=== PATIENT | female | born 1985 | race African-American/Black ===

== ENCOUNTER 2023-03-24 12:57 | Outpatient (OUT) | payer OTHER, SELFPAY ==
--- NOTE | 2023-03-24 | CONS_ITS ---
CONSULTATION DATE: ??03/24/2023 TO:? [facility] HISTORY:? Patient returns today complaining of pain in her right mid back area.? She describes this as 6-7/10 pain, sharp in character.? She states it is increased with activities such as standing, walking and performing transitioning maneuvers.? She feels most comfortable in the semi-recumbent position.? She denies any change in bowel or bladder habits or new sensorimotor changes in the lower extremities.? MEDICATION:? Current medication includes naproxen, which she takes 1-2 pills a day, for at least the last six months.? She uses this on an as needed basis.? She usually takes it several times a week.? She is also on baclofen 20 mg pills, one pill at h.s. p.r.n.? She reports these medications are effective, but still is not enough to reduce her pain level, and her pain level continues to affect her quality of life, level of functioning, sleep pattern and her work.? EXAMINATION:? Notable for patient having no clinical radiculopathy or myelopathy involving the lower extremities.? Patient did have severe pain with thoracolumbar facet loading maneuvers on the right side at T11 through L1, with associated severe myofascial spasm of the thoracolumbar paravertebral muscles, which would include but not limited to the thoracic iliocostalis.? IMPRESSION:? She completed physical therapy for her current condition.? Despite this, she still is quite symptomatic. RECOMMENDATIONS:? At this point, I recommend she proceed with a diagnostic right sided T11, T12 and L1 medial branch block under fluoroscopic guidance.? I have asked her to continue with her use of baclofen as ordered and her JOSE was 12.? As part of providing excellent, safe, comprehensive care, the following was completed at our patient's visit: 1. A medication reconciliation and review to ensure accurate knowledge of current/active medications, including asking our patients to inform us about any [id number]-[id number] medications or herbal remedies/nutritional supplements/alternative remedies. 2. A review to specifically ensure our patients have had annual screening for: elevated body mass index (BMI, see intake chart for exact total), tobacco use, screening for depression, and screening for unhealthy alcohol use.? When screening is concerning, patients are provided with education and the specific recommendation to discuss the concerning health issue and treatment options with their primary care provider. ANTHONYD
== END 2023-03-24 12:58 | disposition home or self-care (01) ==
LOC: PM 12:58
PROVIDERS: PCP Family Medicine; Visit Provider Anesthesiology Pain Medicine
DX: M54.89 Other dorsalgia (principal)
CPT/HCPCS: G0463

== ENCOUNTER 2023-05-31 14:54 | Outpatient (OUT) | payer OTHER, SELFPAY ==
--- NOTE | 2023-05-31 | CONS_ITS ---
CONSULTATION DATE: ??05/31/2023 HISTORY:? She returns today complaining of new onset pain in the right side of her chest area, right flank area, described as 5-7/10 pain, sharp in character with a numb component.? Seems to increase with activities such as standing, walking and performing transitioning maneuvers, as well as pushing and pulling movements are quite uncomfortable.? She feels most comfortable in the semi- recumbent position.? Denies any change in bowel and bladder habits or new sensorimotor changes in the lower extremities. EXAM:? Her examination is notable for patient having dysesthesia and hyperesthesia along the distribution of the right T11 and T12 intercostal nerve.? She had severe myofascial spasm of the right thoracic iliocostalis muscle, most severe again at about the T11 or T12 level.? IMPRESSION:? 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 RECOMMENDATIONS:? I have asked her to increase the baclofen 10 mg pills, 1-2 b.i.d.? I have also initiated Zonegran 50 mg at h.s. and to proceed with a diagnostic right sided T11 and T12 intercostal nerve injection under fluoroscopic guidance. As part of providing excellent, safe, comprehensive care, the following was completed at our patient's visit: 1. A medication reconciliation and review to ensure accurate knowledge of current/active medications, including asking our patients to inform us about any [id number]-etrmaqi medications or herbal remedies/nutritional supplements/alternative remedies. 2. A review to specifically ensure our patients have had annual screening for: elevated body mass index (BMI, see intake chart for exact total), tobacco use, screening for depression, and screening for unhealthy alcohol use.? When screening is concerning, patients are provided with education and the specific recommendation to discuss the concerning health issue and treatment options with their primary care provider. TONA
== END 2023-05-31 14:55 | disposition home or self-care (01) ==
PROVIDERS: PCP Family Medicine; Visit Provider Anesthesiology Pain Medicine
DX: M54.14 Radiculopathy, thoracic region (principal); G89.29 Other chronic pain
CPT/HCPCS: G0463

== ENCOUNTER 2023-06-21 10:26 | Day surgery (SDC) | payer OTHER, SELFPAY ==
--- NOTE | 2023-06-21 | OP_ITS ---
PROCEDURE DATE: ??06/21/2023 PROCEDURE:? Outpatient diagnostic right sided T11 and T12 intercostal nerve injection under fluoroscopic guidance. PREOPERATIVE DIAGNOSIS:? 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 POSTOPERATIVE DIAGNOSIS:? 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 SOLUTION USED FOR INJECTION:? Marcaine 0.25%. IMMEDIATE COMPLICATIONS:? None. PROCEDURE:? After informed consent was obtained from the patient, brought to the OR, placed in the prone position.? Skin overlying the area was prepped and draped in sterile fashion using Betadine.? A 25 gauge spinal needle was inserted at the level of the right T11 rib, approximately 3 cm from midline.?? Needle tip was advanced until it was encountered.? Needle was placed inferiorly, injecting Omnipaque dye.? After injecting Omnipaque dye, no indication of intravascular or intraneural or intrathecal or intrapleural needle tip placement.? 1 mL of solution was injected.? This was repeated in a similar fashion at the right T12 level.? Post-op needle was removed.? Transferred to recovery in stable condition.? Will be released home after meeting criteria. [facility]
[2023-06-21 10:35] VITALS: BP 129/87; PULSE 87; RESP 16; TEMP 36.6; O2SAT 100
[2023-06-21 11:29] VITALS: BP 138/63; PULSE 66; RESP 16; O2SAT 98
[2023-06-21] MEDS: METHYLPREDNISOLONE ACETATE 40 MG/ML VIAL 10 MG INJ (11:31)
[2023-06-21] MEDS: BUPIVACAINE HCL 0.25% PF 25 MG/10 ML VIAL 4 ML INJ (11:31)
[2023-06-21 11:32] VITALS: BP 138/66; PULSE 62; RESP 20; O2SAT 94
--- NOTE | 2023-06-21 11:39 | W.PM.PROCNOT ---
Date of procedure: 06/21/23 Pre-op diagnosis: Intercostal Neuritis Post-op diagnosis: same as pre-op
== END 2023-06-21 11:41 | disposition home or self-care (01) ==
LOC: SURGOUT 10:26
PROVIDERS: PCP Family Medicine; Visit Provider Anesthesiology Pain Medicine
DX: M54.14 Radiculopathy, thoracic region (principal)
CPT/HCPCS: 64420; 64421; 77002; J1030

== ENCOUNTER 2023-06-30 11:26 | Outpatient (OUT) | payer OTHER, SELFPAY ==
--- NOTE | 2023-06-30 11:58 | P.CN_ITS ---
Consult Note: HPI Data of Consult Patient: known to practice within the last 3 years Requesting Physician: Carol Tyler NP Primary Care Provider: Sharon Herring Consult Narrative Reason for consult: f/u Narrative: Eran Rankin a pleasant 37 year old female presents for evaluation and management of chronic pain. Pain today in right low back and right hip, rating it 6/10 with dull ache and pressure. Occasional pulling sesnation. Patient underwent right t11/12 intercostal nerve block with 80-90% pain relief and improvement for a few hours, now reporting 50% improvement. Patient doing well with zonegran, finds improvement in pain. cc:: CC: Carol Tyler NP Review of Systems ROS Status of ROS 10 or more systems reviewed and unremarkable except as noted in history and below Musculoskeletal Reports: back pain and joint pain Meds Home Medications and Allergies Home Medications Medication Instructions Recorded Confirmed Type albuterol sulfate 90 mcg/actuation 1 inh inhalation Q4H 06/01/23 06/21/23 History aerosol inhaler baclofen 10 mg tablet 10 mg PO BID PRN muscle spasm 06/01/23 06/21/23 History escitalopram oxalate 20 mg tablet 20 mg PO DAILY 06/01/23 06/21/23 History (Lexapro) hydroxyzine HCl 10 mg tablet 10 mg PO DAILY 06/01/23 06/21/23 History lisinopril 10 1 tab PO DAILY 06/01/23 06/21/23 History mg-hydrochlorothiazide 12.5 mg tablet naproxen 500 mg tablet 500 mg PO BID 06/01/23 06/21/23 History rosuvastatin 20 mg tablet 20 mg PO DAILY 06/01/23 06/21/23 History zonisamide 50 mg capsule 50 mg PO DAILY 06/01/23 06/21/23 History Allergies Allergy/AdvReac Type Severity Reaction Status Date / Time Penicillins Allergy Unknown Verified 06/01/23 08:17 Exam Constitutional Documenting provider has reviewed patient's vital signs: yes Common normals: no apparent distress, oriented x3, healthy appearing, alert and well nourished General appearance: cooperative Nutritional appearance: obese HENMT Common normals: normocephalic, hearing grossly normal bilaterally and moist oral mucous membranes Head and scalp: normocephalic Eye Common normals: PERRL Pupil: PERRL Neck & C-Spine Common normals: full ROM General: normal visual inspection Chest Common normals: inspection of chest normal Respiratory Common normals: normal respiratory effort, no retractions and no use of accessory muscles Back & Pelvis Thoracic spine/upper back: ROM limited and pain with ROM Lumbar spine/lower back: ROM limited and pain with ROM Neuro Common normals: oriented x3, CN's II-XII intact bilaterally, moves all extremities, no focal motor deficits, no sensory deficits noted and deep tendon reflexes 2+ bilaterally Sensorium/orientation: alert Motor exam: strength 5/5 throughout and no movement abnormalities noted Psych Common normals: mental status grossly normal, thought process normal, cooperative, affect normal, speech normal and activity/motor behavior normal Speech: normal speech Thought process: normal thought process Results Additional Findings Additional findings: I have checked an [facility] report on this patient today and there are no aberrancies noted in the prescribing history.?? A drug screen was completed and reviewed within the last year, and if there has not been a drug screen completed we ordered one today to monitor higher risk, state monitored pain medication use. As part of providing excellent, safe, comprehensive care, the following was c ompleted at our patient's visit: 1. A medication reconciliation and review to ensure accurate knowledge of current/active medications, including asking our patients to inform us about any gcmu-yha-hfugidw medications or herbal remedies/nutritional supplements/alternative remedies. 2. A review to specifically ensure our patients have had annual screening for: elevated body mass index (BMI), tobacco use, screening for depression, and screening for unhealthy alcohol use. When screening is concerning, patients are provided with education and the specific recommendation to discuss the concerning health issue and treatment options with their primary care provider. Assessment and Plan Assessment and Plan (1) Thoracic back pain: (2) Intercostal neuritis: (3) Right knee pain: Assessment and Plan: MRI tomorrow, continue f/u with ortho (4) Obesity: Assessment and Plan: The patient was counseled that proper dietary changes and consistent participation in a home exercise plan can lead to weight loss. Weight loss can help to improve functionality in patients with chronic pain.? Plan increase zonegran to 100mg HS f/u with Dr Oneill to evaluate and manage
== END 2023-06-30 11:27 | disposition home or self-care (01) ==
LOC: PM 11:27
PROVIDERS: PCP Family Medicine; Visit Provider Nurse Practitioner
DX: M54.6 Pain in thoracic spine (principal); M79.2 Neuralgia and neuritis, unspecified; M25.561 Pain in right knee; E66.9 Obesity, unspecified
CPT/HCPCS: G0463

== ENCOUNTER 2023-08-04 14:38 | Outpatient (OUT) | payer OTHER, SELFPAY ==
--- NOTE | 2023-08-04 | CONS_ITS ---
CONSULTATION DATE: 08/04/2023 TO: [facility] CHIEF COMPLAINT: Includes right mid back pain, flank pain. HISTORY: She reports the pain as being 6/10, dull, achy in character, increased with activities such as standing, walking and performing transitioning maneuvers. Pushing/pulling maneuvers are also quite painful. She feels most comfortable in the semi-recumbent position. Denies any change in bowel and bladder habits or new sensorimotor changes in the lower extremities. Her last procedure was a right sided T11 and T12 intercostal nerve injection under fluoroscopic guidance. Her pain was dramatically improved by at least 90% in the immediate post procedural period, lasting for several hours, with the recurrence of pain not back to her baseline. She currently is still doing fairly well. She reports the pain is manageable with the current regimen of Zonegran and baclofen. CURRENT MEDICATION: She is currently on Zonegran 50 mg at h.s. and baclofen 10 mg pills, half a pill daily to b.i.d. EXAM: On examination, she has some mild dysesthesia along the distribution of the right T11/T12 intercostal nerve and anterior intercostal nerve as well. She had, otherwise, a non-focal sensorimotor exam of her lower extremities. DTRs are symmetrical. She had no signs consistent with myelopathy. 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 It appears to be stable at the current time with her current regimen. RECOMMENDATIONS: Since she is doing well, we will see the patient back in the office in the office in three months? time or sooner if needed. As part of providing excellent, safe, comprehensive care, the following was completed at our patient's visit: 1. A medication reconciliation and review to ensure accurate knowledge of current/active medications, including asking our patients to inform us about any ntdy-wuh-yqbsvhh medications or herbal remedies/nutritional supplements/alternative remedies. 2. A review to specifically ensure our patients have had annual screening for: elevated body mass index (BMI, see intake chart for exact total), tobacco use, screening for depression, and screening for unhealthy alcohol use. When screening is concerning, patients are provided with education and the specific recommendation to discuss the concerning health issue and treatment options with their primary care provider. TONA
--- OUTSIDE RECORDS SUMMARY | 2023-08-04 14:41 | XMS_ITS | CCD ---
Author Name Unknown Address [address] [place] [address] Organization [facility] Care Team Providers Care Resume Specialist Name Role Phone GISELLA ., DR MARTINEZ Consulting Unavailable GISELLA ., DR MARTINEZ Attending Unavailable [facility] Unava ilable GISELLA ., DR MARTINEZ Admitting Unavailable GISELLA ., DR MARTINEZ Consulting Unavailable GISELLA ., DR MARTINEZ Attending Unavailable [facility] Unava ilable GISELLA ., DR MARTINEZ Admitting Unavailable GISELLA ., DR MARTINEZ Attending Unavailable [facility] Unava ilable GISELLA ., DR MARTINEZ Consulting Unavailable GISELLA ., DR MARTINEZ Admitting Unavailable GISELLA ., DR MARTINEZ Admitting Unavailable GISELLA ., DR MARTINEZ Attending Unavailable [facility] Unava ilable GISELLA ., DR MARTINEZ Consulting Unavailable JUAN CLARK Consulting Unavailable NICK BRUNO Consulting Unava ilable GISELLA ., DR MARTINEZ Consulting Unavailable GISELLA ., DR MARTINEZ Attending Unavailable GISELLA ., DR MARTINEZ Admitting Unavailable [facility] Unava ilable GISELLA ., DR MARTINEZ Consulting Unavailable GISELLA ., DR MARTINEZ Attending Unavailable GISLELA ., DR MARTINEZ Admitting Unavailable [facility] Unava ilable GISELLA ., DR MARTINEZ Consulting Unavailable GISELLA ., DR MARTINEZ Attending Unavailable GISELLA ., DR MARTINEZ Admitting Unavailable [facility] Unava ilable RUMSCHLAG, RASHID Primary Care Unavailable ZIEBER, DR DIANA Del Real Consulting Unavailable LAKSHMIPATHY ., NARENDRANATH Attending Ivy vailable LAKSHMIPATHY ., NARENDDAYNEATH Admitting Ivy vailable LAKSHMIPATHY ., NARRAFAEL Consulting Ivy vailable GISELLA ., DR MARTINEZ Attending Unavailable [facility] Unava ilable GISELLA ., DR MARTINEZ Admitting Unavailable ANTONIO BRADLEY Consulting Unavailable GISELLA ., DR MARTINEZ Consulting Unavailable [facility] Consulting Unava ilable GISELLA ., DR MARTINEZ Consulting Unavailable GISELLA ., DR MARTINEZ Attending Unavailable [facility] Unava ilable GISELLA ., DR MARTINEZ Admitting Unavailable SHARP, MEHREEN Consulting Unavailable DALTON II, RIOS Consulting Unavailable FILUTZE, BAYRON Consulting Unavailable LAKSHMIPATHY ., NARENDRANATH Consulting Ivy vailable LAKSHMIPATHY ., MARÍA Attending Ivy vailable WENDI [facility] Unavailable LAKSHMIPATHY ., MARÍA Admitting Ivy vailable GISELLA ., DR MARTINEZ Attending Unavailable GISELLA ., DR MARTINEZ Admitting Unavailable GISELLA ., DR MARTINEZ Consulting Unavailable [facility] Unava ilable LAY RUIZ Attending Unavailable Allergies Allergy Classification Reported Allergen(s) Allergy Type Date of Onset Reaction(s) Facility (2 sources) Penicillins Drug allergy (disorder) 06-11-2019 [facility] Repository Problems Active Problems Problem Classification Problem Date Documented Da te Episodic/Chronic Disorders of lipid metabolism (1 source) Hyperlipidemia, unspecified; Translations: [HYPERLIPIDEMIA UNSPECIFIED] Onset: 06-09-2022 Chronic Endometriosis (5 sources) Endometriosis, unspecified; Translations: [ENDOMETRIOSIS UNSPECIFIED] Onset: 08-30-2022 Chronic Essential hypertension (1 source) Essential (primary) hypertension; Translations: [ESSENTIAL PRIMARY HYPERTENSION] Onset: 06-09-2022 Chronic Menstrual disorders (2 sources) Excessive and frequent menstruation with regular cycle; Translations: [Dysmenorrhea, unspecified] Onset: 09-07-2022 Chronic Other connective tissue disease (1 source) Other muscle spasm; Translations: [OTHER MUSCLE SPASM] Onset: 12-21-2022 Episodic Other female genital disorders (1 source) Unspecified dyspareunia; Translations: [UNSPECIFIED DYSPAREUNIA] Onset: 09-07-2022 Chronic Other female genital disorders (1 source) Abnormal uterine and vaginal bleeding, unspecified; Translations: [ABNORMAL UTERINE VAGINAL BLEED UNS] Onset: 09-07-2022 Chronic Other nervous system disorders (1 source) Other chronic pain; Translations: [OTHER CHRONIC PAIN] Onset: 12-21-2022 Chronic Other nutritional; endocrine; and metabolic disorders (4 sources) Body mass index (BMI) 50.0-59.9, adult; Translations: [BODY MASS INDEX BMI 50.0-59.9 ADULT] Onset: 07-27-2022 Chronic Other nutritional; endocrine; and metabolic disorders (1 source) Morbid (severe) obesity due to excess calories; Translations: [MORBID SEVERE OBES D/T EXCESS RJ] Onset: 06-09-2022 Chronic Other nutritional; endocrine; and metabolic disorders (1 source) Body mass index (BMI) 60.0-69.9, adult; Translations: [BODY MASS INDEX BMI 60.0-69.9 ADULT] Onset: 06-09-2022 Chronic Prolapse of female genital organs (1 source) Uterovaginal prolapse, unspecified; Translations: [UTEROVAGINAL PROLAPSE UNSPECIFIED] Onset: 09-07-2022 Chronic Spondylosis; intervertebral disc disorders; other back problems (5 sources) Spondylosis without myelopathy or radiculopathy, lumbosacral region; Translations: [Spondylosis without myelopathy or radiculopathy, lumbar region] Onset: 12-14-2022 Chronic Substance-related disorders (1 source) Nicotine dependence, cigarettes, uncomplicated; Translations: [NICOTINE DEPEND CIGARETTES UNCOMP] Onset: 06-09-2022 Chronic Unclassified (1 source) CONTACT W/AND (SUSP) EXPOS COVID-19; Translations: [CONTACT W/AND (SUSP) EXPOS COVID-19] Onset: 09-02-2022 Past or Other Problems Problem Classification Problem Date Documented Date Episodic/Chronic Abdominal pain (6 sources) Pelvic and perineal pain; Translations: [Right lower quadrant pain] Onset: 05-26-2022 Episodic Benign neoplasm of uterus (6 sources) Other benign neoplasm of uterus, unspecified; Translations: [Leiomyoma of uterus, unspecified] Onset: 05-05-2022 Episodic Contraceptive and procreative management (1 source) Tubal ligation status; Translations: [TUBAL LIGATION STATUS] Onset: 09-07-2022 Episodic Immunizations and screening for infectious disease (1 source) Encounter for screening for human papillomavirus (HPV); Translations: [ENC SCREENING HUMAN PAPILLOMAVIRUS] Onset: 07-07-2022 Episodic Other female genital disorders (1 source) Hypertrophy of uterus; Translations: [HYPERTROPHY OF UTERUS] Onset: 09-07-2022 Episodic Other female genital disorders (1 source) Other noninflammatory disorders of ovary, fallopian tube and broad ligament; Translations: [OTH NONINFL D/O OVARY TUBE AND BRD LIG] Onset: 09-07-2022 Episodic Other screening for suspected conditions (not mental disorders or infectious disease) (4 sources) Encounter for screening for malignant neoplasm of cervix; Translations: [ENC SCREENING MALIG NEOPLASM CERV] Onset: 07-05-2022 Episodic Ovarian cyst (1 source) Other ovarian cyst, right side; Translations: [OTHER OVARIAN CYST RIGHT SIDE] Onset: 04-25-2022 Episodic Results Test Name Value Interpretation Reference Range Facility XR LSPINE 2_3 VIEWSon 2022 XR LSPINE 2_3 VIEWS EXAMINATION: XR LSPI NE 2_3 VIEWS HISTORY: Lumbar spondylosis COMPARISON: No relevant comparison available. FINDINGS: BONES: No significant spondylosis, scoliosis, fracture, or visible bony lesion. DISC SPACES: No significant disc height narrowing, subluxation, or endplate abnormality. PARASPINOUS: Negative. No paraspinous abnormality is seen. OTHER: Negative. IMPRESSION: 1. No acute bone abnormality. 2. No appreciable significant disc space narrowing or degenerative facet arthropathy. Electronically authenticated by: DIANA LUONG Date: 2022-12-14 16:25 Normal [facility] BUNon 08-31-2022 Urea nitrogen [Mass/Vol] 9.0 mg/dL Normal 7.0-18.0 [facility] Comment on above: Performed By: #### C BC #### [facility] [address] [address] [address] Rose Lafleur CBC AUTO DIFFon 08-31-2022 BASO # 0.0 103/ul Normal 0.0-0.1 [facility] Comment on above: Performed By: #### C BC #### [facility] [address] [address] [address] Rose Lafleur Basophils/100 WBC (Bld) 0.1 % Critically low 0.2-2.0 [facility] Comment on above: Performed By: #### C BC #### [facility] [address] [place] [address] Dr. Rose Lafleur EO # 0.0 103/ul Normal 0.0-0.7 [facility] Comment on above: Performed By: #### C BC #### [facility] [address] [place] [address] Dr. Rose Lafleur Eosinophils/100 WBC (Bld) 0.0 % Critically low 0.9-7.0 [facility] Comment on above: Performed By: #### C BC #### [facility] [address] [place] [address] Dr. Rose Lafleur Erythrocyte distribution width (RBC) [Ratio] 13.2 % Normal 11.0-15.0 [facility] Comment on above: Performed By: #### C BC #### [facility] [address] [place] [address] Dr. Rose Lafleur Hematocrit (Bld) [Volume fraction] 38.5 % Normal 36.0-48.0 [facility] Comment on above: Performed By: #### C BC #### [facility] [address] [place] [address] Dr. Rose Lafleur Hemoglobin (Bld) [Mass/Vol] 12.7 g/dL Normal 12.0-16.0 [facility] Comment on above: Performed By: #### C BC #### [facility] [address] [place] [address] Dr. Rose Lafleur IG # 0.07 10e3/ul Critically high 0.00-0.03 [facility] Comment on above: Performed By: #### C BC #### [facility] [address] [place] [address] Dr. Rose Lafleur IG % 0.4 % Normal 0.0-0.5 [facility] Comment on above: Performed By: #### C BC #### [facility] [address] [place] [address] Dr. oRse Lafleur LYMPH # 2.3 103/ul Normal 1.2-3.8 [facility] Comment on above: Performed By: #### C BC #### [facility] [address] [place] [address] Dr. Rose Lafleur Lymphocytes/100 WBC (Bld) 14.3 % Critically low 20.5-60.0 [facility] Comment on above: Performed By: #### C BC #### [facility] [address] [place] [address] Dr. Rose Lafleur MANUAL DIFF REQ NO Normal [facility] Comment on above: Performed By: #### C BC #### [facility] [address] [place] [address] Dr. Rose Lafleur MCH (RBC) [Entitic mass] 28.6 pg Normal 26.7-34.0 [facility] Comment on above: Performed By: #### C BC #### [facility] [address] [place] [address] Dr. Rose Lafleur MCHC (RBC) [Mass/Vol] 33.0 g/dL Normal 29.9-35.2 [facility] Comment on above: Performed By: #### C BC #### [facility] [address] [place] [address] Dr. Rose Lafleur MCV (RBC) [Entitic vol] 86.7 fL Normal 81.0-99.0 [facility] Comment on above: Performed By: #### C BC #### [facility] [address] [place] [address] Dr. Rose Lafleur MONO # 0.9 103/ul Critically high 0.3-0.8 [facility] Comment on above: Performed By: #### C BC #### [facility] [address] [place] [address] Dr. Rose Lafleur Monocytes/100 WBC (Bld) 5.5 % Normal 1.7-12.0 [facility] Comment on above: Performed By: #### C BC #### [facility] [address] [place] [address] Dr. Rose Lafleur NEUT # 12.8 103/ul Critically high 1.4-6.5 [facility] Comment on above: Performed By: #### C BC #### [facility] [address] [place] [address] Dr. Rose Lafleur Neutrophils/100 WBC (Bld) 79.7 % Critically high 43.0-75.0 [facility] Comment on above: Performed By: #### C BC #### [facility] [address] [place] [address] Dr. Rose Lafleur Platelet mean volume (Bld) [Entitic vol] 8.9 fL Critically low 9.5-13.5 [facility] Comment on above: Performed By: #### C BC #### [facility] [address] [place] [address] Dr. Rose Lafleur PLT 330 103/ul Normal 150-450 [facility] Comment on above: Performed By: #### C BC #### [facility] [address] [place] [address] Dr. Rose Lafleur RBC 4.44 106/ul Normal 4.20-5.40 [facility] Comment on above: Performed By: #### C BC #### [facility] [address] [place] [address] Dr. Rose Lafleur WBC 16.1 103/ul Critically high 4.0-11.0 [facility] Comment on above: Performed By: #### C BC #### [facility] [address] [place] [address] Dr. Rose Lafleur CREATININEon 08-31-2022 Creatinine [Mass/Vol] 0.59 mg/dL Normal 0.55-1.02 [facility] Comment on above: Performed By: #### C BC #### [facility] [address] [place] [address] Dr. Rose Lafleur EGFR-AF MARTINIQUAIS >60 Normal >=60 [facility] Comment on above: Performed By: #### C BC #### [facility] [address] [place] [address] Dr. Rose Lafleur EGFR-NON AF MARTINIQUAIS >60 Normal >=60 [facility] Comment on above: Performed By: #### C BC #### [facility] [address] [place] [address] Dr. Rose Lafleur PREG HCG QUALon 08-30-2022 , QUAL Negative Normal NEGATIVE [facility] Comment on above: Performed By: #### P REG #### [facility] [address] [place] [address] Dr. Rose Lafleur Covid-19 PCR (CVDTB)on 08-15 SARS-CoV-2 (COVID-19) RNA RUDY+probe Ql (Unsp spec) Not detected Normal NOT DETECTED [facility] Comment on above: Result Comment: This test is not yet approved or cleared by the [place] FDA. When there are no FDA-approved or cleared tests available, and other criteria are met, FDA can make tests available under an emergency access mechanism called an Emergency Use Authorization (EUA). The EUA for this test is supported by the Division Service Manager of Health and Human Service's (HHS's) declaration that circumstances exist to justify the emergency use of in vitro diagnostics for the detection and/or diagnosis of the virus that causes COVID-19. This EUA will remain in effect (meaning this test can be used) for the duration of the COVID-19 declaration justifying emergency of IVDs, unless it is terminated or revoked by FDA (after which the test may no longer be used). When diagnostic testing is negative, the possibility of a false negative should be considered in the context of a patient's recent exposures and the presence of clinical signs and symptoms consistent with SARS-CoV-2. Performed By: #### L DH #### [facility] [address] [place] [address] Dr. Rose Lafleur TYPE AND SCREENon 08-26-2022 TYPE AND SCREEN Negative Normal [facility] Comment on above: Performed By: #### L DH #### [facility] [address] [place] [address] Dr. Rose Lafleur CBC AUTO DIFFon 08-16-2022 BASO # 0.0 103/ul Normal 0.0-0.1 [facility] Comment on above: Performed By: #### C BC #### [facility] [address] [place] [address] Dr. Rose Lafleur Basophils/100 WBC (Bld) 0.3 % Normal 0.2-2.0 [facility] Comment on above: Performed By: #### C BC #### [facility] [address] [place] [address] Dr. Rose Lafleur EO # 0.2 103/ul Normal 0.0-0.7 [facility] Comment on above: Performed By: #### C BC #### [facility] [address] [place] [address] Dr. Rose Lafleur Eosinophils/100 WBC (Bld) 1.7 % Normal 0.9-7.0 [facility] Comment on above: Performed By: #### C BC #### [facility] [address] [place] [address] Dr. Rose Lafleur Erythrocyte distribution width (RBC) [Ratio] 13.1 % Normal 11.0-15.0 [facility] Comment on above: Performed By: #### C BC #### [facility] [address] [place] [address] Dr. Rose Lafleur Hematocrit (Bld) [Volume fraction] 40.6 % Normal 36.0-48.0 [facility] Comment on above: Performed By: #### C BC #### [facility] [address] [place] [address] Dr. Rose Lafleur Hemoglobin (Bld) [Mass/Vol] 13.4 g/dL Normal 12.0-16.0 [facility] Comment on above: Performed By: #### C BC #### [facility] [address] [place] [address] Dr. Rose Lafleur IG # 0.02 10e3/ul Normal 0.00-0.03 [facility] Comment on above: Performed By: #### C BC #### [facility] [address] [place] [address] Dr. Rose Lafleur IG % 0.2 % Normal 0.0-0.5 [facility] Comment on above: Performed By: #### C BC #### [facility] [address] [place] [address] Dr. Rose Lafleur LYMPH # 2.8 103/ul Normal 1.2-3.8 [facility] Comment on above: Performed By: #### C BC #### [facility] [address] [place] [address] Dr. Rose Lafleur Lymphocytes/100 WBC (Bld) 31.7 % Normal 20.5-60.0 [facility] Comment on above: Performed By: #### C BC #### [facility] [address] [place] [address] Dr. Rose Lafleur MANUAL DIFF REQ NO Normal [facility] Comment on above: Performed By: #### C BC #### [facility] [address] [place] [address] Dr. Roes Lafleur MCH (RBC) [Entitic mass] 28.5 pg Normal 26.7-34.0 [facility] Comment on above: Performed By: #### C BC #### [facility] [address] [place] [address] Dr. Rose Lafleur MCHC (RBC) [Mass/Vol] 33.0 g/dL Normal 29.9-35.2 [facility] Comment on above: Performed By: #### C BC #### [facility] [address] [place] [address] Dr. Rose Lafleur MCV (RBC) [Entitic vol] 86.4 fL Normal 81.0-99.0 [facility] Comment on above: Performed By: #### C BC #### [facility] [address] [place] [address] Dr. Rose Lafleur MONO # 0.6 103/ul Normal 0.3-0.8 [facility] Comment on above: Performed By: #### C BC #### [facility] [address] [place] [address] Dr. Rose Lafleur Monocytes/100 WBC (Bld) 6.8 % Normal 1.7-12.0 [facility] Comment on above: Performed By: #### C BC #### [facility] [address] [place] [address] Dr. Rose Lafleur NEUT # 5.1 103/ul Normal 1.4-6.5 [facility] Comment on above: Performed By: #### C BC #### [facility] [address] [place] [address] Dr. Rose Lafleur Neutrophils/100 WBC (Bld) 59.3 % Normal 43.0-75.0 [facility] Comment on above: Performed By: #### C BC #### [facility] [address] [place] [address] Dr. Rose Lafleur Platelet mean volume (Bld) [Entitic vol] 8.9 fL Critically low 9.5-13.5 [facility] Comment on above: Performed By: #### C BC #### [facility] [address] [place] [address] Dr. oRse Lafleur PLT 312 103/ul Normal 150-450 [facility] Comment on above: Performed By: #### C BC #### [facility] [address] [place] [address] Dr. Rose Lafleur RBC 4.70 106/ul Normal 4.20-5.40 [facility] Comment on above: Performed By: #### C BC #### [facility] [address] [place] [address] Dr. Rose Lafleur WBC 8.7 103/ul Normal 4.0-11.0 [facility] Comment on above: Performed By: #### C BC #### [facility] [address] [place] [address] Dr. Rose Lafleur LIVER PROFILEon 08-16-2022 Albumin [Mass/Vol] 2.9 g/dL Critically low 3.4-5.0 [facility] Comment on above: Performed By: #### B MP, LIVER #### [facility] [address] [place] [address] Dr. Rose Lafleur Albumin/Globulin [Mass ratio] 0.6 {ratio} Normal [facility] Comment on above: Performed By: #### B MP, LIVER #### [facility] [address] [place] [address] Dr. Rose Lafleur ALP [Catalytic activity/Vol] 121 U/L Critically high 46-116 [facility] Comment on above: Performed By: #### B MP, LIVER #### [facility] [address] [address] [address] Rose Lafleur ALT [Catalytic activity/Vol] 21 U/L Normal 14-59 [facility] Comment on above: Performed By: #### B MP, LIVER #### [facility] [address] [address] [address] Rose Lafleur AST [Catalytic activity/Vol] 20 U/L Normal 15-37 [facility] Comment on above: Performed By: #### B MP, LIVER #### [facility] [address] [place] [address] Dr. Rose Lafleur BILI, CONJUGATED 0.1 mg/dL Normal 0.0-0.2 [facility] Comment on above: Performed By: #### B MP, LIVER #### [facility] [address] [place] [address] Dr. Rose Lafleur Bilirubin [Mass/Vol] 0.3 mg/dL Normal 0.2-1.0 [facility] Comment on above: Performed By: #### B MP, LIVER #### [facility] [address] [place] [address] Dr. Rose Lafleur Globulin (S) [Mass/Vol] 4.8 g/dL Normal [facility] Comment on above: Performed By: #### B MP, LIVER #### [facility] [address] [place] [address] Dr. Rose Lafleur Protein [Mass/Vol] 7.7 g/dL Normal 6.4-8.2 [facility] Comment on above: Performed By: #### B MP, LIVER #### [facility] [address] [place] [address] Dr. Rose Lafleur PROF CHEM 8 (BAS METB)on Anion gap [Moles/Vol] 10.9 mmol/L Normal [facility] Comment on above: Performed By: #### B MP, LIVER #### [facility] [address] [place] [address] Dr. Rose Lafleur Calcium [Mass/Vol] 8.8 mg/dL Normal 8.5-10.1 [facility] Comment on above: Performed By: #### B MP, LIVER #### [facility] [address] [place] [address] Dr. Rose Lafleur Chloride [Moles/Vol] 102 mmol/L Normal 98-107 [facility] Comment on above: Performed By: #### B MP, LIVER #### [facility] [address] [place] [address] Dr. Rose Lafleur CO2 [Moles/Vol] 26.1 mmol/L Normal 21.0-32.0 [facility] Comment on above: Performed By: #### B MP, LIVER #### [facility] [address] [place] [address] Dr. Rose Lafleur Creatinine [Mass/Vol] 0.64 mg/dL Normal 0.55-1.02 [facility] Comment on above: Performed By: #### B MP, LIVER #### [facility] [address] [place] [address] Dr. Rose Lafleur EGFR-AF MARTINIQUAIS >60 Normal >=60 [facility] Comment on above: Performed By: #### B MP, LIVER #### [facility] [address] [place] [address] Dr. Rose Lafleur EGFR-NON AF MARTINIQUAIS >60 Normal >=60 [facility] Comment on above: Performed By: #### B MP, LIVER #### [facility] [address] [place] [address] Dr. Rose Lafleur Glucose [Mass/Vol] 90 mg/dL Normal 74-106 [facility] Comment on above: Performed By: #### B MP, LIVER #### [facility] [address] [place] [address] Dr. Rose Lafleur Potassium [Moles/Vol] 4.0 mmol/L Normal 3.5-5.1 [facility] Comment on above: Performed By: #### B MP, LIVER #### [facility] Laboratory [address] [place] [address] Dr. Rose Lafleur Sodium [Moles/Vol] 135 mmol/L Critically low 136-145 Th e [facility] Comment on above: Performed By: #### B MP, LIVER #### [facility] Laboratory [address] [place] [address] Dr. Rose Lafleur Urea nitrogen [Mass/Vol] 12.0 mg/dL Normal 7.0-18.0 [facility] Comment on above: Performed By: #### B MP, LIVER #### [facility] [address] [place] [address] Dr. Rose Lafleur Urea nitrogen/Creatinine [Mass ratio] 18.8 mg/mg Normal [facility] Comment on above: Performed By: #### B MP, LIVER #### [facility] [address] [place] [address] Dr. Rose Lafleur PROTIMEon 08-16-2022 INR Coag (PPP) [Relative time] 0.95 {INR} Normal [facility] Comment on above: Performed By: #### C BC #### [facility] [address] [place] [address] Dr. Rose Lafleur INR GUIDELINES SEE BELOW Normal [facility] Comment on above: Result Comment: JAYLYN RED INR: 2.0 - 3.0 CONDITIONS NOT LISTED BELOW 2.5 - 3.5 FOR PROSTHETIC HEART VALVE REPLACEMENT 2.5 - 3.5 RECURRENT THROMBOSIS Performed By: #### C BC #### [facility] [address] [place] [address] Dr. Rose Lafleur PT Coag (PPP) [Time] 10.3 s Normal 9.0-11.6 [facility] Comment on above: Performed By: #### C BC #### [facility] [address] [place] [address] Dr. Rose Lafleur PTTon 08-16-2022 aPTT Coag (Bld) [Time] 32.0 s Normal 22.3-36.2 [facility] Comment on above: Performed By: #### C BC #### [facility] [address] [place] [address] Dr. Rose Lafleur GLYCOHEMOGLOBIN A1Con 2021 ADA RECOMMENDATION SEE BELOW Normal [facility] Comment on above: Result Comment: ADA RECOMMENDED LIMIT 4.0 - 6.0 ADA THERAPEUTIC TARGET < 7.0 ACTION SUGGESTED > 7.0 Performed By: #### C BC #### [facility] [address] [place] [address] Dr. Rose Lafleur Glucose [Mass/Vol] 108 mg/dL Normal [facility] Comment on above: Performed By: #### C BC #### [facility] [address] [place] [address] Dr. Rose Lafleur HbA1c (Bld) [Mass fraction] 5.4 % Normal 4.5-6.2 [facility] Comment on above: Performed By: #### C BC #### [facility] [address] [place] [address] Dr. Rose Lafleur PAP ACOG PANEL 2: 30 to 65on 07-14-2022 . . Normal [facility] Comment on above: Result Comment: Perf ormed at: WB Performed By: #### C BC #### [facility] [address] [place] [address] Dr. Rose Lafleur Age Gdln ACOG Testing 30-65 Normal [facility] Comment on above: Performed By: #### C BC #### [facility] [address] [place] [address] Dr. Rose Lafleur DIAGNOSIS: Comment Normal [facility] Comment on above: Result Comment: NEGA TIVE FOR INTRAEPITHELIAL LESION OR MALIGNANCY. CELLULAR CHANGES ASSOCIATED WITH INFLAMMATION ARE PRESENT. Performed at: WB Performed By: #### C BC #### [facility] [address] [place] [address] Dr. Rose Lafleur HPV Aptima Negative Normal Negative [facility] Comment on above: Result Comment: This nucleic acid amplification test detects fourteen high-risk HPV types (16,18,31,33,35,39,45,51,52,56,58,59,66,68) without differentiation. Performed at: =G Performed By: #### C BC #### [facility] [address] [place] [address] Dr. Rose Lafleur HPV Genotype Reflex Comment Normal [facility] Comment on above: Result Comment: Crit eria not met, HPV Genotype not performed. Performed at: WB Performed By: #### C BC #### [facility] [address] [place] [address] Dr. Rose Lafleur Methodology: CTIM Normal [facility] Comment on above: Result Comment: The Thin Prep(R) Flying Instructor was unable to read this specimen. Therefore a manual review was performed. Performed at: WB Performed By: #### C BC #### [facility] [address] [place] [address] Dr. Rose Lafleur Note: Comment Normal [facility] Comment on above: Result Comment: The Pap smear is a screening test designed to aid in the detection of premalignant and malignant conditions of the uterine cervix. It is not a diagnostic procedure and should not be used as the sole means of detecting cervical cancer. Both false-positive and false-negative reports do occur. . Performed at: WB Performed By: #### C BC #### [facility] [address] [place] [address] Dr. Rose Lafleur Performed by: Comment Normal [facility] Comment on above: Result Comment: Cind jimenez Wolff, Motorcycle Racer (ASCP) Performed at: WB Performed By: #### C BC #### [facility] [address] [place] [address] Dr. Rose Lafleur Specimen adequacy: Comment Normal [facility] Comment on above: Result Comment: Sati sfactory for evaluation. No endocervical component is identified. Performed at: WB Performed By: #### C BC #### [facility] [address] [place] [address] Dr. Rose Lafleur CBC AUTO DIFFon 05-26-2022 BASO # 0.0 103/ul Normal 0.0-0.1 [facility] Comment on above: Performed By: #### C BC #### [facility] [address] [place] [address] Dr. Rose Lafleur Basophils/100 WBC (Bld) 0.4 % Normal 0.2-2.0 [facility] Comment on above: Performed By: #### C BC #### [facility] [address] [place] [address] Dr. Rose Lafleur EO # 0.1 103/ul Normal 0.0-0.7 [facility] Comment on above: Performed By: #### C BC #### [facility] [address] [place] [address] Dr. Rose Lafleur Eosinophils/100 WBC (Bld) 1.2 % Normal 0.9-7.0 [facility] Comment on above: Performed By: #### C BC #### [facility] [address] [place] [address] Dr. Rose Lafleur Erythrocyte distribution width (RBC) [Ratio] 13.6 % Normal 11.0-15.0 [facility] Comment on above: Performed By: #### C BC #### [facility] [address] [place] [address] Dr. Rose Lafleur Hematocrit (Bld) [Volume fraction] 41.6 % Normal 36.0-48.0 [facility] Comment on above: Performed By: #### C BC #### [facility] [address] [place] [address] Dr. Rose Lafleur Hemoglobin (Bld) [Mass/Vol] 13.3 g/dL Normal 12.0-16.0 [facility] Comment on above: Performed By: #### C BC #### [facility] [address] [place] [address] Dr. Rose Lafleur IG # 0.03 10e3/ul Normal 0.00-0.03 [facility] Comment on above: Performed By: #### C BC #### [facility] [address] [place] [address] Dr. Rose Lafleur IG % 0.3 % Normal 0.0-0.5 [facility] Comment on above: Performed By: #### C BC #### [facility] [address] [place] [address] Dr. Rose Lafleur LYMPH # 3.8 103/ul Normal 1.2-3.8 [facility] Comment on above: Performed By: #### C BC #### [facility] [address] [place] [address] Dr. Rose Lafleur Lymphocytes/100 WBC (Bld) 39.8 % Normal 20.5-60.0 [facility] Comment on above: Performed By: #### C BC #### [facility] [address] [place] [address] Dr. Rose Lafleur MANUAL DIFF REQ NO Normal [facility] Comment on above: Performed By: #### C BC #### [facility] [address] [place] [address] Dr. Rose Lafleur MCH (RBC) [Entitic mass] 28.5 pg Normal 26.7-34.0 [facility] Comment on above: Performed By: #### C BC #### [facility] [address] [place] [address] Dr. Rose Lafleur MCHC (RBC) [Mass/Vol] 32.0 g/dL Normal 29.9-35.2 [facility] Comment on above: Performed By: #### C BC #### [facility] [address] [place] [address] Dr. Rose Lafleur MCV (RBC) [Entitic vol] 89.3 fL Normal 81.0-99.0 [facility] Comment on above: Performed By: #### C BC #### [facility] [address] [place] [address] Dr. Rose Lafleur MONO # 0.6 103/ul Normal 0.3-0.8 [facility] Comment on above: Performed By: #### C BC #### [facility] [address] [place] [address] Dr. Rose Lafleur Monocytes/100 WBC (Bld) 6.5 % Normal 1.7-12.0 [facility] Comment on above: Performed By: #### C BC #### [facility] [address] [place] [address] Dr. Rose Lafleur NEUT # 4.9 103/ul Normal 1.4-6.5 [facility] Comment on above: Performed By: #### C BC #### [facility] [address] [place] [address] Dr. Rose Lafleur Neutrophils/100 WBC (Bld) 51.8 % Normal 43.0-75.0 [facility] Comment on above: Performed By: #### C BC #### [facility] [address] [address] [address] Rose Lafleur Platelet mean volume (Bld) [Entitic vol] 8.9 fL Critically low 9.5-13.5 [facility] Comment on above: Performed By: #### C BC #### [facility] [address] [place] [address] Dr. Rose Lafleur PLT 310 103/ul Normal 150-450 [facility] Comment on above: Performed By: #### C BC #### [facility] [address] [place] [address] Dr. Rose Lafleur RBC 4.66 106/ul Normal 4.20-5.40 [facility] Comment on above: Performed By: #### C BC #### [facility] [address] [place] [address] Dr. Rose Lafleur WBC 9.5 103/ul Normal 4.0-11.0 [facility] Comment on above: Performed By: #### C BC #### [facility] [address] [place] [address] Dr. Rose Lafleur PREG HCG QUALon 05-26-2022 , QUAL Negative Normal NEGATIVE [facility] Comment on above: Performed By: #### P REG #### [facility] [address] [place] [address] Dr. Rose Lafleur [facility]on SARS-CoV-2 (COVID-19) RNA RUDY+probe Ql (Unsp spec) Not detected Normal NOT DETECTED [facility] Comment on above: Result Comment: This test is not yet approved or cleared by the [place] FDA. When there are no FDA-approved or cleared tests available, and other criteria are met, FDA can make tests available under an emergency access mechanism called an Emergency Use Authorization (EUA). The EUA for this test is supported by the Division Service Manager of Health and Human Service's (HHS's) declaration that circumstances exist to justify the emergency use of in vitro diagnostics for the detection and/or diagnosis of the virus that causes COVID-19. This EUA will remain in effect (meaning this test can be used) for the duration of the COVID-19 declaration justifying emergency of IVDs, unless it is terminated or revoked by FDA (after which the test may no longer be used). When diagnostic testing is negative, the possibility of a false negative should be considered in the context of a patient's recent exposures and the presence of clinical signs and symptoms consistent with SARS-CoV-2. Performed By: #### C BC #### [facility] [address] [place] [address] Dr. Rose Lafleur AFP (TUMOR MARKER)on 022 AFP, Serum, Tumor Marker 1.6 ng/mL Normal 0.0-6.4 [facility] Comment on above: Result Comment: [facility] [employer] Electrochemiluminescence Immunoassay (ECLIA) . Values obtained with different assay methods or kits cannot be used interchangeably. Results cannot be interpreted as absolute evidence of the presence or absence of malignant disease. . This test is not interpretable in females. Performed By: #### C BC #### [facility] [address] [place] [address] Dr. Rose Lafleur CA 125on 05-07-2022 Cancer Antigen (CA) 125 17.1 U/mL Normal 0.0-38.1 [facility] Comment on above: Result Comment: [employer] Electrochemiluminescence Immunoassay (ECLIA) . Values obtained with different assay methods or kits cannot be used interchangeably. Results cannot be interpreted as absolute evidence of the presence or absence of malignant disease. Performed By: #### L DH #### [facility] [address] [place] [address] Dr. Rose Lafleur CEAon 05-07-2022 CEA 1.6 ng/mL Normal 0.0-4.7 [facility] Comment on above: Result Comment: Nons mokers <3.9 Smokers <5.6 . [employer] Electrochemiluminescence Immunoassay (ECLIA) . Values obtained with different assay methods or kits cannot be used interchangeably. Results cannot be interpreted as absolute evidence of the presence or absence of malignant disease. Performed By: #### C BC #### [facility] [address] [place] [address] Dr. Rose Lafleur HCG QUANT TUMOR MARKERon HCG QNT TUMOR MARKER <1 Normal [facility] Comment on above: Result Comment: Fema le (Non-) 0 - 5 (Postmenopausal) 0 - 8 . [employer] [facility] Electrochemiluminescence Immunoassay (ECLIA) . The [employer] HCG + beta assay recognizes the holo-hormone, human chorionic gonadotropin (hCG), nicked forms of hCG, the beta-core fragment and the free beta-subunit in human serum and plasma. . Results obtained with different test methods or kits cannot used interchangeably. This assay is intended for the early detection of . The result should not be used for treatment or for diagnostic purposes without confirmation of the diagnosis by another medically established diagnostic product or procedure. . This test was developed and its performance characteristics determined by [employer]. It has not been cleared or approved by the Food and Drug Administration for use as a tumor marker. . This test is not interpretable as a tumor marker in females. Performed By: #### C BC #### [facility] [address] [place] [address] Dr. Rose Lafleur LDHon 05-05-2022 LDH 269 U/L Critically high 81-234 [facility] Comment on above: Performed By: #### L DH #### [facility] [address] [place] [address] Dr. Rose Lafleur CBC AUTO DIFFon 04-21-2022 BASO # 0.0 103/ul Normal 0.0-0.1 [facility] Comment on above: Performed By: #### L DH #### [facility] [address] [place] [address] Dr. Rose Lafleur Basophils/100 WBC (Bld) 0.3 % Normal 0.2-2.0 [facility] Comment on above: Performed By: #### L DH #### [facility] [address] [place] [address] Dr. Rose Lafleur EO # 0.1 103/ul Normal 0.0-0.7 [facility] Comment on above: Performed By: #### L DH #### [facility] [address] [place] [address] Dr. Rose Lafleur Eosinophils/100 WBC (Bld) 0.7 % Critically low 0.9-7.0 [facility] Comment on above: Performed By: #### L DH #### [facility] [address] [place] [address] Dr. Rose Lafleur Erythrocyte distribution width (RBC) [Ratio] 13.9 % Normal 11.0-15.0 [facility] Comment on above: Performed By: #### L DH #### [facility] [address] [place] [address] Dr. Rose Lafleur Hematocrit (Bld) [Volume fraction] 41.5 % Normal 36.0-48.0 [facility] Comment on above: Performed By: #### L DH #### [facility] [address] [place] [address] Dr. Rose Lafleur Hemoglobin (Bld) [Mass/Vol] 13.4 g/dL Normal 12.0-16.0 [facility] Comment on above: Performed By: #### L DH #### [facility] [address] [place] [address] Dr. Rose Lafleur IG # 0.03 10e3/ul Normal 0.00-0.03 [facility] Comment on above: Performed By: #### L DH #### [facility] [address] [place] [address] Dr. Rose Lafleur IG % 0.3 % Normal 0.0-0.5 [facility] Comment on above: Performed By: #### L DH #### [facility] [address] [place] [address] Dr. Rose Lafleur LYMPH # 3.7 103/ul Normal 1.2-3.8 [facility] Comment on above: Performed By: #### L DH #### [facility] [address] [place] [address] Dr. Rose Lafleur Lymphocytes/100 WBC (Bld) 32.9 % Normal 20.5-60.0 [facility] Comment on above: Performed By: #### L DH #### [facility] [address] [place] [address] Dr. Rose Lafleur MANUAL DIFF REQ NO Normal [facility] Comment on above: Performed By: #### L DH #### [facility] [address] [place] [address] Dr. Rose Lafleur MCH (RBC) [Entitic mass] 28.6 pg Normal 26.7-34.0 [facility] Comment on above: Performed By: #### L DH #### [facility] [address] [place] [address] Dr. Rose Lafleru MCHC (RBC) [Mass/Vol] 32.3 g/dL Normal 29.9-35.2 [facility] Comment on above: Performed By: #### L DH #### [facility] [address] [place] [address] Dr. Rose Lafleur MCV (RBC) [Entitic vol] 88.5 fL Normal 81.0-99.0 [facility] Comment on above: Performed By: #### L DH #### [facility] [address] [place] [address] Dr. Rose Lafleur MONO # 0.7 103/ul Normal 0.3-0.8 [facility] Comment on above: Performed By: #### L DH #### [facility] [address] [place] [address] Dr. Rose Lafleur Monocytes/100 WBC (Bld) 6.1 % Normal 1.7-12.0 [facility] Comment on above: Performed By: #### L DH #### [facility] [address] [place] [address] Dr. Rose Lafleur NEUT # 6.7 103/ul Critically high 1.4-6.5 [facility] Comment on above: Performed By: #### L DH #### [facility] [address] [place] [address] Dr. Rose Lafleur Neutrophils/100 WBC (Bld) 59.7 % Normal 43.0-75.0 [facility] Comment on above: Performed By: #### L DH #### [facility] [address] [place] [address] Dr. Rose Lafleur Platelet mean volume (Bld) [Entitic vol] 9.0 fL Critically low 9.5-13.5 [facility] Comment on above: Performed By: #### L DH #### [facility] [address] [place] [address] Dr. Rose Lafleur PLT 320 103/ul Normal 150-450 [facility] Comment on above: Performed By: #### L DH #### [facility] [address] [place] [address] Dr. Rose Lafleur RBC 4.69 106/ul Normal 4.20-5.40 [facility] Comment on above: Performed By: #### L DH #### [facility] [address] [place] [address] Dr. Rose Lafleur WBC 11.1 103/ul Critically high 4.0-11.0 [facility] Comment on above: Performed By: #### L DH #### [facility] [address] [place] [address] Dr. Rose Lafleur GLYCOHEMOGLOBIN A1Con 2021 ADA RECOMMENDATION SEE BELOW Normal [facility] Comment on above: Result Comment: ADA RECOMMENDED LIMIT 4.0 - 6.0 ADA THERAPEUTIC TARGET < 7.0 ACTION SUGGESTED > 7.0 Performed By: #### A 1C #### [facility] [address] [place] [address] Dr. Rose Lafleur Glucose [Mass/Vol] 111 mg/dL Normal [facility] Comment on above: Performed By: #### A 1C #### [facility] [address] [place] [address] Dr. Rose Lafleur HbA1c (Bld) [Mass fraction] 5.5 % Normal 4.5-6.2 [facility] Comment on above: Performed By: #### A 1C #### [facility] [address] [place] [address] Dr. Rose Lfaleur TSHon 04-21-2022 TSH 1.207 uIU/mL Normal 0.358-3.740 [facility] Comment on above: Performed By: #### T SH #### [facility] [address] [place] [address] Dr. Rose Lafleur US PELVIS AND TRANSVAGon US PELVIS AND TRANSVAG EXAMINATION: US PELVIS AND TRANSVAG HISTORY: Pelvic and perineal pain COMPARISON: No relevant comparison available. FINDINGS: Transabdominal and transvaginal images The uterus is normal in size and contour measuring 8.6 x 5.4 x 5.7 cm. Heterogeneous myometrium with scattered masses the largest measuring 1.9 x 1.5 1.4 cm. Some of the lesions appear calcified with acoustic shadowing. The endometrium measures 4.5 mm, normal. The right ovary is normal in size measuring 4.1 x 3.3 x 2.4 cm. Normal color and Doppler flow. Normal resistive index of 0.49. Area of anechoic echogenicity measuring 3.9 x 2.7 x 1.6 cm with a septation. The left ovary is normal in appearance measuring 2.4 x 2.0 x 1.3 cm. Normal color Doppler flow. Normal resistive index of 0.51. IMPRESSION: Heterogeneous myometrium with calcified and noncalcified masses. Fibroids are statistically favored 3.9 cm septated right ovarian cyst Electronically authenticated by: ANTONIO BRADLEY Date: 2022-04-21 15:32 Normal [facility] Encounters Encounter Date Encounter Type Care Provider Facility Start: 07-21-2023 End: 07-21-2023 ambulatory LAY RUIZ Not Available Start: 12-14-2022 End: 12-15-2022 ambulatory RASHID ADAME Facility: Start: 09-02-2022 Encounter for prepro cedural laboratory examination DR JUAN ARRIAZA . [facility] Start: 08-30-2022 End: 08-31-[address] JUAN ARRIAZA . Facility:[facility] Start: 08-26-2022 End: 08-27-[address] JUAN ARRIAZA . Facility:[facility] Start: 08-26-2022 End: 08-27-2022 Encounter for preprocedural laboratory examination DR JUAN ARRIAZA . Facility:[facility] Start: 08-16-2022 End: 08-17-[address] JUAN ARRIAZA . Facility:[facility] Start: 07-27-2022 End: 07-28-[address] JUAN ARRIAZA . Facility:[facility] Start: 07-05-2022 End: 07-05-[address] JUAN ARRIAZA . Facility:[facility] Start: 05-26-2022 End: 05-26-[address] JUAN ARRIAZA . Facility:[facility] Start: 05-22-2022 End: 05-23-[address] JUAN ARIRAZA . Facility:[facility] Start: 05-15-2022 Encounter for prepro cedural cardiovascular examination DR JUAN ARRIAZA . [facility] Start: 05-13-2022 End: 05-14-[address] JUAN ARRIAZA . Facility:[facility] Start: 05-13-2022 End: 05-14-2022 Encounter for preprocedural cardiovascular examination DR JUAN ARRIAZA . Facility:[facility] Start: 05-05-2022 End: 05-06-[address] JUAN ARRIAZA . Facility:[facility] Start: 04-21-2022 End: 04-22-[address] JUAN ARRIAZA . Facility: Payers Date Payer Category Payer Unknown [id number] 2.16.84 [id number] 1983 Unknown [id number] 2.16.84 [id number] 1983 Unknown [id number] 2.16.84 [id number] 1983 Unknown [id number] 2.16.84 [id number] 1983 Unknown [id number] 2.16.84 [id number] 1983 Unknown [id number] 2.16.84 [id number] 1983 Unknown [id number] 2.16.84 [id number] 1983 Unknown [id number] 2.16.84 [id number] 1983 Unknown [id number] 2.16.84 [id number] 1983 Unknown [id number] 2.16.84 [id number] 1983 Unknown [id number] 2.16.84 [id number] 1983 Unknown [id number] 2.16.84 [id number] 1983 Unknown [id number] 2.16.840 .[id number] 1959 Unknown [id number] Consultation note 12-14-2022 Note Date & Type Note Facility 12-14-2022 Note CONSULTATION CONSULTATION DATE: 12/14/2022 TO: [facility] CHIEF COMPLAINT: Includes severe right mid to low back pain HISTORY OF PRESENT ILLNESS: Review of systems, past medical/surgical history were obtained and documented on the health questionnaire and is available upon request. She is a 36-year-old female, who reports having pain since July of 2022. The pain occurred spontaneously, increasing gradually to its present state, where she describes 5-7/10 pain in her mid to low back area, worse on the right side, sharp in character with a pressure component, increasing with activities such as standing ,walking and performing transitioning maneuvers. She denies any change in bowel and bladder habits or new sensorimotor changes in the lower extremities. CURRENT MEDICATION: Includes naproxen which she has been taking since at least July 2022. Despite this, she reports the pain has progressed to the point it has altered her quality of life, level of functioning and sleep pattern. She has also been in an independent exercise program, and has undergone activity modification. Other medication includes baclofen, she takes 20 mg b.i. d., which she takes infrequently. EXAM: Her examination is notable for the patient having no clinical radiculopathy or myelopathy involving her lower extremities. She had severe pain with thoracolumbar facet joint loading maneuvers, occurring worse on the right side, from approximately the T10 to the L3 level with associated myofascial spasm of the lumbar paravertebral muscles, also on the right side. IMPRESSION: Our impression is patient appears to have chronic pain secondary to lumbosacral spondylosis with facet loading pain clinically. She also has significant myofascial spasm. RECOMMENDATIONS: We placed a skin marker over her most painful area and obtained a lumbar spine film. The skin marker was noted to be over the T12-L1 level on the right side, and she had also pain at the T11-T12 also on the right side. I recommend proceeding with a diagnostic right sided thoracic facet joint injection at T11-12, T12-L1 under fluoroscopic guidance. I have asked her to continue with baclofen but to increase its use as needed to around the clock, and to initiate aquatic therapy. As part of providing excellent, safe, comprehensive care, the following was completed at our patient's visit: 1. A medication reconciliation and review to ensure accurate knowledge of current/active medications, including asking our patients to inform us about any [id number] medications or herbal remedies/nutritional supplements/alternative remedies. 2. A review to specifically ensure our patients have had annual screening for: elevated body mass index (BMI, see intake chart for exact total), tobacco use, screening for depression, and screening for unhealthy alcohol use. When screening is concerning, patients are provided with education and the specific recommendation to discuss the concerning health issue and treatment options with their primary care provider. [facility] Clinical Note 08-30-2022 Note Date & Type Note Facility 08-30-2022 Note OPERATIVE NOTE OPERATION DATE: 08/30/2022 PROCEDURE: Da Beatriz assisted laparoscopy hysterectomy with bilateral salpingectomy with cystoscopy. PREOPERATIVE DIAGNOSIS: Abnormal uterine bleeding, menorrhagia, dysmenorrhea, dyspareunia, failed ablation, pelvic pain, uterine fibroids. POSTOPERATIVE DIAGNOSIS: Abnormal uterine bleeding, menorrhagia, dysmenorrhea, dyspareunia, failed ablation, pelvic pain, uterine fibroids. ANESTHESIA: General. SURGEON: Juan Arriaza D.O. HOSPITAL ACCOUNT LIAISON: FRANNIE Luu URINE OUTPUT: Yellow and clear. BLOOD LOSS: 100 mL. SPECIMEN: Uterus and tubes. FINDINGS: Enlarged uterus with multiple large uterine fibroids, endometriosis of the right adnexa. PROCEDURE: The patient was taken back to the operating room, where she was prepped and draped in the normal sterile fashion after being placed in the dorsal lithotomy position. Patient's anesthesia was found to be adequate. Surgical timeout was performed using two patient identifiers. SCDs were on and in place. Two grams of Ancef were given prior to the surgery. Sterile Schwab catheter was inserted. Standard size VCare was secured to the uterine cervix and the surgeon changed gloves. Attention then was turned to the patient's abdomen, where a supraumbilical incision was then made. Two S retractors were used to identify the patient's fascia. The fascia was then tented up using Esperanza clamps and the patient's fascia was incised sharply. Patient's abdomen was identified and entered bluntly. The patient had the trocar placed and a pneumoperitoneum was obtained. Approximately 4 liters of CO2 gas was used. The camera was then placed through the trocar. At this time, two robot trocars were placed in the patient's left and right side, two hand widths from the midline, and this was placed under direct visualization. The patient's tube on the right side was tended up and the vessel sealer was then used to come across the mesosalpinx, and this was carried down to the uterine ovarian ligament. The vessel sealer was carried down serially to the broad ligament, to the area of the bladder flap, which was then created anteriorly, and the uterine arteries were skeletonized and sealed using the vessel sealer. The colpotomy was made using the monopolar cautery on cut, and this was carried circumferentially, posteriorly to anteriorly, until the uterus was amputated. The specimen was then removed intact through the vagina, without difficulty. The vagina was then closed using two running V-Loc in a non-lock fashion. The robot was undocked. The abdomen was desufflated. The skin defects were closed using 4-0 Vicryl. Please note, the fascia was closed using 0 Vicryl. Sponge, lap and needle counts were correct x2. Patient was taken to recovery room in stable condition. The patient was awakened by Anesthesia first. Patient tolerated procedure well. [facility] Clinical Note 05-26-2022 Note Date & Type Note Facility 05-26-2022 Note OPERATIVE NOTE OPERATION DATE: 05/26/2022 PROCEDURE: Attempted D AND C hysteroscopy, diagnostic laparoscopy, lysis of omental adhesions from the anterior abdominal wall using a LigaSure. PREOPERATIVE DIAGNOSIS: Pelvic pain, dysmenorrhea, dyspareunia. POSTOPERATIVE DIAGNOSIS: Pelvic pain, dysmenorrhea, dyspareunia including endometriosis ANESTHESIA: General. SURGEON: Juan Arriaza D.O. HOSPITAL ACCOUNT LIAISON: FRANNIE Huizar URINE OUTPUT: Yellow and clear. BLOOD LOSS: 10 mL. SPECIMEN: None. FINDINGS: Endometriosis on the pelvic side wall and posterior cul-de-sac, significant uterine fibroids posterior and anterior, mainly in the fundal region, extending down to the lower uterine segment. Otherwise, normal appearing ovaries, slightly blunted right and left ovarian tube, probably secondary to endometriosis. PROCEDURE: The patient was taken back to the Operating Room where she was prepped and draped in normal sterile fashion after being placed under general anesthesia without difficulty. She was also placed in the dorsal lithotomy position. A weighted speculum was placed in the patient's vagina. The anterior lip of the cervix was identified and grasped with a single tooth tenaculum. The patient's uterus was then sounded roughly to [ 9 ] cm. The patient was then gently dilated using Hegar dilators. The hysteroscope was passed through the patient's cervix into the uterus. Both ostia were identified. slightly thickened appearing endometrium. No gross evidence of malignancy. Please note that the MyoSure apparatus was placed through the hysteroscope under direct visualization. The apparatus was engaged and endometrial curettings were removed under direct visualization. The MyoSure was then removed from the scope. The hysteroscope was then removed from the patient's uterus. The endometrial curettings were sent out to pathology. The single tooth tenaculum was then removed from the patient's anterior lip of the cervix where excellent hemostasis was noted. All instruments were removed from the patient's vagina. The patient tolerated the procedure well. Sponge, lap and needle counts were correct times two. The patient was taken to the Recovery Room in stable condition. The patient was taken back to the Operating Room where she was placed in dorsal lithotomy position after given general anesthesia. The patient was prepped and draped in normal sterile fashion. A sponge stick was placed into the patient's vagina. Attention was turned to the patient's abdomen, where a small umbilical incision was made. The fascia was tented using Esperanza clamps and the fascia was entered sharply. Confirmation of intra-abdominal placement of the 10 mm port was confirmed under direct visualization using a laparoscope. The patient's abdomen was then insufflated using CO2 gas with approximately 4 liters. A second port was placed left laterally, this was done under direct visualization with a 5 mm port. Survey of the patient's abdomen demonstrated normal liver and gallbladder. Survey of the patient's pelvic anatomy demonstrated normal appearing ovaries and tubes as well as normal appearing uterus. No endometrial implants could be noted, no evidence of any pelvic disease was seen, normal appearing pelvic cavity. All instruments were removed from the patient's abdomen. The patient's abdomen was desufflated of CO2 gas. The patient tolerated the procedure well. Sponge stick was removed from the patient's vagina. The patient's infraumbilical fascia was closed using #0 Vicryl on a GI needle. The patient's skin was closed laterally and infraumbilically using 4-0 Vicryl. The patient tolerated the procedure well. Sponge, lap and needle counts were correct x 2. The patient was taken to Recovery Room in stable condition. [facility] Clinical Note 05-26-2022 Note Date & Type Note Facility 05-26-2022 Note OPERATIVE NOTE OPERATION DATE: 06/11/2022 ADDENDUM TO PROCEDURE: LigaSure apparatus was used to come across omental adhesions, extending to the anterior abdominal wall. This was released. Excellent hemostasis was assured. ADDENDUM TO POST-OP DIAGNOSIS: Significant uterine fibroids. [facility] Summary Purpose Family History No Family History Records FoundNo Family History Records Found Advance Directives No Advanced Directives Records FoundNo Advanced Directives Records Found Additional Source Comments INFORMATION SOURCE (unrecogn ized section and content) DATE CREATED AUTHOR 12/22/2022 [facility] DATE CREATED AUTHOR AUTHOR'S ORGANIZ ATION 07/23/2023 [facility] FOR RECORDS PERTAINING TO PATIENTS WHO ARE OR HAVE BEEN ENROLLED IN A CHEMICAL DEPENDENCY/SUBSTANCEABUSE PROGRAM, SOME INFORMATION MAY BE OMITTED. This clinical summary was aggregated from multiple sources. Caution should be exercised in using it in the provision of clinical care. This summary normalizes information from multiple sources, and as a consequence, information in this document may materially change the coding, format and clinical context of patient data. In addition, data may be omitted in some cases. CLINICAL DECISIONS SHOULD BE BASED ON THE PRIMARY CLINICAL RECORDS. [facility] [employer] [facility] provides no warranty or guarantee of the accuracy or completeness of information in this document.
== END 2023-08-04 14:39 | disposition home or self-care (01) ==
LOC: PM 14:39
PROVIDERS: PCP Family Medicine; Visit Provider Anesthesiology Pain Medicine
DX: M79.2 Neuralgia and neuritis, unspecified (principal)
CPT/HCPCS: G0463

== ENCOUNTER 2023-08-22 06:38 | Outpatient (OUT) | payer OTHER, SELFPAY ==
--- OUTSIDE RECORDS SUMMARY | 2023-08-20 11:00 | XMS_ITS | CCD ---
Author Name Unknown Address [facility] [address] [place] [address] Organization [facility] Care Team Providers Care Chain Offbearer Name Role Phone GISELLA ., DR MARTINEZ Consulting Unavailable GISELLA ., DR MARTINEZ Attending Unavailable [facility] Unava ilable GISELLA ., DR MARTINEZ Admitting Unavailable GISELLA ., DR MARTINEZ Consulting Unavailable GISELLA ., DR MARTINEZ Attending Unavailable [facility] Unava ilable GISELLA ., DR MARTINEZ Admitting Unavailable GISELLA ., DR MARTINEZ Attending Unavailable [facility] Unava ilable GISELLA ., DR MARTINEZ Consulting Unavailable GISELLA ., DR MARTINEZ Admitting Unavailable GISELLA ., DR MARTINEZ Admitting Unavailable GISELLA ., DR MARTINEZ Attending Unavailable [facility] Unava ilable GISELLA ., DR MARTINEZ Consulting Unavailable JUAN CLARK Consulting Unavailable NICK BRUNO Consulting Unava ilable GISELLA ., DR MARTINEZ Consulting Unavailable GISELLA ., DR MARTINEZ Attending Unavailable GISELLA ., DR MARTINEZ Admitting Unavailable [facility] Unava ilable GISELLA ., DR MARTINEZ Consulting Unavailable GISELLA ., DR MARTINEZ Attending Unavailable GISELLA ., DR MARTINEZ Admitting Unavailable [facility] Unava ilable GISELLA ., DR MARTINEZ Consulting Unavailable GISELLA ., DR MARTINEZ Attending Unavailable GISELLA ., DR MATRINEZ Admitting Unavailable [facility] Unava ilable RASHID ADAME Primary Care Unavailable ZIEBER, DR DIANA Del Real Consulting Unavailable LAKSHMIPATHY ., NARENDRANATH Attending Ivy vailable LAKSHMIPATHY ., NARENDRANATH Admitting Ivy vailable LAKSHMIPATHY ., NARRAFAEL Consulting Ivy vailable GISELLA ., DR MARTINEZ Attending Unavailable [facility] Unava ilable GISELLA ., DR MARTINEZ Admitting Unavailable ANTONIO BRADLEY Consulting Unavailable GISELLA ., DR MARTINEZ Consulting Unavailable [facility] Consulting Unava ilable GISELLA ., DR MARTINEZ Consulting Unavailable GISELLA ., DR MARTINEZ Attending Unavailable [facility] Unava ilable GISELLA ., DR MARTINEZ Admitting Unavailable SHARP, MEHREEN Consulting Unavailable DALTON II, RIOS Consulting Unavailable FILUTZE, BAYRON Consulting Unavailable LAKSHMIPATHY ., NARENDRANATH Consulting Ivy vailable LAKSHMIPATHY ., MARÍA Attending Ivy vailable WENDI [facility] Care Unavailable LAKSHMIPATHY ., MARÍA Admitting Ivy vailable GISELLA ., DR MARTINEZ Attending Unavailable GISELLA ., DR MARTINEZ Admitting Unavailable GISELLA ., DR MARTINEZ Consulting Unavailable [facility] Unava ilable LAY RUIZ Attending Unavailable LAY RUIZ Attending Unavailable Allergies Allergy Classification Reported Allergen(s) Allergy Type Date of Onset Reaction(s) Facility (2 sources) Penicillins Drug allergy (disorder) 06-11-2019 [facility] Repository Problems Active Problems Problem Classification Problem [...] DIANA LUONG Date: 2022-12-14 16:25 Normal [facility] BUNon 08-31-2022 Urea nitrogen [Mass/Vol] 9.0 mg/dL Normal 7.0-18.0 [facility] Comment on above: Performed By: #### C BC #### [facility] [address] [place], [place] [address] Dr. Rose Lafleur CBC AUTO DIFFon 08-31-2022 BASO # 0.0 103/ul Normal 0.0-0.1 [facility] Comment on above: Performed By: #### C BC #### [facility] [address] [place] [address] [address] Rose Lafleur Basophils/100 WBC (Bld) 0.1 % Critically low 0.2-2.0 [facility] Comment on above: Performed By: #### C BC #### [facility] [address] [place] [address] Dr. Rose Lafleur EO # 0.0 103/ul Normal 0.0-0.7 [facility] Comment on above: Performed By: #### C BC #### [facility] [address] [place] [address] Dr. Rose Lafleur Eosinophils/100 WBC (Bld) 0.0 % Critically low 0.9-7.0 [facility] Comment on above: Performed By: #### C BC #### [facility] [address] [place] [address] Dr. Rose Lafleur Erythrocyte distribution width (RBC) [Ratio] 13.2 % Normal 11.0-15.0 [facility] Comment on above: Performed By: #### C BC #### [facility] [address] [place] [address] Dr. Rose Lafleur Hematocrit (Bld) [Volume fraction] 38.5 % Normal 36.0-48.0 [facility] Comment on above: Performed By: #### C BC #### [facility] [address] [place] [address] Dr. Rose Lafleur Hemoglobin (Bld) [Mass/Vol] 12.7 g/dL Normal 12.0-16.0 [facility] Comment on above: Performed By: #### C BC #### [facility] [address] [place] [address] Dr. Rose Lafleur IG # 0.07 10e3/ul Critically high 0.00-0.03 [facility] Comment on above: Performed By: #### C BC #### [facility] [address] [place] [address] Dr. Rose Lafleur IG % 0.4 % Normal 0.0-0.5 [facility] Comment on above: Performed By: #### C BC #### [facility] [address] [place] [address] Dr. Rose Lafleur LYMPH # 2.3 103/ul Normal 1.2-3.8 [facility] Comment on above: Performed By: #### C BC #### [facility] [address] [place] [address] Dr. Rose Lafleur Lymphocytes/100 WBC (Bld) 14.3 % Critically low 20.5-60.0 [facility] Comment on above: Performed By: #### C BC #### [facility] [address] [place] [address] Dr. Rose Lafleur MANUAL DIFF REQ NO Normal [facility] Comment on above: Performed By: #### C BC #### [facility] [address] [place] [address] Dr. Rose Lafleur MCH (RBC) [Entitic mass] 28.6 pg Normal 26.7-34.0 [facility] Comment on above: Performed By: #### C BC #### [facility] [address] [place] [address] Dr. Rose Lafleur MCHC (RBC) [Mass/Vol] 33.0 g/dL Normal 29.9-35.2 [facility] Comment on above: Performed By: #### C BC #### [facility] [address] [place] [address] Dr. Rose Lafleur MCV (RBC) [Entitic vol] 86.7 fL Normal 81.0-99.0 [facility] Comment on above: Performed By: #### C BC #### [facility] [address] [place] [address] Dr. Rose Lafleur MONO # 0.9 103/ul Critically high 0.3-0.8 [facility] Comment on above: Performed By: #### C BC #### [facility] [address] [place] [address] Dr. Rose Lafleur Monocytes/100 WBC (Bld) 5.5 % Normal 1.7-12.0 [facility] Comment on above: Performed By: #### C BC #### [facility] [address] [place] [address] Dr. Rose Lafleur NEUT # 12.8 103/ul Critically high 1.4-6.5 [facility] Comment on above: Performed By: #### C BC #### [facility] [address] [place] [address] Dr. Rose Lafleur Neutrophils/100 WBC (Bld) 79.7 % Critically high 43.0-75.0 [facility] Comment on above: Performed By: #### C BC #### [facility] [address] [place] [address] Dr. Rose Lafleur Platelet mean volume (Bld) [Entitic vol] 8.9 fL Critically low 9.5-13.5 [facility] Comment on above: Performed By: #### C BC #### [facility] [address] [place] [address] Dr. Rose Lafleur PLT 330 103/ul Normal 150-450 [facility] Comment on above: Performed By: #### C BC #### [facility] [address] [place] [address] Dr. Rose Lafleur RBC 4.44 106/ul Normal 4.20-5.40 [facility] Comment on above: Performed By: #### C BC #### [facility] [address] [place] [address] Dr. Rose Lafleur WBC 16.1 103/ul Critically high 4.0-11.0 [facility] Comment on above: Performed By: #### C BC #### [facility] [address] [place] [address] Dr. Rose Lafleur CREATININEon 08-31-2022 Creatinine [Mass/Vol] 0.59 mg/dL Normal 0.55-1.02 [facility] Comment on above: Performed By: #### C BC #### [facility] [address] [place] [address] Dr. Rose Lafleur EGFR-AF ESTONIAN >60 Normal >=60 [facility] Comment on above: Performed By: #### C BC #### [facility] [address] [place] [address] Dr. Rose Lafleur EGFR-NON AF ESTONIAN >60 Normal >=60 [facility] Comment on above: Performed By: #### C BC #### [facility] [address] [place] [address] Dr. Rose Lafleur PREG HCG QUALon 08-30-2022 , QUAL Negative Normal NEGATIVE [facility] Comment on above: Performed By: #### P REG #### [facility] [address] [place] [address] Dr. Rose Lafleur [facility] SARS-CoV-2 (COVID-19) RNA RUDY+probe Ql (Unsp spec) Not detected Normal NOT DETECTED [facility] Comment on above: Result Comment: This test is not yet approved or cleared by the [place] FDA. When there are no FDA-approved or cleared tests available, and other criteria are met, FDA can make tests available under an emergency access mechanism called an Emergency Use Authorization (EUA). The EUA for this test is supported by the [employer] Worker of Health and Human Service's (HHS's) declaration [...] SARS-CoV-2. Performed By: #### L DH #### [facility] [address] [place] [address] Dr. Rose Lafleur TYPE AND SCREENon 08-26-2022 TYPE AND SCREEN Negative Normal [facility] Comment on above: Performed By: #### L DH #### [facility] [address] [place] [address] Dr. Rose Lafleur CBC AUTO DIFFon 08-16-2022 BASO # 0.0 103/ul Normal 0.0-0.1 [facility] Comment on above: Performed By: #### C BC #### [facility] [address] [address] [address] Rose Lafleur Basophils/100 WBC (Bld) 0.3 % Normal 0.2-2.0 [facility] Comment on above: Performed By: #### C BC #### [facility] [address] [place] [address] Dr. Rose Lafleur EO # 0.2 103/ul Normal 0.0-0.7 [facility] Comment on above: Performed By: #### C BC #### [facility] [address] [place] [address] Dr. Rose Lafleur Eosinophils/100 WBC (Bld) 1.7 % Normal 0.9-7.0 [facility] Comment on above: Performed By: #### C BC #### [facility] [address] [place] [address] Dr. Rose Lafleur Erythrocyte distribution width (RBC) [Ratio] 13.1 % Normal 11.0-15.0 [facility] Comment on above: Performed By: #### C BC #### [facility] [address] [place] [address] Dr. Rose Lafleur Hematocrit (Bld) [Volume fraction] 40.6 % Normal 36.0-48.0 [facility] Comment on above: Performed By: #### C BC #### [facility] [address] [place] [address] Dr. Rose Lafleur Hemoglobin (Bld) [Mass/Vol] 13.4 g/dL Normal 12.0-16.0 [facility] Comment on above: Performed By: #### C BC #### [facility] [address] [place] [address] Dr. Rose Lafleur IG # 0.02 10e3/ul Normal 0.00-0.03 [facility] Comment on above: Performed By: #### C BC #### [facility] [address] [place] [address] Dr. Rose Lafleur IG % 0.2 % Normal 0.0-0.5 [facility] Comment on above: Performed By: #### C BC #### [facility] [address] [place] [address] Dr. Rose Lafleur LYMPH # 2.8 103/ul Normal 1.2-3.8 [facility] Comment on above: Performed By: #### C BC #### [facility] [address] [place] [address] Dr. Rose Lafleur Lymphocytes/100 WBC (Bld) 31.7 % Normal 20.5-60.0 [facility] Comment on above: Performed By: #### C BC #### [facility] [address] [place] [address] Dr. Rose Lafleur MANUAL DIFF REQ NO Normal [facility] Comment on above: Performed By: #### C BC #### [facility] [address] [place] [address] Dr. Rose Lafleur MCH (RBC) [Entitic mass] 28.5 pg Normal 26.7-34.0 [facility] Comment on above: Performed By: #### C BC #### [facility] [address] [place] [address] Dr. Rose Lafleur MCHC (RBC) [Mass/Vol] 33.0 g/dL Normal 29.9-35.2 [facility] Comment on above: Performed By: #### C BC #### [facility] [address] [place] [address] Dr. Rose Lafleur MCV (RBC) [Entitic vol] 86.4 fL Normal 81.0-99.0 [facility] Comment on above: Performed By: #### C BC #### [facility] [address] [place] [address] Dr. Rose Lafleur MONO # 0.6 103/ul Normal 0.3-0.8 [facility] Comment on above: Performed By: #### C BC #### [facility] [address] [place] [address] Dr. Rose Lafleur Monocytes/100 WBC (Bld) 6.8 % Normal 1.7-12.0 [facility] Comment on above: Performed By: #### C BC #### [facility] [address] [place] [address] Dr. Rose Lafleur NEUT # 5.1 103/ul Normal 1.4-6.5 [facility] Comment on above: Performed By: #### C BC #### [facility] [address] [place] [address] Dr. Rose Lafleur Neutrophils/100 WBC (Bld) 59.3 % Normal 43.0-75.0 [facility] Comment on above: Performed By: #### C BC #### [facility] [address] [place] [address] Dr. Rose Lafleur Platelet mean volume (Bld) [Entitic vol] 8.9 fL Critically low 9.5-13.5 [facility] Comment on above: Performed By: #### C BC #### [facility] [address] [place] [address] Dr. Rose Lafleur PLT 312 103/ul Normal 150-450 [facility] Comment on above: Performed By: #### C BC #### [facility] [address] [place] [address] Dr. Rose Lafleur RBC 4.70 106/ul Normal 4.20-5.40 [facility] Comment on above: Performed By: #### C BC #### [facility] [address] [place] [address] Dr. Rose Lafleur WBC 8.7 103/ul Normal 4.0-11.0 [facility] Comment on above: Performed By: #### C BC #### [facility] [address] [place] [address] Dr. Rose Lafleur LIVER PROFILEon 08-16-2022 Albumin [Mass/Vol] 2.9 g/dL Critically low 3.4-5.0 [facility] Comment on above: Performed By: #### B MP, LIVER #### [facility] [address] [place] [address] Dr. Rose Lafleur Albumin/Globulin [Mass ratio] 0.6 {ratio} Normal [facility] Comment on above: Performed By: #### B MP, LIVER #### [facility] [address] [place] [address] Dr. Rose Lafleur ALP [Catalytic activity/Vol] 121 U/L Critically high 46-116 [facility] Comment on above: Performed By: #### B MP, LIVER #### [facility] [address] [place] [address] Dr. Rose Lafleur ALT [Catalytic activity/Vol] 21 U/L Normal 14-59 [facility] Comment on above: Performed By: #### B MP, LIVER #### [facility] [address] [place] [address] Dr. Rose Lafleur AST [Catalytic activity/Vol] 20 U/L Normal 15-37 [facility] Comment on above: Performed By: #### B MP, LIVER #### [facility] [address] [place] [address] Dr. Rose Lafleur BILI, CONJUGATED 0.1 mg/dL Normal 0.0-0.2 [facility] Comment on above: Performed By: #### B MP, LIVER #### [facility] [address] [place] [address] Dr. Rose Lafleur Bilirubin [Mass/Vol] 0.3 mg/dL Normal 0.2-1.0 [facility] Comment on above: Performed By: #### B MP, LIVER #### [facility] [address] [place] [address] Dr. Rose Lafleur Globulin (S) [Mass/Vol] 4.8 g/dL Normal [facility] Comment on above: Performed By: #### B MP, LIVER #### [facility] [address] [place] [address] Dr. Rose Lafleur Protein [Mass/Vol] 7.7 g/dL Normal 6.4-8.2 [facility] Comment on above: Performed By: #### B MP, LIVER #### [facility] [address] [place] [address] Dr. Rose Lafleur PROF CHEM 8 (BAS METB)on Anion gap [Moles/Vol] 10.9 mmol/L Normal [facility] Comment on above: Performed By: #### B MP, LIVER #### [facility] [address] [place] [address] Dr. Rose Lafleur Calcium [Mass/Vol] 8.8 mg/dL Normal 8.5-10.1 [facility] Comment on above: Performed By: #### B MP, LIVER #### [facility] [address] [place] [address] Dr. Rose Lafleur Chloride [Moles/Vol] 102 mmol/L Normal 98-107 [facility] Comment on above: Performed By: #### B MP, LIVER #### [facility] [address] [place] [address] Dr. Rose Lafleur CO2 [Moles/Vol] 26.1 mmol/L Normal 21.0-32.0 [facility] Comment on above: Performed By: #### B MP, LIVER #### [facility] [address] [place] [address] Dr. Rose Lafleur Creatinine [Mass/Vol] 0.64 mg/dL Normal 0.55-1.02 [facility] Comment on above: Performed By: #### B MP, LIVER #### [facility] [address] [place] [address] Dr. Rose Lafleur EGFR-AF ESTONIAN >60 Normal >=60 [facility] Comment on above: Performed By: #### B MP, LIVER #### [facility] [address] [place] [address] Dr. Rose Lafleur EGFR-NON AF ESTONIAN >60 Normal >=60 [facility] Comment on above: Performed By: #### B MP, LIVER #### [facility] [address] [place] [address] Dr. Rose Lafleur Glucose [Mass/Vol] 90 mg/dL Normal 74-106 [facility] Comment on above: Performed By: #### B MP, LIVER #### [facility] [address] [place] [address] Dr. Rose Lafleur Potassium [Moles/Vol] 4.0 mmol/L Normal 3.5-5.1 [facility] Comment on above: Performed By: #### B MP, LIVER #### [facility] [address] [place] [address] Dr. Rose Lafleur Sodium [Moles/Vol] 135 mmol/L Critically low 136-145 Th [facility] Comment on above: Performed By: #### B MP, LIVER #### [facility] [address] [place] [address] Dr. Rose Lafleur Urea nitrogen [Mass/Vol] 12.0 mg/dL Normal 7.0-18.0 [facility] Comment on above: Performed By: #### B MP, LIVER #### [facility] [address] [place] [address] Dr. Rose Lafleur Urea nitrogen/Creatinine [Mass ratio] 18.8 mg/mg Normal [facility] Comment on above: Performed By: #### B MP, LIVER #### [facility] [address] [place] [address] Dr. Rose Lafleur PROTIMEon 08-16-2022 INR Coag (PPP) [Relative time] 0.95 {INR} Normal [facility] Comment on above: Performed By: #### C BC #### [facility] [address] [place] [address] Dr. Rose Lafleur INR GUIDELINES SEE BELOW Normal [facility] Comment on above: Result Comment: JAYLYN RED INR: 2.0 - 3.0 CONDITIONS NOT LISTED BELOW 2.5 - 3.5 FOR PROSTHETIC HEART VALVE REPLACEMENT 2.5 - 3.5 RECURRENT THROMBOSIS Performed By: #### C BC #### [facility] [address] [place] [address] Dr. Rose Lafleur PT Coag (PPP) [Time] 10.3 s Normal 9.0-11.6 [facility] Comment on above: Performed By: #### C BC #### [facility] [address] [place] [address] Dr. Rose Lafleur PTTon 08-16-2022 aPTT Coag (Bld) [Time] 32.0 s Normal 22.3-36.2 [facility] Comment on above: Performed By: #### C BC #### [facility] [address] [place] [address] Dr. Rose Lafleur GLYCOHEMOGLOBIN A1Con 2021 ADA RECOMMENDATION SEE BELOW Normal [facility] Comment on above: Result Comment: ADA RECOMMENDED LIMIT 4.0 - 6.0 ADA THERAPEUTIC TARGET < 7.0 ACTION SUGGESTED > 7.0 Performed By: #### C BC #### [facility] [address] [address] [address] Rose Lafleur Glucose [Mass/Vol] 108 mg/dL Normal [facility] Comment on above: Performed By: #### C BC #### [facility] [address] [address] [address] Rose Lafleur HbA1c (Bld) [Mass fraction] 5.4 % Normal 4.5-6.2 [facility] Comment on above: Performed By: #### C BC #### [facility] [address] [place] [address] Dr. Rose Lafleur PAP ACOG PANEL 2: 30 to 65on 07-14-2022 . . Normal [facility] Comment on above: Result Comment: Perf ormed at: WB Performed By: #### C BC #### [facility] [address] [place] [address] Dr. Rose Lafleur Age Gdln ACOG Testing 30-65 Normal [facility] Comment on above: Performed By: #### C BC #### [facility] [address] [place] [address] Dr. Rose Lafleur DIAGNOSIS: Comment Normal [facility] Comment on above: Result Comment: NEGA TIVE FOR INTRAEPITHELIAL LESION OR MALIGNANCY. CELLULAR CHANGES ASSOCIATED WITH INFLAMMATION ARE PRESENT. Performed at: WB Performed By: #### C BC #### [facility] [address] [place] [address] Dr. Rose Lafleur HPV Aptima Negative Normal Negative [facility] Comment on above: Result Comment: This nucleic acid amplification test detects fourteen high-risk HPV types (16,18,31,33,35,39,45,51,52,56,58,59,66,68) without differentiation. Performed at: =G Performed By: #### C BC #### [facility] [address] [place] [address] Dr. Rose Lafleur HPV Genotype Reflex Comment Normal [facility] Comment on above: Result Comment: Crit eria not met, HPV Genotype not performed. Performed at: WB Performed By: #### C BC #### [facility] [address] [place] [address] Dr. Rose Lafleur Methodology: CTIM Normal [facility] Comment on above: Result Comment: The Thin Prep(R) Chief Of Service was unable to read this specimen. Therefore a manual review was performed. Performed at: WB Performed By: #### C BC #### [facility] [address] [place] [address] Dr. Rose Lafleur Note: Comment Normal [facility] Comment on above: Result Comment: The Pap smear is a screening test designed to aid in the detection of premalignant and malignant conditions of the uterine cervix. It is not a diagnostic procedure and should not be used as the sole means of detecting cervical cancer. Both false-positive and false-negative reports do occur. . Performed at: WB Performed By: #### C BC #### [facility] [address] [place] [address] Dr. Rose Lafleur Performed by: Comment Normal [facility] Comment on above: Result Comment: Carlos Wolff, Claims Adjudicator (ASCP) Performed at: WB Performed By: #### C BC #### [facility] [address] [place] [address] Dr. Rose Lafleur Specimen adequacy: Comment Normal [facility] Comment on above: Result Comment: Sati sfactory for evaluation. No endocervical component is identified. Performed at: WB Performed By: #### C BC #### [facility] [address] [place] [address] Dr. Rose Lafleur CBC AUTO DIFFon 05-26-2022 BASO # 0.0 103/ul Normal 0.0-0.1 [facility] Comment on above: Performed By: #### C BC #### [facility] [address] [place] [address] Dr. Rose Lafleur Basophils/100 WBC (Bld) 0.4 % Normal 0.2-2.0 [facility] Comment on above: Performed By: #### C BC #### [facility] [address] [place] [address] Dr. Rose Lafleur EO # 0.1 103/ul Normal 0.0-0.7 [facility] Comment on above: Performed By: #### C BC #### [facility] [address] [place] [address] Dr. Rose Lafleur Eosinophils/100 WBC (Bld) 1.2 % Normal 0.9-7.0 [facility] Comment on above: Performed By: #### C BC #### [facility] [address] [place] [address] Dr. Rose Lafleur Erythrocyte distribution width (RBC) [Ratio] 13.6 % Normal 11.0-15.0 [facility] Comment on above: Performed By: #### C BC #### [facility] [address] [place] [address] Dr. Rose Lafleur Hematocrit (Bld) [Volume fraction] 41.6 % Normal 36.0-48.0 [facility] Comment on above: Performed By: #### C BC #### [facility] [address] [place] [address] Dr. Rose Lafleur Hemoglobin (Bld) [Mass/Vol] 13.3 g/dL Normal 12.0-16.0 [facility] Comment on above: Performed By: #### C BC #### [facility] [address] [place] [address] Dr. Rose Lafleur IG # 0.03 10e3/ul Normal 0.00-0.03 [facility] Comment on above: Performed By: #### C BC #### [facility] [address] [place] [address] Dr. Rose Lafleur IG % 0.3 % Normal 0.0-0.5 [facility] Comment on above: Performed By: #### C BC #### [facility] [address] [place] [address] Dr. Rose Lafleur LYMPH # 3.8 103/ul Normal 1.2-3.8 [facility] Comment on above: Performed By: #### C BC #### [facility] [address] [place] [address] Dr. Rose Lafleur Lymphocytes/100 WBC (Bld) 39.8 % Normal 20.5-60.0 [facility] Comment on above: Performed By: #### C BC #### [facility] [address] [place] [address] Dr. Rose Lafleur MANUAL DIFF REQ NO Normal [facility] Comment on above: Performed By: #### C BC #### [facility] [address] [place] [address] Dr. Rose Lafleur MCH (RBC) [Entitic mass] 28.5 pg Normal 26.7-34.0 [facility] Comment on above: Performed By: #### C BC #### [facility] [address] [place] [address] Dr. Rose Lafleur MCHC (RBC) [Mass/Vol] 32.0 g/dL Normal 29.9-35.2 [facility] Comment on above: Performed By: #### C BC #### [facility] [address] [place] [address] Dr. Rose Lafleur MCV (RBC) [Entitic vol] 89.3 fL Normal 81.0-99.0 [facility] Comment on above: Performed By: #### C BC #### [facility] [address] [place] [address] Dr. Rose Lafleur MONO # 0.6 103/ul Normal 0.3-0.8 [facility] Comment on above: Performed By: #### C BC #### [facility] [address] [place] [address] Dr. Rose Lafleur Monocytes/100 WBC (Bld) 6.5 % Normal 1.7-12.0 [facility] Comment on above: Performed By: #### C BC #### [facility] [address] [place] [address] Dr. Rose Lafleur NEUT # 4.9 103/ul Normal 1.4-6.5 [facility] Comment on above: Performed By: #### C BC #### [facility] [address] [place] [address] Dr. Rose Lafleur Neutrophils/100 WBC (Bld) 51.8 % Normal 43.0-75.0 [facility] Comment on above: Performed By: #### C BC #### [facility] [address] [place] [address] Dr. Rose Lafleur Platelet mean volume (Bld) [Entitic vol] 8.9 fL Critically low 9.5-13.5 [facility] Comment on above: Performed By: #### C BC #### [facility] [address] [place] [address] Dr. Rose Lafleur PLT 310 103/ul Normal 150-450 [facility] Comment on above: Performed By: #### C BC #### [facility] [address] [place] [address] Dr. Rose Lafleur RBC 4.66 106/ul Normal 4.20-5.40 [facility] Comment on above: Performed By: #### C BC #### [facility] [address] [place] [address] Dr. Rose Lafleur WBC 9.5 103/ul Normal 4.0-11.0 [facility] Comment on above: Performed By: #### C BC #### [facility] [address] [place] [address] Dr. Rose Lafleur PREG HCG QUALon 05-26-2022 , QUAL Negative Normal NEGATIVE [facility] Comment on above: Performed By: #### P REG #### [facility] [address] [place] [address] Dr. Rose Lafleur Covid-19 PCR (CVDTB)on SARS-CoV-2 (COVID-19) RNA RUDY+probe Ql (Unsp spec) Not detected Normal NOT DETECTED [facility] Comment on above: Result Comment: This test is not yet approved or cleared by the [place] FDA. When there are no FDA-approved or cleared tests available, and other criteria are met, FDA can make tests available under an emergency access mechanism called an Emergency Use Authorization (EUA). The EUA for this test is supported by the [employer] Worker of Health and Human Service's (HHS's) declaration [...] SARS-CoV-2. Performed By: #### C BC #### [facility] [address] [place] [address] Dr. Rose Lafleur AFP (TUMOR MARKER)on 022 AFP, Serum, Tumor Marker 1.6 ng/mL Normal 0.0-6.4 [facility] Comment on above: Result Comment: [employer] Electrochemiluminescence Immunoassay (ECLIA) . Values obtained with different assay methods or kits cannot be used interchangeably. Results cannot be interpreted as absolute evidence of the presence or absence of malignant disease. . This test is not interpretable in females. Performed By: #### C BC #### [facility] [address] [place] [address] Dr. Rose Lafleur CA 125on 05-07-2022 Cancer Antigen (CA) 125 17.1 U/mL Normal 0.0-38.1 [facility] Comment on above: Result Comment: [employer] Electrochemiluminescence Immunoassay (ECLIA) . Values obtained with different assay methods or kits cannot be used interchangeably. Results cannot be interpreted as absolute evidence of the presence or absence of malignant disease. Performed By: #### L #### [facility] [address] [place] [address] Dr. Rose Lafleur CEAon 05-07-2022 CEA 1.6 ng/mL Normal 0.0-4.7 [facility] Comment on above: Result Comment: Nons mokers <3.9 Smokers <5.6 . [employer] Electrochemiluminescence Immunoassay (ECLIA) . Values obtained with different assay methods or kits cannot be used interchangeably. Results cannot be interpreted as absolute evidence of the presence or absence of malignant disease. Performed By: #### C BC #### [facility] [address] [place] [address] Dr. Rose Lafleur HCG QUANT TUMOR MARKERon HCG QNT TUMOR MARKER <1 Normal [facility] Comment on above: Result Comment: Fema le [...] developed and its performance characteristics determined by [employer]. It has not been cleared or approved by the Food and Drug Administration for use as a tumor marker. . This test is not interpretable as a tumor marker in females. Performed By: #### C BC #### [facility] [address] [place] [address] Dr. Rose Lafleur LDHon 05-05-2022 LDH 269 U/L Critically high 81-234 [facility] Comment on above: Performed By: #### L DH #### [facility] [address] [place] [address] Dr. Rose Lafleur CBC AUTO DIFFon 04-21-2022 BASO # 0.0 103/ul Normal 0.0-0.1 [facility] Comment on above: Performed By: #### L DH #### [facility] [address] [place] [address] Dr. Rose Lafleur Basophils/100 WBC (Bld) 0.3 % Normal 0.2-2.0 [facility] Comment on above: Performed By: #### L DH #### [facility] [address] [place] [address] Dr. Rose Lafleur EO # 0.1 103/ul Normal 0.0-0.7 [facility] Comment on above: Performed By: #### L DH #### [facility] [address] [place] [address] Dr. Rose Lafleur Eosinophils/100 WBC (Bld) 0.7 % Critically low 0.9-7.0 [facility] Comment on above: Performed By: #### L DH #### [facility] [address] [place] [address] Dr. Rose Lafleur Erythrocyte distribution width (RBC) [Ratio] 13.9 % Normal 11.0-15.0 [facility] Comment on above: Performed By: #### L DH #### [facility] [address] [place] [address] Dr. Rose Lafleur Hematocrit (Bld) [Volume fraction] 41.5 % Normal 36.0-48.0 [facility] Comment on above: Performed By: #### L DH #### [facility] [address] [place] [address] Dr. Rose Lafleur Hemoglobin (Bld) [Mass/Vol] 13.4 g/dL Normal 12.0-16.0 [facility] Comment on above: Performed By: #### L DH #### [facility] [address] [place] [address] Dr. Rose Lafleur IG # 0.03 10e3/ul Normal 0.00-0.03 [facility] Comment on above: Performed By: #### L DH #### [facility] [address] [place] [address] Dr. Rose Lafleur IG % 0.3 % Normal 0.0-0.5 [facility] Comment on above: Performed By: #### L DH #### [facility] [address] [place] [address] Dr. Rose Lafleur LYMPH # 3.7 103/ul Normal 1.2-3.8 [facility] Comment on above: Performed By: #### L DH #### [facility] [address] [place] [address] Dr. Rose Lafleur Lymphocytes/100 WBC (Bld) 32.9 % Normal 20.5-60.0 [facility] Comment on above: Performed By: #### L DH #### [facility] [address] [place] [address] Dr. Rose Lafleur MANUAL DIFF REQ NO Normal [facility] Comment on above: Performed By: #### L DH #### [facility] [address] [place] [address] Dr. Rose Lafleur MCH (RBC) [Entitic mass] 28.6 pg Normal 26.7-34.0 [facility] Comment on above: Performed By: #### L DH #### [facility] [address] [place] [address] Dr. Rose Lafleur MCHC (RBC) [Mass/Vol] 32.3 g/dL Normal 29.9-35.2 [facility] Comment on above: Performed By: #### L DH #### [facility] [address] [place] [address] Dr. Rose Lafleur MCV (RBC) [Entitic vol] 88.5 fL Normal 81.0-99.0 [facility] Comment on above: Performed By: #### L DH #### [facility] [address] [place] [address] Dr. oRse Lafleur MONO # 0.7 103/ul Normal 0.3-0.8 [facility] Comment on above: Performed By: #### L DH #### [facility] [address] [place] [address] Dr. Rose Lafleur Monocytes/100 WBC (Bld) 6.1 % Normal 1.7-12.0 [facility] Comment on above: Performed By: #### L DH #### [facility] [address] [place] [address] Dr. Rose Lafleur NEUT # 6.7 103/ul Critically high 1.4-6.5 [facility] Comment on above: Performed By: #### L DH #### [facility] [address] [place] [address] Dr. Rose Lafleur Neutrophils/100 WBC (Bld) 59.7 % Normal 43.0-75.0 [facility] Comment on above: Performed By: #### L DH #### [facility] [address] [place] [address] Dr. Rose Lafleur Platelet mean volume (Bld) [Entitic vol] 9.0 fL Critically low 9.5-13.5 [facility] Comment on above: Performed By: #### L DH #### [facility] [address] [place] [address] Dr. Rose Lafleur PLT 320 103/ul Normal 150-450 [facility] Comment on above: Performed By: #### L DH #### [facility] [address] [place] [address] Dr. Rose Lafleur RBC 4.69 106/ul Normal 4.20-5.40 [facility] Comment on above: Performed By: #### L #### [facility] [address] [place] [address] Dr. Rose Lafleur WBC 11.1 103/ul Critically high 4.0-11.0 [facility] Comment on above: Performed By: #### L #### [facility] [address] [place] [address] Dr. Rose Lafleur GLYCOHEMOGLOBIN A1Con 2021 ADA RECOMMENDATION SEE BELOW Normal [facility] Comment on above: Result Comment: ADA RECOMMENDED LIMIT 4.0 - 6.0 ADA THERAPEUTIC TARGET < 7.0 ACTION SUGGESTED > 7.0 Performed By: #### A 1C #### [facility] [address] [place] [address] Dr. Rose Lafleur Glucose [Mass/Vol] 111 mg/dL Normal [facility] Comment on above: Performed By: #### A 1C #### [facility] [address] [place] [address] Dr. Rose Lafleur HbA1c (Bld) [Mass fraction] 5.5 % Normal 4.5-6.2 [facility] Comment on above: Performed By: #### A 1C #### [facility] [address] [place] [address] Dr. Rose Lafleur TSHon 04-21-2022 TSH 1.207 uIU/mL Normal 0.358-3.740 [facility] Comment on above: Performed By: #### T SH #### [facility] [address] [place] [address] Dr. Rose Lafleur US PELVIS AND TRANSVAGon [...] septated right ovarian cyst Electronically authenticated by: ANTNOIO BRADLEY Date: 2022-04-21 15:32 Normal [facility] Encounters Encounter Date Encounter Type Care Provider Facility Start: 08-18-2023 End: 08-18-2023 ambulatory LAY RUIZ Not Available Start: 07-21-2023 End: 07-21-2023 ambulatory LAY RUIZ Not Available Start: 12-14-2022 End: 12-15-2022 ambulatory RASHID ADAME Facility:[facility] Start: 09-02-2022 Encounter for prepro cedural laboratory examination DR JUAN ARRIAZA . [facility] Start: 08-30-2022 End: 08-31-[address] JUAN [...] Start: 05-22-2022 End: 05-23-[address] JUAN ARRIAZA . Facility:[facility] Start: 05-15-2022 Encounter for prepro cedural cardiovascular examination DR JUAN ARRIAZA . [facility] Start: 05-13-2022 End: 05-14-[address] JUAN ARRIAZA . Facility:[facility] Start: 05-13-2022 End: 05-14-2022 Encounter for preprocedural cardiovascular examination DR JUAN ARRIAZA . Facility:[facility] Start: 05-05-2022 End: 05-06-[address] JUAN ARRIAZA . Facility:[facility] Start: 04-21-2022 End: 04-22-[address] JUAN ARRIAZA . Facility: Payers Date Payer Category Payer Unknown [id number] 2.16.84 [id number] 1985 Unknown [id number] 2.16.84 [id number] 1983 Unknown [id number] 2.16.84 [id number] 1983 Unknown [id number] 2.16.84 [id number] 1983 Unknown [id number] 2.16.84 [id number] 1983 Unknown [id number] 2.16.84 [id number] 1983 Unknown [id number] 2.16.84 [id number] 1983 Unknown [id number] 2.16.84 [id number] 1983 Unknown [id number] 2.16.84 [id number] 1983 Unknown [id number] 2.16.84 [id number] 1983 Unknown [id number] 2.16.84 [id number] 1983 Unknown [id number] 2.16.84 [id number] 1983 Unknown [id number] 2.16.840 .[id number] 1983 Unknown [id number] 2.16.840 .[id number] 1959 Unknown [id number] Consultation note 12-14-2022 Note Date & Type Note Facility 12-14-2022 Note CONSULTATION CONSULTATION DATE: 12/14/2022 TO: [facility] CHIEF COMPLAINT: Includes severe right mid [...] our patients to inform us about any gghp-deo-rnwweco medications or herbal remedies/nutritional supplements/alternative remedies. 2. [...] options with their primary care provider. [facility] Clinical Note 08-30-2022 Note Date & Type Note Facility 08-30-2022 Note OPERATIVE NOTE OPERATION DATE: 08/30/2022 PROCEDURE: Da Beatriz assisted laparoscopy hysterectomy with bilateral salpingectomy with cystoscopy. PREOPERATIVE DIAGNOSIS: Abnormal uterine bleeding, menorrhagia, dysmenorrhea, dyspareunia, failed ablation, pelvic pain, uterine fibroids. POSTOPERATIVE DIAGNOSIS: Abnormal uterine bleeding, menorrhagia, dysmenorrhea, dyspareunia, failed ablation, pelvic pain, uterine fibroids. ANESTHESIA: General. SURGEON: Juan Arriaza D.O. [employer] SUPERVISOR: FRANNIE Luu URINE OUTPUT: Yellow and clear. [...] Anesthesia first. Patient tolerated procedure well. [facility] Clinical Note 05-26-2022 Note Date & Type Note Facility 05-26-2022 Note OPERATIVE NOTE OPERATION DATE: 05/26/2022 PROCEDURE: Attempted D AND C hysteroscopy, diagnostic laparoscopy, lysis of omental adhesions from the anterior abdominal wall using a LigaSure. PREOPERATIVE DIAGNOSIS: Pelvic pain, dysmenorrhea, dyspareunia. POSTOPERATIVE DIAGNOSIS: Pelvic pain, dysmenorrhea, dyspareunia including endometriosis ANESTHESIA: General. SURGEON: Juan Arriaza D.O. [employer] SUPERVISOR: FRANNIE Huizar URINE OUTPUT: Yellow and clear. [...] to Recovery Room in stable condition. [facility] Clinical Note 05-26-2022 Note Date & Type Note Facility 05-26-2022 Note OPERATIVE NOTE OPERATION DATE: 06/11/2022 ADDENDUM TO PROCEDURE: LigaSure apparatus was used to come across omental adhesions, extending to the anterior abdominal wall. This was released. Excellent hemostasis was assured. ADDENDUM TO POST-OP DIAGNOSIS: Significant uterine fibroids. [facility] Summary Purpose Family History No Family History Records FoundNo Family History Records Found Advance Directives No Advanced Directives Records FoundNo Advanced Directives Records Found Additional Source Comments INFORMATION SOURCE (unrecogn ized section and content) DATE CREATED AUTHOR 12/22/2022 [facility] DATE CREATED AUTHOR AUTHOR'S ORGANIZ ATION 08/20/2023 [facility] FOR RECORDS PERTAINING TO PATIENTS WHO [...] BE BASED ON THE PRIMARY CLINICAL RECORDS. [facility] [employer] [facility]. provides no warranty or guarantee of the accuracy or completeness of information in this document.
--- OUTSIDE RECORDS SUMMARY | 2023-08-22 06:40 | XMS_ITS | CCD ---
Author Name Unknown Address [facility] [id number] [place] [address] Organization [facility] Care Team Providers Care Geological Engineer Name Role Phone GISELLA ., DR MARTINEZ Consulting Unavailable GISELLA ., DR MARTINEZ Attending Unavailable [facility] Unava ilable GISELLA ., DR MARTINEZ Admitting Unavailable GISELLA ., DR MARTINEZ Consulting Unavailable GISELLA ., DR MARTINEZ Attending Unavailable [facility] Unava ilable GISELLA ., DR MARTINEZ Admitting Unavailable GISELLA ., DR MARTINEZ Attending Unavailable [facility] Unava ilable GISELLA ., DR MARTINEZ Consulting Unavailable GISELLA ., DR MARTINEZ Admitting Unavailable GISELLA ., DR MARTINEZ Admitting Unavailable GISELLA ., DR MARTINEZ Attending Unavailable [facility] Unava ilable GISELLA ., DR MARTINEZ Consulting Unavailable JUAN CLARK Consulting Unavailable NICK BRUNO Consulting Unava ilable GISELLA ., DR MARTINEZ Consulting Unavailable GISELLA ., DR MARTINEZ Attending Unavailable GISELLA ., DR MARTINEZ Admitting Unavailable [facility] Unava ilable GISELLA ., DR MARTINEZ Consulting Unavailable GISELLA ., DR MARTINEZ Attending Unavailable GISELLA ., DR MARTINEZ Admitting Unavailable [facility] Unava ilable GISELLA ., DR MARTINEZ Consulting Unavailable GISELLA ., DR MARTINEZ Attending Unavailable GISELLA ., DR MARTINEZ Admitting Unavailable [facility] Unava ilable RASHID ADAME Primary Care Unavailable ZIEBER, DR DIANA Del Real Consulting Unavailable LAKSHMIPATHY ., NARENDRANATH Attending Ivy vailable LAKSHMIPATHY ., NARENDRANATH Admitting Ivy vailable LAKSHMIPATHY ., NARRAFAEL Consulting Ivy vailable GISELLA ., DR MARTINEZ Attending Unavailable [facility] Unava ilable GISELLA ., DR MARTINEZ Admitting Unavailable ANTONIO BRADLEY Consulting Unavailable GISELLA ., DR MARTINEZ Consulting Unavailable [facility] Consulting Unava ilable GISELLA ., DR MARTINEZ Consulting Unavailable GISELLA ., DR MARTINEZ Attending Unavailable [facility] Unava ilable GISELLA ., DR MARTINEZ Admitting Unavailable SHARP, MEHREEN Consulting Unavailable DALTON II, RIOS Consulting Unavailable FILUTZE, BAYRON Consulting Unavailable LAKSHMIPATHY ., NARENDRANATH Consulting Ivy vailable LAKSHMIPATHY ., MARÍA Attending Ivy vailable WENDI [facility] Unavailable LAKSHMIPATHY ., MARÍA Admitting Ivy vailable GISELLA ., DR MARTINEZ Attending Unavailable GISELLA ., DR MARTINEZ Admitting Unavailable GISELLA ., DR MARTINEZ Consulting Unavailable [facility] Unava ilable LAY RUIZ Attending Unavailable LAY RUIZ Attending Unavailable Allergies Allergy Classification Reported Allergen(s) Allergy Type Date of Onset Reaction(s) Facility (2 sources) Penicillins Drug allergy (disorder) 06-11-2019 [facility] Repository Problems Active Problems Problem Classification [...] DIANA LUONG Date: 2022-12-14 16:25 Normal [facility] BUNon 08-31-2022 Urea nitrogen [Mass/Vol] 9.0 mg/dL Normal 7.0-18.0 [facility] Comment on above: Performed By: #### C BC #### [facility] [address] [place], [place] [address] Dr. Rose Lafleur CBC AUTO DIFFon 08-31-2022 BASO # 0.0 103/ul Normal 0.0-0.1 [facility] Comment on above: Performed By: #### C BC #### [facility] [address] [place] [address] [address] Rose Lafleur Basophils/100 WBC (Bld) 0.1 % Critically low 0.2-2.0 [facility] Comment on above: Performed By: #### C BC #### [facility] [address] [place] [address] Dr. Rose Lafleur EO # 0.0 103/ul Normal 0.0-0.7 [facility] Comment on above: Performed By: #### C BC #### [facility] [address] [place] [address] Dr. Rose Lafleur Eosinophils/100 WBC (Bld) 0.0 % Critically low 0.9-7.0 [facility] Comment on above: Performed By: #### C BC #### [facility] [address] [place] [address] Dr. Rose Lafleur Erythrocyte distribution width (RBC) [Ratio] 13.2 % Normal 11.0-15.0 [facility] Comment on above: Performed By: #### C BC #### [facility] [address] [place] [address] Dr. Rose Lafleur Hematocrit (Bld) [Volume fraction] 38.5 % Normal 36.0-48.0 [facility] Comment on above: Performed By: #### C BC #### [facility] [address] [place] [address] Dr. Rose Lafleur Hemoglobin (Bld) [Mass/Vol] 12.7 g/dL Normal 12.0-16.0 [facility] Comment on above: Performed By: #### C BC #### [facility] [address] [place] [address] Dr. Rose Lafleur IG # 0.07 10e3/ul Critically high 0.00-0.03 [facility] Comment on above: Performed By: #### C BC #### [facility] [address] [place] [address] Dr. Rose Lafleur IG % 0.4 % Normal 0.0-0.5 [facility] Comment on above: Performed By: #### C BC #### [facility] [address] [place] [address] Dr. Rose Lafleur LYMPH # 2.3 103/ul Normal 1.2-3.8 [facility] Comment on above: Performed By: #### C BC #### [facility] [address] [place] [address] Dr. Rose Lafleur Lymphocytes/100 WBC (Bld) 14.3 % Critically low 20.5-60.0 [facility] Comment on above: Performed By: #### C BC #### [facility] [address] [place] [address] Dr. Rose Lafleur MANUAL DIFF REQ NO Normal [facility] Comment on above: Performed By: #### C BC #### [facility] [address] [place] [address] Dr. Rose Lafleur MCH (RBC) [Entitic mass] 28.6 pg Normal 26.7-34.0 [facility] Comment on above: Performed By: #### C BC #### [facility] [address] [place] [address] Dr. Rose Lafleur MCHC (RBC) [Mass/Vol] 33.0 g/dL Normal 29.9-35.2 [facility] Comment on above: Performed By: #### C BC #### [facility] [address] [place] [address] Dr. Rose Lafleur MCV (RBC) [Entitic vol] 86.7 fL Normal 81.0-99.0 [facility] Comment on above: Performed By: #### C BC #### [facility] [address] [place] [address] Dr. Rose Lafleur MONO # 0.9 103/ul Critically high 0.3-0.8 [facility] Comment on above: Performed By: #### C BC #### [facility] [address] [place] [address] Dr. Rose Lafleur Monocytes/100 WBC (Bld) 5.5 % Normal 1.7-12.0 [facility] Comment on above: Performed By: #### C BC #### [facility] [address] [place] [address] Dr. Rose Lafleur NEUT # 12.8 103/ul Critically high 1.4-6.5 [facility] Comment on above: Performed By: #### C BC #### [facility] [address] [place] [address] Dr. Rose Lafleur Neutrophils/100 WBC (Bld) 79.7 % Critically high 43.0-75.0 [facility] Comment on above: Performed By: #### C BC #### [facility] [address] [place] [address] Dr. Rose Lafleur Platelet mean volume (Bld) [Entitic vol] 8.9 fL Critically low 9.5-13.5 [facility] Comment on above: Performed By: #### C BC #### [facility] [address] [place] [address] Dr. Rose Lafleur PLT 330 103/ul Normal 150-450 [facility] Comment on above: Performed By: #### C BC #### [facility] [address] [place] [address] Dr. Rose Lafleur RBC 4.44 106/ul Normal 4.20-5.40 [facility] Comment on above: Performed By: #### C BC #### [facility] [address] [place] [address] Dr. Rose Lafleur WBC 16.1 103/ul Critically high 4.0-11.0 [facility] Comment on above: Performed By: #### C BC #### [facility] [address] [place] [address] Dr. Rose Lafleur CREATININEon 08-31-2022 Creatinine [Mass/Vol] 0.59 mg/dL Normal 0.55-1.02 [facility] Comment on above: Performed By: #### C BC #### [facility] [address] [place] [address] Dr. Rose Lafleur EGFR-AF GIBRALTARIAN >60 Normal >=60 [facility] Comment on above: Performed By: #### C BC #### [facility] [address] [place] [address] Dr. Rose Lafleur EGFR-NON AF GIBRALTARIAN >60 Normal >=60 [facility] Comment on above: Performed By: #### C BC #### [facility] [address] [place] [address] Dr. Rose Lafleur PREG HCG QUALon 08-30-2022 , QUAL Negative Normal NEGATIVE [facility] Comment on above: Performed By: #### P REG #### [facility] [address] [place] [address] Dr. Rose Lafleur [facility] SARS-CoV-2 (COVID-19) RNA RUDY+probe Ql (Unsp spec) Not detected Normal NOT DETECTED [facility] Comment on above: Result Comment: This test is not yet approved or cleared by the [place] FDA. When there are no FDA-approved or cleared tests available, and other criteria are met, FDA can make tests available under an emergency access mechanism called an Emergency Use Authorization (EUA). The EUA for this test is supported by the Career Consultant of Health and Human Service's (HHS's) declaration [...] SARS-CoV-2. Performed By: #### L DH #### [facility] [address] [place] [address] Dr. Rose Lafleur TYPE AND SCREENon 08-26-2022 TYPE AND SCREEN Negative Normal [facility] Comment on above: Performed By: #### L DH #### [facility] [address] [place] [address] Dr. Rose Lafleur CBC AUTO DIFFon 08-16-2022 BASO # 0.0 103/ul Normal 0.0-0.1 [facility] Comment on above: Performed By: #### C BC #### [facility] [address] [place] [address] [address] Rose Lafleur Basophils/100 WBC (Bld) 0.3 % Normal 0.2-2.0 [facility] Comment on above: Performed By: #### C BC #### [facility] [address] [place] [address] Dr. Rose Lafleur EO # 0.2 103/ul Normal 0.0-0.7 [facility] Comment on above: Performed By: #### C BC #### [facility] [address] [place] [address] Dr. Rose Lafleur Eosinophils/100 WBC (Bld) 1.7 % Normal 0.9-7.0 [facility] Comment on above: Performed By: #### C BC #### [facility] [address] [place] [address] Dr. Rose Lafleur Erythrocyte distribution width (RBC) [Ratio] 13.1 % Normal 11.0-15.0 [facility] Comment on above: Performed By: #### C BC #### [facility] [address] [place] [address] Dr. Rose Lafleur Hematocrit (Bld) [Volume fraction] 40.6 % Normal 36.0-48.0 [facility] Comment on above: Performed By: #### C BC #### [facility] [address] [place] [address] Dr. Rose Lafleur Hemoglobin (Bld) [Mass/Vol] 13.4 g/dL Normal 12.0-16.0 [facility] Comment on above: Performed By: #### C BC #### [facility] [address] [place] [address] Dr. Rose Lafleur IG # 0.02 10e3/ul Normal 0.00-0.03 [facility] Comment on above: Performed By: #### C BC #### [facility] [address] [place] [address] Dr. Rose Lafleur IG % 0.2 % Normal 0.0-0.5 [facility] Comment on above: Performed By: #### C BC #### [facility] [address] [place] [address] Dr. Rose Lafleur LYMPH # 2.8 103/ul Normal 1.2-3.8 [facility] Comment on above: Performed By: #### C BC #### [facility] [address] [place] [address] Dr. Rose Lafleur Lymphocytes/100 WBC (Bld) 31.7 % Normal 20.5-60.0 [facility] Comment on above: Performed By: #### C BC #### [facility] [address] [place] [address] Dr. Rose Lafleur MANUAL DIFF REQ NO Normal [facility] Comment on above: Performed By: #### C BC #### [facility] [address] [place] [address] Dr. Rose Lafleur MCH (RBC) [Entitic mass] 28.5 pg Normal 26.7-34.0 [facility] Comment on above: Performed By: #### C BC #### [facility] [address] [place] [address] Dr. Rose Lafleur MCHC (RBC) [Mass/Vol] 33.0 g/dL Normal 29.9-35.2 [facility] Comment on above: Performed By: #### C BC #### [facility] [address] [place] [address] Dr. Rose Lafleur MCV (RBC) [Entitic vol] 86.4 fL Normal 81.0-99.0 [facility] Comment on above: Performed By: #### C BC #### [facility] [address] [place] [address] Dr. Rose Lafleur MONO # 0.6 103/ul Normal 0.3-0.8 [facility] Comment on above: Performed By: #### C BC #### [facility] [address] [place] [address] Dr. Rose Lafleur Monocytes/100 WBC (Bld) 6.8 % Normal 1.7-12.0 [facility] Comment on above: Performed By: #### C BC #### [facility] [address] [place] [address] Dr. Rose Lafleur NEUT # 5.1 103/ul Normal 1.4-6.5 [facility] Comment on above: Performed By: #### C BC #### [facility] [address] [place] [address] Dr. Rose Lafleur Neutrophils/100 WBC (Bld) 59.3 % Normal 43.0-75.0 [facility] Comment on above: Performed By: #### C BC #### [facility] [address] [place] [address] Dr. Rose Lafleur Platelet mean volume (Bld) [Entitic vol] 8.9 fL Critically low 9.5-13.5 [facility] Comment on above: Performed By: #### C BC #### [facility] [address] [place] [address] Dr. Rose Lafleur PLT 312 103/ul Normal 150-450 [facility] Comment on above: Performed By: #### C BC #### [facility] [address] [place] [address] Dr. oRse Lafleur RBC 4.70 106/ul Normal 4.20-5.40 [facility] Comment on above: Performed By: #### C BC #### [facility] [address] [place] [address] Dr. Rose Lafleur WBC 8.7 103/ul Normal 4.0-11.0 [facility] Comment on above: Performed By: #### C BC #### [facility] [address] [place] [address] Dr. Rose Lafleur LIVER PROFILEon 08-16-2022 Albumin [Mass/Vol] 2.9 g/dL Critically low 3.4-5.0 [facility] Comment on above: Performed By: #### B MP, LIVER #### [facility] [address] [place] [address] Dr. Rose Lafleur Albumin/Globulin [Mass ratio] 0.6 {ratio} Normal [facility] Comment on above: Performed By: #### B MP, LIVER #### [facility] [address] [place] [address] Dr. Rose Lafleur ALP [Catalytic activity/Vol] 121 U/L Critically high 46-116 [facility] Comment on above: Performed By: #### B MP, LIVER #### [facility] [address] [place] [address] Dr. Rose Lafleur ALT [Catalytic activity/Vol] 21 U/L Normal 14-59 [facility] Comment on above: Performed By: #### B MP, LIVER #### [facility] [address] [place] [address] Dr. Rose Lafleur AST [Catalytic activity/Vol] 20 U/L Normal 15-37 [facility] Comment on above: Performed By: #### B MP, LIVER #### [facility] [address] [place] [address] Dr. Rose Lafleur BILI, CONJUGATED 0.1 mg/dL Normal 0.0-0.2 [facility] Comment on above: Performed By: #### B MP, LIVER #### [facility] [address] [place] [address] Dr. Rose Lafleur Bilirubin [Mass/Vol] 0.3 mg/dL Normal 0.2-1.0 [facility] Comment on above: Performed By: #### B MP, LIVER #### [facility] [address] [place] [address] Dr. Rose Lafleur Globulin (S) [Mass/Vol] 4.8 g/dL Normal [facility] Comment on above: Performed By: #### B MP, LIVER #### [facility] [address] [place] [address] Dr. Rose Lafleur Protein [Mass/Vol] 7.7 g/dL Normal 6.4-8.2 [facility] Comment on above: Performed By: #### B MP, LIVER #### [facility] [address] [place] [address] Dr. Rose Lafleur PROF CHEM 8 (BAS METB)on Anion gap [Moles/Vol] 10.9 mmol/L Normal [facility] Comment on above: Performed By: #### B MP, LIVER #### [facility] [address] [place] [address] Dr. Rose Lafleur Calcium [Mass/Vol] 8.8 mg/dL Normal 8.5-10.1 [facility] Comment on above: Performed By: #### B MP, LIVER #### [facility] [address] [place] [address] Dr. Rose Lafleur Chloride [Moles/Vol] 102 mmol/L Normal 98-107 [facility] Comment on above: Performed By: #### B MP, LIVER #### [facility] [address] [place] [address] Dr. Rose Lafleur CO2 [Moles/Vol] 26.1 mmol/L Normal 21.0-32.0 [facility] Comment on above: Performed By: #### B MP, LIVER #### [facility] [address] [place] [address] Dr. Rose Lafleur Creatinine [Mass/Vol] 0.64 mg/dL Normal 0.55-1.02 [facility] Comment on above: Performed By: #### B MP, LIVER #### [facility] [address] [place] [address] Dr. Rose Lafleur EGFR-AF GIBRALTARIAN >60 Normal >=60 [facility] Comment on above: Performed By: #### B MP, LIVER #### [facility] [address] [place] [address] Dr. Rose Lafleur EGFR-NON AF GIBRALTARIAN >60 Normal >=60 [facility] Comment on above: Performed By: #### B MP, LIVER #### [facility] [address] [place] [address] Dr. Rose Lafleur Glucose [Mass/Vol] 90 mg/dL Normal 74-106 [facility] Comment on above: Performed By: #### B MP, LIVER #### [facility] [address] [place] [address] Dr. Rose Lafleur Potassium [Moles/Vol] 4.0 mmol/L Normal 3.5-5.1 [facility] Comment on above: Performed By: #### B MP, LIVER #### [facility] [address] [place] [address] Dr. Rose Lafleur Sodium [Moles/Vol] 135 mmol/L Critically low 136-145 [facility] Comment on above: Performed By: #### B MP, LIVER #### [facility] [address] [place] [address] Dr. Rose Lafleur Urea nitrogen [Mass/Vol] 12.0 mg/dL Normal 7.0-18.0 [facility] Comment on above: Performed By: #### B MP, LIVER #### [facility] [address] [place] [address] Dr. Rose Lafleur Urea nitrogen/Creatinine [Mass ratio] 18.8 mg/mg Normal [facility] Comment on above: Performed By: #### B MP, LIVER #### [facility] [address] [place] [address] Dr. Rose Lafleur PROTIMEon 08-16-2022 INR Coag (PPP) [Relative time] 0.95 {INR} Normal [facility] Comment on above: Performed By: #### C BC #### [facility] [address] [place] [address] Dr. Rose Lafleur INR GUIDELINES SEE BELOW Normal [facility] Comment on above: Result Comment: JAYLYN RED INR: 2.0 - 3.0 CONDITIONS NOT LISTED BELOW 2.5 - 3.5 FOR PROSTHETIC HEART VALVE REPLACEMENT 2.5 - 3.5 RECURRENT THROMBOSIS Performed By: #### C BC #### [facility] [address] [place] [address] Dr. Rose Lafleur PT Coag (PPP) [Time] 10.3 s Normal 9.0-11.6 [facility] Comment on above: Performed By: #### C BC #### [facility] [address] [place] [address] Dr. Rose Lafleur PTTon 08-16-2022 aPTT Coag (Bld) [Time] 32.0 s Normal 22.3-36.2 [facility] Comment on above: Performed By: #### C BC #### [facility] [address] [place] [address] Dr. Rose Lafleur GLYCOHEMOGLOBIN A1Con 2021 ADA RECOMMENDATION SEE BELOW Normal [facility] Comment on above: Result Comment: ADA RECOMMENDED LIMIT 4.0 - 6.0 ADA THERAPEUTIC TARGET < 7.0 ACTION SUGGESTED > 7.0 Performed By: #### C BC #### [facility] [address] [address] [address] Rose Lafleur Glucose [Mass/Vol] 108 mg/dL Normal [facility] Comment on above: Performed By: #### C BC #### [facility] [address] [address] [address] Rose Lafleur HbA1c (Bld) [Mass fraction] 5.4 % Normal 4.5-6.2 [facility] Comment on above: Performed By: #### C BC #### [facility] [address] [place] [address] Dr. Rose Lafleur PAP ACOG PANEL 2: 30 to 65on 07-14-2022 . . Normal [facility] Comment on above: Result Comment: Perf ormed at: WB Performed By: #### C BC #### [facility] [address] [place] [address] Dr. Rose Lafleur Age Gdln ACOG Testing 30-65 Normal [facility] Comment on above: Performed By: #### C BC #### [facility] [address] [place] [address] Dr. Rose Lafleur DIAGNOSIS: Comment Normal [facility] Comment on above: Result Comment: NEGA TIVE FOR INTRAEPITHELIAL LESION OR MALIGNANCY. CELLULAR CHANGES ASSOCIATED WITH INFLAMMATION ARE PRESENT. Performed at: WB Performed By: #### C BC #### [facility] [address] [place] [address] Dr. Rose Lafleur HPV Aptima Negative Normal Negative [facility] Comment on above: Result Comment: This nucleic acid amplification test detects fourteen high-risk HPV types (16,18,31,33,35,39,45,51,52,56,58,59,66,68) without differentiation. Performed at: =G Performed By: #### C BC #### [facility] [address] [place] [address] Dr. Rose Lafleur HPV Genotype Reflex Comment Normal [facility] Comment on above: Result Comment: Crit eria not met, HPV Genotype not performed. Performed at: WB Performed By: #### C BC #### [facility] [address] [place] [address] Dr. Rose Lafleur Methodology: CTIM Normal [facility] Comment on above: Result Comment: The [employer] Trader was unable to read this specimen. Therefore a manual review was performed. Performed at: WB Performed By: #### C BC #### [facility] [address] [place] [address] Dr. Rose Lafleur Note: Comment Normal [facility] Comment on above: Result Comment: The [...] WB Performed By: #### C BC #### [facility] [address] [place] [address] Dr. Rose Lafleur Performed by: Comment Normal [facility] Comment on above: Result Comment: Carlos Wolff, Claim Manager (ASCP) Performed at: WB Performed By: #### C BC #### [facility] [address] [place] [address] Dr. Rose Lafleur Specimen adequacy: Comment Normal [facility] Comment on above: Result Comment: Sati sfactory for evaluation. No endocervical component is identified. Performed at: WB Performed By: #### C BC #### [facility] [address] [place] [address] Dr. Rose Lafleur CBC AUTO DIFFon 05-26-2022 BASO # 0.0 103/ul Normal 0.0-0.1 [facility] Comment on above: Performed By: #### C BC #### [facility] [address] [place] [address] Dr. Rose Lafleur Basophils/100 WBC (Bld) 0.4 % Normal 0.2-2.0 [facility] Comment on above: Performed By: #### C BC #### [facility] [address] [place] [address] Dr. Rose Lafleur EO # 0.1 103/ul Normal 0.0-0.7 [facility] Comment on above: Performed By: #### C BC #### [facility] [address] [place] [address] Dr. Rose Lafleur Eosinophils/100 WBC (Bld) 1.2 % Normal 0.9-7.0 [facility] Comment on above: Performed By: #### C BC #### [facility] [address] [place] [address] Dr. Rose Lafleur Erythrocyte distribution width (RBC) [Ratio] 13.6 % Normal 11.0-15.0 [facility] Comment on above: Performed By: #### C BC #### [facility] [address] [place] [address] Dr. Rose Lafleur Hematocrit (Bld) [Volume fraction] 41.6 % Normal 36.0-48.0 [facility] Comment on above: Performed By: #### C BC #### [facility] [address] [place] [address] Dr. Rose Lafleur Hemoglobin (Bld) [Mass/Vol] 13.3 g/dL Normal 12.0-16.0 [facility] Comment on above: Performed By: #### C BC #### [facility] [address] [place] [address] Dr. Rose Lafleur IG # 0.03 10e3/ul Normal 0.00-0.03 [facility] Comment on above: Performed By: #### C BC #### [facility] [address] [place] [address] Dr. Rose Lafleur IG % 0.3 % Normal 0.0-0.5 [facility] Comment on above: Performed By: #### C BC #### [facility] [address] [place] [address] Dr. Rose Lafleur LYMPH # 3.8 103/ul Normal 1.2-3.8 [facility] Comment on above: Performed By: #### C BC #### [facility] [address] [place] [address] Dr. Rose Lafleur Lymphocytes/100 WBC (Bld) 39.8 % Normal 20.5-60.0 [facility] Comment on above: Performed By: #### C BC #### [facility] [address] [place] [address] Dr. Rose Lafleur MANUAL DIFF REQ NO Normal [facility] Comment on above: Performed By: #### C BC #### [facility] [address] [place] [address] Dr. Rose Lafleur MCH (RBC) [Entitic mass] 28.5 pg Normal 26.7-34.0 [facility] Comment on above: Performed By: #### C BC #### [facility] [address] [place] [address] Dr. Rose Lafleur MCHC (RBC) [Mass/Vol] 32.0 g/dL Normal 29.9-35.2 [facility] Comment on above: Performed By: #### C BC #### [facility] [address] [place] [address] Dr. Rose Lafleur MCV (RBC) [Entitic vol] 89.3 fL Normal 81.0-99.0 [facility] Comment on above: Performed By: #### C BC #### [facility] [address] [place] [address] Dr. Rose Lafleur MONO # 0.6 103/ul Normal 0.3-0.8 [facility] Comment on above: Performed By: #### C BC #### [facility] [address] [place] [address] Dr. Rose Lafleur Monocytes/100 WBC (Bld) 6.5 % Normal 1.7-12.0 [facility] Comment on above: Performed By: #### C BC #### [facility] [address] [place] [address] Dr. Rose Lafleur NEUT # 4.9 103/ul Normal 1.4-6.5 [facility] Comment on above: Performed By: #### C BC #### [facility] [address] [place] [address] Dr. Rose Lafleur Neutrophils/100 WBC (Bld) 51.8 % Normal 43.0-75.0 [facility] Comment on above: Performed By: #### C BC #### [facility] [address] [place] [address] Dr. Rose Lafleur Platelet mean volume (Bld) [Entitic vol] 8.9 fL Critically low 9.5-13.5 [facility] Comment on above: Performed By: #### C BC #### [facility] [address] [place] [address] Dr. Rose Lafleur PLT 310 103/ul Normal 150-450 [facility] Comment on above: Performed By: #### C BC #### [facility] [address] [place] [address] Dr. Rose Lafleur RBC 4.66 106/ul Normal 4.20-5.40 [facility] Comment on above: Performed By: #### C BC #### [facility] [address] [place] [address] Dr. Rose Lafleur WBC 9.5 103/ul Normal 4.0-11.0 [facility] Comment on above: Performed By: #### C BC #### [facility] [address] [place] [address] Dr. Rose Lafleur PREG HCG QUALon 05-26-2022 , QUAL Negative Normal NEGATIVE [facility] Comment on above: Performed By: #### P REG #### [facility] [address] [place] [address] Dr. Rose Lafleur Covid-19 PCR (CVDTB)on SARS-CoV-2 (COVID-19) RNA RUDY+probe Ql (Unsp spec) Not detected Normal NOT DETECTED [facility] Comment on above: Result Comment: This test is not yet approved or cleared by the [place] FDA. When there are no FDA-approved or cleared tests available, and other criteria are met, FDA can make tests available under an emergency access mechanism called an Emergency Use Authorization (EUA). The EUA for this test is supported by the [employer] of Health and Human Service's (HHS's) declaration [...] SARS-CoV-2. Performed By: #### C BC #### [facility] [address] [place] [address] Dr. Rose Lafleur AFP (TUMOR MARKER)on 022 AFP, Serum, Tumor Marker 1.6 ng/mL Normal 0.0-6.4 [facility] Comment on above: Result Comment: [employer] Electrochemiluminescence Immunoassay (ECLIA) . Values obtained with different assay methods or kits cannot be used interchangeably. Results cannot be interpreted as absolute evidence of the presence or absence of malignant disease. . This test is not interpretable in females. Performed By: #### C BC #### [facility] [address] [place] [address] Dr. Rose Lafleur CA 125on 05-07-2022 Cancer Antigen (CA) 125 17.1 U/mL Normal 0.0-38.1 [facility] Comment on above: Result Comment: [employer] Electrochemiluminescence Immunoassay (ECLIA) . Values obtained with different assay methods or kits cannot be used interchangeably. Results cannot be interpreted as absolute evidence of the presence or absence of malignant disease. Performed By: #### L #### [facility] [address] [place] [address] Dr. Rose Lafleur CEAon 05-07-2022 CEA 1.6 ng/mL Normal 0.0-4.7 [facility] Comment on above: Result Comment: Nons mokers <3.9 Smokers <5.6 . [employer] Electrochemiluminescence Immunoassay (ECLIA) . Values obtained with different assay methods or kits cannot be used interchangeably. Results cannot be interpreted as absolute evidence of the presence or absence of malignant disease. Performed By: #### C BC #### [facility] [address] [place] [address] Dr. Rose Lafleur HCG QUANT TUMOR MARKERon HCG QNT TUMOR MARKER <1 Normal [facility] Comment on above: Result Comment: Fema [...] developed and its performance characteristics determined by [employer]. It has not been cleared or approved by the Food and Drug Administration for use as a tumor marker. . This test is not interpretable as a tumor marker in females. Performed By: #### C BC #### [facility] [address] [place] [address] Dr. Rose Lafleur LDHon 05-05-2022 LDH 269 U/L Critically high 81-234 [facility] Comment on above: Performed By: #### L DH #### [facility] [address] [place] [address] Dr. Rose Lafleur CBC AUTO DIFFon 04-21-2022 BASO # 0.0 103/ul Normal 0.0-0.1 [facility] Comment on above: Performed By: #### L DH #### [facility] [address] [place] [address] Dr. Rose Lafleur Basophils/100 WBC (Bld) 0.3 % Normal 0.2-2.0 [facility] Comment on above: Performed By: #### L DH #### [facility] [address] [place] [address] Dr. Rose Lafleur EO # 0.1 103/ul Normal 0.0-0.7 [facility] Comment on above: Performed By: #### L DH #### [facility] [address] [place] [address] Dr. Rose Lafleur Eosinophils/100 WBC (Bld) 0.7 % Critically low 0.9-7.0 [facility] Comment on above: Performed By: #### L DH #### [facility] [address] [place] [address] Dr. Rose Lafleur Erythrocyte distribution width (RBC) [Ratio] 13.9 % Normal 11.0-15.0 [facility] Comment on above: Performed By: #### L DH #### [facility] [address] [place] [address] Dr. Rose Lafleur Hematocrit (Bld) [Volume fraction] 41.5 % Normal 36.0-48.0 [facility] Comment on above: Performed By: #### L DH #### [facility] [address] [place] [address] Dr. Rose Lafleur Hemoglobin (Bld) [Mass/Vol] 13.4 g/dL Normal 12.0-16.0 [facility] Comment on above: Performed By: #### L DH #### [facility] [address] [place] [address] Dr. Rose Lafleur IG # 0.03 10e3/ul Normal 0.00-0.03 [facility] Comment on above: Performed By: #### L DH #### [facility] [address] [place] [address] Dr. Rose Lafleur IG % 0.3 % Normal 0.0-0.5 [facility] Comment on above: Performed By: #### L DH #### [facility] [address] [place] [address] Dr. Rose Lafleur LYMPH # 3.7 103/ul Normal 1.2-3.8 [facility] Comment on above: Performed By: #### L DH #### [facility] [address] [place] [address] Dr. Rose Lafleur Lymphocytes/100 WBC (Bld) 32.9 % Normal 20.5-60.0 [facility] Comment on above: Performed By: #### L DH #### [facility] [address] [place] [address] Dr. Rose Lafleur MANUAL DIFF REQ NO Normal [facility] Comment on above: Performed By: #### L DH #### [facility] [address] [place] [address] Dr. Rose Lafleur MCH (RBC) [Entitic mass] 28.6 pg Normal 26.7-34.0 [facility] Comment on above: Performed By: #### L DH #### [facility] [address] [place] [address] Dr. Rose Lafleur MCHC (RBC) [Mass/Vol] 32.3 g/dL Normal 29.9-35.2 [facility] Comment on above: Performed By: #### L DH #### [facility] [address] [place] [address] Dr. Rose Lafleur MCV (RBC) [Entitic vol] 88.5 fL Normal 81.0-99.0 [facility] Comment on above: Performed By: #### L DH #### [facility] [address] [place] [address] Dr. Rose Lafleur MONO # 0.7 103/ul Normal 0.3-0.8 [facility] Comment on above: Performed By: #### L DH #### [facility] [address] [place] [address] Dr. Rose Lafleur Monocytes/100 WBC (Bld) 6.1 % Normal 1.7-12.0 [facility] Comment on above: Performed By: #### L DH #### [facility] [address] [place] [address] Dr. Rose Lafleur NEUT # 6.7 103/ul Critically high 1.4-6.5 [facility] Comment on above: Performed By: #### L DH #### [facility] [address] [place] [address] Dr. Rose Lafleur Neutrophils/100 WBC (Bld) 59.7 % Normal 43.0-75.0 [facility] Comment on above: Performed By: #### L DH #### [facility] [address] [place] [address] Dr. Rose Lafleur Platelet mean volume (Bld) [Entitic vol] 9.0 fL Critically low 9.5-13.5 [facility] Comment on above: Performed By: #### L DH #### [facility] [address] [place] [address] Dr. Rose Lafleur PLT 320 103/ul Normal 150-450 [facility] Comment on above: Performed By: #### L DH #### [facility] [address] [place] [address] Dr. Rose Lafleur RBC 4.69 106/ul Normal 4.20-5.40 [facility] Comment on above: Performed By: #### L #### [facility] [address] [place] [address] Dr. Rose Lafleur WBC 11.1 103/ul Critically high 4.0-11.0 [facility] Comment on above: Performed By: #### L #### [facility] [address] [place] [address] Dr. Rose Lafleur GLYCOHEMOGLOBIN A1Con 2021 ADA RECOMMENDATION SEE BELOW Normal [facility] Comment on above: Result Comment: ADA RECOMMENDED LIMIT 4.0 - 6.0 ADA THERAPEUTIC TARGET < 7.0 ACTION SUGGESTED > 7.0 Performed By: #### A 1C #### [facility] [address] [place] [address] Dr. Rose Lafleur Glucose [Mass/Vol] 111 mg/dL Normal [facility] Comment on above: Performed By: #### A 1C #### [facility] [address] [place] [address] Dr. Rose Lafleur HbA1c (Bld) [Mass fraction] 5.5 % Normal 4.5-6.2 [facility] Comment on above: Performed By: #### A 1C #### [facility] [address] [place] [address] Dr. Rose Lafleur TSHon 04-21-2022 TSH 1.207 uIU/mL Normal 0.358-3.740 [facility] Comment on above: Performed By: #### T SH #### [facility] [address] [place] [address] Dr. Rose Lafleur US PELVIS AND TRANSVAGon [...] ANTONIO BRADLEY Date: 2022-04-21 15:32 Normal [facility] Encounters Encounter Date Encounter Type Care Provider Facility Start: 08-18-2023 End: 08-18-2023 ambulatory LAY RUIZ Not Available Start: 07-21-2023 End: 07-21-2023 ambulatory LAY RUIZ Not Available Start: 12-14-2022 End: 12-15-2022 ambulatory RASHID ADAME Facility:[facility] Start: 09-02-2022 Encounter for prepro cedural laboratory examination DR JUAN ARRIAZA . [facility] Start: 08-30-2022 End: 08-31-[address] [...] cedural cardiovascular examination DR JUAN ARRIAZA . [facility] Start: 05-13-2022 End: 05-14-[address] JUAN ARRIAZA . Facility:[facility] Start: 05-13-2022 End: 05-14-2022 Encounter for preprocedural cardiovascular examination DR JUAN ARRIAZA . Facility:[facility] Start: 05-05-2022 End: 05-06-[address] JUAN ARRIAZA . Facility:[facility] Start: 04-21-2022 End: 04-22-[address] JUAN ARRIAZA . Facility: Payers Date Payer Category Payer Unknown [id number] 2.16.84 [id number] 1983 Unknown [id number] 2.16.84 [id number] 1983 Unknown [id number] 2.16.84 [id number] 1983 Unknown [id number] 2.16.84 [id number] 1983 Unknown [id number] 2.16.84 [id number] 1983 Unknown [id number] 2.16.84 [id number] 1983 Unknown [id number] 2.16.84 [id number] 1983 Unknown [id number] 2.16.84 [id number] 1983 Unknown [id number] 2.16.84 [id number] 1983 Unknown [id number] 2.16.84 [id number] 1983 Unknown [id number] 2.16.84 [id number] 1983 Unknown [id number] 2.16.84 [id number] 1983 Unknown [id number] 2.16.840 .[id number] 1983 Unknown [id number] 2.16.840 .[id number] 1959 Unknown [id number] Consultation note 12-14-2022 Note Date & Type Note Facility 12-14-2022 Note CONSULTATION CONSULTATION DATE: 12/14/2022 TO: [facility] CHIEF COMPLAINT: Includes severe right mid [...] our patients to inform us about any qjal-ssx-brthkan medications or herbal remedies/nutritional supplements/alternative remedies. 2. [...] options with their primary care provider. [facility] Clinical Note 08-30-2022 Note Date & Type Note Facility 08-30-2022 Note OPERATIVE NOTE OPERATION DATE: 08/30/2022 PROCEDURE: Da Beatriz assisted laparoscopy hysterectomy with bilateral salpingectomy with cystoscopy. PREOPERATIVE DIAGNOSIS: Abnormal uterine bleeding, menorrhagia, dysmenorrhea, dyspareunia, failed ablation, pelvic pain, uterine fibroids. POSTOPERATIVE DIAGNOSIS: Abnormal uterine bleeding, menorrhagia, dysmenorrhea, dyspareunia, failed ablation, pelvic pain, uterine fibroids. ANESTHESIA: General. SURGEON: Juan Arriaza D.O. MATERIAL CONTROL SUPERVISOR: FRANNIE Luu URINE OUTPUT: Yellow and [...] Anesthesia first. Patient tolerated procedure well. [facility] Clinical Note 05-26-2022 Note Date & Type Note Facility 05-26-2022 Note OPERATIVE NOTE OPERATION DATE: 05/26/2022 PROCEDURE: Attempted D AND C hysteroscopy, diagnostic laparoscopy, lysis of omental adhesions from the anterior abdominal wall using a LigaSure. PREOPERATIVE DIAGNOSIS: Pelvic pain, dysmenorrhea, dyspareunia. POSTOPERATIVE DIAGNOSIS: Pelvic pain, dysmenorrhea, dyspareunia including endometriosis ANESTHESIA: General. SURGEON: Juan Arriaza D.O. MATERIAL CONTROL SUPERVISOR: FRANNIE Huizar URINE OUTPUT: Yellow and [...] to Recovery Room in stable condition. [facility] Clinical Note 05-26-2022 Note Date & Type Note Facility 05-26-2022 Note OPERATIVE NOTE OPERATION DATE: 06/11/2022 ADDENDUM TO PROCEDURE: LigaSure apparatus was used to come across omental adhesions, extending to the anterior abdominal wall. This was released. Excellent hemostasis was assured. ADDENDUM TO POST-OP DIAGNOSIS: Significant uterine fibroids. [facility] Summary Purpose Family History No Family History Records FoundNo Family History Records Found Advance Directives No Advanced Directives Records FoundNo Advanced Directives Records Found Additional Source Comments INFORMATION SOURCE (unrecogn ized section and content) DATE CREATED AUTHOR 12/22/2022 [facility] DATE CREATED AUTHOR AUTHOR'S ORGANIZ ATION 08/20/2023 [facility] FOR RECORDS PERTAINING TO PATIENTS WHO [...] BE BASED ON THE PRIMARY CLINICAL RECORDS. [facility] [employer] [facility]. provides no warranty or guarantee of the accuracy or completeness of information in this document.
[2023-08-22 07:04] LABS: Basophils Absolute Auto 0.1 10^3/uL (0.0-0.1); Basophils Percent Auto 0.5 % (0.2-2.0); Eosinophils Absolute Auto 0.1 10^3/uL (0.0-0.7); Hematocrit 39.3 % (36.0-48.0); Hemoglobin 12.6 g/dL (12.0-16.0); Immature Granulocytes Abs Auto 0.04 10^3/uL (0.00-0.03); Immature Granulocytes Pct Auto 0.4 % (0.0-0.5); Lymphocytes Absolute Auto 3.8 10^3/uL (1.2-3.8); Lymphocytes Percent Auto 34.7 % (20.5-60.0); Mean Corpuscular HGB Conc 32.1 g/dL (29.9-35.2); Mean Corpuscular Hemoglobin 28.1 pg (26.7-34.0); Mean Corpuscular Volume 87.7 fL (81.0-99.0); Mean Platelet Volume 9.1 fL (9.5-13.5); Monocytes Absolute Auto 0.8 10^3/uL (0.3-0.8); Monocytes Percent Auto 7.1 % (1.7-12.0); Neutrophils Absolute Auto 6.2 10^3/uL (1.4-6.5); Neutrophils Percent Auto 56.3 % (43.0-75.0); Platelet Count 337 10^3/uL (150-450); Red Blood Count 4.48 10^6/uL (4.20-5.40); Red Cell Distribution Width 13.6 % (11.0-15.0); White Blood Count 10.9 10^3/uL (4.0-11.0)
[2023-08-22 11:20] LABS: Estimated Average Glucose 114 mg/dL; Glycohemoglobin A1C 5.6 % (4.5-6.2)
[2023-08-22 13:31] LABS: Alanine Aminotransferase 33 U/L (14-59); Albumin Globulin Ratio 0.6; Albumin Level 2.7 g/dL (3.4-5.0); Alkaline Phosphatase 134 U/L (46-116); Anion Gap 12.6; Aspartate Amino Transferase 21 U/L (15-37); BUN Creatinine Ratio 16.4; Bilirubin Total 0.2 mg/dL (0.2-1.0); Carbon Dioxide 25.3 mmol/L (21.0-32.0); Chloride 103 mmol/L (98-107); Chol HDL Ratio 3.1; Cholesterol 197 mg/dL (<=200); Estimated GFR (African America >60 (>=60); Estimated GFR (Non-African Ame >60 (>=60); Globulin 4.8 g/dL; Glucose 84 mg/dL (74-106); HDL Cholesterol 64 mg/dL (40-60); Potassium 3.9 mmol/L (3.5-5.1); Sodium 137 mmol/L (136-145); Thyroid Stimulating Hormone 1.768 uIU/mL (0.358-3.740); Total Protein 7.5 g/dL (6.4-8.2); Triglycerides 31 mg/dL (<=150); VLDL CHOLESTEROL 6.2 mg/dL
== END 2023-08-22 06:39 | disposition home or self-care (01) ==
LOC: LAB 06:38
PROVIDERS: PCP Family Medicine; Visit Provider Physician Assistant
DX: Z00.00 Encounter for general adult medical examination without abnormal findings (principal)
CPT/HCPCS: 36415; 80053; 80061; 83036; 84443; 85025

== ENCOUNTER 2023-10-18 19:50 | Outpatient (REF) | payer OTHER, SELFPAY ==
--- OUTSIDE RECORDS SUMMARY | 2023-10-18 20:02 | XMS_ITS | CCD ---
Author Name Unknown Address [address] [place] [address] Organization [facility] Care Team Providers Care Commodities Trader Name Role Phone GISELLA ., DR MARTINEZ Consulting Unavailable GISELLA ., DR MARTINEZ Attending Unavailable [facility] Unava ilable GISELLA ., DR MARTINEZ Admitting Unavailable GISELLA ., DR MARTINEZ Consulting Unavailable GISELLA ., DR MARTINEZ Attending Unavailable [facility] Unava ilable GISELLA ., DR MARTINEZ Admitting Unavailable GISELLA ., DR MARTINEZ Attending Unavailable [facility] Unava ilable GISELLA ., DR MARTINEZ Consulting Unavailable GISELLA ., DR MARTINEZ Admitting Unavailable GISELLA ., DR MARTINEZ Admitting Unavailable GISELLA ., DR MARTINEZ Attending Unavailable [facility] Unava ilable GISELLA ., DR MARTINEZ Consulting Unavailable JUAN CLARK Consulting Unavailable NICK BRUNO Consulting Unava ilable GISELLA ., DR MARTINEZ Consulting Unavailable GISELLA ., DR MARTINEZ Attending Unavailable GISELLA ., DR MARTINEZ Admitting Unavailable [facility] Unava ilable GISELLA ., DR MARTINEZ Consulting Unavailable GISELLA ., DR MARTINEZ Attending Unavailable GISELLA ., DR MARTINEZ Admitting Unavailable [facility] Unava ilable GISELLA ., DR MRATINEZ Consulting Unavailable GISELLA ., DR MARTINEZ Attending Unavailable GISELLA ., DR MARTINEZ Admitting Unavailable [facility] Unava ilable RASHID ADAME Primary Care Unavailable ZIEBER, DR DIANA Del Real Consulting Unavailable LAKSHMIPATHY ., NARLIVATH Attending Ivy vailable LAKSHMIPATHY ., NARENDRANATH Admitting Ivy vailable LAKSHMIPATHY ., NARENDDAYNEATH Consulting Ivy vailable GISELLA ., DR MARTINEZ Attending Unavailable [facility] Unava ilable GISELLA ., DR MARTINEZ Admitting Unavailable ANTONIO BRADLEY Consulting Unavailable GISELLA ., DR MARTINEZ Consulting Unavailable [facility] Consulting Unava ilable GISELLA ., DR MARTINEZ Consulting Unavailable GISELLA ., DR MARTINEZ Attending Unavailable [facility] Unava ilable GISELLA ., DR MARTINEZ Admitting Unavailable SHARP, MEHREEN Consulting Unavailable DALTON II, RIOS Consulting Unavailable FILUTZE, BAYRON Consulting Unavailable LAKSHMIPATHY ., NARENDRANATH Consulting Ivy vailable LAKSHMIPATHY ., MARÍA Attending Ivy vailable [facility] Unavailable LAKSHMIPATHY ., MARÍA Admitting Ivy vailable GISELLA ., DR MARTINEZ Attending Unavailable GISELLA ., DR MARTINEZ Admitting Unavailable GISELLA ., DR MARTINEZ Consulting Unavailable [facility] Unava ilable LenoErendiraJaime Attending Unavailab le Jaime Burr Admitting Unavailab le [facility] Unavailable LAY RUIZ Attending Unavailable ASRA, LAY Attending Unavailable LAY RUIZ Attending Unavailable LAY RUIZ Referring Unavailable SERVICES, [facility] Unava ilable MILLY COVINGTON Referring Unavailable SERVICES, [facility] Unava ilable MILLY COVINGTON Referring Unavailable SERVICES, [facility] Unava ilable Allergies Allergy Classification Reported Allergen(s) Allergy Type Date of Onset Reaction(s) Facility (3 sources) Penicillins; Translations: [PENICILLINS] Drug allergy (disorder) 01-25-2017 [facility] Repository Problems Active Problems Problem Classification Problem Date Documented Da te Episodic/Chronic Abdominal pain (7 sources) Pelvic and perineal pain; Translations: [Right lower quadrant pain] Onset: 05-26-2022 Episodic Disorders of lipid metabolism (1 source) Hyperlipidemia, [...] Onset: 09-07-2022 Chronic Other female genital disorders (2 sources) Abnormal uterine and vaginal bleeding, unspecified; Translations: [...] Problem Classification Problem Date Documented Date Episodic/Chronic Benign neoplasm of uterus (6 sources) Other [...] Test Name Value Interpretation Reference Range Facility US PELVIC WITH TRANSVAGINALo n 08-09-2023 US PELVIC WITH TRANSVAGINAL US PELVIC WITH TRANSVAGINAL US PELVIC WITH TRANSVAGINAL HISTORY: Pelvic pain. Vaginal pain. COMPARISON: 927 TECHNIQUE: Transabdominal and transvaginal sonographic evaluation of the pelvis. Transabdominal imaging performed to evaluate for extra adnexal pelvic pathology. Transvaginal imaging performed for better delineation of the adnexal contents. Color Doppler used. FINDINGS: The uterus is surgically absent. Provided images of the vaginal cuff show no abnormalities. The right ovary measures 2.4 x 2.2 x 1.5 cm color flow. No suspicious masses. The left ovary is not visualized secondary to poor acoustic window. No abnormalities noted in the left adnexa. Mobile, floating internal debris in the urinary bladder. IMPRESSION: 1. Unremarkable sonographic evaluation of the vaginal cuff and right ovary. The left ovary is not visualized secondary to poor acoustic window. 2. Internal debris in the urinary bladder. Correlate with urinalysis for potential cystitis. Approved by Resident Mike Gomez MD on 08/09/2023 2:22 PM I, Roman Sexton MD have personally reviewed the image(s) and agree with and/or edited the report Finalized by Roman Sexton MD on 08/09/2023 2:33 PM Normal [facility] XR LSPINE 2_3 VIEWSon 2022 XR LSPINE 2_3 VIEWS EXAMINATION: XR LSPINE 2_3 VIEWS HISTORY: Lumbar spondylosis COMPARISON: No [...] DIANA LUONG Date: 2022-12-14 16:25 Normal [facility] BUNon 08-31-2022 Urea nitrogen [Mass/Vol] 9.0 mg/dL Normal 7.0-18.0 [facility] Comment on above: Performed By: #### C BC #### [facility] [address] [address] [address] Rose Lafleur CBC AUTO DIFFon 08-31-2022 BASO # 0.0 103/ul Normal 0.0-0.1 [facility] Comment on above: Performed By: #### C BC #### [facility] [address] [address] [address] Rose Lafleur Basophils/100 WBC (Bld) 0.1 % Critically low 0.2-2.0 [facility] Comment on above: Performed By: #### C BC #### [facility] [address] [address] [address] Rose Lafleur EO # 0.0 103/ul Normal 0.0-0.7 [facility] Comment on above: Performed By: #### C BC #### [facility] [address] [place] [address] Dr. Rose Lafleur Eosinophils/100 WBC (Bld) 0.0 % Critically low 0.9-7.0 [facility] Comment on above: Performed By: #### C BC #### [facility] [address] [place] [address] Dr. Rose Lafleur Erythrocyte distribution width (RBC) [Ratio] 13.2 % Normal 11.0-15.0 [facility] Comment on above: Performed By: #### C BC #### [facility] [address] [place] [address] Dr. Rose Lafleur Hematocrit (Bld) [Volume fraction] 38.5 % Normal 36.0-48.0 [facility] Comment on above: Performed By: #### C BC #### [facility] [address] [place] [address] Dr. Rose Lafleur Hemoglobin (Bld) [Mass/Vol] 12.7 g/dL Normal 12.0-16.0 [facility] Comment on above: Performed By: #### C BC #### [facility] [address] [place] [address] Dr. Rose Lafleur IG # 0.07 10e3/ul Critically high 0.00-0.03 [facility] Comment on above: Performed By: #### C BC #### [facility] [address] [place] [address] Dr. Rose Lafleur IG % 0.4 % Normal 0.0-0.5 [facility] Comment on above: Performed By: #### C BC #### [facility] [address] [place] [address] Dr. Rose Lafleur LYMPH # 2.3 103/ul Normal 1.2-3.8 [facility] Comment on above: Performed By: #### C BC #### [facility] [address] [place] [address] Dr. Rose Lafleur Lymphocytes/100 WBC (Bld) 14.3 % Critically low 20.5-60.0 [facility] Comment on above: Performed By: #### C BC #### [facility] [address] [place] [address] Dr. Rose Lafleur MANUAL DIFF REQ NO Normal [facility] Comment on above: Performed By: #### C BC #### [facility] [address] [place] [address] Dr. Rose Lafleur MCH (RBC) [Entitic mass] 28.6 pg Normal 26.7-34.0 [facility] Comment on above: Performed By: #### C BC #### [facility] [address] [place] [address] Dr. Rose Lafleur MCHC (RBC) [Mass/Vol] 33.0 g/dL Normal 29.9-35.2 [facility] Comment on above: Performed By: #### C BC #### [facility] [address] [place] [address] Dr. Rose Lafleur MCV (RBC) [Entitic vol] 86.7 fL Normal 81.0-99.0 [facility] Comment on above: Performed By: #### C BC #### [facility] [address] [place] [address] Dr. Rose Lafleur MONO # 0.9 103/ul Critically high 0.3-0.8 [facility] Comment on above: Performed By: #### C BC #### [facility] [address] [place] [address] Dr. Rose Lafleur Monocytes/100 WBC (Bld) 5.5 % Normal 1.7-12.0 [facility] Comment on above: Performed By: #### C BC #### [facility] [address] [place] [address] Dr. Rose Lafleur NEUT # 12.8 103/ul Critically high 1.4-6.5 [facility] Comment on above: Performed By: #### C BC #### [facility] [address] [place] [address] Dr. Rose Lafleur Neutrophils/100 WBC (Bld) 79.7 % Critically high 43.0-75.0 [facility] Comment on above: Performed By: #### C BC #### [facility] [address] [address] [address] Rose Lafleur Platelet mean volume (Bld) [Entitic vol] 8.9 fL Critically low 9.5-13.5 [facility] Comment on above: Performed By: #### C BC #### [facility] [address] [address] [address] Rose Lafleur PLT 330 103/ul Normal 150-450 [facility] Comment on above: Performed By: #### C BC #### [facility] [address] [address] [address] Rose Lafleur RBC 4.44 106/ul Normal 4.20-5.40 [facility] Comment on above: Performed By: #### C BC #### [facility] [address] [place] [address] Dr. Rose Lafleur WBC 16.1 103/ul Critically high 4.0-11.0 [facility] Comment on above: Performed By: #### C BC #### [facility] [address] [place] [address] Dr. Rose Lafleur CREATININEon 08-31-2022 Creatinine [Mass/Vol] 0.59 mg/dL Normal 0.55-1.02 [facility] Comment on above: Performed By: #### C BC #### [facility] [address] [place] [address] Dr. Rose Lafleur EGFR-AF ICELANDIC >60 Normal >=60 [facility] Comment on above: Performed By: #### C BC #### [facility] [address] [place] [address] Dr. Rose Lafleur EGFR-NON AF ICELANDIC >60 Normal >=60 [facility] Comment on above: Performed By: #### C BC #### [facility] [address] [place] [address] Dr. Rose Lafleur PREG HCG QUALon 08-30-2022 , QUAL Negative Normal NEGATIVE [facility] Comment on above: Performed By: #### P REG #### [facility] [address] [place] [address] Dr. Rose Lafleur Covid-19 PCR (CVDTBH)on 08-15 SARS-CoV-2 (COVID-19) RNA URDY+probe Ql (Unsp spec) Not detected Normal NOT DETECTED [facility] Comment on above: Result Comment: This test is not yet approved or cleared by the [place] FDA. When there are no FDA-approved or cleared tests available, and other criteria are met, FDA can make tests available under an emergency access mechanism called an Emergency Use Authorization (EUA). The EUA for this test is supported by the Housing Property Manager of Health and Human Service's (HHS's) [...] SARS-CoV-2. Performed By: #### L DH #### [facility] [address] [place] [address] Dr. Rose Lafleur TYPE AND SCREENon 08-26-2022 TYPE AND SCREEN Negative Normal [facility] Comment on above: Performed By: #### L DH #### [facility] [address] [place] [address] Dr. Rose Lafleur CBC AUTO DIFFon 08-16-2022 BASO # 0.0 103/ul Normal 0.0-0.1 [facility] Comment on above: Performed By: #### C BC #### [facility] [address] [place] [address] Dr. Rose Lafleur Basophils/100 WBC (Bld) 0.3 % Normal 0.2-2.0 [facility] Comment on above: Performed By: #### C BC #### [facility] [address] [place] [address] Dr. Rose Lafleur EO # 0.2 103/ul Normal 0.0-0.7 [facility] Comment on above: Performed By: #### C BC #### [facility] [address] [place] [address] Dr. Rose Lafleur Eosinophils/100 WBC (Bld) 1.7 % Normal 0.9-7.0 [facility] Comment on above: Performed By: #### C BC #### [facility] [address] [place] [address] Dr. Rose Lafleur Erythrocyte distribution width (RBC) [Ratio] 13.1 % Normal 11.0-15.0 [facility] Comment on above: Performed By: #### C BC #### [facility] [address] [place] [address] Dr. Rose Lafleur Hematocrit (Bld) [Volume fraction] 40.6 % Normal 36.0-48.0 [facility] Comment on above: Performed By: #### C BC #### [facility] [address] [place] [address] Dr. Rose Lafleur Hemoglobin (Bld) [Mass/Vol] 13.4 g/dL Normal 12.0-16.0 [facility] Comment on above: Performed By: #### C BC #### [facility] [address] [place] [address] Dr. Rose Lafleur IG # 0.02 10e3/ul Normal 0.00-0.03 [facility] Comment on above: Performed By: #### C BC #### [facility] [address] [place] [address] Dr. Rose Lafleur IG % 0.2 % Normal 0.0-0.5 [facility] Comment on above: Performed By: #### C BC #### [facility] [address] [place] [address] Dr. Rose Lafleur LYMPH # 2.8 103/ul Normal 1.2-3.8 [facility] Comment on above: Performed By: #### C BC #### [facility] [address] [place] [address] Dr. Rose Lafleur Lymphocytes/100 WBC (Bld) 31.7 % Normal 20.5-60.0 [facility] Comment on above: Performed By: #### C BC #### [facility] [address] [place] [address] Dr. Rose Lafleur MANUAL DIFF REQ NO Normal [facility] Comment on above: Performed By: #### C BC #### [facility] [address] [place] [address] Dr. Rose Lafleur MCH (RBC) [Entitic mass] 28.5 pg Normal 26.7-34.0 [facility] Comment on above: Performed By: #### C BC #### [facility] [address] [place] [address] Dr. Rose Lafleur MCHC (RBC) [Mass/Vol] 33.0 g/dL Normal 29.9-35.2 [facility] Comment on above: Performed By: #### C BC #### [facility] [address] [place] [address] Dr. Rose Lafleur MCV (RBC) [Entitic vol] 86.4 fL Normal 81.0-99.0 [facility] Comment on above: Performed By: #### C BC #### [facility] [address] [place] [address] Dr. Rose Lafleur MONO # 0.6 103/ul Normal 0.3-0.8 [facility] Comment on above: Performed By: #### C BC #### [facility] [address] [place] [address] Dr. Rose Lafleur Monocytes/100 WBC (Bld) 6.8 % Normal 1.7-12.0 [facility] Comment on above: Performed By: #### C BC #### [facility] [address] [place] [address] Dr. Rose Lafleur NEUT # 5.1 103/ul Normal 1.4-6.5 [facility] Comment on above: Performed By: #### C BC #### [facility] [address] [place] [address] Dr. Rose Lafleur Neutrophils/100 WBC (Bld) 59.3 % Normal 43.0-75.0 [facility] Comment on above: Performed By: #### C BC #### [facility] [address] [address] [address] Rose Lafleur Platelet mean volume (Bld) [Entitic vol] 8.9 fL Critically low 9.5-13.5 [facility] Comment on above: Performed By: #### C BC #### [facility] [address] [place] [address] Dr. Rose Lafleur PLT 312 103/ul Normal 150-450 [facility] Comment on above: Performed By: #### C BC #### [facility] [address] [place] [address] Dr. Rose Lafleur RBC 4.70 106/ul Normal 4.20-5.40 [facility] Comment on above: Performed By: #### C BC #### [facility] [address] [place] [address] Dr. Rose Lafleur WBC 8.7 103/ul Normal 4.0-11.0 [facility] Comment on above: Performed By: #### C BC #### [facility] [address] [place] [address] Dr. Rose Lafleur LIVER PROFILEon 08-16-2022 Albumin [Mass/Vol] 2.9 g/dL Critically low 3.4-5.0 [facility] Comment on above: Performed By: #### B MP, LIVER #### [facility] [address] [place] [address] Dr. Rose Lafleur Albumin/Globulin [Mass ratio] 0.6 {ratio} Normal [facility] Comment on above: Performed By: #### B MP, LIVER #### [facility] [address] [place] [address] Dr. Rose Lafleur ALP [Catalytic activity/Vol] 121 U/L Critically high 46-116 [facility] Comment on above: Performed By: #### B MP, LIVER #### [facility] [address] [place] [address] Dr. Rose Lafleur ALT [Catalytic activity/Vol] 21 U/L Normal 14-59 [facility] Comment on above: Performed By: #### B MP, LIVER #### [facility] [address] [address] [address] Rose Lafleur AST [Catalytic activity/Vol] 20 U/L Normal 15-37 [facility] Comment on above: Performed By: #### B MP, LIVER #### [facility] [address] [address] [address] Rose Lafleur BILI, CONJUGATED 0.1 mg/dL Normal 0.0-0.2 [facility] Comment on above: Performed By: #### B MP, LIVER #### [facility] [address] [place] [address] Dr. Rose Lafleur Bilirubin [Mass/Vol] 0.3 mg/dL Normal 0.2-1.0 [facility] Comment on above: Performed By: #### B MP, LIVER #### [facility] [address] [place] [address] Dr. Rose Lafleur Globulin (S) [Mass/Vol] 4.8 g/dL Normal [facility] Comment on above: Performed By: #### B MP, LIVER #### [facility] [address] [place] [address] Dr. Rose Lafleur Protein [Mass/Vol] 7.7 g/dL Normal 6.4-8.[address] [facility] Comment on above: Performed By: #### B MP, LIVER #### [facility] [address] [place] [address] Dr. Rose Lafleur PROF CHEM 8 (BAS METB)on Anion gap [Moles/Vol] 10.9 mmol/L Normal [facility] Comment on above: Performed By: #### B MP, LIVER #### [facility] [address] [place] [address] Dr. Rose Lafleur Calcium [Mass/Vol] 8.8 mg/dL Normal 8.5-10.[address] [facility] Comment on above: Performed By: #### B MP, LIVER #### [facility] [address] [place] [address] Dr. Rose Lafleur Chloride [Moles/Vol] 102 mmol/L Normal 98-107 [facility] Comment on above: Performed By: #### B MP, LIVER #### [facility] [address] [address] [address] Rose Lafleur CO2 [Moles/Vol] 26.1 mmol/L Normal 21.0-32.0 [facility] Comment on above: Performed By: #### B MP, LIVER #### [facility] [address] [address] [address] Rose Lafleur Creatinine [Mass/Vol] 0.64 mg/dL Normal 0.55-1.02 [facility] Comment on above: Performed By: #### B MP, LIVER #### [facility] [address] [address] [address] Rose Lafleur EGFR-AF ICELANDIC >60 Normal >=60 [facility] Comment on above: Performed By: #### B MP, LIVER #### [facility] [address] [address] [address] Rose Lafleur EGFR-NON AF ICELANDIC >60 Normal >=60 [facility] Comment on above: Performed By: #### B MP, LIVER #### [facility] [address] [address] [address] Rsoe Lafleur Glucose [Mass/Vol] 90 mg/dL Normal 74-106 [facility] Comment on above: Performed By: #### B MP, LIVER #### [facility] [address] [address] [address] Rose Lafleur Potassium [Moles/Vol] 4.0 mmol/L Normal 3.5-5.1 [facility] Comment on above: Performed By: #### B MP, LIVER #### [facility] [address] [address] [address] Rose Lafleur Sodium [Moles/Vol] 135 mmol/L Critically low 136-145 [facility] Comment on above: Performed By: #### B MP, LIVER #### [facility] [address] [address] [address] Rose Lafleur Urea nitrogen [Mass/Vol] 12.0 mg/dL Normal 7.0-18.0 [facility] Comment on above: Performed By: #### B MP, LIVER #### [facility] [address] [address] [address] Rose Lafleur Urea nitrogen/Creatinin e [Mass ratio] 18.8 mg/mg Normal [facility] Comment on above: Performed By: #### B MP, LIVER #### [facility] [address] [address] [address] Rose Lafleur PROTIMEon 08-16-2022 INR Coag (PPP) [Relative time] 0.95 {INR} Normal [facility] Comment on above: Performed By: #### C BC #### [facility] [address] [place] [address] Dr. Rose Lafleur INR GUIDELINES SEE BELOW Normal [facility] Comment on above: Result Comment: JAYLYN RED INR: 2.0 - 3.0 CONDITIONS NOT LISTED BELOW 2.5 - 3.5 FOR PROSTHETIC HEART VALVE REPLACEMENT 2.5 - 3.5 RECURRENT THROMBOSIS Performed By: #### C BC #### [facility] [address] [address] [address] Rose Lafleur PT Coag (PPP) [Time] 10.3 s Normal 9.0-11.6 [facility] Comment on above: Performed By: #### C BC #### [facility] [address] [place] [address] Dr. Rose Lafleur PTTon 08-16-2022 aPTT Coag (Bld) [Time] 32.0 s Normal 22.3-36.2 [facility] Comment on above: Performed By: #### C BC #### [facility] [address] [place] [address] Dr. Rose Lafleur GLYCOHEMOGLOBIN A1Con 2021 ADA RECOMMENDATION SEE BELOW Normal [facility] Comment on above: Result Comment: ADA RECOMMENDED LIMIT 4.0 - 6.0 ADA THERAPEUTIC TARGET < 7.0 ACTION SUGGESTED > 7.0 Performed By: #### C BC #### [facility] [address] [place] [address] Dr. Rose Lafleru Glucose [Mass/Vol] 108 mg/dL Normal [facility] Comment on above: Performed By: #### C BC #### [facility] [address] [address] [address] Rose Lafleur HbA1c (Bld) [Mass fraction] 5.4 % Normal 4.5-6.2 [facility] Comment on above: Performed By: #### C BC #### [facility] [address] [address] [address] Rose Lafleur PAP ACOG PANEL 2: 30 to 63on 07-14-2022 . . Normal [facility] Comment on above: Result Comment: Perf ormed at: WB Performed By: #### C BC #### [facility] [facility] [address] [address] [address] Rose Lafleur Age Gdln ACOG Testing 30-65 [facility] Comment on above: Performed By: #### C BC #### [facility] [address] [address] [address] Rose Lafleur DIAGNOSIS: Comment Normal [facility] Comment on above: Result Comment: NEGA TIVE FOR INTRAEPITHELIAL LESION OR MALIGNANCY. CELLULAR CHANGES ASSOCIATED WITH INFLAMMATION ARE PRESENT. Performed at: WB Performed By: #### C BC #### [facility] [address] [address] [address] Rose Lafleur HPV Aptima Negative Normal Negative [facility] Comment on above: Result Comment: This nucleic acid amplification test detects fourteen high-risk HPV types (16,18,31,33,35,39,45,51,52,56,58,59,66,68) without differentiation. Performed at: =G Performed By: #### C BC #### [facility] [address] [address] [address] Rose Lafleur HPV Genotype Reflex Comment Normal [facility] Comment on above: Result Comment: Crit eria not met, HPV Genotype not performed. Performed at: WB Performed By: #### C BC #### [facility] [address] [address] [address] Rose Lafleur Methodology: CTIM [facility] Comment on above: Result Comment: The [employer]in [employer] Science Tutor was unable to read this specimen. Therefore a manual review was performed. Performed at: WB Performed By: #### C BC #### [facility] [address] [place] [address] Dr. Rose Lafleur Note: Comment Normal [facility] Comment on above: Result Comment: The Pap smear is a screening test designed to aid in the detection of premalignant and malignant conditions of the uterine cervix. It is not a diagnostic procedure and should not be used as the sole means of detecting cervical cancer. Both false-positive and false-negative reports do occur. . Performed at: WB Performed By: #### C BC #### [facility] [address] [place] [address] Dr. Rose Lafleur Performed by: Comment Normal [facility] Comment on above: Result Comment: Carlos Wolff, Property Worker (ASCP) Performed at: WB Performed By: #### C BC #### [facility] [address] [place] [address] Dr. Rose Lafleur Specimen adequacy: Comment Normal [facility] Comment on above: Result Comment: Sati sfactory for evaluation. No endocervical component is identified. Performed at: WB Performed By: #### C BC #### [facility] [address] [place] [address] Dr. Rose Lafleur CBC AUTO DIFFon 05-26-2022 BASO # 0.0 103/ul Normal 0.0-0.1 [facility] Comment on above: Performed By: #### C BC #### [facility] [address] [place] [address] Dr. Rose Lafleur Basophils/100 WBC (Bld) 0.4 % Normal 0.2-2.0 [facility] Comment on above: Performed By: #### C BC #### [facility] [address] [place] [address] Dr. Rose Lafleur EO # 0.1 103/ul Normal 0.0-0.7 [facility] Comment on above: Performed By: #### C BC #### [facility] [address] [place] [address] Dr. Rose Lafleur Eosinophils/100 WBC (Bld) 1.2 % Normal 0.9-7.0 [facility] Comment on above: Performed By: #### C BC #### [facility] [address] [place] [address] Dr. Rose Lafleur Erythrocyte distribution width (RBC) [Ratio] 13.6 % Normal 11.0-15.0 [facility] Comment on above: Performed By: #### C BC #### [facility] [address] [place] [address] Dr. Rose Lafleur Hematocrit (Bld) [Volume fraction] 41.6 % Normal 36.0-48.0 [facility] Comment on above: Performed By: #### C BC #### [facility] [address] [place] [address] Dr. Rose Lafleur Hemoglobin (Bld) [Mass/Vol] 13.3 g/dL Normal 12.0-16.0 [facility] Comment on above: Performed By: #### C BC #### [facility] [address] [place] [address] Dr. Rose Lafleur IG # 0.03 10e3/ul Normal 0.00-0.03 [facility] Comment on above: Performed By: #### C BC #### [facility] [address] [place] [address] Dr. Rose Lafleur IG % 0.3 % Normal 0.0-0.5 [facility] Comment on above: Performed By: #### C BC #### [facility] [address] [place] [address] Dr. Rose Lafleur LYMPH # 3.8 103/ul Normal 1.2-3.8 [facility] Comment on above: Performed By: #### C BC #### [facility] [address] [place] [address] Dr. Rose Lafleur Lymphocytes/100 WBC (Bld) 39.8 % Normal 20.5-60.0 [facility] Comment on above: Performed By: #### C BC #### [facility] [address] [place] [address] Dr. Rose Lafleur MANUAL DIFF REQ NO Normal [facility] Comment on above: Performed By: #### C BC #### [facility] [address] [address] [address] Rose Lafleur MCH (RBC) [Entitic mass] 28.5 pg Normal 26.7-34.0 [facility] Comment on above: Performed By: #### C BC #### [facility] [address] [address] [address] Rose Lafleur MCHC (RBC) [Mass/Vol] 32.0 g/dL Normal 29.9-35.2 [facility] Comment on above: Performed By: #### C BC #### [facility] [address] [place] [address] Dr. Rose Lafleur MCV (RBC) [Entitic vol] 89.3 fL Normal 81.0-99.0 [facility] Comment on above: Performed By: #### C BC #### [facility] [address] [place] [address] Dr. Rose Lafleur MONO # 0.6 103/ul Normal 0.3-0.8 [facility] Comment on above: Performed By: #### C BC #### [facility] [address] [place] [address] Dr. Rose Lafleur Monocytes/100 WBC (Bld) 6.5 % Normal 1.7-12.0 [facility] Comment on above: Performed By: #### C BC #### [facility] [address] [place] [address] Dr. Rose Lafleur NEUT # 4.9 103/ul Normal 1.4-6.5 [facility] Comment on above: Performed By: #### C BC #### [facility] [address] [place] [address] Dr. Rose Lafleur Neutrophils/100 WBC (Bld) 51.8 % Normal 43.0-75.0 [facility] Comment on above: Performed By: #### C BC #### [facility] [address] [place] [address] Dr. Rose Lafleur Platelet mean volume (Bld) [Entitic vol] 8.9 fL Critically low 9.5-13.5 [facility] Comment on above: Performed By: #### C BC #### [facility] [address] [address] [address] Rose Lafleur PLT 310 103/ul Normal 150-450 [facility] Comment on above: Performed By: #### C BC #### [facility] [address] [address] [address] Rose Lafleur RBC 4.66 106/ul Normal 4.20-5.40 [facility] Comment on above: Performed By: #### C BC #### [facility] [address] [address] [address] Rose Lafleur WBC 9.5 103/ul Normal 4.0-11.0 [facility] Comment on above: Performed By: #### C BC #### [facility] [address] [place] [address] Dr. Rose Lafleur PREG HCG QUALon 05-26-2022 , QUAL Negative Normal NEGATIVE [facility] Comment on above: Performed By: #### P REG #### [facility] [address] [address] [address] Rose Lafleur [facility]on SARS-CoV-2 (COVID-19) RNA RUDY+probe Ql (Unsp spec) Not detected Normal NOT DETECTED [facility] Comment on above: Result Comment: This test is not yet approved or cleared by the [place] FDA. When there are no FDA-approved or cleared tests available, and other criteria are met, FDA can make tests available under an emergency access mechanism called an Emergency Use Authorization (EUA). The EUA for this test is supported by the [place] of Health and Human Service's (HHS's) declaration [...] SARS-CoV-2. Performed By: #### C BC #### [facility] [address] [place] [address] Dr. Rose Lafleur AFP (TUMOR MARKER)on 022 AFP, Serum, Tumor Marker 1.6 ng/mL Normal 0.0-6.4 [facility] Comment on above: Result Comment: [employer] Electrochemiluminescence Immunoassay (ECLIA) . Values obtained with different assay methods or kits cannot be used interchangeably. Results cannot be interpreted as absolute evidence of the presence or absence of malignant disease. . This test is not interpretable in females. Performed By: #### C BC #### [facility] [address] [place] [address] Dr. Rose Lafleur CA 125on 05-07-2022 Cancer Antigen (CA) 125 17.1 U/mL Normal 0.0-38.1 [facility] Comment on above: Result Comment: [employer] Electrochemiluminescence Immunoassay (ECLIA) . Values obtained with different assay methods or kits cannot be used interchangeably. Results cannot be interpreted as absolute evidence of the presence or absence of malignant disease. Performed By: #### L DH #### [facility] [address] [place] [address] Dr. Rose Lafleur CEAon 05-07-2022 CEA 1.6 ng/mL Normal 0.0-4.7 [facility] Comment on above: Result Comment: Nons mokers <3.9 Smokers <5.6 . [employer] Electrochemiluminescence Immunoassay (ECLIA) . Values obtained with different assay methods or kits cannot be used interchangeably. Results cannot be interpreted as absolute evidence of the presence or absence of malignant disease. Performed By: #### C BC #### [facility] [address] [place] [address] Dr. Rose Lafleur HCG QUANT TUMOR MARKERon HCG QNT TUMOR MARKER <1 Normal [facility] Comment on above: Result Comment: Fema le [...] developed and its performance characteristics determined by [employer]. It has not been cleared or approved by the Food and Drug Administration for use as a tumor marker. . This test is not interpretable as a tumor marker in females. Performed By: #### C BC #### [facility] [address] [place] [address] Dr. Rose Lafleur LDHon 05-05-2022 LDH 269 U/L Critically high 81-234 [facility] Comment on above: Performed By: #### L DH #### [facility] [address] [place] [address] Dr. Rose Lafleur CBC AUTO DIFFon 04-21-2022 BASO # 0.0 103/ul Normal 0.0-0.1 [facility] Comment on above: Performed By: #### L DH #### [facility] [address] [place] [address] Dr. Rose Lafleur Basophils/100 WBC (Bld) 0.3 % Normal 0.2-2.0 [facility] Comment on above: Performed By: #### L DH #### [facility] [address] [place] [address] Dr. Rose Lafleur EO # 0.1 103/ul Normal 0.0-0.7 [facility] Comment on above: Performed By: #### L DH #### [facility] [address] [place] [address] Dr. Rose Lafleur Eosinophils/100 WBC (Bld) 0.7 % Critically low 0.9-7.0 [facility] Comment on above: Performed By: #### L DH #### [facility] [address] [place] [address] Dr. Rose Lafleur Erythrocyte distribution width (RBC) [Ratio] 13.9 % Normal 11.0-15.0 [facility] Comment on above: Performed By: #### L DH #### [facility] [address] [place] [address] Dr. Rose Lafleur Hematocrit (Bld) [Volume fraction] 41.5 % Normal 36.0-48.0 [facility] Comment on above: Performed By: #### L DH #### [facility] [address] [place] [address] Dr. Rose Lafleur Hemoglobin (Bld) [Mass/Vol] 13.4 g/dL Normal 12.0-16.0 [facility] Comment on above: Performed By: #### L DH #### [facility] [address] [place] [address] Dr. Rose Lafleur IG # 0.03 10e3/ul Normal 0.00-0.03 [facility] Comment on above: Performed By: #### L DH #### [facility] [address] [place] [address] Dr. Rose Lafleur IG % 0.3 % Normal 0.0-0.5 [facility] Comment on above: Performed By: #### L DH #### [facility] [address] [place] [address] Dr. Rose Lafleur LYMPH # 3.7 103/ul Normal 1.2-3.8 [facility] Comment on above: Performed By: #### L DH #### [facility] [address] [place] [address] Dr. Rose Lafleur Lymphocytes/100 WBC (Bld) 32.9 % Normal 20.5-60.0 [facility] Comment on above: Performed By: #### L DH #### [facility] [address] [place] [address] Dr. Rose Lafleur MANUAL DIFF REQ NO Normal [facility] Comment on above: Performed By: #### L DH #### [facility] [address] [place] [address] Dr. Rose Lafleur MCH (RBC) [Entitic mass] 28.6 pg Normal 26.7-34.0 [facility] Comment on above: Performed By: #### L DH #### [facility] [address] [address] [address] Rose Lafleur MCHC (RBC) [Mass/Vol] 32.3 g/dL Normal 29.9-35.2 [facility] Comment on above: Performed By: #### L DH #### [facility] [address] [address] [address] Rose Lafleur MCV (RBC) [Entitic vol] 88.5 fL Normal 81.0-99.0 [facility] Comment on above: Performed By: #### L DH #### [facility] [address] [place] [address] Dr. Rose Lafleur MONO # 0.7 103/ul Normal 0.3-0.8 [facility] Comment on above: Performed By: #### L DH #### [facility] [address] [place] [address] Dr. Rose Lafleur Monocytes/100 WBC (Bld) 6.1 % Normal 1.7-12.0 [facility] Comment on above: Performed By: #### L DH #### [facility] [address] [place] [address] Dr. Rose Lafleur NEUT # 6.7 103/ul Critically high 1.4-6.5 [facility] Comment on above: Performed By: #### L DH #### [facility] [address] [place] [address] Dr. Rose Lafleur Neutrophils/100 WBC (Bld) 59.7 % Normal 43.0-75.0 [facility] Comment on above: Performed By: #### L DH #### [facility] [address] [address] [address] Rose Lafleur Platelet mean volume (Bld) [Entitic vol] 9.0 fL Critically low 9.5-13.5 [facility] Comment on above: Performed By: #### L DH #### [facility] [address] [place] [address] Dr. Rose Lafleur PLT 320 103/ul Normal 150-450 [facility] Comment on above: Performed By: #### L #### [facility] [address] [place] [address] Dr. Rose Lafleur RBC 4.69 106/ul Normal 4.20-5.40 [facility] Comment on above: Performed By: #### L DH #### [facility] [address] [place] [address] Dr. Rose Lafleur WBC 11.1 103/ul Critically high 4.0-11.0 [facility] Comment on above: Performed By: #### L #### [facility] [address] [place] [address] Dr. Rose Lafleur GLYCOHEMOGLOBIN A1Con 2021 ADA RECOMMENDATION SEE BELOW Normal [facility] Comment on above: Result Comment: ADA RECOMMENDED LIMIT 4.0 - 6.0 ADA THERAPEUTIC TARGET < 7.0 ACTION SUGGESTED > 7.0 Performed By: #### A 1C #### [facility] [address] [place] [address] Dr. Rose Lafleur Glucose [Mass/Vol] 111 mg/dL Normal [facility] Comment on above: Performed By: #### A 1C #### [facility] [address] [place] [address] Dr. Rose Lafleur HbA1c (Bld) [Mass fraction] 5.5 % Normal 4.5-6.2 [facility] Comment on above: Performed By: #### A 1C #### [facility] [address] [place] [address] Dr. Rose Lafleur TSHon 04-21-2022 TSH 1.207 uIU/mL Normal 0.358-3.740 [facility] Comment on above: Performed By: #### T #### [facility] [address] [place] [address] Dr. Rose Lafleur US PELVIS AND TRANSVAGon [...] ANTONIO BRADLEY Date: 2022-04-21 15:32 Normal [facility] Encounters Encounter Date Encounter Type Care Provider Facility Start: 09-12-2023 End: 09-12-2023 ambulatory LAY RUIZ Not Available Start: 08-18-2023 End: 08-18-2023 ambulatory LAY RUIZ Not Available Start: 08-16-2023 End: 09-15-2023 ambulatory [facility] Start: 08-09-2023 End: 08-10-2023 ambulatory LAY L[facility] Start: 07-26-2023 End: 08-15-2023 ambulatory [facility] Start: 07-21-2023 End: 07-21-2023 ambulatory LAY RUIZ Not Available Start: 07-06-2023 ambulatory Jaime Squires acility:[facility] Start: 12-14-2022 End: 12-15-2022 ambulatory RASHID ADAME Facility:[facility] Start: 09-02-2022 Encounter for preprocedural laboratory examination DR JUAN ARRIAZA . [facility] Start: 08-30-2022 End: 08-31-[address] [...] ARRIAZA . Facility:[facility] Start: 05-15-2022 Encounter for preprocedural cardiovascular examination DR JUAN ARRIAZA . [facility] Start: 05-13-2022 End: 05-14-[address] JUAN ARRIAZA . Facility:[facility] Start: 05-13-2022 End: 05-14-2022 Encounter for preprocedural cardiovascular examination DR UJAN ARRIAZA . Facility:[facility] Start: 05-05-2022 End: 05-06-[address] JUAN ARRIAZA . Facility:[facility] Start: 04-21-2022 End: 04-22-[address] JUAN ARRIAZA . Facility: Payers Date Payer Category Payer Self-pay 1985 Unknown [id number] .. [id number] 1983 Unknown [id number] 1983 Unknown [id number] .. [id number] 1983 Unknown [id number] 0.1.853278.3.579.2 1983 Unknown [id number] 0.1.210139.3.579.2 1983 Unknown [id number] .16.84 0.1.340004.3.579.2.593 1983 Unknown [id number] 2.16.84 0.1.817669.3.579.2.593 1983 Unknown [id number] 2.16.84 0.1.436123.3.579.2.593 1983 Unknown [id number] 2.16.84 0.1.811033.3.579.2.593 1983 Unknown [id number] 2.16.84 0.1.394036.3.579.2.593 1983 Unknown [id number] 2.16.84 0.1.058872.3.579.2.593 1983 Unknown [id number] 2.16.84 0.1.652331.3.579.2.593 1983 Unknown [id number] 2.16.84 0.1.533217.3.579.2.1259 1983 Unknown [id number] 2.16.840 .1.804325.3.579.2.1259 1983 Unknown [id number] 2.16.840 .1.679164.3.579.2.1259 1983 Unknown [id number] 2.16.8 40.1.873281.3.579.2.1286 1983 Unknown [id number] 2.16.84 0.1.829807.3.579.2.1286 1983 Unknown [id number] 2.16.84 0.1.611091.3.579.2.1286 1959 Unknown [id number] Consultation note 12-14-2022 Note Date & Type Note Facility 12-14-2022 Note CONSULTATION CONSULTATION DATE: 12/14/2022 TO: [facility] CHIEF COMPLAINT: Includes severe right mid [...] our patients to inform us about any pwdm-rns-blakxue medications or herbal remedies/nutritional supplements/alternative remedies. 2. [...] options with their primary care provider. [facility] Clinical Note 08-30-2022 Note Date & Type Note Facility 08-30-2022 Note OPERATIVE NOTE OPERATION DATE: 08/30/2022 PROCEDURE: Da Beatriz assisted laparoscopy hysterectomy with bilateral salpingectomy with cystoscopy. PREOPERATIVE DIAGNOSIS: Abnormal uterine bleeding, menorrhagia, dysmenorrhea, dyspareunia, failed ablation, pelvic pain, uterine fibroids. POSTOPERATIVE DIAGNOSIS: Abnormal uterine bleeding, menorrhagia, dysmenorrhea, dyspareunia, failed ablation, pelvic pain, uterine fibroids. ANESTHESIA: General. SURGEON: Juan Arriaza D.O. HALAL MEAT PACKER: FRANNIE Luu URINE OUTPUT: Yellow and clear. [...] Anesthesia first. Patient tolerated procedure well. [facility] Clinical Note 05-26-2022 Note Date & Type Note Facility 05-26-2022 Note OPERATIVE NOTE OPERATION DATE: 05/26/2022 PROCEDURE: Attempted D AND C hysteroscopy, diagnostic laparoscopy, lysis of omental adhesions from the anterior abdominal wall using a LigaSure. PREOPERATIVE DIAGNOSIS: Pelvic pain, dysmenorrhea, dyspareunia. POSTOPERATIVE DIAGNOSIS: Pelvic pain, dysmenorrhea, dyspareunia including endometriosis ANESTHESIA: General. SURGEON: Juan Arriaza D.O. HALAL MEAT PACKER: FRANNIE Huizar URINE OUTPUT: Yellow and clear. [...] to Recovery Room in stable condition. [facility] Clinical Note 05-26-2022 Note Date & Type Note Facility 05-26-2022 Note OPERATIVE NOTE OPERATION DATE: 06/11/2022 ADDENDUM TO PROCEDURE: LigaSure apparatus was used to come across omental adhesions, extending to the anterior abdominal wall. This was released. Excellent hemostasis was assured. ADDENDUM TO POST-OP DIAGNOSIS: Significant uterine fibroids. [facility] Summary Purpose Family History No Family History Records FoundNo Family History Records FoundNo Family History Records FoundNo Family History Records Found Advance Directives No Advanced Directives Records FoundNo Advanced Directives Records FoundNo Advanced Directives Records FoundNo Advanced Directives Records Found Additional Source Comments INFORMATION SOURCE (unrecogn ized section and content) DATE CREATED AUTHOR 12/22/2022 [facility] DATE CREATED AUTHOR AUTHOR'S ORGANIZ ATION 09/08/2023 [facility] DATE CREATED AUTHOR AUTHOR'S ORGANIZ ATION 09/13/2023 [facility] DATE CREATED AUTHOR AUTHOR'S ORGANIZ ATION 09/18/2023 [facility] FOR RECORDS PERTAINING TO PATIENTS WHO ARE [...] BE BASED ON THE PRIMARY CLINICAL RECORDS. [facility] [employer] provides no warranty or guarantee of the accuracy or completeness of information in this document.
[2023-10-23 17:09] LABS: Age Gdln ACOG Testing Note (.); HPV Aptima Negative (Negative); IGP, Aptima HPV, rfx 16/18,45 Note (.)
== END 2023-10-18 19:51 | disposition home or self-care (01) ==
LOC: LAB 19:50
PROVIDERS: PCP Family Medicine; Visit Provider Obstetrics & Gynecology
DX: Z01.419 Encounter for gynecological examination (general) (routine) without abnormal findings (principal)
CPT/HCPCS: 87624; G0145

== ENCOUNTER 2023-11-03 12:23 | Outpatient (OUT) | payer OTHER, SELFPAY ==
--- NOTE | 2023-11-03 12:30 | P.CN_ITS ---
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 Previously benefitted from Right T11/T12 intercostal blocks. Today pain 1/10 dull ache. JOSE 4%. Pain increases with twisting lying and with weather changes. Patient finds moderate benefit from baclofen. Stopped zonegran 1-2 months ago and has noticed increase in pain, would like to discuss restarting. cc:: CC: Carol Tyler NP Review of Systems 2 ROS0 Status of ROS 10 or more systems reviewed and unremark able except as noted in history and below Musculoskeletal Reports: back pain Meds Home Medications and Allergies Home Medications ?Medication ?Instructions ?Recorded ?Confirmed ?Type albuterol sulfate 90 mcg/actuation 1 inh inhalation Q4H 06/01/23 06/21/23 History aerosol inhaler baclofen 10 mg tablet 10 mg PO BID PRN muscle spasm 06/01/23 06/21/23 History escitalopram oxalate 20 mg tablet 20 mg PO DAILY 06/01/23 06/21/23 History (Lexapro) hydroxyzine HCl 10 mg tablet 10 mg PO DAILY 06/01/23 06/21/23 History lisinopril 10 1 tab PO DAILY 06/01/23 06/21/23 History mg-hydrochlorothiazide 12.5 mg tablet naproxen 500 mg tablet 500 mg PO BID 06/01/23 06/21/23 History rosuvastatin 20 mg tablet 20 mg PO DAILY 06/01/23 06/21/23 History zonisamide 50 mg capsule 50 mg PO DAILY 06/01/23 06/21/23 History Allergies Allergy/AdvReac Type Severity Reaction Status Date / Time Penicillins Allergy Unknown Verified 06/01/23 08:17 Exam Constitutional Documenting provider has reviewed patient's vital signs: yes Common normals: no apparent distress, oriented x3, healthy appearing, alert and well nourished General appearance: cooperative Nutritional appearance: obese HENMT Common normals: normocephalic, hearing grossly normal bilaterally and moist oral mucous membranes Head and scalp: normocephalic Eye Common normals: PERRL Pupil: PERRL Neck & C-Spine Common normals: full ROM General: normal visual inspection Chest Common normals: inspection of chest normal Respiratory Common normals: normal respiratory effort, no retractions and no use of accessory muscles Back & Pelvis Thoracic spine/upper back: ROM limited and pain with ROM Back image (female): 2 1. thoracic pain over T10-T12 facets Extremity Common normals: normal to inspection and full ROM Neuro Common normals: oriented x3, CN's II-XII intact bilaterally, moves all extremities, no focal motor deficits, no sensory deficits noted and deep tendon reflexes 2+ bilaterally Sensorium/orientation: alert Motor exam: strength 5/5 throughout and no movement abnormalities noted Psych Common normals: mental status grossly normal, thought process normal, cooperative, affect normal, speech normal and activity/motor behavior normal Speech: normal speech Thought process: normal thought process Results Additional Findings Additional findings: If on a controlled substance or opioids, I have checked an [place] report on this patient and there are no aberrancies noted in the prescribing history.??If on a controlled substance or opioid a drug screen was completed and reviewed within the last year, and if there has not been a drug screen completed we ordered one today to monitor higher risk, state monitored pain medication use. As part of providing excellent, safe, comprehensive care, the following was completed at our patient's visit: 1. A medication reconciliation and review to ensure accurate knowledge of current/active medications, including asking our patients to inform us about any [id number] medications or herbal remedies/nutritional supplements/alternative remedies. 2. A review to specifically ensure our patients have had annual screening for screening for depression, screening for tobacco use, and screening for unhealthy alcohol use. For concerning screenings had a discussion with the patient, provided patient education, and recommended follow-up with primary care provider when appropriate. If patient noted with a risk of falling, they received education on strength, gait, and balance training to prevent future risk of falling. Assessment and Plan Assessment and Plan (1) Thoracic back pain: (2) Intercostal neuritis: Plan restart zonegran 50mg HS continue baclofen 10mg 1-2 BID PRN myofascial pain f/u 3 months
--- OUTSIDE RECORDS SUMMARY | 2023-11-03 12:32 | XMS_ITS | CCD ---
Author Organization [facility] Care Team Providers Care Director External Communications Name Role Phone GISELLA ., DR MARTINEZ Consulting Unavailable GISELLA ., DR MARTINEZ Attending Unavailable [facility] Unava ilable GISELLA ., DR MARTINEZ Admitting Unavailable GISELLA ., DR MARTINEZ Consulting Unavailable GISELLA ., DR MARTINEZ Attending Unavailable [facility] Unava ilable GISELLA ., DR MARTINEZ Admitting Unavailable GISELLA ., DR MARTINEZ Attending Unavailable [facility] Unava ilable GISELLA ., DR MARTINEZ Consulting Unavailable GISELLA ., DR MARTINEZ Admitting Unavailable GISELLA ., DR MARTINEZ Admitting Unavailable GISELLA ., DR MARTINEZ Attending Unavailable [facility] Unava ilable GISELLA ., DR MARTINEZ Consulting Unavailable JUAN CLARK Consulting Unavailable KIANANICK CHICAS Consulting Unava ilable GISELLA ., DR MARTINEZ Consulting Unavailable GISELLA ., DR MARTINEZ Attending Unavailable GISELLA ., DR MARTINEZ Admitting Unavailable [facility] Unava ilable GISELLA ., DR MARTINEZ Consulting Unavailable GISELLA ., DR MARTINEZ Attending Unavailable GISELLA ., DR MARTINEZ Admitting Unavailable [facility] Unava ilable GISELLA ., DR MARTINEZ Consulting Unavailable GISELLA ., DR MARTINEZ Attending Unavailable GISELLA ., DR MARTINEZ Admitting Unavailable [facility] Unava ilable RUMDESTINILAG, RASHID Primary Care Unavailable ZIEBER, DR DIANA Del Real Consulting Unavailable LAKSHMIPATHY ., NARRAFAEL Attending Ivy vailable LAKSHMIPATHY ., NARENDRANATH Admitting Ivy vailable LAKSHMIPATHY ., NARENDRANATH Consulting Ivy vailable GISELLA ., DR MARTINEZ Attending Unavailable [facility] Unava ilable GISELLA ., DR MARTINEZ Admitting Unavailable ANTONIO BRADLEY Consulting Unavailable GISELLA ., DR MARTINEZ Consulting Unavailable [facility] Consulting Unava ilable GISELLA ., DR MARTINEZ Consulting Unavailable GISELLA ., DR MARTINEZ Attending Unavailable [facility] Unava ilable GISELLA ., DR MARTINEZ Admitting Unavailable SHARP, MEHREEN Consulting Unavailable DALTON II, RIOS Consulting Unavailable FILUTZE, BAYRON Consulting Unavailable LAKSHMIPATHY ., NARENDRANATH Consulting Ivy vailable LAKSHMIPATHY ., LUIS ENRIQUEATH Attending Ivy vailable DAISHA ADAMETY Primary Care Unavailable LAKSHMIPATHY ., MARÍA Admitting Ivy vailable GISELLA ., DR MARTINEZ Attending Unavailable GISELLA ., DR MARTINEZ Admitting Unavailable GISELLA ., DR MARTINEZ Consulting Unavailable [facility] Unava ilable SARA, LAY Attending Unavailable SARA, LAY Attending Unavailable SARA, LAY Attending Unavailable SARA, LAY L Referring Unavailable SERVICES, [facility] Unava ilable MILLY COVINGTON Referring Unavailable SERVICES, [facility] Unava ilable MILLY COVINGTON Referring Unavailable SERVICES, [facility] Unava ilable Leno, Jaime Admitting Unavailab le Leno Jaime Attending Unavailab le NON STAFF Primary Care Unavailable Allergies Allergy Classification Reported Allergen(s) Allergy Type Date of Onset Reaction(s) Facility (3 sources) Penicillins; Translations: [PENICILLINS] Drug allergy (disorder) 01-25-2017 [facility] Repository Problems Active Problems Problem Classification [...] Mike Gomez MD on 08/09/2023 2:22 PM IRoman MD have personally reviewed the image(s) and agree with and/or edited the report Finalized by Roman Sexton MD on 08/09/2023 2:[address] [facility] XR LSPINE 2_3 VIEWSon 2022 XR [...] DIANA LUONG Date: 2022-12-14 16:25 Normal [facility] BUNon 08-31-2022 Urea nitrogen [Mass/Vol] 9.0 mg/dL Normal 7.0-18.0 [facility] Comment on above: Performed By: #### C BC #### [facility] [address] [place] [address] Dr. Rose Lafleur CBC AUTO DIFFon 08-31-2022 BASO # 0.0 103/ul Normal 0.0-0.1 [facility] Comment on above: Performed By: #### C BC #### [facility] [address] [address] [address] Rose Lafleur Basophils/100 WBC (Bld) 0.1 % Critically low 0.2-2.0 [facility] Comment on above: Performed By: #### C BC #### [facility] [address] [place] [address] Dr. Rose Lafleur EO # 0.0 103/ul Normal 0.0-0.7 [facility] Comment on above: Performed By: #### C BC #### [facility] [address] [address] [address] Rose Lafleur Eosinophils/100 WBC (Bld) 0.0 % Critically low 0.9-7.0 [facility] Comment on above: Performed By: #### C BC #### [facility] [address] [place] [address] Dr. Rose Lafleur Erythrocyte distribution width (RBC) [Ratio] 13.2 % Normal 11.0-15.0 [facility] Comment on above: Performed By: #### C BC #### [facility] [address] [place] [address] Dr. Rose Lafleur Hematocrit (Bld) [Volume fraction] 38.5 % Normal 36.0-48.0 [facility] Comment on above: Performed By: #### C BC #### [facility] [address] [place] [address] Dr. Rose Lafleur Hemoglobin (Bld) [Mass/Vol] 12.7 g/dL Normal 12.0-16.0 [facility] Comment on above: Performed By: #### C BC #### [facility] [address] [place] [address] Dr. Rose Lafleur IG # 0.07 10e3/ul Critically high 0.00-0.03 [facility] Comment on above: Performed By: #### C BC #### [facility] [address] [place] [address] Dr. Rose Lafleur IG % 0.4 % Normal 0.0-0.5 [facility] Comment on above: Performed By: #### C BC #### [facility] [address] [place] [address] Dr. Rose Lafleur LYMPH # 2.3 103/ul Normal 1.2-3.8 [facility] Comment on above: Performed By: #### C BC #### [facility] [address] [place] [address] Dr. Rose Lafleur Lymphocytes/100 WBC (Bld) 14.3 % Critically low 20.5-60.0 [facility] Comment on above: Performed By: #### C BC #### [facility] [address] [place] [address] Dr. Rose Lafleur MANUAL DIFF REQ NO Normal [facility] Comment on above: Performed By: #### C BC #### [facility] [address] [place] [address] Dr. Rose Lafleur MCH (RBC) [Entitic mass] 28.6 pg Normal 26.7-34.0 [facility] Comment on above: Performed By: #### C BC #### [facility] [address] [place] [address] Dr. Rose Lafleur MCHC (RBC) [Mass/Vol] 33.0 g/dL Normal 29.9-35.2 [facility] Comment on above: Performed By: #### C BC #### [facility] [address] [place] [address] Dr. Rose Lafleur MCV (RBC) [Entitic vol] 86.7 fL Normal 81.0-99.0 [facility] Comment on above: Performed By: #### C BC #### [facility] [address] [place] [address] Dr. Rose Lafleur MONO # 0.9 103/ul Critically high 0.3-0.8 [facility] Comment on above: Performed By: #### C BC #### [facility] [address] [place] [address] Dr. Rose Lafleur Monocytes/100 WBC (Bld) 5.5 % Normal 1.7-12.0 [facility] Comment on above: Performed By: #### C BC #### [facility] [address] [place] [address] Dr. Rose Lafleur NEUT # 12.8 103/ul Critically high 1.4-6.5 [facility] Comment on above: Performed By: #### C BC #### [facility] [address] [place] [address] Dr. Rose Lafleur Neutrophils/100 WBC (Bld) 79.7 % Critically high 43.0-75.0 [facility] Comment on above: Performed By: #### C BC #### [facility] [address] [place] [address] Dr. Rose Lafleur Platelet mean volume (Bld) [Entitic vol] 8.9 fL Critically low 9.5-13.5 [facility] Comment on above: Performed By: #### C BC #### [facility] [address] [address] [address] Rose Lafleur PLT 330 103/ul Normal 150-450 [facility] Comment on above: Performed By: #### C BC #### [facility] [address] [address] [address] Rose Lafleur RBC 4.44 106/ul Normal 4.20-5.40 [facility] Comment on above: Performed By: #### C BC #### [facility] [address] [address] [address] Rose Lafleur WBC 16.1 103/ul Critically high 4.0-11.0 [facility] Comment on above: Performed By: #### C BC #### [facility] [address] [address] [address] Rose Lafleur CREATININEon 08-31-2022 Creatinine [Mass/Vol] 0.59 mg/dL Normal 0.55-1.02 [facility] Comment on above: Performed By: #### C BC #### [facility] [address] [place] [address] Dr. Rose Lafleur EGFR-AF HUNGARIAN >60 Normal >=60 [facility] Comment on above: Performed By: #### C BC #### [facility] [address] [address] [address] Rose Lafleur EGFR-NON AF HUNGARIAN >60 Normal >=60 [facility] Comment on above: Performed By: #### C BC #### [facility] [address] [address] [address] Rose Lafleur PREG HCG QUALon 08-30-2022 , QUAL Negative Normal NEGATIVE [facility] Comment on above: Performed By: #### P REG #### [facility] [address] [address] [address] Rose Lafleur Covid-19 PCR (CVDTBH)on 08-15 SARS-CoV-2 (COVID-19) RNA RUDY+probe Ql (Unsp spec) Not detected Normal NOT DETECTED [facility] Comment on above: Result Comment: This test is not yet approved or cleared by the [place] FDA. When there are no FDA-approved or cleared tests available, and other criteria are met, FDA can make tests available under an emergency access mechanism called an Emergency Use Authorization (EUA). The EUA for this test is supported by the [place] of Health and Human Service's (HHS's) declaration [...] SARS-CoV-2. Performed By: #### L DH #### [facility] [address] [place] [address] Dr. Rose Lafleur TYPE AND SCREENon 08-26-2022 TYPE AND SCREEN Negative Normal [facility] Comment on above: Performed By: #### L DH #### [facility] [address] [place] [address] Dr. Rose Lafleur CBC AUTO DIFFon 08-16-2022 BASO # 0.0 103/ul Normal 0.0-0.1 [facility] Comment on above: Performed By: #### C BC #### [facility] [address] [place] [address] Dr. Rose Lafleur Basophils/100 WBC (Bld) 0.3 % Normal 0.2-2.0 [facility] Comment on above: Performed By: #### C BC #### [facility] [address] [place] [address] Dr. Rose Lafleur EO # 0.2 103/ul Normal 0.0-0.7 [facility] Comment on above: Performed By: #### C BC #### [facility] [address] [place] [address] Dr. Rose Lafleur Eosinophils/100 WBC (Bld) 1.7 % Normal 0.9-7.0 [facility] Comment on above: Performed By: #### C BC #### [facility] [address] [place] [address] Dr. Rose Lafleur Erythrocyte distribution width (RBC) [Ratio] 13.1 % Normal 11.0-15.0 [facility] Comment on above: Performed By: #### C BC #### [facility] [address] [place] [address] Dr. Rose Lafleur Hematocrit (Bld) [Volume fraction] 40.6 % Normal 36.0-48.0 [facility] Comment on above: Performed By: #### C BC #### [facility] [address] [place] [address] Dr. Rose Lafleur Hemoglobin (Bld) [Mass/Vol] 13.4 g/dL Normal 12.0-16.0 [facility] Comment on above: Performed By: #### C BC #### [facility] [address] [place] [address] Dr. Rose Lafleur IG # 0.02 10e3/ul Normal 0.00-0.03 [facility] Comment on above: Performed By: #### C BC #### [facility] [address] [place] [address] Dr. Rose Lafleur IG % 0.2 % Normal 0.0-0.5 [facility] Comment on above: Performed By: #### C BC #### [facility] [address] [place] [address] Dr. Rose Lafleur LYMPH # 2.8 103/ul Normal 1.2-3.8 [facility] Comment on above: Performed By: #### C BC #### [facility] [address] [place] [address] Dr. Rose Lafleur Lymphocytes/100 WBC (Bld) 31.7 % Normal 20.5-60.0 [facility] Comment on above: Performed By: #### C BC #### [facility] [address] [place] [address] Dr. Rose Lafleur MANUAL DIFF REQ NO Normal [facility] Comment on above: Performed By: #### C BC #### [facility] [address] [place] [address] Dr. Rose Lafleur MCH (RBC) [Entitic mass] 28.5 pg Normal 26.7-34.0 [facility] Comment on above: Performed By: #### C BC #### [facility] [address] [place] [address] Dr. Rose Lafleur MCHC (RBC) [Mass/Vol] 33.0 g/dL Normal 29.9-35.2 [facility] Comment on above: Performed By: #### C BC #### [facility] [address] [place] [address] Dr. Rose Lafleur MCV (RBC) [Entitic vol] 86.4 fL Normal 81.0-99.0 [facility] Comment on above: Performed By: #### C BC #### [facility] [address] [place] [address] Dr. Rose Lafleur MONO # 0.6 103/ul Normal 0.3-0.8 [facility] Comment on above: Performed By: #### C BC #### [facility] [address] [place] [address] Dr. Rose Lafleur Monocytes/100 WBC (Bld) 6.8 % Normal 1.7-12.0 [facility] Comment on above: Performed By: #### C BC #### [facility] [address] [place] [address] Dr. Rose Lafleur NEUT # 5.1 103/ul Normal 1.4-6.5 [facility] Comment on above: Performed By: #### C BC #### [facility] [address] [place] [address] Dr. Rose Lafleur Neutrophils/100 WBC (Bld) 59.3 % Normal 43.0-75.0 [facility] Comment on above: Performed By: #### C BC #### [facility] [address] [place] [address] Dr. Rose Lafleur Platelet mean volume (Bld) [Entitic vol] 8.9 fL Critically low 9.5-13.5 [facility] Comment on above: Performed By: #### C BC #### [facility] [address] [place] [address] Dr. Rose Lafleur PLT 312 103/ul Normal 150-450 [facility] Comment on above: Performed By: #### C BC #### [facility] [address] [place] [address] Dr. Rose Lafleur RBC 4.70 106/ul Normal 4.20-5.40 [facility] Comment on above: Performed By: #### C BC #### [facility] [address] [place] [address] Dr. Rose Lafleur WBC 8.7 103/ul Normal 4.0-11.0 [facility] Comment on above: Performed By: #### C BC #### [facility] [address] [place] [address] Dr. Rose Lafleur LIVER PROFILEon 08-16-2022 Albumin [Mass/Vol] 2.9 g/dL Critically low 3.4-5.0 [facility] Comment on above: Performed By: #### B MP, LIVER #### [facility] [address] [place] [address] Dr. Rose Lafleur Albumin/Globulin [Mass ratio] 0.6 {ratio} Normal [facility] Comment on above: Performed By: #### B MP, LIVER #### [facility] [address] [place] [address] Dr. Rose Lafleur ALP [Catalytic activity/Vol] 121 U/L Critically high 46-116 [facility] Comment on above: Performed By: #### B MP, LIVER #### [facility] [address] [place] [address] Dr. Rose Lafleur ALT [Catalytic activity/Vol] 21 U/L Normal 14-59 [facility] Comment on above: Performed By: #### B MP, LIVER #### [facility] [address] [place] [address] Dr. Rose Lafleur AST [Catalytic activity/Vol] 20 U/L Normal 15-37 [facility] Comment on above: Performed By: #### B MP, LIVER #### [facility] [address] [place] [address] Dr. Rose Lafleur BILI, CONJUGATED 0.1 mg/dL Normal 0.0-0.2 [facility] Comment on above: Performed By: #### B MP, LIVER #### [facility] [address] [place] [address] Dr. Rose Lafleur Bilirubin [Mass/Vol] 0.3 mg/dL Normal 0.2-1.0 [facility] Comment on above: Performed By: #### B MP, LIVER #### [facility] [address] [place] [address] Dr. Rose Lafleur Globulin (S) [Mass/Vol] 4.8 g/dL Normal [facility] Comment on above: Performed By: #### B MP, LIVER #### [facility] [address] [place] [address] Dr. Rose Lafleur Protein [Mass/Vol] 7.7 g/dL Normal 6.4-8.2 [facility] Comment on above: Performed By: #### B MP, LIVER #### [facility] [address] [place] [address] Dr. Rose Lafleur PROF CHEM 8 (BAS METB)on Anion gap [Moles/Vol] 10.9 mmol/L Normal [facility] Comment on above: Performed By: #### B MP, LIVER #### [facility] [address] [place] [address] Dr. Rose Lafleur Calcium [Mass/Vol] 8.8 mg/dL Normal 8.5-10.1 [facility] Comment on above: Performed By: #### B MP, LIVER #### [facility] [address] [place] [address] Dr. Rose Lafleur Chloride [Moles/Vol] 102 mmol/L Normal 98-107 [facility] Comment on above: Performed By: #### B MP, LIVER #### [facility] [address] [address] [address] Rose Lafleur CO2 [Moles/Vol] 26.1 mmol/L Normal 21.0-32.0 [facility] Comment on above: Performed By: #### B MP, LIVER #### [facility] [address] [address] [address] Rose Lafleur Creatinine [Mass/Vol] 0.64 mg/dL Normal 0.55-1.02 [facility] Comment on above: Performed By: #### B MP, LIVER #### [facility] [address] [place] [address] Dr. Rose Lafleur EGFR-AF HUNGARIAN >60 Normal >=60 [facility] Comment on above: Performed By: #### B MP, LIVER #### [facility] [address] [place] [address] Dr. Rose Lafleur EGFR-NON AF HUNGARIAN >60 Normal >=60 [facility] Comment on above: Performed By: #### B MP, LIVER #### [facility] [address] [place] [address] Dr. Rose Lafleur Glucose [Mass/Vol] 90 mg/dL Normal 74-106 [facility] Comment on above: Performed By: #### B MP, LIVER #### [facility] [address] [place] [address] Dr. Rose Lafleur Potassium [Moles/Vol] 4.0 mmol/L Normal 3.5-5.1 [facility] Comment on above: Performed By: #### B MP, LIVER #### [facility] [address] [place] [address] Dr. Rose Lafleur Sodium [Moles/Vol] 135 mmol/L Critically low 136-145 [facility] Comment on above: Performed By: #### B MP, LIVER #### [facility] [address] [place] [address] Dr. Rose Lafleur Urea nitrogen [Mass/Vol] 12.0 mg/dL Normal 7.0-18.0 [facility] Comment on above: Performed By: #### B MP, LIVER #### [facility] [address] [place] [address] Dr. Rose Lafleur Urea nitrogen/Creatinin e [Mass ratio] 18.8 mg/mg Normal [facility] Comment on above: Performed By: #### B MP, LIVER #### [facility] [address] [place] [address] Dr. Rose Lafleur PROTIMEon 08-16-2022 INR Coag (PPP) [Relative time] 0.95 {INR} Normal [facility] Comment on above: Performed By: #### C BC #### [facility] [address] [place] [address] Dr. Rose Lafleur INR GUIDELINES SEE BELOW Normal [facility] Comment on above: Result Comment: JAYLYN RED INR: 2.0 - 3.0 CONDITIONS NOT LISTED BELOW 2.5 - 3.5 FOR PROSTHETIC HEART VALVE REPLACEMENT 2.5 - 3.5 RECURRENT THROMBOSIS Performed By: #### C BC #### [facility] [address] [place] [address] Dr. Rose Lafleur PT Coag (PPP) [Time] 10.3 s Normal 9.0-11.6 [facility] Comment on above: Performed By: #### C BC #### [facility] [address] [place] [address] Dr. Rose Lafleur PTTon 08-16-2022 aPTT Coag (Bld) [Time] 32.0 s Normal 22.3-36.2 [facility] Comment on above: Performed By: #### C BC #### [facility] [address] [place] [address] Dr. Rose Lafleur GLYCOHEMOGLOBIN A1Con 2021 ADA RECOMMENDATION SEE BELOW Normal [facility] Comment on above: Result Comment: ADA RECOMMENDED LIMIT 4.0 - 6.0 ADA THERAPEUTIC TARGET < 7.0 ACTION SUGGESTED > 7.0 Performed By: #### C BC #### [facility] [address] [place] [address] Dr. Rose Lafleur Glucose [Mass/Vol] 108 mg/dL Normal [facility] Comment on above: Performed By: #### C BC #### [facility] [address] [address] [address] Rose Lafleur HbA1c (Bld) [Mass fraction] 5.4 % Normal 4.5-6.2 [facility] Comment on above: Performed By: #### C BC #### [facility] [id number] Rose Lafleur PAP ACOG PANEL 2: 30 to 65on 07-14-2022 . . Normal [facility] Comment on above: Result Comment: Perf ormed at: WB Performed By: #### C BC #### [facility] [address] [address] [address] Rose Lafleur Age Gdln ACOG Testing -63 Normal [facility] Comment on above: Performed By: #### C BC #### [facility] [address] [address] [address] Rose Lafleur DIAGNOSIS: Comment Normal [facility] Comment on above: Result Comment: NEGA TIVE FOR INTRAEPITHELIAL LESION OR MALIGNANCY. CELLULAR CHANGES ASSOCIATED WITH INFLAMMATION ARE PRESENT. Performed at: WB Performed By: #### C BC #### [facility] [address] [address] [address] Rose Lafleur HPV Aptima Negative Normal Negative [facility] Comment on above: Result Comment: This nucleic acid amplification test detects fourteen high-risk HPV types (16,18,31,33,35,39,45,51,52,56,58,59,66,68) without differentiation. Performed at: =G Performed By: #### C BC #### [facility] [address] [address] [address] Rose Lafleur HPV Genotype Reflex Comment Normal [facility] Comment on above: Result Comment: Crit eria not met, HPV Genotype not performed. Performed at: WB Performed By: #### C BC #### [facility] [id number] Rose Lafleur Methodology: CTIM Normal [facility] Comment on above: Result Comment: The Thin Prep(R) Double End Sewer was unable to read this specimen. Therefore a manual review was performed. Performed at: WB Performed By: #### C BC #### [facility] [address] [place] [address] Dr. Rose Lafleur Note: Comment Normal [facility] Comment on above: Result Comment: The [...] WB Performed By: #### C BC #### [facility] [address] [place] [address] Dr. Rose Lafleur Performed by: Comment Normal [facility] Comment on above: Result Comment: Carlos Wolff, Chief Ophthalmic Technician (ASCP) Performed at: WB Performed By: #### C BC #### [facility] [address] [place] [address] Dr. Rose Lafleur Specimen adequacy: Comment Normal [facility] Comment on above: Result Comment: Sati sfactory for evaluation. No endocervical component is identified. Performed at: WB Performed By: #### C BC #### [facility] [address] [place] [address] Dr. Rose Lafleur CBC AUTO DIFFon 05-26-2022 BASO # 0.0 103/ul Normal 0.0-0.1 [facility] Comment on above: Performed By: #### C BC #### [facility] [address] [place] [address] Dr. Rose Lafleur Basophils/100 WBC (Bld) 0.4 % Normal 0.2-2.0 [facility] Comment on above: Performed By: #### C BC #### [facility] [address] [place] [address] Dr. Rose Lafleur EO # 0.1 103/ul Normal 0.0-0.7 [facility] Comment on above: Performed By: #### C BC #### [facility] [address] [place] [address] Dr. Rose Lafleur Eosinophils/100 WBC (Bld) 1.2 % Normal 0.9-7.0 [facility] Comment on above: Performed By: #### C BC #### [facility] [address] [place] [address] Dr. Rsoe Lafleur Erythrocyte distribution width (RBC) [Ratio] 13.6 % Normal 11.0-15.0 [facility] Comment on above: Performed By: #### C BC #### [facility] [address] [place] [address] Dr. Rose Lafleur Hematocrit (Bld) [Volume fraction] 41.6 % Normal 36.0-48.0 [facility] Comment on above: Performed By: #### C BC #### [facility] [address] [place] [address] Dr. Rose Lafleur Hemoglobin (Bld) [Mass/Vol] 13.3 g/dL Normal 12.0-16.0 [facility] Comment on above: Performed By: #### C BC #### [facility] [address] [place] [address] Dr. Rose Lafleur IG # 0.03 10e3/ul Normal 0.00-0.03 [facility] Comment on above: Performed By: #### C BC #### [facility] [address] [place] [address] Dr. Rose Lafleur IG % 0.3 % Normal 0.0-0.5 [facility] Comment on above: Performed By: #### C BC #### [facility] [address] [place] [address] Dr. Rose Lafleur LYMPH # 3.8 103/ul Normal 1.2-3.8 [facility] Comment on above: Performed By: #### C BC #### [facility] [address] [place] [address] Dr. Rose Lafleur Lymphocytes/100 WBC (Bld) 39.8 % Normal 20.5-60.0 [facility] Comment on above: Performed By: #### C BC #### [facility] [address] [place] [address] Dr. Rose Lafleur MANUAL DIFF REQ NO Normal [facility] Comment on above: Performed By: #### C BC #### [facility] [address] [address] [address] Rose Lafleur MCH (RBC) [Entitic mass] 28.5 pg Normal 26.7-34.0 [facility] Comment on above: Performed By: #### C BC #### [facility] [address] [place] [address] Dr. Rose Lafleur MCHC (RBC) [Mass/Vol] 32.0 g/dL Normal 29.9-35.2 [facility] Comment on above: Performed By: #### C BC #### [facility] [address] [place] [address] Dr. Rose Lafleur MCV (RBC) [Entitic vol] 89.3 fL Normal 81.0-99.0 [facility] Comment on above: Performed By: #### C BC #### [facility] [address] [place] [address] Dr. Rose Lafleur MONO # 0.6 103/ul Normal 0.3-0.8 [facility] Comment on above: Performed By: #### C BC #### [facility] [address] [place] [address] Dr. Rose Lafleur Monocytes/100 WBC (Bld) 6.5 % Normal 1.7-12.0 [facility] Comment on above: Performed By: #### C BC #### [facility] [address] [place] [address] Dr. Rose Lafleur NEUT # 4.9 103/ul Normal 1.4-6.5 [facility] Comment on above: Performed By: #### C BC #### [facility] [address] [place] [address] Dr. Rose Lafleur Neutrophils/100 WBC (Bld) 51.8 % Normal 43.0-75.0 [facility] Comment on above: Performed By: #### C BC #### [facility] [address] [place] [address] Dr. Rose Lafleur Platelet mean volume (Bld) [Entitic vol] 8.9 fL Critically low 9.5-13.5 [facility] Comment on above: Performed By: #### C BC #### [facility] [address] [address] [address] Rose Lafleur PLT 310 103/ul Normal 150-450 [facility] Comment on above: Performed By: #### C BC #### [facility] [address] [address] [address] Rose Lafleur RBC 4.66 106/ul Normal 4.20-5.40 [facility] Comment on above: Performed By: #### C BC #### [facility] [address] [address] [address] Rose Lafleur WBC 9.5 103/ul Normal 4.0-11.0 [facility] Comment on above: Performed By: #### C BC #### [facility] [address] [place] [address] Dr. Rose Lafleur PREG HCG QUALon 05-26-2022 , QUAL Negative Normal NEGATIVE [facility] Comment on above: Performed By: #### P REG #### [facility] [address] [address] [address] Rose Lafleur Covid-19 PCR (CVDTBH)on SARS-CoV-2 (COVID-19) RNA RUDY+probe Ql (Unsp spec) Not detected Normal NOT DETECTED [facility] Comment on above: Result Comment: This test is not yet approved or cleared by the [place] FDA. When there are no FDA-approved or cleared tests available, and other criteria are met, FDA can make tests available under an emergency access mechanism called an Emergency Use Authorization (EUA). The EUA for this test is supported by the [place] of Health and Human Service's (HHS's) declaration [...] SARS-CoV-2. Performed By: #### C BC #### [facility] [address] [address] [address] Rose Lafleur AFP (TUMOR MARKER)on 022 AFP, Serum, Tumor Marker 1.6 ng/mL Normal 0.0-6.4 [facility] Comment on above: Result Comment: [employer] Electrochemiluminescence Immunoassay (ECLIA) . Values obtained with different assay methods or kits cannot be used interchangeably. Results cannot be interpreted as absolute evidence of the presence or absence of malignant disease. . This test is not interpretable in females. Performed By: #### C BC #### [facility] [id number] Rose Lafleur CA 125on 05-07-2022 Cancer Antigen (CA) 125 17.1 U/mL Normal 0.0-38.1 [facility] Comment on above: Result Comment: [employer] Electrochemiluminescence Immunoassay (ECLIA) . Values obtained with different assay methods or kits cannot be used interchangeably. Results cannot be interpreted as absolute evidence of the presence or absence of malignant disease. Performed By: #### L DH #### [facility] [id number] Rose Lafleur CEAon 05-07-2022 CEA 1.6 ng/mL Normal 0.0-4.7 [facility] Comment on above: Result Comment: Nons mokers <3.9 Smokers <5.6 . [employer] Electrochemiluminescence Immunoassay (ECLIA) . Values obtained with different assay methods or kits cannot be used interchangeably. Results cannot be interpreted as absolute evidence of the presence or absence of malignant disease. Performed By: #### C BC #### [facility] [id number] Rose Lafleur HCG QUANT TUMOR MARKERon HCG QNT TUMOR MARKER <1 Normal [facility] Comment on above: Result Comment: Fema [...] developed and its performance characteristics determined by [employer]. It has not been cleared or approved by the Food and Drug Administration for use as a tumor marker. . This test is not interpretable as a tumor marker in females. Performed By: #### C BC #### [facility] [address] [place] [address] Dr. Rose Lafleur LDHon 05-05-2022 LDH 269 U/L Critically high 81-234 [facility] Comment on above: Performed By: #### L DH #### [facility] [address] [place] [address] Dr. Rose Lafleur CBC AUTO DIFFon 04-21-2022 BASO # 0.0 103/ul Normal 0.0-0.1 [facility] Comment on above: Performed By: #### L DH #### [facility] [address] [place] [address] Dr. Rose Lafleru Basophils/100 WBC (Bld) 0.3 % Normal 0.2-2.0 [facility] Comment on above: Performed By: #### L DH #### [facility] [address] [place] [address] Dr. Rose Lafleur EO # 0.1 103/ul Normal 0.0-0.7 [facility] Comment on above: Performed By: #### L DH #### [facility] [address] [place] [address] Dr. Rose Lafleur Eosinophils/100 WBC (Bld) 0.7 % Critically low 0.9-7.0 [facility] Comment on above: Performed By: #### L DH #### [facility] [address] [place] [address] Dr. Rose Lafleur Erythrocyte distribution width (RBC) [Ratio] 13.9 % Normal 11.0-15.0 [facility] Comment on above: Performed By: #### L DH #### [facility] [address] [place] [address] Dr. Rose Lafleur Hematocrit (Bld) [Volume fraction] 41.5 % Normal 36.0-48.0 [facility] Comment on above: Performed By: #### L DH #### [facility] [address] [place] [address] Dr. Rose Lafleur Hemoglobin (Bld) [Mass/Vol] 13.4 g/dL Normal 12.0-16.0 [facility] Comment on above: Performed By: #### L DH #### [facility] [address] [place] [address] Dr. Rose Lafleur IG # 0.03 10e3/ul Normal 0.00-0.03 [facility] Comment on above: Performed By: #### L DH #### [facility] [address] [place] [address] Dr. Rose Lafleur IG % 0.3 % Normal 0.0-0.5 [facility] Comment on above: Performed By: #### L DH #### [facility] [address] [place] [address] Dr. Rose Lafleur LYMPH # 3.7 103/ul Normal 1.2-3.8 [facility] Comment on above: Performed By: #### L DH #### [facility] [address] [place] [address] Dr. Rose Lafleur Lymphocytes/100 WBC (Bld) 32.9 % Normal 20.5-60.0 [facility] Comment on above: Performed By: #### L DH #### [facility] [address] [place] [address] Dr. Rose Lafleur MANUAL DIFF REQ NO Normal [facility] Comment on above: Performed By: #### L DH #### [facility] [address] [place] [address] Dr. Rose Lafleur MCH (RBC) [Entitic mass] 28.6 pg Normal 26.7-34.0 [facility] Comment on above: Performed By: #### L DH #### [facility] [address] [address] [address] Rose Lafleur MCHC (RBC) [Mass/Vol] 32.3 g/dL Normal 29.9-35.2 [facility] Comment on above: Performed By: #### L DH #### [facility] [address] [address] [address] Rose Lafleur MCV (RBC) [Entitic vol] 88.5 fL Normal 81.0-99.0 [facility] Comment on above: Performed By: #### L DH #### [facility] [address] [address] [address] Rose Lafleur MONO # 0.7 103/ul Normal 0.3-0.8 [facility] Comment on above: Performed By: #### L DH #### [facility] [address] [place] [address] Dr. Rose Lafleur Monocytes/100 WBC (Bld) 6.1 % Normal 1.7-12.0 [facility] Comment on above: Performed By: #### L DH #### [facility] [address] [address] [address] Rose Lafleur NEUT # 6.7 103/ul Critically high 1.4-6.5 [facility] Comment on above: Performed By: #### L DH #### [facility] [address] [place] [address] Dr. Rose Lafleur Neutrophils/100 WBC (Bld) 59.7 % Normal 43.0-75.0 [facility] Comment on above: Performed By: #### L DH #### [facility] [address] [address] [address] Rose Lafleur Platelet mean volume (Bld) [Entitic vol] 9.0 fL Critically low 9.5-13.5 [facility] Comment on above: Performed By: #### L DH #### [facility] [address] [address] [address] Rose Lafleur PLT 320 103/ul Normal 150-450 [facility] Comment on above: Performed By: #### L DH #### [facility] [address] [address] [address] Rose Lafleur RBC 4.69 106/ul Normal 4.20-5.40 [facility] Comment on above: Performed By: #### L #### [facility] [address] [place] [address] Dr. Rose Lafleur WBC 11.1 103/ul Critically high 4.0-11.0 [facility] Comment on above: Performed By: #### L #### [facility] [address] [place] [address] Dr. Rose Lafleur GLYCOHEMOGLOBIN A1Con 2021 ADA RECOMMENDATION SEE BELOW Normal [facility] Comment on above: Result Comment: ADA RECOMMENDED LIMIT 4.0 - 6.0 ADA THERAPEUTIC TARGET < 7.0 ACTION SUGGESTED > 7.0 Performed By: #### A 1C #### [facility] [address] [place] [address] Dr. Rose Lafleur Glucose [Mass/Vol] 111 mg/dL Normal [facility] Comment on above: Performed By: #### A 1C #### [facility] [address] [place] [address] Dr. Rose Lafleur HbA1c (Bld) [Mass fraction] 5.5 % Normal 4.5-6.2 [facility] Comment on above: Performed By: #### A 1C #### [facility] [address] [place] [address] Dr. Rose Lafleur TSHon 04-21-2022 TSH 1.207 uIU/mL Normal 0.358-3.740 [facility] Comment on above: Performed By: #### T #### [facility] [address] [place] [address] Dr. Rose Lafleur US PELVIS AND TRANSVAGon [...] ANTONIO BRADLEY Date: 2022-04-21 15:32 Normal [facility] Encounters Encounter Date Encounter Type Care Provider Facility Start: 09-12-2023 End: 09-12-2023 ambulatory LAY RUIZ Not Available Start: 09-12-2023 ambulatory Jaime Squires acility:[facility] Start: 08-18-2023 End: 08-18-2023 ambulatory LAY RUIZ Not Available Start: 08-16-2023 End: 09-15-2023 ambulatory [facility] Start: 08-09-2023 End: 08-10-2023 ambulatory LAY Lolita [facility] Start: 07-26-2023 End: 08-15-2023 ambulatory [facility] Start: 07-21-2023 End: 07-21-2023 ambulatory LAY RUIZ Not Available Start: 12-14-2022 End: 12-15-2022 ambulatory RASHID ADAME Facility:[facility] Start: 09-02-2022 Encounter for preprocedural laboratory examination DR JUAN ARRIAZA . [facility] Start: 08-30-2022 End: 08-31-[address] JUAN ARRIAZA . Facility:[facility] Start: 08-26-2022 End: 08-27-[address] JUAN ARRIAZA . Facility:[facility] Start: 08-26-2022 End: 08-27-2022 Encounter for preprocedural laboratory examination DR JUAN ARRIAZA . Facility:[facility] Start: 08-16-2022 End: 08-17-[address] JUAN ARRIAZA . Facility:[facility] Start: 07-27-2022 End: 07-28-[address] JUAN ARIRAZA . Facility:[facility] Start: 07-05-2022 End: 07-05-[address] JUAN ARRIAZA . Facility:[facility] Start: 05-26-2022 End: 05-26-[address] JUAN ARRIAZA . Facility:[facility] Start: 05-22-2022 End: 05-23-[address] JUAN ARRIAZA . Facility:[facility] Start: 05-15-2022 Encounter for preprocedural cardiovascular examination DR JUAN ARRIAZA . [facility] Start: 05-13-2022 End: 05-14-[address] JUAN ARRIAZA . Facility:[facility] Start: 05-13-2022 End: 05-14-2022 Encounter for preprocedural cardiovascular examination DR JUAN ARRIAZA . Facility:[facility] Start: 05-05-2022 End: 05-06-[address] JUAN ARRIAZA . Facility:[facility] Start: 04-21-2022 End: 04-22-[address] JUAN ARRIAZA . Facility: Payers Date Payer Category Payer Self-pay 1985 Unknown [id number] 09.30.83 [id number] 1983 Unknown [id number] 09.30.83 [id number] 1983 Unknown [id number] 1983 Unknown [id number] 09.30. [id number] 1983 Unknown [id number] 0.1.148309.3.579.259 1983 Unknown [id number] 09.30.83 0.1.407803.3.579.259 1983 Unknown [id number] 2.16.84 0.1.812770.3.579.2.593 1983 Unknown [id number] 2.16.84 0.1.857737.3.579.2.593 1983 Unknown [id number] 2.16.84 0.1.067573.3.579.2.593 1983 Unknown [id number] 2.16.84 0.1.562615.3.579.2.593 1983 Unknown [id number] 2.16.84 0.1.630979.3.579.2.593 1983 Unknown [id number] 2.16.84 0.1.894483.3.579.2.593 1983 Unknown [id number] 2.16.84 0.1.011558.3.579.2.1259 1983 Unknown [id number] 2.16.840 .1.480149.3.579.2.1259 1983 Unknown [id number] 2.16.840 .1.270238.3.579.2.1259 1983 Unknown [id number] 2.16.8 40.1.661373.3.579.2.1286 1983 Unknown [id number] 2.16.84 0.1.350097.3.579.2.1286 1983 Unknown [id number] 2.16.84 0.1.015466.3.579.2.1286 1959 Unknown [id number] Consultation note 12-14-2022 Note Date & Type Note Facility 12-14-2022 Note CONSULTATION CONSULTATION DATE: 12/14/2022 TO: [facility] CHIEF COMPLAINT: Includes severe right mid [...] our patients to inform us about any ivwn-eaf-yzjdarj medications or herbal remedies/nutritional supplements/alternative remedies. 2. [...] options with their primary care provider. [facility] Clinical Note 08-30-2022 Note Date & Type Note Facility 08-30-2022 Note OPERATIVE NOTE OPERATION DATE: 08/30/2022 PROCEDURE: Da Beatriz assisted laparoscopy hysterectomy with bilateral salpingectomy with cystoscopy. PREOPERATIVE DIAGNOSIS: Abnormal uterine bleeding, menorrhagia, dysmenorrhea, dyspareunia, failed ablation, pelvic pain, uterine fibroids. POSTOPERATIVE DIAGNOSIS: Abnormal uterine bleeding, menorrhagia, dysmenorrhea, dyspareunia, failed ablation, pelvic pain, uterine fibroids. ANESTHESIA: General. SURGEON: Juan Arriaza D.O. [employer] VICE PRESIDENT: FRANNIE Luu URINE OUTPUT: Yellow and clear. [...] Anesthesia first. Patient tolerated procedure well. [facility] Clinical Note 05-26-2022 Note Date & Type Note Facility 05-26-2022 Note OPERATIVE NOTE OPERATION DATE: 05/26/2022 PROCEDURE: Attempted D AND C hysteroscopy, diagnostic laparoscopy, lysis of omental adhesions from the anterior abdominal wall using a LigaSure. PREOPERATIVE DIAGNOSIS: Pelvic pain, dysmenorrhea, dyspareunia. POSTOPERATIVE DIAGNOSIS: Pelvic pain, dysmenorrhea, dyspareunia including endometriosis ANESTHESIA: General. SURGEON: Juan Arriaza D.O. [employer] VICE PRESIDENT: FRANNIE Huizar URINE OUTPUT: Yellow and clear. [...] to Recovery Room in stable condition. [facility] Clinical Note 05-26-2022 Note Date & Type Note Facility 05-26-2022 Note OPERATIVE NOTE OPERATION DATE: 06/11/2022 ADDENDUM TO PROCEDURE: LigaSure apparatus was used to come across omental adhesions, extending to the anterior abdominal wall. This was released. Excellent hemostasis was assured. ADDENDUM TO POST-OP DIAGNOSIS: Significant uterine fibroids. [facility] Summary Purpose Family History No Family History Records FoundNo Family History Records FoundNo Family History Records FoundNo Family History Records Found Advance Directives No Advanced Directives Records FoundNo Advanced Directives Records FoundNo Advanced Directives Records FoundNo Advanced Directives Records Found Additional Source Comments INFORMATION SOURCE (unrecogn ized section and content) DATE CREATED AUTHOR 12/22/2022 [facility] DATE CREATED AUTHOR AUTHOR'S ORGANIZ ATION 09/13/2023 [facility] EPIC DATE CREATED AUTHOR AUTHOR'S ORGANIZ ATION 09/18/2023 [facility] DATE CREATED AUTHOR AUTHOR'S ORGANIZ ATION 10/29/2023 [facility] FOR RECORDS PERTAINING TO PATIENTS WHO ARE [...] BE BASED ON THE PRIMARY CLINICAL RECORDS. [employer] provides no warranty or guarantee of the accuracy or completeness of information in this document.
== END 2023-11-03 12:24 | disposition home or self-care (01) ==
LOC: PM 12:24
PROVIDERS: PCP Family Medicine; Visit Provider Nurse Practitioner
DX: M54.6 Pain in thoracic spine (principal); G58.8 Other specified mononeuropathies
CPT/HCPCS: G0463

== ENCOUNTER 2024-02-02 08:32 | Outpatient (OUT) | payer OTHER, SELFPAY ==
--- NOTE | 2024-02-02 08:35 | P.CN_ITS ---
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 Previously benefitted from Right T11/T12 intercostal blocks. Today pain 2/10 dull ache. JOSE 24%. Pain increases with twisting lying and with weather changes. Patient finds moderate benefit from baclofen and zonegran, denies side effects. Finds mild benefit from heat, ice, and massager. cc:: CC: Carol Tyler NP Review of Systems ROS Status of ROS 10 or more systems reviewed and unremark able except as noted in history and below Musculoskeletal Reports: back pain Meds Home Medications and Allergies Home Medications ?Medication ?Instructions ?Recorded ?Confirmed ?Type albuterol sulfate 90 mcg/actuation 1 inh inhalation Q4H 06/01/23 06/21/23 History aerosol inhaler baclofen 10 mg tablet 10 mg PO BID PRN muscle spasm 06/01/23 06/21/23 History escitalopram oxalate 20 mg tablet 20 mg PO DAILY 06/01/23 06/21/23 History (Lexapro) hydroxyzine HCl 10 mg tablet 10 mg PO DAILY 06/01/23 06/21/23 History lisinopril 10 1 tab PO DAILY 06/01/23 06/21/23 History mg-hydrochlorothiazide 12.5 mg tablet naproxen 500 mg tablet 500 mg PO BID 06/01/23 06/21/23 History rosuvastatin 20 mg tablet 20 mg PO DAILY 06/01/23 06/21/23 History zonisamide 50 mg capsule 50 mg PO DAILY 06/01/23 06/21/23 History Allergies Allergy/AdvReac Type Severity Reaction Status Date / Time Penicillins Allergy Unknown Verified 06/01/23 08:17 Exam Constitutional Documenting provider has reviewed patient's vital signs: yes Common normals: no apparent distress, oriented x3, healthy appearing, alert and well nourished General appearance: cooperative Nutritional appearance: obese HENMT Common normals: normocephalic, hearing grossly normal bilaterally and moist oral mucous membranes Head and scalp: normocephalic Eye Common normals: PERRL Pupil: PERRL Neck & C-Spine Common normals: full ROM General: normal visual inspection Chest Common normals: inspection of chest normal Respiratory Common normals: normal respiratory effort, no retractions and no use of accessory muscles Back & Pelvis Thoracic spine/upper back: ROM limited, pain with ROM and paraspinal muscle tenderness Extremity Common normals: normal to inspection and full ROM Neuro Common normals: oriented x3, CN's II-XII intact bilaterally, moves all extremities, no focal motor deficits, no sensory deficits noted and deep tendon reflexes 2+ bilaterally Sensorium/orientation: alert Motor exam: strength 5/5 throughout and no movement abnormalities noted Psych Common normals: mental status grossly normal, thought process normal, cooperative, affect normal, speech normal and activity/motor behavior normal Speech: normal speech Thought process: normal thought process Results Additional Findings Additional findings: If on a controlled substance or opioids, I have checked an [facility] report on this patient and there are no aberrancies noted in the prescribing history.??If on a controlled substance or opioid a drug screen was completed and reviewed within the last year, and if there has not been a drug screen completed we ordered one today to monitor higher risk, state monitored pain medication use. As part of providing excellent, safe, comprehensive care, the following was completed at our patient's visit: 1. A medication reconciliation and review to ensure accurate knowledge of current/active medications, including asking our patients to inform us about any [id number] medications or herbal remedies/nutritional supplements/alternative remedies. 2. A review to specifically ensure our patients have had annual screening for screening for depression, screening for tobacco use, and screening for unhealthy alcohol use. For concerning screenings had a discussion with the patient, provided patient education, and recommended follow-up with primary care provider when appropriate. If patient noted with a risk of falling, they received education on strength, gait, and balance training to prevent future risk of falling. Assessment and Plan Assessment and Plan (1) Thoracic back pain: (2) Intercostal neuritis: (3) Myofascial pain: Plan continue zonegran 50mg HS continue baclofen 10mg 1-2 BID PRN myofascial pain f/u 6 months, sooner if needed
== END 2024-02-02 08:33 | disposition home or self-care (01) ==
LOC: PM 08:33
PROVIDERS: PCP Family Medicine; Visit Provider Nurse Practitioner
DX: M54.6 Pain in thoracic spine (principal); G58.0 Intercostal neuropathy; M79.18 Myalgia, other site
CPT/HCPCS: G0463

== ENCOUNTER 2024-08-02 11:22 | Outpatient (OUT) | payer OTHER, SELFPAY ==
--- OUTSIDE RECORDS SUMMARY | 2024-08-02 11:27 | XMS_ITS | CCD ---
Author Organization [facility] Care Team Providers Care Acoustics Teacher Name Role Phone GISELLA ., DR MARTINEZ Consulting Unavailable GISELLA ., DR MARTINEZ Attending Unavailable [facility] Unava ilable GISELLA ., DR MARTINEZ Admitting Unavailable GISELLA ., DR MARTINEZ Consulting Unavailable GISELLA ., DR MARTINEZ Attending Unavailable [facility] Unava ilable GISELLA ., DR MARTINEZ Admitting Unavailable GISELLA ., DR MARTINEZ Attending Unavailable [facility] Unava ilable GISELLA ., DR MARTINEZ Consulting Unavailable GISELLA ., DR MARTINEZ Admitting Unavailable GISELLA ., DR MARTINEZ Admitting Unavailable GISELLA ., DR MARTINEZ Attending Unavailable [facility] Unava ilable GISELLA ., DR MARTINEZ Consulting Unavailable JUAN CLARK Consulting Unavailable KIANANICK Consulting Unava ilable GISELLA ., DR MARTINEZ Consulting Unavailable GISELLA ., DR MARTINEZ Attending Unavailable GISELLA ., DR MARTINEZ Admitting Unavailable [facility] Care Unava ilable GISELLA ., DR MARTINEZ Consulting Unavailable GISELLA ., DR MARTINEZ Attending Unavailable GISELLA ., DR MARTINEZ Admitting Unavailable [facility] Care Unava ilable GISELLA ., DR MARTINEZ Consulting Unavailable GISELLA ., DR MARTINEZ Attending Unavailable GISELLA ., DR MARTINEZ Admitting Unavailable [facility] Unava ilable CHANDRALAG, RASHID Primary Care Unavailable ZIEBER, DR DIANA Del Real Consulting Unavailable LAKSHMIPATHY ., NARENDRANATH Attending Ivy vailable LAKSHMIPATHY ., NARENDRANATH Admitting Ivy vailable LAKSHMIPATHY ., NARENDRANATH Consulting Ivy vailable GISELLA ., DR MARTINEZ Attending Unavailable [facility] Primary Care Unava ilable GISELLA ., DR MARTINEZ Admitting Unavailable ANTONIO BRADLEY Consulting Unavailable GISELLA ., DR MARTINEZ Consulting Unavailable [facility] Consulting Unava ilable GISELLA ., DR MARTINEZ Consulting Unavailable GISELLA ., DR MARTINEZ Attending Unavailable [facility] Primary Care Unava ilable GISELLA ., DR MARTINEZ Admitting Unavailable MEHREEN FLOWERS Consulting Unavailable DALTON II, RIOS Consulting Unavailable FILUTZEBAYRON Consulting Unavailable LAKSHMIPATHY ., NARENDRANATH Consulting Ivy vailable LAKSHMIPATHY ., NARENDRANATH Attending Ivy vailable DAISHA ADAMETY Primary Care Unavailable LAKSHMIPATHY ., NARLIVATH Admitting Ivy vailable GISELLA ., DR MARTINEZ Attending Unavailable GISELLA ., DR MARTINEZ Admitting Unavailable GISELLA ., DR MARTINEZ Consulting Unavailable [facility] Care Unava ilable LAY RUIZ Attending Unavailable LAY RUIZ Attending Unavailable LAY RUIZ Attending Unavailable Za Rogers MD Primary Care Provider Jaime Burr Attending Unavailab Jaime Canas Admitting Unavailab le NON STAFF Primary Care Unavailable BAYRON REDDY Attending Unavailable ROGERS, ZA L Referring Unavailable ROGERS, ZA L Primary Care Unavailable LAY RUIZ [facility] Unava ilable MILLY COVINGTON Referring Unavailable SERVICES, [facility] Primary Care Unava ilable ROGERS, ZA L Referring Unavailable ROGERS, ZA L Primary Care Unavailable ANTONIO DRAPER Attending Unavailable ANTONIO DRAPER Referring Unavailable ROGERS, ZA L Primary Care Unavailable ANTONIO DRAPER Referring Unavailable ROGERS, ZA L Primary Care Unavailable PURVI NEVILLE Admitting Unavailable PURVI NEVILLE Attending Unavailable ROGERS, ZA L Primary Care Unavailable MILLY COVINGTON Referring Unavailable SERVICES, [facility] Primary [facility] Unava ilable Allergies Allergy Classification Reported Allergen(s) Allergy Type Date of Onset Reaction(s) Facility (5 sources) Penicillins; Translations: [PENICILLINS] Drug allergy (disorder) 7 [facility] (4 sources) Penicillins Propensity to adverse reactions to drug 7 Anaphylaxis, Angioedema [facility] Medications Current Medications Medication Drug Class(es) Dates Sig (Normalized) Sig (Original) escitalopram 10 mg oral tablet (4 sources) Serotonin Reuptake Inhibitor take 1 tablet by mouth in the morning escitalopram (LEXAPRO) 10 mg tablet Take 1 tablet (10 mg total) by mouth in the morning. Active hydroCHLOROthiazide 12.5 mg / lisinopril 10 mg oral tablet (3 sources) Thiazide Diuretic, Angiotensin Converting Enzyme Inhibitor take 10-12.5 mg by mouth once in the morning lisinopril-hydroC HLOROthiazide (PRINZIDE,ZESTORE TIC) 10-12.5 mg per tablet Take 1 tablet by mouth in the morning. Active hydrOXYzine pamoate 50 mg oral capsule (3 sources) Antihistamine Start: 05-15-2024 take 1 capsule by mouth three times daily as needed hydrOXYzine (VISTARIL) 50 mg capsule Take 1 capsule (50 mg total) by mouth 3 (three) times a day as needed. 05/15/2024 Active rosuvastatin calcium 5 mg oral tablet (4 sources) HMG-CoA Reductase Inhibitor take 1 tablet by mouth in the morning rosuvastatin (CRESTOR) 5 mg tablet Take 1 tablet (5 mg total) by mouth in the morning. Active sod sulf-pot chloride-mag sulf 1.479-0.188- 0.225 gram tablet (2 sources) Start: 05-23-2024 sod sulf-pot chloride-mag sulf 1.479-0.188- 0.225 gram tablet Indications: Rectal bleeding Please see instructional sheet given by physicians office. 24 tablet 05/23/2024 Active zonisamide 50 mg oral capsule (3 sources) Anti-epileptic Agent take 1 capsule by mouth in the morning zonisamide (ZONEGRAN) 50 mg capsule Take 1 capsule (50 mg total) by mouth in the morning. Active Completed/Discontinued Medications Medication Drug Class(es) Dates Sig (Normalized) Sig (Original) [id number] 200 actuat albuterol 0.09 mg/actuat metered dose inhaler (2 sources) beta2-Adrenergic Agonist Start: 09-13-2019 End: 05-23-2024 take 2 puff(s) by inhalation every four hours as needed for wheezing albuterol (PROVENTIL HFA;VENTOLIN HFA) 90 mcg/actuation inhaler Inhale 2 puffs every 4 (four) hours as needed for wheezing. 1 Inhaler 09/13/2019 05/23/2024 Discontinued (Therapy completed) amLODIPine 5 mg oral tablet (2 sources) Dihydropyridine Calcium Channel Gab End: 05-23-2024 take 1 tablet by mouth once daily amLODIPine (NORVASC) 5 mg tablet Take 5 mg by mouth daily. 05/23/2024 Discontinued ondansetron 4 mg disintegrating oral tablet (2 sources) Serotonin-3 Receptor Antagonist Start: 02-12-2022 End: 05-23-2024 take 1 tablet by mouth every eight hours as needed for nausea ondansetron ODT (ZOFRAN ODT) 4 mg disintegrating tablet Dissolve 1 tablet (4 mg total) on tongue every 8 (eight) hours as needed for nausea for up to 10 doses. 10 tablet 02/12/2022 05/23/2024 Discontinued Problems Active Problems Problem Classification Problem Date Documented Da te Episodic/Chronic Disorders of lipid metabolism (1 source) Hyperlipidemia, unspecified; Translations: [HYPERLIPIDEMIA UNSPECIFIED] Onset: 06-09-2022 Chronic Endometriosis (5 sources) Endometriosis, unspecified; Translations: [ENDOMETRIOSIS UNSPECIFIED] Onset: 08-30-2022 Chronic Essential hypertension (2 sources) Essential (primary) hypertension; Translations: [ESSENTIAL PRIMARY HYPERTENSION] Onset: 06-09-2022 Chronic Gastrointestinal hemorrhage (4 sources) Hemorrhage of anus and rectum; Translations: [Rectal hemorrhage] Onset: 05-23-2024 05-23-2024 Episodic Hemorrhoids (1 source) Hemorrhoids Onset: 05-23-2024 Episodic Menstrual disorders (2 sources) Excessive and frequent menstruation with regular cycle; Translations: [Dysmenorrhea, unspecified] Onset: 09-07-2022 Chronic Other and unspecified benign neoplasm (1 source) Benign neoplasm of sigmoid colon; Translations: [Benign neoplasm of sigmoid colon] Onset: 06-14-2024 Episodic Other connective tissue disease (1 source) Other [...] Chronic Other nutritional; endocrine; and metabolic disorders (2 sources) Body mass index (BMI) 60.0-69.9, adult; Translations: [...] Problem Date Documented Date Episodic/Chronic Abdominal pain (7 sources) Pelvic and [...] Test Name Value Interpretation Reference Range Facility Surgical Pathologyon 024 Surgical Pathology Normal [facility] Comment on above: Result Comment: [facility] [address] [place] [address] Surgical Pathology Consultation Patient Name:ERAN WINN:1985 (Age: 38)Gender:FTaken:4Reported:06/20/2024hysician(s):Purvi Neville D.O. ([phone])Copy To: Rec. #:[id number]: #[id number] Final Pathologic Diagnosis Sigmoid colon polyp, biopsy: Tubular adenoma. Report Electronically Signed Out nxk/06/20/2024Fermín Lunsford MD Interpretation performed at [facility], [address] [place] [address], License number: [id number]. Clinical History Rectal bleeding. Gross Description Received in formalin labeled TATUM sigmoid colon polyp are two brown pedunculated polyps, 1.1 x 0.7 x 0.4 cm and 0.6 x 0.5 x 0.3 cm. The resection margins are inked black and green. The larger polyp is trisected. The smaller polyp is bisected. These are submitted in a single cassette. (1, ns, [id number],m3) DM. dm/06/16/2024NSK Specimen(s) Received Sigmoid colon polyp Fee Codes(s): 1; 75416 BASIC METABOLIC PANLon 05-25 Anion gap [Moles/Vol] 8 mmol/L Normal 5-15 [facility] Comment on above: Performed By: #### B MP #### [facility] ([id number]) [address] [place] [address] Calcium [Mass/Vol] 9.1 mg/dL Normal 8.5-10.5 [facility] Comment on above: Performed By: #### B MP #### [facility] ([id number]) [address] [place] [address] Chloride [Moles/Vol] 103 mmol/L Normal 98-109 [facility] Comment on above: Performed By: #### B MP #### [facility] ([id number]) [address] [place] [address] CO2 [Moles/Vol] 26 mmol/L Normal 22-32 [facility] Comment on above: Performed By: #### B MP #### [facility] ([id number]) [address] [place] [address] Creatinine [Mass/Vol] 0.86 mg/dL Normal 0.40-1.00 [facility] Comment on above: Result Comment: METH OD TRACEABLE TO IDMS STANDARD Performed By: #### B MP #### [facility] ([id number]) [address] [place] [address] GFR/1.73 sq M.predicted among non-blacks MDRD (S/P/Bld) [Vol rate/Area] 88 mL/min/{1.73_m2} Normal >59 [facility] Comment on above: Result Comment: Reported eGFR is based on the CKD-EPI 2020 equation that does not use a race coefficient. Performed By: #### B MP #### [facility] ([id number]) [address] [address] [address] [place] [address] Glucose [Mass/Vol] 90 mg/dL Normal 65-99 [facility] Comment on above: Performed By: #### B MP #### [facility] ([id number]) [address] [place] [address] Potassium [Moles/Vol] 3.9 mmol/L Normal 3.5-5.0 [facility] Comment on above: Performed By: #### B MP #### [facility] ([id number]) [address] [place] [address] Sodium [Moles/Vol] 137 mmol/L Normal 134-146 [facility] Comment on above: Performed By: #### B MP #### [facility] ([id number]) [address] [place] [address] Urea nitrogen [Mass/Vol] 14 mg/dL Normal 5-23 [facility] Comment on above: Performed By: #### B MP #### [facility] ([id number]) [address] [place] [address] US PELVIC WITH TRANSVAGINALo n 08-09-2023 US PELVIC WITH TRANSVAGINAL US PELVIC WITH TRANSVAGINAL US PELVIC WITH TRANSVAGINAL HISTORY: Pelvic pain. Vaginal pain. COMPARISON: TECHNIQUE: Transabdominal and transvaginal sonographic evaluation of [...] Gomez MD on 08/09/2023 2:22 PM I, Purvi Sexton MD have personally reviewed the image(s) and agree with and/or edited the report Finalized by Purvi Sexton MD on 08/09/2023 2:33 PM Normal [facility] XR LSPINE 2_3 VIEWSon 2022 XR LSPINE [...] DIANA LUONG Date: 2022-12-14 16:25 Normal [facility] BUNon 08-31-2022 Urea nitrogen [Mass/Vol] 9.0 mg/dL Normal 7.0-18.0 [facility] Comment on above: Performed By: #### C BC #### [facility] [address] [address] [address] Rose Lafleur CBC AUTO DIFFon 08-31-2022 BASO # 0.0 103/ul Normal 0.0-0.1 [facility] Comment on above: Performed By: #### C BC #### [facility] [address] [address] [address] Rose Lafleur Basophils/100 WBC (Bld) 0.1 % Critically low 0.2-2.0 [facility] Comment on above: Performed By: #### C BC #### [facility] [address] [place] [address] Dr. Rose Lafleur EO # 0.0 103/ul Normal 0.0-0.7 [facility] Comment on above: Performed By: #### C BC #### [facility] [address] [place] [address] Dr. Rose Lafluer Eosinophils/100 WBC (Bld) 0.0 % Critically low 0.9-7.0 [facility] Comment on above: Performed By: #### C BC #### [facility] [address] [place] [address] Dr. Rose Lafleur Erythrocyte distribution width (RBC) [Ratio] 13.2 % Normal 11.0-15.0 [facility] Comment on above: Performed By: #### C BC #### [facility] [address] [place] [address] Dr. Rose Lafleur Hematocrit (Bld) [Volume fraction] 38.5 % Normal 36.0-48.0 [facility] Comment on above: Performed By: #### C BC #### [facility] [address] [place] [address] Dr. Rose Lafleur Hemoglobin (Bld) [Mass/Vol] 12.7 g/dL Normal 12.0-16.0 [facility] Comment on above: Performed By: #### C BC #### [facility] [address] [place] [address] Dr. Rose Lafleur IG # 0.07 10e3/ul Critically high 0.00-0.03 [facility] Comment on above: Performed By: #### C BC #### [facility] [address] [place] [address] Dr. Rose Lafleur IG % 0.4 % Normal 0.0-0.5 [facility] Comment on above: Performed By: #### C BC #### [facility] [address] [place] [address] Dr. Rose Lafleur LYMPH # 2.3 103/ul Normal 1.2-3.8 [facility] Comment on above: Performed By: #### C BC #### [facility] [address] [address] [address] Rose Lafleur Lymphocytes/100 WBC (Bld) 14.3 % Critically low 20.5-60.0 [facility] Comment on above: Performed By: #### C BC #### [facility] [address] [address] [address] Rose Lafleur MANUAL DIFF REQ NO Normal [facility] Comment on above: Performed By: #### C BC #### [facility] [address] [place] [address] Dr. Rose Lafleur MCH (RBC) [Entitic mass] 28.6 pg Normal 26.7-34.0 [facility] Comment on above: Performed By: #### C BC #### [facility] [address] [place] [address] Dr. Rose Lafleur MCHC (RBC) [Mass/Vol] 33.0 g/dL Normal 29.9-35.2 [facility] Comment on above: Performed By: #### C BC #### [facility] [address] [place] [address] Dr. Rose Lafleur MCV (RBC) [Entitic vol] 86.7 fL Normal 81.0-99.0 [facility] Comment on above: Performed By: #### C BC #### [facility] [address] [place] [address] Dr. Rose Lafleur MONO # 0.9 103/ul Critically high 0.3-0.8 [facility] Comment on above: Performed By: #### C BC #### [facility] [address] [place] [address] Dr. Rose Lafleur Monocytes/100 WBC (Bld) 5.5 % Normal 1.7-12.0 [facility] Comment on above: Performed By: #### C BC #### [facility] [address] [place] [address] Dr. Rose Lafleur NEUT # 12.8 103/ul Critically high 1.4-6.5 [facility] Comment on above: Performed By: #### C BC #### [facility] [address] [address] [address] Rose Lafleur Neutrophils/100 WBC (Bld) 79.7 % Critically high 43.0-75.0 [facility] Comment on above: Performed By: #### C BC #### [facility] [address] [place] [address] Dr. Rose Lafleur Platelet mean volume (Bld) [Entitic vol] 8.9 fL Critically low 9.5-13.5 [facility] Comment on above: Performed By: #### C BC #### [facility] [address] [address] [address] Rose Lafleur PLT 330 103/ul Normal 150-450 [facility] Comment on above: Performed By: #### C BC #### [facility] [address] [place] [address] Dr. Rose Lafleur RBC 4.44 106/ul Normal 4.20-5.40 [facility] Comment on above: Performed By: #### C BC #### [facility] [address] [place] [address] Dr. Rose Lafleur WBC 16.1 103/ul Critically high 4.0-11.0 [facility] Comment on above: Performed By: #### C BC #### [facility] [address] [place] [address] Dr. Rose Lafleur CREATININEon 08-31-2022 Creatinine [Mass/Vol] 0.59 mg/dL Normal 0.55-1.02 [facility] Comment on above: Performed By: #### C BC #### [facility] [address] [place] [address] Dr. Rose Lafleur EGFR-AF MARSHALLESE >60 Normal >=60 [facility] Comment on above: Performed By: #### C BC #### [facility] [address] [place] [address] Dr. Rose Lafleur EGFR-NON AF MARSHALLESE >60 Normal >=60 [facility] Comment on above: Performed By: #### C BC #### [facility] [address] [place] [address] Dr. Rose Lafleur PREG HCG QUALon 08-30-2022 , QUAL Negative Normal NEGATIVE [facility] Comment on above: Performed By: #### P REG #### [facility] [address] [place] [address] Dr. Rose Lafleur [facility] SARS-CoV-2 (COVID-19) RNA RUDY+probe Ql (Unsp spec) Not detected Normal NOT DETECTED [facility] Comment on above: Result Comment: This test is not yet approved or cleared by the [place] FDA. When there are no FDA-approved or cleared tests available, and other criteria are met, FDA can make tests available under an emergency access mechanism called an Emergency Use Authorization (EUA). The EUA for this test is supported by the [place] of Health and Human Service's (HHS's) declaration [...] SARS-CoV-2. Performed By: #### L DH #### [facility] [address] [place] [address] Dr. Rose Lafleur TYPE AND SCREENon 08-26-2022 TYPE AND SCREEN Negative Normal [facility] Comment on above: Performed By: #### L DH #### [facility] [address] [place] [address] Dr. Rose Lafleur CBC AUTO DIFFon 08-16-2022 BASO # 0.0 103/ul Normal 0.0-0.1 [facility] Comment on above: Performed By: #### C BC #### [facility] [address] [place] [address] Dr. Rose Lafleur Basophils/100 WBC (Bld) 0.3 % Normal 0.2-2.0 [facility] Comment on above: Performed By: #### C BC #### [facility] [address] [place] [address] Dr. Rose Lafleur EO # 0.2 103/ul Normal 0.0-0.7 [facility] Comment on above: Performed By: #### C BC #### [facility] [address] [place] [address] Dr. Rose Lafleur Eosinophils/100 WBC (Bld) 1.7 % Normal 0.9-7.0 [facility] Comment on above: Performed By: #### C BC #### [facility] [address] [place] [address] Dr. Rose Lafleur Erythrocyte distribution width (RBC) [Ratio] 13.1 % Normal 11.0-15.0 [facility] Comment on above: Performed By: #### C BC #### [facility] [address] [place] [address] Dr. Rose Lafleur Hematocrit (Bld) [Volume fraction] 40.6 % Normal 36.0-48.0 [facility] Comment on above: Performed By: #### C BC #### [facility] [address] [place] [address] Dr. Rose Lafleur Hemoglobin (Bld) [Mass/Vol] 13.4 g/dL Normal 12.0-16.0 [facility] Comment on above: Performed By: #### C BC #### [facility] [address] [place] [address] Dr. Rose Lafleur IG # 0.02 10e3/ul Normal 0.00-0.03 [facility] Comment on above: Performed By: #### C BC #### [facility] [address] [place] [address] Dr. Rose Lafleur IG % 0.2 % Normal 0.0-0.5 [facility] Comment on above: Performed By: #### C BC #### [facility] [address] [place] [address] Dr. Rose Lafleur LYMPH # 2.8 103/ul Normal 1.2-3.8 [facility] Comment on above: Performed By: #### C BC #### [facility] [address] [place] [address] Dr. Rose Lafleur Lymphocytes/100 WBC (Bld) 31.7 % Normal 20.5-60.0 [facility] Comment on above: Performed By: #### C BC #### [facility] [address] [place] [address] Dr. Rose Lafleur MANUAL DIFF REQ NO Normal [facility] Comment on above: Performed By: #### C BC #### [facility] [address] [place] [address] Dr. Rose Lafleur MCH (RBC) [Entitic mass] 28.5 pg Normal 26.7-34.0 [facility] Comment on above: Performed By: #### C BC #### [facility] [address] [place] [address] Dr. Rose Lafleur MCHC (RBC) [Mass/Vol] 33.0 g/dL Normal 29.9-35.2 [facility] Comment on above: Performed By: #### C BC #### [facility] [address] [place] [address] Dr. Rose Lafleur MCV (RBC) [Entitic vol] 86.4 fL Normal 81.0-99.0 [facility] Comment on above: Performed By: #### C BC #### [facility] [address] [place] [address] Dr. Rose Lafleur MONO # 0.6 103/ul Normal 0.3-0.8 [facility] Comment on above: Performed By: #### C BC #### [facility] [address] [place] [address] Dr. Rose Lafleur Monocytes/100 WBC (Bld) 6.8 % Normal 1.7-12.0 [facility] Comment on above: Performed By: #### C BC #### [facility] [address] [place] [address] Dr. Rose Lafleur NEUT # 5.1 103/ul Normal 1.4-6.5 [facility] Comment on above: Performed By: #### C BC #### [facility] [address] [place] [address] Dr. Rose Lafleur Neutrophils/100 WBC (Bld) 59.3 % Normal 43.0-75.0 [facility] Comment on above: Performed By: #### C BC #### [facility] [address] [place] [address] Dr. Rose Lafleur Platelet mean volume (Bld) [Entitic vol] 8.9 fL Critically low 9.5-13.5 [facility] Comment on above: Performed By: #### C BC #### [facility] [address] [place] [address] Dr. Rose Lafleur PLT 312 103/ul Normal 150-450 [facility] Comment on above: Performed By: #### C BC #### [facility] [address] [place] [address] Dr. Rose Lafleur RBC 4.70 106/ul Normal 4.20-5.40 [facility] Comment on above: Performed By: #### C BC #### [facility] [address] [place] [address] Dr. Rose Lafleur WBC 8.7 103/ul Normal 4.0-11.0 [facility] Comment on above: Performed By: #### C BC #### [facility] [address] [place] [address] Dr. Rose Lafleur LIVER PROFILEon 08-16-2022 Albumin [Mass/Vol] 2.9 g/dL Critically low 3.4-5.0 [facility] Comment on above: Performed By: #### B MP, LIVER #### [facility] [address] [place] [address] Dr. Rose Lafleur Albumin/Globulin [Mass ratio] 0.6 {ratio} Normal [facility] Comment on above: Performed By: #### B MP, LIVER #### [facility] [address] [place] [address] Dr. Rose Lafleur ALP [Catalytic activity/Vol] 121 U/L Critically high 46-116 [facility] Comment on above: Performed By: #### B MP, LIVER #### [facility] [address] [place] [address] Dr. Rose Lafleur ALT [Catalytic activity/Vol] 21 U/L Normal 14-59 [facility] Comment on above: Performed By: #### B MP, LIVER #### [facility] [address] [place] [address] Dr. Rose Lafleur AST [Catalytic activity/Vol] 20 U/L Normal 15-37 [facility] Comment on above: Performed By: #### B MP, LIVER #### [facility] [address] [place] [address] Dr. Rose Lafleur BILI, CONJUGATED 0.1 mg/dL Normal 0.0-0.2 [facility] Comment on above: Performed By: #### B MP, LIVER #### [facility] [address] [place] [address] Dr. Rose Lafleur Bilirubin [Mass/Vol] 0.3 mg/dL Normal 0.2-1.0 [facility] Comment on above: Performed By: #### B MP, LIVER #### [facility] [address] [place] [address] Dr. Rose Lafleur Globulin (S) [Mass/Vol] 4.8 g/dL Normal [facility] Comment on above: Performed By: #### B MP, LIVER #### [facility] [address] [place] [address] Dr. Rose Lafleur Protein [Mass/Vol] 7.7 g/dL Normal 6.4-8.2 [facility] Comment on above: Performed By: #### B MP, LIVER #### [facility] [address] [place] [address] Dr. Rose Lafleur PROF CHEM 8 (BAS METB)on Anion gap [Moles/Vol] 10.9 mmol/L Normal [facility] Comment on above: Performed By: #### B MP, LIVER #### [facility] [address] [place] [address] Dr. Rose Lafleur Calcium [Mass/Vol] 8.8 mg/dL Normal 8.5-10.1 [facility] Comment on above: Performed By: #### B MP, LIVER #### [facility] [address] [address] [address] Rose Lafleur Chloride [Moles/Vol] 102 mmol/L Normal 98-107 [facility] Comment on above: Performed By: #### B MP, LIVER #### [facility] [address] [address] [address] Rose Lafleur CO2 [Moles/Vol] 26.1 mmol/L Normal 21.0-32.0 [facility] Comment on above: Performed By: #### B MP, LIVER #### [facility] [address] [address] [address] Rose Lafleur Creatinine [Mass/Vol] 0.64 mg/dL Normal 0.55-1.02 [facility] Comment on above: Performed By: #### B MP, LIVER #### [facility] [address] [place] [address] Dr. Rose Lafleur EGFR-AF MARSHALLESE >60 Normal >=60 [facility] Comment on above: Performed By: #### B MP, LIVER #### [facility] [address] [place] [address] Dr. Rose Lafleur EGFR-NON AF MARSHALLESE >60 Normal >=60 [facility] Comment on above: Performed By: #### B MP, LIVER #### [facility] [address] [place] [address] Dr. Rose Lafleur Glucose [Mass/Vol] 90 mg/dL Normal 74-106 [facility] Comment on above: Performed By: #### B MP, LIVER #### [facility] [address] [place] [address] Dr. Rose Lafleur Potassium [Moles/Vol] 4.0 mmol/L Normal 3.5-5.1 [facility] Comment on above: Performed By: #### B MP, LIVER #### [facility] [address] [address] [address] Rose Lafleur Sodium [Moles/Vol] 135 mmol/L Critically low 136-145 [facility] Comment on above: Performed By: #### B MP, LIVER #### [facility] [address] [place] [address] Dr. Rose Lafleur Urea nitrogen [Mass/Vol] 12.0 mg/dL Normal 7.0-18.0 [facility] Comment on above: Performed By: #### B MP, LIVER #### [facility] [address] [address] [address] Rose Lafleur Urea nitrogen/Creatinin e [Mass ratio] 18.8 mg/mg Normal [facility] Comment on above: Performed By: #### B MP, LIVER #### [facility] [address] [place] [address] Dr. Rose Lafleur PROTIMEon 08-16-2022 INR Coag (PPP) [Relative time] 0.95 {INR} Normal [facility] Comment on above: Performed By: #### C BC #### [facility] [address] [place] [address] Dr. Rose Lafleur INR GUIDELINES SEE BELOW Normal [facility] Comment on above: Result Comment: JAYLYN RED INR: 2.0 - 3.0 CONDITIONS NOT LISTED BELOW 2.5 - 3.5 FOR PROSTHETIC HEART VALVE REPLACEMENT 2.5 - 3.5 RECURRENT THROMBOSIS Performed By: #### C BC #### [facility] [address] [place] [address] Dr. Rose Lafleur PT Coag (PPP) [Time] 10.3 s Normal 9.0-11.6 [facility] Comment on above: Performed By: #### C BC #### [facility] [address] [place] [address] Dr. Rose Lafleur PTTon 08-16-2022 aPTT Coag (Bld) [Time] 32.0 s Normal 22.3-36.2 [facility] Comment on above: Performed By: #### C BC #### [facility] [address] [place] [address] Dr. Rose Lafleur GLYCOHEMOGLOBIN A1Con 2021 ADA RECOMMENDATION SEE BELOW Normal [facility] Comment on above: Result Comment: ADA RECOMMENDED LIMIT 4.0 - 6.0 ADA THERAPEUTIC TARGET < 7.0 ACTION SUGGESTED > 7.0 Performed By: #### C BC #### [facility] [address] [address] [address] Rose Lafleur Glucose [Mass/Vol] 108 mg/dL Normal [facility] Comment on above: Performed By: #### C BC #### [facility] [address] [address] [address] Rose Lafleur HbA1c (Bld) [Mass fraction] 5.4 % Normal 4.5-6.2 [facility] Comment on above: Performed By: #### C BC #### [facility] [address] [address] [address] Rose Lafleur PAP ACOG PANEL 2: 30 to 63on 07-14-2022 . . Normal [facility] Comment on above: Result Comment: Perf ormed at: WB Performed By: #### C BC #### [facility] [address] [place] [address] Dr. Rose Lafleur Age Gdln ACOG Testing -63 Normal [facility] Comment on above: Performed By: #### C BC #### [facility] [address] [address] [address] Rose Lafleur DIAGNOSIS: Comment Normal [facility] Comment on above: Result Comment: NEGA TIVE FOR INTRAEPITHELIAL LESION OR MALIGNANCY. CELLULAR CHANGES ASSOCIATED WITH INFLAMMATION ARE PRESENT. Performed at: WB Performed By: #### C BC #### [facility] [address] [place] [address] Dr. Rose Lafleur HPV Aptima Negative Normal Negative [facility] Comment on above: Result Comment: This nucleic acid amplification test detects fourteen high-risk HPV types (16,18,31,33,35,39,45,51,52,56,58,59,66,68) without differentiation. Performed at: =G Performed By: #### C BC #### [facility] [address] [place] [address] Dr. Rose Lafleur HPV Genotype Reflex Comment Normal [facility] Comment on above: Result Comment: Crit eria not met, HPV Genotype not performed. Performed at: WB Performed By: #### C BC #### [facility] [address] [place] [address] Dr. Rose Lafleur Methodology: CTIM Normal [facility] Comment on above: Result Comment: The [employer](R) News Operations Manager was unable to read this specimen. Therefore a manual review was performed. Performed at: WB Performed By: #### C BC #### [facility] [address] [place] [address] Dr. Rose Lafleur Note: Comment Normal [facility] Comment on above: [...] WB Performed By: #### C BC #### [facility] [address] [place] [address] Dr. Rose Lafleur Performed by: Comment Normal [facility] Comment on above: Result Comment: Carlos Wolff, Technology Coordinator (ASCP) Performed at: WB Performed By: #### C BC #### [facility] [address] [place] [address] Dr. Rose Lafleur Specimen adequacy: Comment Normal [facility] Comment on above: Result Comment: Sati sfactory for evaluation. No endocervical component is identified. Performed at: WB Performed By: #### C BC #### [facility] [address] [place] [address] Dr. Rose Lafleur CBC AUTO DIFFon 05-26-2022 BASO # 0.0 103/ul Normal 0.0-0.1 [facility] Comment on above: Performed By: #### C BC #### [facility] [address] [place] [address] Dr. Rose Lafleur Basophils/100 WBC (Bld) 0.4 % Normal 0.2-2.0 [facility] Comment on above: Performed By: #### C BC #### [facility] [address] [place] [address] Dr. Rose Lafleur EO # 0.1 103/ul Normal 0.0-0.7 [facility] Comment on above: Performed By: #### C BC #### [facility] [address] [place] [address] Dr. Rose Lafleur Eosinophils/100 WBC (Bld) 1.2 % Normal 0.9-7.0 [facility] Comment on above: Performed By: #### C BC #### [facility] [address] [place] [address] Dr. Rose Lafleur Erythrocyte distribution width (RBC) [Ratio] 13.6 % Normal 11.0-15.0 [facility] Comment on above: Performed By: #### C BC #### [facility] [address] [place] [address] Dr. Rose Lafleur Hematocrit (Bld) [Volume fraction] 41.6 % Normal 36.0-48.0 [facility] Comment on above: Performed By: #### C BC #### [facility] [address] [place] [address] Dr. Rose Lafleur Hemoglobin (Bld) [Mass/Vol] 13.3 g/dL Normal 12.0-16.0 [facility] Comment on above: Performed By: #### C BC #### [facility] [address] [place] [address] Dr. Rose Lafleur IG # 0.03 10e3/ul Normal 0.00-0.03 [facility] Comment on above: Performed By: #### C BC #### [facility] [address] [place] [address] Dr. Rose Lafleur IG % 0.3 % Normal 0.0-0.5 [facility] Comment on above: Performed By: #### C BC #### [facility] [address] [place] [address] Dr. Rose Lafleur LYMPH # 3.8 103/ul Normal 1.2-3.8 [facility] Comment on above: Performed By: #### C BC #### [facility] [address] [place] [address] Dr. Rose Lafleur Lymphocytes/100 WBC (Bld) 39.8 % Normal 20.5-60.0 [facility] Comment on above: Performed By: #### C BC #### [facility] [address] [place] [address] Dr. Rose Lafleur MANUAL DIFF REQ NO Normal [facility] Comment on above: Performed By: #### C BC #### [facility] [address] [place] [address] Dr. Rose Lafleur MCH (RBC) [Entitic mass] 28.5 pg Normal 26.7-34.0 [facility] Comment on above: Performed By: #### C BC #### [facility] [address] [place] [address] Dr. Rose Lafleur MCHC (RBC) [Mass/Vol] 32.0 g/dL Normal 29.9-35.2 [facility] Comment on above: Performed By: #### C BC #### [facility] [address] [place] [address] Dr. Rose Lafleur MCV (RBC) [Entitic vol] 89.3 fL Normal 81.0-99.0 [facility] Comment on above: Performed By: #### C BC #### [facility] [address] [place] [address] Dr. Rose Lafleur MONO # 0.6 103/ul Normal 0.3-0.8 [facility] Comment on above: Performed By: #### C BC #### [facility] [address] [place] [address] Dr. Rose Lafleur Monocytes/100 WBC (Bld) 6.5 % Normal 1.7-12.0 [facility] Comment on above: Performed By: #### C BC #### [facility] [address] [place] [address] Dr. Rose Lafleur NEUT # 4.9 103/ul Normal 1.4-6.5 [facility] Comment on above: Performed By: #### C BC #### [facility] [address] [place] [address] Dr. Rose Lafleur Neutrophils/100 WBC (Bld) 51.8 % Normal 43.0-75.0 [facility] Comment on above: Performed By: #### C BC #### [facility] [address] [address] [address] Rose Lafleur Platelet mean volume (Bld) [Entitic vol] 8.9 fL Critically low 9.5-13.5 [facility] Comment on above: Performed By: #### C BC #### [facility] [address] [place] [address] Dr. Rose Lafleur PLT 310 103/ul Normal 150-450 [facility] Comment on above: Performed By: #### C BC #### [facility] [address] [place] [address] Dr. Rose Lafleur RBC 4.66 106/ul Normal 4.20-5.40 [facility] Comment on above: Performed By: #### C BC #### [facility] [address] [place] [address] Dr. Rose Lafleur WBC 9.5 103/ul Normal 4.0-11.0 [facility] Comment on above: Performed By: #### C BC #### [facility] [address] [place] [address] Dr. Rose Lafleur PREG HCG QUALon 05-26-2022 , QUAL Negative Normal NEGATIVE [facility] Comment on above: Performed By: #### P REG #### [facility] [address] [place] [address] Dr. Rose Lafleur [facility]-19 [facility]on SARS-CoV-2 (COVID-19) RNA RUDY+probe Ql (Unsp spec) Not detected Normal NOT DETECTED [facility] Comment on above: Result Comment: This test is not yet approved or cleared by the [place] FDA. When there are no FDA-approved or cleared tests available, and other criteria are met, FDA can make tests available under an emergency access mechanism called an Emergency Use Authorization (EUA). The EUA for this test is supported by the [place] of Health and Human Service's (HHS's) declaration [...] SARS-CoV-2. Performed By: #### C BC #### [facility] [address] [place] [address] Dr. Rose Lafleur AFP (TUMOR MARKER)on 022 AFP, Serum, Tumor Marker 1.6 ng/mL Normal 0.0-6.4 [facility] Comment on above: Result Comment: [employer] Electrochemiluminescence Immunoassay (ECLIA) . Values obtained with different assay methods or kits cannot be used interchangeably. Results cannot be interpreted as absolute evidence of the presence or absence of malignant disease. . This test is not interpretable in females. Performed By: #### C BC #### [facility] [address] [place] [address] Dr. Rose Lafleur CA 125on 05-07-2022 Cancer Antigen (CA) 125 17.1 U/mL Normal 0.0-38.1 [facility] Comment on above: Result Comment: [employer] Electrochemiluminescence Immunoassay (ECLIA) . Values obtained with different assay methods or kits cannot be used interchangeably. Results cannot be interpreted as absolute evidence of the presence or absence of malignant disease. Performed By: #### L DH #### [facility] [address] [place] [address] Dr. Rose Lafleur CEAon 05-07-2022 CEA 1.6 ng/mL Normal 0.0-4.7 [facility] Comment on above: Result Comment: Nons mokers <3.9 Smokers <5.6 . [employer] Electrochemiluminescence Immunoassay (ECLIA) . Values obtained with different assay methods or kits cannot be used interchangeably. Results cannot be interpreted as absolute evidence of the presence or absence of malignant disease. Performed By: #### C BC #### [facility] [address] [place] [address] Dr. Rose Lafleur HCG QUANT TUMOR MARKERon HCG QNT TUMOR MARKER <1 Normal [facility] Comment on above: Result Comment: Fema [...] developed and its performance characteristics determined by [employer]. It has not been cleared or approved by the Food and Drug Administration for use as a tumor marker. . This test is not interpretable as a tumor marker in females. Performed By: #### C BC #### [facility] [address] [place] [address] Dr. Rose Lafleur LDHon 05-05-2022 LDH 269 U/L Critically high 81-234 [facility] Comment on above: Performed By: #### L DH #### [facility] [address] [place] [address] Dr. Rose Lafleur CBC AUTO DIFFon 04-21-2022 BASO # 0.0 103/ul Normal 0.0-0.1 [facility] Comment on above: Performed By: #### L DH #### [facility] [address] [place] [address] Dr. Rose Lafleur Basophils/100 WBC (Bld) 0.3 % Normal 0.2-2.0 [facility] Comment on above: Performed By: #### L DH #### [facility] [address] [place] [address] Dr. Rose Lafleur EO # 0.1 103/ul Normal 0.0-0.7 [facility] Comment on above: Performed By: #### L DH #### [facility] [address] [place] [address] Dr. Rose Lafleur Eosinophils/100 WBC (Bld) 0.7 % Critically low 0.9-7.0 [facility] Comment on above: Performed By: #### L DH #### [facility] [address] [place] [address] Dr. Rose Lafleur Erythrocyte distribution width (RBC) [Ratio] 13.9 % Normal 11.0-15.0 [facility] Comment on above: Performed By: #### L DH #### [facility] [address] [place] [address] Dr. Rose Lafleur Hematocrit (Bld) [Volume fraction] 41.5 % Normal 36.0-48.0 [facility] Comment on above: Performed By: #### L DH #### [facility] [address] [place] [address] Dr. Rose Lafleur Hemoglobin (Bld) [Mass/Vol] 13.4 g/dL Normal 12.0-16.0 [facility] Comment on above: Performed By: #### L DH #### [facility] [address] [place] [address] Dr. Rose Lafleur IG # 0.03 10e3/ul Normal 0.00-0.03 [facility] Comment on above: Performed By: #### L DH #### [facility] [address] [place] [address] Dr. Rose Lafleur IG % 0.3 % Normal 0.0-0.5 [facility] Comment on above: Performed By: #### L DH #### [facility] [address] [place] [address] Dr. Rose Lafleur LYMPH # 3.7 103/ul Normal 1.2-3.8 [facility] Comment on above: Performed By: #### L DH #### [facility] [address] [place] [address] Dr. Rose Lafleur Lymphocytes/100 WBC (Bld) 32.9 % Normal 20.5-60.0 [facility] Comment on above: Performed By: #### L DH #### [facility] [address] [place] [address] Dr. Rose Lafleur MANUAL DIFF REQ NO Normal [facility] Comment on above: Performed By: #### L DH #### [facility] [address] [address] [address] Rose Lafleur MCH (RBC) [Entitic mass] 28.6 pg Normal 26.7-34.0 [facility] Comment on above: Performed By: #### L DH #### [facility] [address] [address] [address] Rose Lafleur MCHC (RBC) [Mass/Vol] 32.3 g/dL Normal 29.9-35.2 [facility] Comment on above: Performed By: #### L DH #### [facility] [address] [address] [address] Rose Lafleur MCV (RBC) [Entitic vol] 88.5 fL Normal 81.0-99.0 [facility] Comment on above: Performed By: #### L DH #### [facility] [address] [place] [address] Dr. Rose Lafleur MONO # 0.7 103/ul Normal 0.3-0.8 [facility] Comment on above: Performed By: #### L DH #### [facility] [address] [place] [address] Dr. Rose Lafleur Monocytes/100 WBC (Bld) 6.1 % Normal 1.7-12.0 [facility] Comment on above: Performed By: #### L DH #### [facility] [address] [place] [address] Dr. Rose Lafleur NEUT # 6.7 103/ul Critically high 1.4-6.5 [facility] Comment on above: Performed By: #### L DH #### [facility] [address] [place] [address] Dr. Rose Lafleur Neutrophils/100 WBC (Bld) 59.7 % Normal 43.0-75.0 [facility] Comment on above: Performed By: #### L DH #### [facility] [address] [place] [address] Dr. Rose Lafleur Platelet mean volume (Bld) [Entitic vol] 9.0 fL Critically low 9.5-13.5 [facility] Comment on above: Performed By: #### L DH #### [facility] [address] [address] [address] Rose Lafleur PLT 320 103/ul Normal 150-450 [facility] Comment on above: Performed By: #### L DH #### [facility] [address] [address] [address] Rose Lafleur RBC 4.69 106/ul Normal 4.20-5.40 [facility] Comment on above: Performed By: #### L DH #### [facility] [address] [address] [address] Rose Lafleur WBC 11.1 103/ul Critically high 4.0-11.0 [facility] Comment on above: Performed By: #### L DH #### [facility] [address] [place] [address] Dr. Rose Lafleur GLYCOHEMOGLOBIN A1Con 2021 ADA RECOMMENDATION SEE BELOW Normal [facility] Comment on above: Result Comment: ADA RECOMMENDED LIMIT 4.0 - 6.0 ADA THERAPEUTIC TARGET < 7.0 ACTION SUGGESTED > 7.0 Performed By: #### A 1C #### [facility] [address] [place] [address] Dr. Rose Lafleur Glucose [Mass/Vol] 111 mg/dL Normal [facility] Comment on above: Performed By: #### A 1C #### [facility] [address] [place] [address] Dr. Rose Lafleur HbA1c (Bld) [Mass fraction] 5.5 % Normal 4.5-6.2 [facility] Comment on above: Performed By: #### A 1C #### [facility] [address] [place] [address] Dr. Rose Lafleur TSHon 04-21-2022 TSH 1.207 uIU/mL Normal 0.358-3.740 [facility] Comment on above: Performed By: #### T SH #### [facility] [address] [place] [address] Dr. Rose Lafleur US PELVIS AND TRANSVAGon 09- 07-2022 US PELVIS AND TRANSVAG EXAMINATION: US PELVIS [...] by: ANTONIO BRADLEY Date: 2022-04-21 15:32 Normal [facility] Vital Signs Date Time Vital Sign Value Performing Clinician Huberi cyndy 05-25-2024 11:42-0400 Body height 152.4 cm [facility] 05-25-2024 11:42-0400 Body mass index (BMI) [Ratio] 63.47 kg/m2 [facility] 05-25-2024 11:42-0400 Body weight 147.42 kg [facility] 05-23-2024 11:23-0400 Body height 152.4 cm Bayron Reddy APRNCorrelated Magn[employer] ResearchLIZZETTE Work Phone: [facility] 05-23-2024 11:23-0400 Body mass index (BMI) [Ratio] 64.06 kg/m2 Bayron Reddy APRNCorrelated Magnetics ResearchDRY TRANSFER WORKER Work Phone: [facility] 05-23-2024 11:23-0400 Body weight 148.78 kg Bayron Reddy APRNCorrelated [employer] ResearchDRY TRANSFER WORKER Work Phone: [facility] Encounters Encounter Date Encounter Type Care Provider Facility Start: 06-21-2024 End: 06-21-2024 Telephone encounter Ebony Floyd CMA [facility] Start: 06-14-2024 End: 06-14-2024 Evaluation and management of inpatient PURVI NEVILLE [facility] Start: 05-25-2024 Encounter for other preprocedural examination ANTONIO Parkisnon [facility] Start: 05-25-2024 End: 05-25-2024 ambulatory ANTONIO Parkinson [facility] Start: 05-25-2024 End: 05-25-2024 Patient encounter procedure [facility] Pre-Admission Testing 1 [facility] - Pre Ad[facility] Start: 05-23-2024 End: 05-23-2024 Office outpatient new 30 minutes Bayron Reddy [employer]-DRY TRANSFER WORKER Work Phone: [facility] Comment on above: Rectal bleeding (Patti minh Dx) Start: 05-23-2024 End: 05-23-2024 ambulatory [facility] Start: 05-16-2024 End: 05-16-2024 Telephone encounter Bayron Reddy [employer] SE[employer]ER-DRY TRANSFER WORKER Work Phone: [facility] Start: 05-15-2024 ambulatory Jaime Squires acility:[facility] Start: 09-12-2023 End: 09-12-2023 ambulatory LYA SARA Not Available Start: 08-18-2023 End: 08-18-2023 ambulatory LAY SARA Not Available Start: 08-16-2023 End: 09-15-[address] [facility] Start: 08-09-2023 End: 08-09-2023 ambulatory LAY RUIZ [facility] Start: 07-26-2023 End: 08-15-[address] [facility] Start: 07-21-2023 End: 07-21-2023 ambulatory LAY SARA Not Available Start: 12-14-2022 End: 12-15-2022 ambulatory RASHID ADAME Facility: Start: 09-02-2022 Encounter for preprocedural laboratory examination DR JUAN ARRIAZA . [facility] Start: 08-30-2022 End: 08-31-[address] [...] preprocedural cardiovascular examination DR JUAN ARRIAZA . [facility] Start: 05-13-2022 End: 05-14-[address] JUAN ARRIAZA . Facility:[facility] Start: 05-13-2022 End: 05-14-2022 Encounter for preprocedural cardiovascular examination DR JUAN ARRIAZA . Facility:[facility] Start: 05-05-2022 End: 05-06-[address] JUAN ARRIAZA . Facility:[facility] Start: 04-21-2022 End: 04-22-[address] JUAN ARRIAZA . Facility:[facility] Procedures Date Procedure Procedure Detail Performing Clinician Start: 06-14-2024 Colonoscopy Ebony Bogdan ia AUTOMATION ARCHITECT Start: 07-05-2022 Microscopic observat ion [Identifier] in Cervix by Cyto stain Bayron Reddy APRN-DRY TRANSFER WORKER Work Phone: Plan of Treatment Date Care Activity Detail Author Start: 05-06-2030 DTaP,Tdap and Td Vaccines (3 - Td or Tdap) DTaP,Tdap and Td Vaccines (3 - Td or Tdap) [facility] Start: 06-14-2029 Screening for malign ant neoplasm of colon Colonoscopy [facility] Start: 07-05-2025 Screening for malign ant neoplasm of cervix Pap Smear [facility] Start: 06-14-2025 Adult BMI Screening Adult BMI Screen ing [facility] Start: 06-14-2025 Tobacco Screening Tobacco Screening [facility] Start: 05-25-2025 Adult BMI Screening Adult BMI Screen ing [facility] Start: 05-25-2025 Tobacco Screening Tobacco Screening [facility] Start: 05-23-2025 Adult BMI Screening Adult BMI Screen ing [facility] Start: 05-23-2025 Tobacco Screening Tobacco Screening [facility] Start: 06-14-2024 End: 06-14-2024 Admission to same day surgery center 06/14/2024 10:00 AM EDT - 06/14/2024 10:30 AM EDT Surgery [facility] [address] [place] [phone] Purvi Neville, DO [address] [place] [address] [phone] COLONOSCOPY DIAGNOSTIC / SCREENING [44999 (CPT )] [facility] Comment on above: COLONOSCOPY DIAGNOST IC / SCREENING [78732 (CPT )] Start: 06-14-2024 End: 06-14-2024 Colonoscopy flx dx w/collj spec when pfrmd COLONOSCOPY DIAGNOSTIC / SCREENING rectal bleeding 06/14/2024 10:00 AM EDT [facility] Start: 06-14-2024 Subsequent hospital visit by physician 06/14/2024 10:00 AM EDT Hospital Encounter [facility] [address] [place] [phone] Purvi Neville, DO [address] [place] [address] [phone] [facility] Start: 05-25-2024 End: 05-25-2024 Patient encounter procedure 05/25/2024 2:15 PM EDT Procedure visit [facility] - Pre Admit [address] [place] [phone] [facility] - Pre Admit Start: 05-23-2024 End: 05-23-2024 Patient encounter procedure 05/23/2024 11:30 AM EDT Office Visit [facility] [address] [place] [phone] Bayron Reddy, PADDED BOX SEWER-DRY TRANSFER WORKER [address] [place] [address] [facility] Start: 04-15-2024 COVID-19 Vaccine ( season) COVID-19 Vaccine ( season) [facility] Start: 04-15-2024 COVID-19 Vaccine ( season) COVID-19 Vaccine () [facility] Start: 04-15-2024 Influenza vaccination Influenza Vacc ine [facility] Start: 09-22-2022 Adult BMI Screening Adult BMI Screen ing [facility] Start: 12-15-2004 Screening for malign ant neoplasm of cervix Pap Smear [facility] Start: 12-15-2001 Adult BMI Follow Up Plan Adult BMI Follow Up Plan [facility] Start: 1995 Depression Screening Depression Scre ening [facility] Start: 1995 Tobacco Screening Tobacco Screening [facility] End: 05-23-2025 Colonoscopy Colonoscopy GI Routine Rectal bleeding 1 Occurrences starting 05/23/2024 until 05/23/2025 [facility] Work Phone: Comment on above: 1 Occurrences starti ng 05/23/2024 until 05/23/2025 Payers Date Payer Category Payer Self-pay 2003 Medicaid [employer] [id number] 2003-Present [phone] [place] [id number] 2003 Medicaid HMO [employer] [id number] 1983 Unknown [id number] 2.16.840.1.108982.3.579.2.593 1983 Unknown [id number] 2.16.840.1.981189.3.579.2.59 1983 Unknown [id number] 2.16.840.1.628699.3.579.2.593 1983 Unknown [id number] 2.16.840.1.154717.3.579.2.593 1983 Unknown [id number] 2.16.840.1.756105.3.579.2.593 1983 Unknown [id number] 2.16.840.1.462425.3.579.2.593 1983 Unknown [id number] 2.16.840.1.871230.3.579.2.593 1983 Unknown [id number] 2.16.840.1.157489.3.579.2.593 1983 Unknown [id number] 2.16.840.1.963499.3.579.2.593 1983 Unknown [id number] 2.16.840.1.502492.3.579.2.593 1983 Unknown [id number] 2.16.840.1.062397.3.579.2.593 1983 Unknown [id number] 2.16.840.1.087023.3.579.2.593 1983 Unknown [id number] 2.16.840.1.482901.3.579.2.9 1983 Unknown [id number] 2.16.840.1.890520.3.579.2.9 1983 Unknown [id number] 2.16.840.1.694200.3.579.2.9 1983 Unknown [id number] 2.16.840.1.448844.3.579.2.1285 1983 Unknown [id number] 2.16.840.1.772433.3.579.2.1285 1983 Unknown [id number] 2.16.840.1.517420.3.579.2.1285 1983 Unknown [id number] 2.16.840.1.676519.3.579.2.1285 1983 Unknown [id number] 2.16.840.1.507631.3.579.2.1285 1983 Unknown [id number] 2.16.840.1.186075.3.579.2.1285 1983 Unknown [id number] 2.16.840.1.116993.3.579.2.1285 1983 Unknown [id number] 2.16.840.1.784586.3.579.2.1286 1959 Unknown [id number] Social History Date Type Detail Facility Start: 09-22-2021 End: 05-23-2024 Tobacco smoking status WYIS Ex-smoker [facility] End: 07-17-2021 History of tobacco use Current smoker [facility] End: 07-17-2021 History of tobacco use Cigarette Smoker [facility] Start: 09-22-2021 End: 05-23-2024 Tobacco use and exposure Smokeless tobacco non-user [facility] Start: 02-12-2022 End: 06-14-2024 Alcoholic beverage intake Ex-drinker (finding) [facility] Start: 09-25-2020 End: 02-12-2022 History of Social function [facility] Start: 09-25-2020 End: 02-12-2022 Tobacco use panel [facility] Childcare Unknown [facility] Start: 1985 Sex assigned at Female [facility] Start: 06-30-2021 Gender identity Identifies as female gender (finding) [facility] History of tobacco use Tobacco U se Types Packs/Day Years Used Date Smoking Tobacco: Former Vaping/E-cigarettes Smokeless Tobacco: Never [facility] Start: 03-20-2015 Sex Female (finding) [facility] Clinical Notes 05-26-2022 to 06-21-2024 Telephone Encounter - Ebony Floyd CMA - 06/21/2024 11:43 AM ESTTelephone Encounter - Ebony Floyd CMA - 06/21/2024 11:43 AM ESTTelephone Encounter - Ebony Floyd CMA - 06/21/2024 11:43 AM EST Note Date & Type Note Facility 06-21-2024 Miscellaneous Notes ----- Message from Dr. Purvi Neville DO sent at 06/20/2024 1:05 PM EST ----- Please call patient let her know that she had a precancerous polyp and I recommend repeat colonoscopy in 5 years unless problems. ThanksDr. Reyna Spoke with patient regarding pathology results. Patient verbally understood with no further questions. Recall to be put in chart. documented in this encounter [facility] 06-21-2024 Telephone encounter Note ----- Message from Dr. Purvi Neville DO sent at 06/20/2024 1:05 PM EST ----- Please call patient let her know that she had a precancerous polyp and I recommend repeat colonoscopy in 5 years unless problems. Thanks, Dr. Reyna [facility] 06-21-2024 Telephone encounter Note Spoke with patient regarding pathology results. Patient verbally understood with no further questions. Recall to be put in chart. [facility] 05-25-2024 Instructions Sofiya Moreno RN - 05/25/2024 11:15 AM EDT Preoperative Education Checklist- General Surgery date: 06/14/24 Surgery time: 10a Arrival time: 8a 1. Bring a photo ID and your insurance card with you the day of surgery. You will check in at the main lobby of the [facility]- registration desk is straight ahead as soon as you walk in. Tell them you are here for surgery. 2. If you have a Living Will/Durable Power of Purchasing Administrator for Health Care that is not on file here, please bring a copy the day of surgery. 3. Please shower/bathe the night before surgery with the provided soap or wipes. Do not shower the morning of surgery- you will do use wipes when you arrive here at the hospital before getting into your surgical gown. Do not shave the area of your procedure for 2 days prior to your surgery. 4. NO powder, lotion, perfume/cologne, aftershave, make-up, deodorant, or hair products after you have bathed. 5. NO nail albanian/acrylic on at least one finger. If you are having a hand, wrist or foot surgery then all nail albanian and artificial/acrylic nails must be removed from that hand or foot. 6. Avoid ALL Aspirin and non-steroidal anti-inflammatory drugs and certain vitamins (Ibuprofen, Advil, Aleve, Excedrin, Meloxicam, Celebrex, fish/krill oil, etc.) for 7 days prior to surgery as instructed by your surgeon and/or your prescribing doctor. Tylenol IS ALLOWED. If you are on Ticlid, Xarelto, Eliquis, Pradaxa, Plavix or Coumadin, please check with your prescribing doctor for instructions for when to stop them. 7. If you use an inhaler, continue to use it routinely. 8. Nothing to eat or drink (not even water, gum, mints, or hard candy!) AFTER midnight prior to your surgery. 9. Take only medications that you are instructed to on the morning of surgery with a TINY SIP OF WATER. 10. Choose a responsible adult that will be able to drive you home when you are discharged from your hospital stay for your surgery and can stay with you in your home for 24 hours after your procedure. You must NOT drive any vehicle or operate any machinery for 24 hours after surgery. 11. When you dress for your appointment, please wear loose fitting clothing that is appropriate to accommodate your surgical area procedure. BRING WITH YOU ANY DEVICES YOU MAY NEED: JAZ hose, ice machine, sling/swath, brace or special shoe, oversized zip-up or button up shirt, CPAP machine if staying overnight. 12. Do NOT wear jewelry, watches, or any piercings or metal for surgery- leave these valuables and money at home. 13. Do NOT wear contact lenses for surgery- glasses are okay if needed. 14. The anesthesiologist will talk with you the day of surgery and will ask you to sign a Consent Form. 15. Refrain from smoking or any type of tobacco use for at least 8 hours and marijuana for 24 hours prior to arrival for your surgery. 16. If a GREEN BLOOD band is given to you, please bring it with you for the day of surgery. 17. Notify your surgeon if you develop any illness before your surgery. 18. If you are staying overnight, please DO NOT BRING your home medications with you. 19. If you have any questions prior to surgery, please call the Preadmission Testing office at [phone], Mon.-Fri. 7 a.m.-3 p.m. Leave a voicemail if needed. Pre-Surgery Instructions: Medication Instructions escitalopram (LEXAPRO) 10 mg tablet Stop taking 0 days prior to procedure lisinopril-hydroCHLOROthiazide (PRINZIDE,ZESTORETIC) 10-12.5 mg per tablet Take morning of procedure rosuvastatin (CRESTOR) 5 mg tablet Stop taking 0 days prior to procedure zonisamide (ZONEGRAN) 50 mg capsule Stop taking 0 days prior to procedure hydrOXYzine (VISTARIL) 50 mg capsule Stop taking 0 days prior to procedure sod sulf-pot chloride-mag sulf 1.479-0.188- 0.225 gram tablet Check with prescribing doctor for instructions documented in this encounter [facility] [employer] 05-23-2024 History of Presen t illness Narrative Images from the original note were not included. Chief Complaint: Rectal bleeding History of Present Illness Eran Winn is a 38 y.o. female who presents to the office for rectal bleeding. She was referred by Dr. Rogers. She reports intermittent bright red blood x6 months. She does have hemorrhoids. She also admits that she has problems with constipation and straining. She has used MiraLax in the past. She has also taken fiber gummies in the past that provided her with relief but she ran out and never got more. She was going regular when she was taking these. She has had a few episodes of diarrhea recently due to a new medication, but nothing persistent. She also has abdominal cramping that goes away after she has a bowel movement. She denies any black stools. She drinks 32 oz of water daily. There is no family history of colon cancer. She has never had a colonoscopy. Review of Systems Constitutional: Negative for fever and unexpected weight change. HENT: Negative for trouble swallowing. Respiratory: Negative for shortness of breath. Cardiovascular: Negative for chest pain. Gastrointestinal: Positive for diarrhea, constipation and blood in stool. Negative for nausea, vomiting, abdominal pain and black tarry stool. Abdominal cramps Genitourinary: Negative for dysuria and difficulty urinating. Musculoskeletal: Negative for gait problem. Skin: Negative for rash and wound. Neurological: Negative for dizziness, weakness and light-headedness. Hematological: Does not bruise/bleed easily. Psychiatric/Behavioral: Negative for confusion. Past Medical History: Diagnosis Date Anxiety 2022 Arthritis 2022 Back pain 2022 Depression 2022 Eczema 2022 Endometriosis H/O tubal ligation Hypertension Obesity Past Surgical History: Procedure Laterality Date SECTION 2010 ENDOMETRIAL ABLATION W/ NOVASURE TUBAL LIGATION 2010 Allergies Allergen Reactions Penicillins Current Outpatient Medications: escitalopram (LEXAPRO) 10 mg tablet, Take 1 tablet (10 mg total) by mouth in the morning., Disp: , Rfl: hydrOXYzine (VISTARIL) 50 mg capsule, Take 1 capsule (50 mg total) by mouth 3 (three) times a day as needed., Disp: , Rfl: lisinopril-hydroCHLOROthiazide (PRINZIDE,ZESTORETIC) 10-12.5 mg per tablet, Take 1 tablet by mouth in the morning., Disp: , Rfl: rosuvastatin (CRESTOR) 5 mg tablet, Take 1 tablet (5 mg total) by mouth in the morning., Disp: , Rfl: sod sulf-pot chloride-mag sulf 1.479-0.188- 0.225 gram tablet, Please see instructional sheet given by physicians office., Disp: 24 tablet, Rfl: 0 zonisamide (ZONEGRAN) 50 mg capsule, Take 1 capsule (50 mg total) by mouth in the morning., Disp: , Rfl: Social History Socioeconomic History Marital status: Single Spouse name: Not on file Number of children: Not on file Years of education: Not on file Highest education level: Not on file Occupational History Not on file Tobacco Use Smoking status: Former Types: Vaping/E-cigarettes Smokeless tobacco: Never Vaping Use Vaping status: Every Day Substances: Nicotine Substance and Sexual Activity Alcohol use: Not Currently Drug use: Not Currently Types: Marijuana Sexual activity: Not Currently Partners: Male control/protection: Abstinence Other Topics Concern Not on file Social History Narrative Not on file Social Determinants of Health Financial Resource Strain: Not on file Food Insecurity: Not on file Transportation Needs: Not on file Physical Activity: Not on file Stress: Not on file Social Connections: Not on file Interpersonal Safety: Not on file Housing Instability: Not on file Family History Problem Relation Age of Onset Arthritis Mother Asthma Mother Hypertension Mother Breast cancer Maternal Grandmother Leukemia Maternal Grandfather Objective Physical Exam Constitutional: General: She is not in acute distress. Appearance: Normal appearance. She is not ill-appearing. HENT: Head: Normocephalic and atraumatic. Mouth/Throat: Mouth: Mucous membranes are moist. Eyes: Pupils: Pupils are equal, round, and reactive to light. Cardiovascular: Rate and Rhythm: Normal rate. Pulmonary: Effort: Pulmonary effort is normal. No respiratory distress. Abdominal: General: There is no distension. Musculoskeletal: General: Normal range of motion. Skin: General: Skin is warm and dry. Neurological: Mental Status: She is alert and oriented to person, place, and time. Mental status is at baseline. Vital Signs: Height 152.4 cm (5'), weight (!) 148.8 kg (328 lb), not currently . Respiratory Source: No data recorded Admission Weight: Weight: (!) 148.8 kg (328 lb) Labs Lab Results Component Value Date WBC 11.6 (H) 02/12/2022 HGB 11.5 (L) 02/12/2022 HCT 34.7 (L) 02/12/2022 MCV 85 02/12/2022 PLT 278 02/12/2022 Lab Results Component Value Date GLU 103 (H) 02/12/2022 CALCIUM 8.2 (L) 02/12/2022 K 3.3 (L) 02/12/2022 CO2 27 02/12/2022 CL 103 02/12/2022 BUN 11 02/12/2022 CREATININE 0.83 02/12/2022 No results found for: AMYLASE Lab Results Component Value Date LIPASE 33 02/12/2022 Lab Results Component Value Date ALT 25 02/12/2022 AST 26 02/12/2022 ALKPHOS 103 02/12/2022 No results found for: INR , PROTIME Assessment Eran Winn is a 38 y.o.female with bright red blood per rectum. Plan Colonoscopy with possible biopsy and/or polypectomy. Risks, benefits, and alternatives discussed with patient. Educated on bowel evacuation preparation. Patient verbalizes understanding and wishes to proceed. Discussed adequate water and fiber intake and Sitz baths for constipation / hemorrhoids. Evaluation included: Preparing to see the patient (e.g., review of tests) Obtaining and/or reviewing separately obtained history Performing a medically appropriate examination and/or evaluation Counseling and educating the patient/family/caregiver Referring and communicating with other health career manager Rectal bleeding [K62.5] BAYRON REDDY, PADDED BOX SEWER-DRY TRANSFER WORKER [facility] [place] This note was created with the assistance of a speech recognition program. While intending to generate a timely document that accurately reflects the content of the visit, no guarantee can be provided that every grammatical or spelling mistake has been or will be identified or corrected. Thank you for your understanding. CRYS Queen 05/23/24 1239 documented in this encounter [facility] 05-16-2024 Miscellaneous Notes Called Eran regarding the rectal bleeding referral that our office received from Dr Quinn, left message on voicemail to call the office back to schedule an appointment. Eran called the office back and we scheduled her an appointment on 05/23/2024. documented in this encounter [facility] 05-16-2024 Telephone encounter Note Called Eran regarding the rectal bleeding referral that our office received from Dr Quinn, left message on voicemail to call the office back to schedule an appointment. [facility] 05-16-2024 Telephone encounter Note Eran called the office back and we scheduled her an appointment on 05/23/2024. [facility] 12-14-2022 Note CONSULTATION CONSULTATION DATE: 12/14/2022 TO: [facility] CHIEF COMPLAINT: Includes severe right mid [...] our patients to inform us about any [id number] medications or herbal remedies/nutritional supplements/alternative remedies. 2. [...] options with their primary care provider. [facility] 08-30-2022 Note OPERATIVE NOTE OPERATION DATE: 08/30/2022 PROCEDURE: Da Beatriz assisted laparoscopy hysterectomy with bilateral salpingectomy with cystoscopy. PREOPERATIVE DIAGNOSIS: Abnormal uterine bleeding, menorrhagia, dysmenorrhea, dyspareunia, failed ablation, pelvic pain, uterine fibroids. POSTOPERATIVE DIAGNOSIS: Abnormal uterine bleeding, menorrhagia, dysmenorrhea, dyspareunia, failed ablation, pelvic pain, uterine fibroids. ANESTHESIA: General. SURGEON: Juan Arriaza D.O. DUPLICATING MACHINE MECHANIC: FRANNIE Luu URINE OUTPUT: Yellow and clear. [...] Anesthesia first. Patient tolerated procedure well. [facility] 05-26-2022 Note OPERATIVE NOTE OPERATION DATE: 05/26/2022 PROCEDURE: Attempted D AND C hysteroscopy, diagnostic laparoscopy, lysis of omental adhesions from the anterior abdominal wall using a LigaSure. PREOPERATIVE DIAGNOSIS: Pelvic pain, dysmenorrhea, dyspareunia. POSTOPERATIVE DIAGNOSIS: Pelvic pain, dysmenorrhea, dyspareunia including endometriosis ANESTHESIA: General. SURGEON: Juan Arriaza D.O. DUPLICATING MACHINE MECHANIC: FRANNIE Huizar URINE OUTPUT: Yellow and clear. [...] to Recovery Room in stable condition. [facility] 05-26-2022 Note OPERATIVE NOTE OPERATION DATE: 06/11/2022 ADDENDUM TO PROCEDURE: LigaSure apparatus was used to come across omental adhesions, extending to the anterior abdominal wall. This was released. Excellent hemostasis was assured. ADDENDUM TO POST-OP DIAGNOSIS: Significant uterine fibroids. [facility] Evaluation note Diagnosis Rectal bleeding- Primary Hemorrhage of rectum and anus Preop examination- Primary Unspecified pre-operative examination Hypertension, unspecified type BMI 60.0-69.9, adult (CMS-HCC) [facility] filed[facility] in this [facility] Summary Purpose Family History No Family History Records FoundNo Family History Records FoundNo Family History Records FoundNo Family History Records FoundNo Family History Records Found Advance Directives No Advanced Directives Records FoundNo Advanced Directives Records FoundNo Advanced Directives Records FoundNo Advanced Directives Records FoundNo Advanced Directives Records Found Additional Source Comments INFORMATION SOURCE (unrecogn ized section and content) DATE CREATED AUTHOR 12/22/2022 [facility] DATE CREATED AUTHOR AUTHOR'S ORGANIZ ATION 09/13/2023 [facility] EPIC DATE CREATED AUTHOR AUTHOR'S ORGANIZ ATION 05/22/2024 [facility] DATE CREATED AUTHOR AUTHOR'S ORGANIZ ATION 05/25/2024 [facility] DATE CREATED AUTHOR AUTHOR'S ORGANIZ ATION 06/22/2024 [facility] Care Teams (unrecognized sec tion and content) Acoustics Teacher Relationship Specialty Start Date End Date Za Rogers MD [address] [place] [id number] PCP - General Family Medicine 05/16/24 Acoustics Teacher Relationship Specialty Start Date End Date Za Rogers MD [address] [place] [id number] PCP - General Family Medicine 05/16/24 Acoustics Teacher Relationship Specialty Start Date End Date Za Rogers MD [address] [place] [address] [phone] PCP - General Family Medicine 05/16/24 Acoustics Teacher Relationship Specialty Start Date End Date Za Rogers MD [address] [place] [address] [phone] PCP - General Family Medicine 05/16/24 Reason for Visit (unrecogniz ed section and content) Reason Comments Rectal Bleeding RECTAL BLEEDING, REF BY DR. ROGERS Hemorrhoids FOR RECORDS PERTAINING TO PATIENTS WHO ARE [...] BE BASED ON THE PRIMARY CLINICAL RECORDS. [employer] provides no warranty or guarantee of the accuracy or completeness of information in this document.
--- NOTE | 2024-08-02 11:47 | P.CN_ITS ---
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 Previously benefitted from Right T11/T12 intercostal blocks. Today pain 7/10 s harp, increasing to 9/10 with stairs, benging, twisting, activity, weather changes Patient finds mild benefit from baclofen and zonegran, denies side effects. Finds mild benefit from heat, ice, and massager. previous right T11,12 intercostal nerve block provided >50% improvement for 3+ months. cc:: CC: Carol Tyler NP Review of Systems ROS Status of ROS 10 or more systems reviewed and unremark able except as noted in history and below Musculoskeletal Reports: back pain Meds Home Medications and Allergies Home Medications ?Medication ?Instructions ?Recorded ?Confirmed ?Type albuterol sulfate 90 mcg/actuation 1 inh inhalation Q4H 06/01/23 06/21/23 History aerosol inhaler baclofen 10 mg tablet 10 mg PO BID PRN muscle spasm 06/01/23 06/21/23 History escitalopram oxalate 20 mg tablet 20 mg PO DAILY 06/01/23 06/21/23 History (Lexapro) hydroxyzine HCl 10 mg tablet 10 mg PO DAILY 06/01/23 06/21/23 History lisinopril 10 1 tab PO DAILY 06/01/23 06/21/23 History mg-hydrochlorothiazide 12.5 mg tablet naproxen 500 mg tablet 500 mg PO BID 06/01/23 06/21/23 History rosuvastatin 20 mg tablet 20 mg PO DAILY 06/01/23 06/21/23 History zonisamide 50 mg capsule 50 mg PO DAILY 06/01/23 06/21/23 History Allergies Allergy/AdvReac Type Severity Reaction Status Date / Time Penicillins Allergy Unknown Verified 06/01/23 08:17 Exam Constitutional Documenting provider has reviewed patient's vital signs: yes Common normals: no apparent distress, oriented x3, healthy appearing, alert and well nourished General appearance: cooperative Nutritional appearance: obese HENMT Common normals: normocephalic, hearing grossly normal bilaterally and moist oral mucous membranes Head and scalp: normocephalic Eye Common normals: PERRL Pupil: PERRL Neck & C-Spine Common normals: full ROM General: normal visual inspection Chest Common normals: inspection of chest normal Respiratory Common normals: normal respiratory effort, no retractions and no use of accessory muscles Back & Pelvis Thoracic spine/upper back: ROM limited, pain with ROM and paraspinal muscle tenderness Other: increased pain over bilateral T11,12 intercostals Extremity Common normals: normal to inspection and full ROM Neuro Common normals: oriented x3, CN's II-XII intact bilaterally, moves all extremities, no focal motor deficits, no sensory deficits noted and deep tendon reflexes 2+ bilaterally Sensorium/orientation: alert Motor exam: strength 5/5 throughout and no movement abnormalities noted Psych Common normals: mental status grossly normal, thought process normal, cooperative, affect normal, speech normal and activity/motor behavior normal Speech: normal speech Thought process: normal thought process Results Additional Findings Additional findings: If on a controlled substance or opioids, I have checked an [place] report on this patient and there are no aberrancies noted in the prescribing history.??If on a controlled substance or opioid a drug screen was completed and reviewed within the last year, and if there has not been a drug screen completed we ordered one today to monitor higher risk, state monitored pain medication use. As part of providing excellent, safe, comprehensive care, the following was completed at our patient's visit: 1. A medication reconciliation and review to ensure accurate knowledge of current/active medications, including asking our patients to inform us about any [id number] medications or herbal remedies/nutritional supplements/alternative remedies. 2. A review to specifically ensure our patients have had annual screening for screening for depression, screening for tobacco use, and screening for unhealthy alcohol use. For concerning screenings had a discussion with the patient, provided patient education, and recommended follow-up with primary care provider when appropriate. If patient noted with a risk of falling, they received education on strength, gait, and balance training to prevent future risk of falling. Assessment and Plan Assessment and Plan (1) Thoracic back pain: (2) Intercostal neuritis: (3) Myofascial pain: Plan bilateral T11, T12 intercostal nerve block under fluoroscopy working towards RFA at this time continue zonegran 50mg HS continue baclofen 10mg 1-2 BID PRN myofascial pain f/u after injection
== END 2024-08-02 11:23 | disposition home or self-care (01) ==
PROVIDERS: PCP Family Medicine; Visit Provider Nurse Practitioner
DX: M54.6 Pain in thoracic spine (principal); G58.0 Intercostal neuropathy; M79.18 Myalgia, other site
CPT/HCPCS: G0463

== ENCOUNTER 2024-09-04 06:45 | Day surgery (SDC) | payer OTHER, SELFPAY ==
--- NOTE | 2024-09-04 | PCN_ITS ---
PROCEDURE DATE: 09/04/2024 PROCEDURE: Bilateral T12-L1 intercostal nerve injection under fluoroscopic guidance. PREOPERATIVE DIAGNOSIS: Pain secondary to intercostal neuritis bilaterally. POSTOPERATIVE DIAGNOSIS: Pain secondary to intercostal neuritis bilaterally. SOLUTION USED FOR INJECTION: 2 mL of 2% lidocaine, 2 mL of 0.25% Marcaine and 10 mg of Depo-Medrol, total of 5 mL, and 2 mL used for the injection at the site. IMMEDIATE COMPLICATIONS: None. PROCEDURE: After informed consent was obtained, the patient placed in the prone position. Skin overlying the area was prepped with Betadine. A 25 gauge, 3? spinal needle was inserted over the left T12 rib. Needle tip advanced until the rib was encountered, walked inferiorly. I deposited 2 mL of solution. This procedure was performed in a similar fashion at the left L1, right L1, right T12 levels. Post-op needle was removed. Transferred to Recovery Room in stable condition, to be D/C?d home after meeting criteria. TONA
--- OUTSIDE RECORDS SUMMARY | 2024-09-04 06:49 | XMS_ITS | CCD ---
Author Organization [facility] Care Team Providers Care Director Of Dietary Name Role Phone GISELLA ., DR MARTINEZ Consulting Unavailable GISELLA ., DR MARTINEZ Attending Unavailable [facility] Unava ilable GISELLA ., DR MARTINEZ Admitting Unavailable GISELLA ., DR MARTINEZ Consulting Unavailable GISELLA ., DR MARTINEZ Attending Unavailable [facility] Unava ilable GISELLA ., DR MARTINEZ Admitting Unavailable GISELLA ., DR MARTINEZ Attending Unavailable [facility] Unava ilable GISELLA ., DR MARTINEZ Consulting Unavailable GISELLA ., DR MARTINEZ Admitting Unavailable GISELLA ., DR MARTINEZ Admitting Unavailable GISELLA ., DR MARTINEZ Attending Unavailable [facility] Unava ilable GISELLA ., DR MARTINEZ Consulting Unavailable JUAN CLARK Consulting Unavailable KIANANICK Consulting Unava ilable GISELLA ., DR MARTINEZ Consulting Unavailable GISELLA ., DR MARTINEZ Attending Unavailable GISELLA ., DR MARTINEZ Admitting Unavailable [facility] Care Unava ilable GISELLA ., DR MARTINEZ Consulting Unavailable GISELLA ., DR MARTINEZ Attending Unavailable GISELLA ., DR MARTINEZ Admitting Unavailable [facility] Care Unava ilable GISELLA ., DR MARTINEZ Consulting Unavailable GISELLA ., DR MARTINEZ Attending Unavailable GISELLA ., DR MARTINEZ Admitting Unavailable [facility] Unava ilable CHANDRALAG, RASHID Primary Care Unavailable ZIEBER, DR DIANA Del Real Consulting Unavailable LAKSHMIPATHY ., NARENDRANATH Attending Ivy vailable LAKSHMIPATHY ., NARENDRANATH Admitting Ivy vailable LAKSHMIPATHY ., NARENDRANATH Consulting Ivy vailable GISELLA ., DR MARTINEZ Attending Unavailable [facility] Primary Care Unava ilable GISELLA ., DR MARTINEZ Admitting Unavailable ANTONIO BRADLEY Consulting Unavailable GISELLA ., DR MARTINEZ Consulting Unavailable [facility] Consulting Unava ilable GISELLA ., DR MARTINEZ Consulting Unavailable GISELLA ., DR MARTINEZ Attending Unavailable [facility] Primary Care Unava ilable GISELLA ., DR MARTINEZ Admitting Unavailable MEHREEN FLOWERS Consulting Unavailable DALTON II, RIOS Consulting Unavailable FILUTZEBAYRON Consulting Unavailable LAKSHMIPATHY ., NARENDRANATH Consulting Ivy vailable LAKSHMIPATHY ., NARENDRANATH Attending Ivy vailable DAISHA ADAMETY Primary Care Unavailable LAKSHMIPATHY ., NARLIVATH Admitting Ivy vailable GISELLA ., DR MARTINEZ Attending Unavailable GISELLA ., DR MARTINEZ Admitting Unavailable GISELLA ., DR MARTINEZ Consulting Unavailable [facility] Care Unava ilable LAY RUIZ Attending Unavailable LAY RUIZ Attending Unavailable LAY RUIZ Attending Unavailable Za Rogers MD Primary Care Provider Jaime Burr Attending Unavailab Jaime Canas Admitting Unavailab le NON STAFF Primary Care Unavailable BAYRON REDDY Attending Unavailable ROGERS, ZA L Referring Unavailable ROGERS, ZA L Primary Care Unavailable LAY RUIZ [facility] Unava ilable MILLY COVINGTON Referring Unavailable SERVICES, [facility] Primary Care Unava ilable ROGERS, ZA L Referring Unavailable ROGERS, ZA L Primary Care Unavailable ANTONIO DRAPER Attending Unavailable ANTONIO DRAPER Referring Unavailable ROGERS, ZA L Primary Care Unavailable ANTONIO DRAPER Referring Unavailable ROGERS, ZA L Primary Care Unavailable PURVI NEVILLE Admitting Unavailable PURVI NEVILLE Attending Unavailable ROGERS, ZA L Primary Care Unavailable MILLY COVINGTON Referring Unavailable [facility], [facility] Primary [facility] Unava ilable Allergies Allergy Classification Reported Allergen(s) Allergy Type Date of Onset Reaction(s) Facility (5 sources) Penicillins; Translations: [PENICILLINS] Drug allergy (disorder) 7 [facility] Repository (4 sources) Penicillins Propensity to [...] Drug Class(es) Dates Sig (Normalized) Sig (Original) [id number] 200 actuat albuterol 0.09 mg/actuat metered dose [...] Facility Surgical Pathologyon 024 Surgical Pathology Normal [facility] Comment on above: Result Comment: [facility] [address] [place] [address] Surgical Pathology Consultation Patient Name:ERAN WINN:1985 (Age: 38)Gender:FTaken:4Reported:06/20/2024hysician(s):Purvi Neville D.O. ([phone])Copy To: Rec. #:[id number]: #[id number] Final Pathologic Diagnosis Sigmoid colon polyp, biopsy: Tubular adenoma. Report Electronically Signed Out nxk/06/20/2024Fermín Lunsford MD Interpretation performed at [facility], [address] [place] [address], License number: [id number]. Clinical History Rectal bleeding. Gross Description Received in formalin labeled TATUM sigmoid colon polyp are two brown pedunculated polyps, 1.1 x 0.7 x 0.4 cm and 0.6 x 0.5 x 0.3 cm. The resection margins are inked black and green. The larger polyp is trisected. The smaller polyp is bisected. These are submitted in a single cassette. (1, ns, [id number],m3) DM. dm/06/16/2024NSK Specimen(s) Received Sigmoid colon polyp Fee Codes(s): 1; 88758 BASIC METABOLIC PANLon 05-25 Anion gap [Moles/Vol] 8 mmol/L Normal 5-15 [facility] Comment on above: Performed By: #### B MP #### [facility] ([id number]) [address] [place] [address] Calcium [Mass/Vol] 9.1 mg/dL Normal 8.5-10.5 [facility] Comment on above: Performed By: #### B MP #### [facility] ([id number]) [address] [place] [address] Chloride [Moles/Vol] 103 mmol/L Normal 98-109 [facility] Comment on above: Performed By: #### B MP #### [facility] ([id number]) [address] [place] [address] CO2 [Moles/Vol] 26 mmol/L Normal 22-32 [facility] Comment on above: Performed By: #### B MP #### [facility] ([id number]) [address] [place] [address] Creatinine [Mass/Vol] 0.86 mg/dL Normal 0.40-1.00 [facility] Comment on above: Result Comment: METH OD TRACEABLE TO IDMS STANDARD Performed By: #### B MP #### [facility] ([id number]) [address] [place] [address] GFR/1.73 sq M.predicted among non-blacks MDRD (S/P/Bld) [Vol rate/Area] 88 mL/min/{1.73_m2} Normal >59 [facility] Comment on above: Result Comment: Reported eGFR is based on the CKD-EPI 2020 equation that does not use a race coefficient. Performed By: #### B MP #### [facility] ([id number]) [address] [place] [address] Glucose [Mass/Vol] 90 mg/dL Normal 65-99 [facility] Comment on above: Performed By: #### B MP #### [facility] ([id number]) [address] [place] [address] Potassium [Moles/Vol] 3.9 mmol/L Normal 3.5-5.0 [facility] Comment on above: Performed By: #### B MP #### [facility] ([id number]) [address] [place] [address] Sodium [Moles/Vol] 137 mmol/L Normal 134-146 [facility] Comment on above: Performed By: #### B MP #### [facility] ([id number]) [address] [place] [address] Urea nitrogen [Mass/Vol] 14 mg/dL Normal 5-23 [facility] Comment on above: Performed By: #### B MP #### [facility] ([id number]) [address] [place] [address] US PELVIC WITH TRANSVAGINALo n 08-09-2023 US [...] Sexton MD on 08/09/2023 2:33 PM Normal [facility] XR LSPINE 2_3 VIEWSon 2022 XR LSPINE [...] DIANA LUONG Date: 2022-12-14 16:25 Normal [facility] BUNon 08-31-2022 Urea nitrogen [Mass/Vol] 9.0 mg/dL Normal 7.0-18.0 [facility] Comment on above: Performed By: #### C BC #### [facility] [address] [address] [address] Rose Lafleur CBC AUTO DIFFon 08-31-2022 BASO # 0.0 103/ul Normal 0.0-0.1 [facility] Comment on above: Performed By: #### C BC #### [facility] [address] [address] [address] Rose Lafleur Basophils/100 WBC (Bld) 0.1 % Critically low 0.2-2.0 [facility] Comment on above: Performed By: #### C BC #### [facility] [address] [place] [address] Dr. Rose Lafleur EO # 0.0 103/ul Normal 0.0-0.7 [facility] Comment on above: Performed By: #### C BC #### [facility] [address] [place] [address] Dr. Rose Lafleur Eosinophils/100 WBC (Bld) 0.0 % Critically low 0.9-7.0 [facility] Comment on above: Performed By: #### C BC #### [facility] [address] [place] [address] Dr. Rose Lafleur Erythrocyte distribution width (RBC) [Ratio] 13.2 % Normal 11.0-15.0 [facility] Comment on above: Performed By: #### C BC #### [facility] [address] [place] [address] Dr. Rose Lafleur Hematocrit (Bld) [Volume fraction] 38.5 % Normal 36.0-48.0 [facility] Comment on above: Performed By: #### C BC #### [facility] [address] [place] [address] Dr. Rose Lafleur Hemoglobin (Bld) [Mass/Vol] 12.7 g/dL Normal 12.0-16.0 [facility] Comment on above: Performed By: #### C BC #### [facility] [address] [place] [address] Dr. Rose Lafleur IG # 0.07 10e3/ul Critically high 0.00-0.03 [facility] Comment on above: Performed By: #### C BC #### [facility] [address] [place] [address] Dr. Rose Lafleur IG % 0.4 % Normal 0.0-0.5 [facility] Comment on above: Performed By: #### C BC #### [facility] [address] [place] [address] Dr. Rose Lafleur LYMPH # 2.3 103/ul Normal 1.2-3.8 [facility] Comment on above: Performed By: #### C BC #### [facility] [address] [address] [address] Rose Lafleur Lymphocytes/100 WBC (Bld) 14.3 % Critically low 20.5-60.0 [facility] Comment on above: Performed By: #### C BC #### [facility] [address] [address] [address] Rose Lafleur MANUAL DIFF REQ NO Normal [facility] Comment on above: Performed By: #### C BC #### [facility] [address] [place] [address] Dr. Rose Lafleur MCH (RBC) [Entitic mass] 28.6 pg Normal 26.7-34.0 [facility] Comment on above: Performed By: #### C BC #### [facility] [address] [place] [address] Dr. Rose Lafleur MCHC (RBC) [Mass/Vol] 33.0 g/dL Normal 29.9-35.2 [facility] Comment on above: Performed By: #### C BC #### [facility] [address] [place] [address] Dr. Rose Lafleur MCV (RBC) [Entitic vol] 86.7 fL Normal 81.0-99.0 [facility] Comment on above: Performed By: #### C BC #### [facility] [address] [place] [address] Dr. Rose Lafleur MONO # 0.9 103/ul Critically high 0.3-0.8 [facility] Comment on above: Performed By: #### C BC #### [facility] [address] [place] [address] Dr. Rose Lafleur Monocytes/100 WBC (Bld) 5.5 % Normal 1.7-12.0 [facility] Comment on above: Performed By: #### C BC #### [facility] [address] [place] [address] Dr. Rose Lafleur NEUT # 12.8 103/ul Critically high 1.4-6.5 [facility] Comment on above: Performed By: #### C BC #### [facility] [address] [address] [address] Rose Lafleur Neutrophils/100 WBC (Bld) 79.7 % Critically high 43.0-75.0 [facility] Comment on above: Performed By: #### C BC #### [facility] [address] [place] [address] Dr. Rose Lafleur Platelet mean volume (Bld) [Entitic vol] 8.9 fL Critically low 9.5-13.5 [facility] Comment on above: Performed By: #### C BC #### [facility] [address] [address] [address] Rose Lafleur PLT 330 103/ul Normal 150-450 [facility] Comment on above: Performed By: #### C BC #### [facility] [address] [place] [address] Dr. Rose Lafleur RBC 4.44 106/ul Normal 4.20-5.40 [facility] Comment on above: Performed By: #### C BC #### [facility] [address] [place] [address] Dr. Rose Lafleur WBC 16.1 103/ul Critically high 4.0-11.0 [facility] Comment on above: Performed By: #### C BC #### [facility] [address] [place] [address] Dr. Rose Lafleur CREATININEon 08-31-2022 Creatinine [Mass/Vol] 0.59 mg/dL Normal 0.55-1.02 [facility] Comment on above: Performed By: #### C BC #### [facility] [address] [place] [address] Dr. Rose Lafleur EGFR-AF ISRAELI >60 Normal >=60 [facility] Comment on above: Performed By: #### C BC #### [facility] [address] [place] [address] Dr. Rose Lafleur EGFR-NON AF ISRAELI >60 Normal >=60 [facility] Comment on above: Performed By: #### C BC #### [facility] [address] [place] [address] Dr. Rose Lafleur PREG HCG QUALon 08-30-2022 , QUAL Negative Normal NEGATIVE [facility] Comment on above: Performed By: #### P REG #### [facility] [address] [place] [address] Dr. Rose Lafleur [facility]15 SARS-CoV-2 (COVID-19) RNA RUDY+probe Ql (Unsp spec) Not detected Normal NOT DETECTED [facility] Comment on above: Result Comment: This test is not yet approved or cleared by the [place] FDA. When there are no FDA-approved or cleared tests available, and other criteria are met, FDA can make tests available under an emergency access mechanism called an Emergency Use Authorization (EUA). The EUA for this test is supported by the Seasonal Recruiter of Health and Human Service's (HHS's) declaration [...] SARS-CoV-2. Performed By: #### L DH #### [facility] [address] [place] [address] Dr. Rose Lafleur TYPE AND SCREENon 08-26-2022 TYPE AND SCREEN Negative Normal [facility] Comment on above: Performed By: #### L DH #### [facility] [address] [place] [address] Dr. Rose Lafleur CBC AUTO DIFFon 08-16-2022 BASO # 0.0 103/ul Normal 0.0-0.1 [facility] Comment on above: Performed By: #### C BC #### [facility] [address] [place] [address] Dr. Rose Lafleur Basophils/100 WBC (Bld) 0.3 % Normal 0.2-2.0 [facility] Comment on above: Performed By: #### C BC #### [facility] [address] [place] [address] Dr. Rose Lafleur EO # 0.2 103/ul Normal 0.0-0.7 [facility] Comment on above: Performed By: #### C BC #### [facility] [address] [place] [address] Dr. Rose Lafleur Eosinophils/100 WBC (Bld) 1.7 % Normal 0.9-7.0 [facility] Comment on above: Performed By: #### C BC #### [facility] [address] [place] [address] Dr. Rose Lafleur Erythrocyte distribution width (RBC) [Ratio] 13.1 % Normal 11.0-15.0 [facility] Comment on above: Performed By: #### C BC #### [facility] [address] [place] [address] Dr. Rose Lafleur Hematocrit (Bld) [Volume fraction] 40.6 % Normal 36.0-48.0 [facility] Comment on above: Performed By: #### C BC #### [facility] [address] [place] [address] Dr. Rose Lafleur Hemoglobin (Bld) [Mass/Vol] 13.4 g/dL Normal 12.0-16.0 [facility] Comment on above: Performed By: #### C BC #### [facility] [address] [place] [address] Dr. Rose Lafleur IG # 0.02 10e3/ul Normal 0.00-0.03 [facility] Comment on above: Performed By: #### C BC #### [facility] [address] [place] [address] Dr. Rose Lafleur IG % 0.2 % Normal 0.0-0.5 [facility] Comment on above: Performed By: #### C BC #### [facility] [address] [place] [address] Dr. Rose Lafleur LYMPH # 2.8 103/ul Normal 1.2-3.8 [facility] Comment on above: Performed By: #### C BC #### [facility] [address] [place] [address] Dr. Rose Lafleur Lymphocytes/100 WBC (Bld) 31.7 % Normal 20.5-60.0 [facility] Comment on above: Performed By: #### C BC #### [facility] [address] [place] [address] Dr. Rose Lafleur MANUAL DIFF REQ NO Normal [facility] Comment on above: Performed By: #### C BC #### [facility] [address] [place] [address] Dr. Rose Lafleur MCH (RBC) [Entitic mass] 28.5 pg Normal 26.7-34.0 [facility] Comment on above: Performed By: #### C BC #### [facility] [address] [place] [address] Dr. Rose Lafleur MCHC (RBC) [Mass/Vol] 33.0 g/dL Normal 29.9-35.2 [facility] Comment on above: Performed By: #### C BC #### [facility] [address] [place] [address] Dr. Rose Lafleur MCV (RBC) [Entitic vol] 86.4 fL Normal 81.0-99.0 [facility] Comment on above: Performed By: #### C BC #### [facility] [address] [place] [address] Dr. Rose Lafleur MONO # 0.6 103/ul Normal 0.3-0.8 [facility] Comment on above: Performed By: #### C BC #### [facility] [address] [place] [address] Dr. Rose Lafleur Monocytes/100 WBC (Bld) 6.8 % Normal 1.7-12.0 [facility] Comment on above: Performed By: #### C BC #### [facility] [address] [place] [address] Dr. Rose Lafleur NEUT # 5.1 103/ul Normal 1.4-6.5 [facility] Comment on above: Performed By: #### C BC #### [facility] [address] [place] [address] Dr. Rose Lafleur Neutrophils/100 WBC (Bld) 59.3 % Normal 43.0-75.0 [facility] Comment on above: Performed By: #### C BC #### [facility] [address] [place] [address] Dr. Rose Lafleur Platelet mean volume (Bld) [Entitic vol] 8.9 fL Critically low 9.5-13.5 [facility] Comment on above: Performed By: #### C BC #### [facility] [address] [place] [address] Dr. Rose Lafleur PLT 312 103/ul Normal 150-450 [facility] Comment on above: Performed By: #### C BC #### [facility] [address] [place] [address] Dr. Rose Lafleur RBC 4.70 106/ul Normal 4.20-5.40 [facility] Comment on above: Performed By: #### C BC #### [facility] [address] [place] [address] Dr. Rose Lafleur WBC 8.7 103/ul Normal 4.0-11.0 [facility] Comment on above: Performed By: #### C BC #### [facility] [address] [place] [address] Dr. Rose Lafleur LIVER PROFILEon 08-16-2022 Albumin [Mass/Vol] 2.9 g/dL Critically low 3.4-5.0 [facility] Comment on above: Performed By: #### B MP, LIVER #### [facility] [address] [place] [address] Dr. Rose Lafleur Albumin/Globulin [Mass ratio] 0.6 {ratio} Normal [facility] Comment on above: Performed By: #### B MP, LIVER #### [facility] [address] [place] [address] Dr. Rose Lafleur ALP [Catalytic activity/Vol] 121 U/L Critically high 46-116 [facility] Comment on above: Performed By: #### B MP, LIVER #### [facility] [address] [place] [address] Dr. Rose Lafleur ALT [Catalytic activity/Vol] 21 U/L Normal 14-59 [facility] Comment on above: Performed By: #### B MP, LIVER #### [facility] [address] [place] [address] Dr. Rose Lafleur AST [Catalytic activity/Vol] 20 U/L Normal 15-37 [facility] Comment on above: Performed By: #### B MP, LIVER #### [facility] [address] [place] [address] Dr. Rose Lafleur BILI, CONJUGATED 0.1 mg/dL Normal 0.0-0.2 [facility] Comment on above: Performed By: #### B MP, LIVER #### [facility] [address] [place] [address] Dr. Rose Lafleur Bilirubin [Mass/Vol] 0.3 mg/dL Normal 0.2-1.0 [facility] Comment on above: Performed By: #### B MP, LIVER #### [facility] [address] [place] [address] Dr. Rose Lafleur Globulin (S) [Mass/Vol] 4.8 g/dL Normal [facility] Comment on above: Performed By: #### B MP, LIVER #### [facility] [address] [place] [address] Dr. Rose Lafleur Protein [Mass/Vol] 7.7 g/dL Normal 6.4-8.2 [facility] Comment on above: Performed By: #### B MP, LIVER #### [facility] [address] [place] [address] Dr. Rose Lafleur PROF CHEM 8 (BAS METB)on Anion gap [Moles/Vol] 10.9 mmol/L Normal [facility] Comment on above: Performed By: #### B MP, LIVER #### [facility] [address] [place] [address] Dr. Rose Lafleur Calcium [Mass/Vol] 8.8 mg/dL Normal 8.5-10.1 [facility] Comment on above: Performed By: #### B MP, LIVER #### [facility] [address] [address] [address] Rose Lafleur Chloride [Moles/Vol] 102 mmol/L Normal 98-107 [facility] Comment on above: Performed By: #### B MP, LIVER #### [facility] [address] [address] [address] Rose Lafleur CO2 [Moles/Vol] 26.1 mmol/L Normal 21.0-32.0 [facility] Comment on above: Performed By: #### B MP, LIVER #### [facility] [address] [address] [address] Rose Lafleur Creatinine [Mass/Vol] 0.64 mg/dL Normal 0.55-1.02 [facility] Comment on above: Performed By: #### B MP, LIVER #### [facility] [address] [place] [address] Dr. Rose Lafleur EGFR-AF ISRAELI >60 Normal >=60 [facility] Comment on above: Performed By: #### B MP, LIVER #### [facility] [address] [place] [address] Dr. Rose Lafleur EGFR-NON AF ISRAELI >60 Normal >=60 [facility] Comment on above: Performed By: #### B MP, LIVER #### [facility] [address] [place] [address] Dr. Rose Lafleur Glucose [Mass/Vol] 90 mg/dL Normal 74-106 [facility] Comment on above: Performed By: #### B MP, LIVER #### [facility] [address] [place] [address] Dr. Rose Lafleur Potassium [Moles/Vol] 4.0 mmol/L Normal 3.5-5.1 [facility] Comment on above: Performed By: #### B MP, LIVER #### [facility] [address] [address] [address] Rose Lafleur Sodium [Moles/Vol] 135 mmol/L Critically low 136-145 [facility] Comment on above: Performed By: #### B MP, LIVER #### [facility] [address] [place] [address] Dr. Rose Lafleur Urea nitrogen [Mass/Vol] 12.0 mg/dL Normal 7.0-18.0 [facility] Comment on above: Performed By: #### B MP, LIVER #### [facility] [address] [address] [address] Rose Lafleur Urea nitrogen/Creatinin e [Mass ratio] 18.8 mg/mg Normal [facility] Comment on above: Performed By: #### B MP, LIVER #### [facility] [address] [place] [address] Dr. Rose Lafleur PROTIMEon 08-16-2022 INR Coag (PPP) [Relative time] 0.95 {INR} Normal [facility] Comment on above: Performed By: #### C BC #### [facility] [address] [place] [address] Dr. Rose Lafleur INR GUIDELINES SEE BELOW Normal [facility] Comment on above: Result Comment: JAYLYN RED INR: 2.0 - 3.0 CONDITIONS NOT LISTED BELOW 2.5 - 3.5 FOR PROSTHETIC HEART VALVE REPLACEMENT 2.5 - 3.5 RECURRENT THROMBOSIS Performed By: #### C BC #### [facility] [address] [place] [address] Dr. Rose Lafleur PT Coag (PPP) [Time] 10.3 s Normal 9.0-11.6 [facility] Comment on above: Performed By: #### C BC #### [facility] [address] [place] [address] Dr. Rose Lafleur PTTon 08-16-2022 aPTT Coag (Bld) [Time] 32.0 s Normal 22.3-36.2 [facility] Comment on above: Performed By: #### C BC #### [facility] [address] [place] [address] Dr. Rose Lafleur GLYCOHEMOGLOBIN A1Con 2021 ADA RECOMMENDATION SEE BELOW Normal [facility] Comment on above: Result Comment: ADA RECOMMENDED LIMIT 4.0 - 6.0 ADA THERAPEUTIC TARGET < 7.0 ACTION SUGGESTED > 7.0 Performed By: #### C BC #### [facility] [address] [address] [address] Rose Lafleur Glucose [Mass/Vol] 108 mg/dL Normal [facility] Comment on above: Performed By: #### C BC #### [facility] [address] [address] [address] Rose Lafleur HbA1c (Bld) [Mass fraction] 5.4 % Normal 4.5-6.2 [facility] Comment on above: Performed By: #### C BC #### [facility] [address] [address] [address] Rose Lafleur PAP ACOG PANEL 2: 30 to 63on 07-14-2022 . . Normal [facility] Comment on above: Result Comment: Perf ormed at: WB Performed By: #### C BC #### [facility] [address] [place] [address] Dr. Rose Lafleur Age Gdln ACOG Testing -63 Normal [facility] Comment on above: Performed By: #### C BC #### [facility] [address] [address] [address] Rose Lafleur DIAGNOSIS: Comment Normal [facility] Comment on above: Result Comment: NEGA TIVE FOR INTRAEPITHELIAL LESION OR MALIGNANCY. CELLULAR CHANGES ASSOCIATED WITH INFLAMMATION ARE PRESENT. Performed at: WB Performed By: #### C BC #### [facility] [address] [place] [address] Dr. Rose Lafleur HPV Aptima Negative Normal Negative [facility] Comment on above: Result Comment: This nucleic acid amplification test detects fourteen high-risk HPV types (16,18,31,33,35,39,45,51,52,56,58,59,66,68) without differentiation. Performed at: =G Performed By: #### C BC #### [facility] [address] [place] [address] Dr. Rose Lafleur HPV Genotype Reflex Comment Normal [facility] Comment on above: Result Comment: Crit eria not met, HPV Genotype not performed. Performed at: WB Performed By: #### C BC #### [facility] [address] [place] [address] Dr. Rose Lafleur Methodology: CTIM Normal [facility] Comment on above: Result Comment: The Thin Prep(R) [place] Upholsterer was unable to read this specimen. Therefore a manual review was performed. Performed at: WB Performed By: #### C BC #### [facility] [address] [place] [address] Dr. Rose Lafleur Note: Comment Normal [facility] Comment on above: Result Comment: The [...] WB Performed By: #### C BC #### [facility] [address] [place] [address] Dr. Rose Lafleur Performed by: Comment Normal [facility] Comment on above: Result Comment: Carlos Wolff, Sustainable Communities Designer (ASCP) Performed at: WB Performed By: #### C BC #### [facility] [address] [place] [address] Dr. Rose Lafleur Specimen adequacy: Comment Normal [facility] Comment on above: Result Comment: Sati sfactory for evaluation. No endocervical component is identified. Performed at: WB Performed By: #### C BC #### [facility] [address] [place] [address] Dr. Rose Lafleur CBC AUTO DIFFon 05-26-2022 BASO # 0.0 103/ul Normal 0.0-0.1 [facility] Comment on above: Performed By: #### C BC #### [facility] [address] [place] [address] Dr. Rose Lafleur Basophils/100 WBC (Bld) 0.4 % Normal 0.2-2.0 [facility] Comment on above: Performed By: #### C BC #### [facility] [address] [place] [address] Dr. Rose Lafleur EO # 0.1 103/ul Normal 0.0-0.7 [facility] Comment on above: Performed By: #### C BC #### [facility] [address] [place] [address] Dr. Rose Lafleur Eosinophils/100 WBC (Bld) 1.2 % Normal 0.9-7.0 [facility] Comment on above: Performed By: #### C BC #### [facility] [address] [place] [address] Dr. Rose Lafleur Erythrocyte distribution width (RBC) [Ratio] 13.6 % Normal 11.0-15.0 [facility] Comment on above: Performed By: #### C BC #### [facility] [address] [place] [address] Dr. Rose Lafleur Hematocrit (Bld) [Volume fraction] 41.6 % Normal 36.0-48.0 [facility] Comment on above: Performed By: #### C BC #### [facility] [address] [place] [address] Dr. Rose Lafleur Hemoglobin (Bld) [Mass/Vol] 13.3 g/dL Normal 12.0-16.0 [facility] Comment on above: Performed By: #### C BC #### [facility] [address] [place] [address] Dr. Rose Lafleur IG # 0.03 10e3/ul Normal 0.00-0.03 [facility] Comment on above: Performed By: #### C BC #### [facility] [address] [place] [address] Dr. oRse Lafleur IG % 0.3 % Normal 0.0-0.5 [facility] Comment on above: Performed By: #### C BC #### [facility] [address] [place] [address] Dr. Rose Lafleur LYMPH # 3.8 103/ul Normal 1.2-3.8 [facility] Comment on above: Performed By: #### C BC #### [facility] [address] [place] [address] Dr. Rose Lafleur Lymphocytes/100 WBC (Bld) 39.8 % Normal 20.5-60.0 [facility] Comment on above: Performed By: #### C BC #### [facility] [address] [place] [address] Dr. Rose Lafleur MANUAL DIFF REQ NO Normal [facility] Comment on above: Performed By: #### C BC #### [facility] [address] [place] [address] Dr. Rose Lafleur MCH (RBC) [Entitic mass] 28.5 pg Normal 26.7-34.0 [facility] Comment on above: Performed By: #### C BC #### [facility] [address] [place] [address] Dr. Rose Lafleur MCHC (RBC) [Mass/Vol] 32.0 g/dL Normal 29.9-35.2 [facility] Comment on above: Performed By: #### C BC #### [facility] [address] [place] [address] Dr. Rose Lafleur MCV (RBC) [Entitic vol] 89.3 fL Normal 81.0-99.0 [facility] Comment on above: Performed By: #### C BC #### [facility] [address] [place] [address] Dr. Rose Lafleur MONO # 0.6 103/ul Normal 0.3-0.8 [facility] Comment on above: Performed By: #### C BC #### [facility] [address] [place] [address] Dr. Rose Lafleur Monocytes/100 WBC (Bld) 6.5 % Normal 1.7-12.0 [facility] Comment on above: Performed By: #### C BC #### [facility] [address] [place] [address] Dr. Rose Lafleur NEUT # 4.9 103/ul Normal 1.4-6.5 [facility] Comment on above: Performed By: #### C BC #### [facility] [address] [place] [address] Dr. Rose Lafleur Neutrophils/100 WBC (Bld) 51.8 % Normal 43.0-75.0 [facility] Comment on above: Performed By: #### C BC #### [facility] [address] [address] [address] Rose Lafleur Platelet mean volume (Bld) [Entitic vol] 8.9 fL Critically low 9.5-13.5 [facility] Comment on above: Performed By: #### C BC #### [facility] [address] [place] [address] Dr. Rose Lafleur PLT 310 103/ul Normal 150-450 [facility] Comment on above: Performed By: #### C BC #### [facility] [address] [place] [address] Dr. Rose Lafleur RBC 4.66 106/ul Normal 4.20-5.40 [facility] Comment on above: Performed By: #### C BC #### [facility] [address] [place] [address] Dr. Rose Lafleur WBC 9.5 103/ul Normal 4.0-11.0 [facility] Comment on above: Performed By: #### C BC #### [facility] [address] [place] [address] Dr. Rose Lafleur PREG HCG QUALon 05-26-2022 , QUAL Negative Normal NEGATIVE [facility] Comment on above: Performed By: #### P REG #### [facility] [address] [place] [address] Dr. Rose Lafleur [facility]on SARS-CoV-2 (COVID-19) RNA RUDY+probe Ql (Unsp spec) Not detected Normal NOT DETECTED [facility] Comment on above: Result Comment: This test is not yet approved or cleared by the [place] FDA. When there are no FDA-approved or cleared tests available, and other criteria are met, FDA can make tests available under an emergency access mechanism called an Emergency Use Authorization (EUA). The EUA for this test is supported by the Seasonal Recruiter of Health and Human Service's (HHS's) declaration [...] SARS-CoV-2. Performed By: #### C BC #### [facility] [address] [place] [address] Dr. Rose Lafleur AFP (TUMOR MARKER)on 022 AFP, Serum, Tumor Marker 1.6 ng/mL Normal 0.0-6.4 [facility] Comment on above: Result Comment: [employer] Electrochemiluminescence Immunoassay (ECLIA) . Values obtained with different assay methods or kits cannot be used interchangeably. Results cannot be interpreted as absolute evidence of the presence or absence of malignant disease. . This test is not interpretable in females. Performed By: #### C BC #### [facility] [address] [place] [address] Dr. Rose Lafleur CA 125on 05-07-2022 Cancer Antigen (CA) 125 17.1 U/mL Normal 0.0-38.1 [facility] Comment on above: Result Comment: [employer] Electrochemiluminescence Immunoassay (ECLIA) . Values obtained with different assay methods or kits cannot be used interchangeably. Results cannot be interpreted as absolute evidence of the presence or absence of malignant disease. Performed By: #### L DH #### [facility] [address] [place] [address] Dr. Rose Lafleur CEAon 05-07-2022 CEA 1.6 ng/mL Normal 0.0-4.7 [facility] Comment on above: Result Comment: Nons mokers <3.9 Smokers <5.6 . [employer] Electrochemiluminescence Immunoassay (ECLIA) . Values obtained with different assay methods or kits cannot be used interchangeably. Results cannot be interpreted as absolute evidence of the presence or absence of malignant disease. Performed By: #### C BC #### [facility] [address] [place] [address] Dr. Rose Lafleur HCG QUANT TUMOR MARKERon HCG QNT TUMOR MARKER <1 Normal [facility] Comment on above: Result Comment: Fema [...] developed and its performance characteristics determined by [employer]. It has not been cleared or approved by the Food and Drug Administration for use as a tumor marker. . This test is not interpretable as a tumor marker in females. Performed By: #### C BC #### [facility] [address] [place] [address] Dr. Rose Lafleur LDHon 05-05-2022 LDH 269 U/L Critically high 81-234 [facility] Comment on above: Performed By: #### L DH #### [facility] [address] [place] [address] Dr. Rose Lafleur CBC AUTO DIFFon 04-21-2022 BASO # 0.0 103/ul Normal 0.0-0.1 [facility] Comment on above: Performed By: #### L DH #### [facility] [address] [place] [address] Dr. Rose Lafleur Basophils/100 WBC (Bld) 0.3 % Normal 0.2-2.0 [facility] Comment on above: Performed By: #### L DH #### [facility] [address] [place] [address] Dr. Rose Lafleur EO # 0.1 103/ul Normal 0.0-0.7 [facility] Comment on above: Performed By: #### L DH #### [facility] [address] [place] [address] Dr. Rose Lafleur Eosinophils/100 WBC (Bld) 0.7 % Critically low 0.9-7.0 [facility] Comment on above: Performed By: #### L DH #### [facility] [address] [place] [address] Dr. Rose Lafleur Erythrocyte distribution width (RBC) [Ratio] 13.9 % Normal 11.0-15.0 [facility] Comment on above: Performed By: #### L DH #### [facility] [address] [place] [address] Dr. Rose Lafleur Hematocrit (Bld) [Volume fraction] 41.5 % Normal 36.0-48.0 [facility] Comment on above: Performed By: #### L DH #### [facility] [address] [place] [address] Dr. Rose Lafleur Hemoglobin (Bld) [Mass/Vol] 13.4 g/dL Normal 12.0-16.0 [facility] Comment on above: Performed By: #### L DH #### [facility] [address] [place] [address] Dr. Rose Lafleur IG # 0.03 10e3/ul Normal 0.00-0.03 [facility] Comment on above: Performed By: #### L DH #### [facility] [address] [place] [address] Dr. Rose Lafleur IG % 0.3 % Normal 0.0-0.5 [facility] Comment on above: Performed By: #### L DH #### [facility] [address] [place] [address] Dr. Rose Lafleur LYMPH # 3.7 103/ul Normal 1.2-3.8 [facility] Comment on above: Performed By: #### L DH #### [facility] [address] [place] [address] Dr. Rose Lafleur Lymphocytes/100 WBC (Bld) 32.9 % Normal 20.5-60.0 [facility] Comment on above: Performed By: #### L DH #### [facility] [address] [place] [address] Dr. Rose Lafleur MANUAL DIFF REQ NO Normal [facility] Comment on above: Performed By: #### L DH #### [facility] [address] [address] [address] Rose Lafleur MCH (RBC) [Entitic mass] 28.6 pg Normal 26.7-34.0 [facility] Comment on above: Performed By: #### L DH #### [facility] [address] [address] [address] Rose Lafleur MCHC (RBC) [Mass/Vol] 32.3 g/dL Normal 29.9-35.2 [facility] Comment on above: Performed By: #### L DH #### [facility] [address] [address] [address] Rose Lafleur MCV (RBC) [Entitic vol] 88.5 fL Normal 81.0-99.0 [facility] Comment on above: Performed By: #### L DH #### [facility] [address] [place] [address] Dr. Rose Lafleur MONO # 0.7 103/ul Normal 0.3-0.8 [facility] Comment on above: Performed By: #### L DH #### [facility] [address] [place] [address] Dr. Rose Lafleur Monocytes/100 WBC (Bld) 6.1 % Normal 1.7-12.0 [facility] Comment on above: Performed By: #### L DH #### [facility] [address] [place] [address] Dr. Rose Lafleur NEUT # 6.7 103/ul Critically high 1.4-6.5 [facility] Comment on above: Performed By: #### L DH #### [facility] [address] [place] [address] Dr. Rose Lafleur Neutrophils/100 WBC (Bld) 59.7 % Normal 43.0-75.0 [facility] Comment on above: Performed By: #### L DH #### [facility] [address] [place] [address] Dr. Rose Lafleur Platelet mean volume (Bld) [Entitic vol] 9.0 fL Critically low 9.5-13.5 [facility] Comment on above: Performed By: #### L DH #### [facility] [address] [address] [address] Rose Lafleur PLT 320 103/ul Normal 150-450 [facility] Comment on above: Performed By: #### L DH #### [facility] [address] [address] [address] Rose Lafleur RBC 4.69 106/ul Normal 4.20-5.40 [facility] Comment on above: Performed By: #### L DH #### [facility] [address] [address] [address] Rose Lafleur WBC 11.1 103/ul Critically high 4.0-11.0 [facility] Comment on above: Performed By: #### L DH #### [facility] [address] [place] [address] Dr. Rose Lafleur GLYCOHEMOGLOBIN A1Con 2021 ADA RECOMMENDATION SEE BELOW Normal [facility] Comment on above: Result Comment: ADA RECOMMENDED LIMIT 4.0 - 6.0 ADA THERAPEUTIC TARGET < 7.0 ACTION SUGGESTED > 7.0 Performed By: #### A 1C #### [facility] [address] [place] [address] Dr. Rose Lafleur Glucose [Mass/Vol] 111 mg/dL Normal [facility] Comment on above: Performed By: #### A 1C #### [facility] [address] [place] [address] Dr. Rose Lafleur HbA1c (Bld) [Mass fraction] 5.5 % Normal 4.5-6.2 [facility] Comment on above: Performed By: #### A 1C #### [facility] [address] [place] [address] Dr. Rose Lafleur TSHon 04-21-2022 TSH 1.207 uIU/mL Normal 0.358-3.740 [facility] Comment on above: Performed By: #### T SH #### [facility] [address] [place] [address] Dr. Rose Lafleur US PELVIS AND TRANSVAGon [...] by: ANTONIO BRADLEY Date: 2022-04-21 15:32 Normal [facility] Vital Signs Date Time Vital Sign Value Performing Clinician Huberi cyndy 05-25-2024 11:42-0400 Body height 152.4 cm [facility] 05-25-2024 11:42-0400 Body mass index (BMI) [Ratio] 63.47 kg/m2 [facility] 05-25-2024 11:42-0400 Body weight 147.42 kg [facility] 05-23-2024 11:23-0400 Body height 152.4 cm Bayron Reddy APRNIDENT TechnologyLIZZETTE Work Phone: [facility] 05-23-2024 11:23-0400 Body mass index (BMI) [Ratio] 64.06 kg/m2 Bayron Reddy APRNIDENT TechnologyVIDEO GAME REPAIR TECHNICIAN Work Phone: [facility] 05-23-2024 11:23-0400 Body weight 148.78 kg Bayron Reddy APRNIDENT TechnologyVIDEO GAME REPAIR TECHNICIAN Work Phone: [facility] Encounters Encounter Date Encounter Type Care Provider Facility Start: 06-21-2024 End: 06-21-2024 Telephone encounter Ebony Floyd CMA [facility] Start: 06-14-2024 End: 06-14-2024 Evaluation and management of inpatient PURVI NEVILLE [facility] Start: 05-25-2024 Encounter for other preprocedural examination ANTONIO [facility] Start: 05-25-2024 End: 05-25-2024 ambulatory ANTONIO Parkinson [facility] Start: 05-25-2024 End: 05-25-2024 Patient encounter procedure [facility] Pre-Admission Testing 1 [facility] - Pre Admit Start: 05-23-2024 End: 05-23-2024 Office outpatient new 30 minutes Bayron Reddy DELIVERY ROOM SUPERVISOR-VIDEO GAME REPAIR TECHNICIAN Work Phone: [facility] Comment on above: Rectal bleeding (Patti minh Dx) Start: 05-23-2024 End: 05-23-2024 ambulatory [facility] Start: 05-16-2024 End: 05-16-2024 Telephone encounter Bayron Reddy DELIVERY ROOM SUPERVISOR-VIDEO GAME REPAIR TECHNICIAN Work Phone: [facility] Start: 05-15-2024 ambulatory Jaime Squires acility:[facility] Start: 09-12-2023 End: 09-12-2023 ambulatory L[facility] S[facility] Not Available Start: 08-18-2023 End: 08-18-2023 ambulatory LAY SARA Not Available Start: 08-16-2023 End: 09-15-2023 ambulatory [facility] Start: 08-09-2023 End: 08-09-2023 ambulatory LAY RUIZ [facility] Start: 07-26-2023 End: 08-15-2023 ambulatory [facility] Start: 07-21-2023 End: 07-21-2023 ambulatory LAY SARA Not Available Start: 12-14-2022 End: 12-15-2022 ambulatory RASHID ADAME Facility: Start: 09-02-2022 Encounter for preprocedural laboratory examination DR JUAN ARRIAZA . [facility] Start: 08-30-2022 End: 08-31-[address] [...] cardiovascular examination DR JUAN ARRIAZA . [facility] Start: 05-13-2022 End: 05-14-[address] JUAN ARRIAZA . Facility:[facility] Start: 05-13-2022 End: 05-14-2022 Encounter for preprocedural cardiovascular examination DR JUAN ARRIAZA . Facility:[facility] Start: 05-05-2022 End: 05-06-[address] JUAN ARRIAZA . Facility:[facility] Start: 04-21-2022 End: 04-22-[address] JUAN ARRIAZA . Facility:[facility] Procedures Date Procedure Procedure Detail Performing Clinician Start: 06-14-2024 Colonoscopy Ebony Bogdan ia SOCIAL SERVICES ASSISTANT Start: 07-05-2022 Microscopic observat ion [Identifier] in Cervix by Cyto stain Bayron Reddy APRN-VIDEO GAME REPAIR TECHNICIAN Work Phone: Plan of Treatment Date Care Activity Detail Author Start: 05-06-2030 DTaP,Tdap and Td Vaccines (3 - Td or Tdap) DTaP,Tdap and Td Vaccines (3 - Td or Tdap) [facility] [facility] Start: 06-14-2029 Screening for malign ant neoplasm of colon Colonoscopy [facility] Start: 07-05-2025 Screening for malign ant neoplasm of cervix Pap Smear [facility] Start: 06-14-2025 Adult BMI Screening Adult BMI Screen ing [facility] Start: 06-14-2025 Tobacco Screening Tobacco Screening [facility] Start: 05-25-2025 Adult BMI Screening Adult BMI Screen ing [facility] Start: 05-25-2025 Tobacco Screening Tobacco Screening [facility] Start: 05-23-2025 Adult BMI Screening Adult BMI Screen ing [facility] Start: 05-23-2025 Tobacco Screening Tobacco Screening [facility] Start: 06-14-2024 End: 06-14-2024 Admission to same day surgery center 06/14/2024 10:00 AM EDT - 06/14/2024 10:30 AM EDT Surgery [facility] [address] [place] [id number] Purvi Neville, DO [address] [place] [address] [id number] COLONOSCOPY DIAGNOSTIC / SCREENING [77549 (CPT )] [facility] Comment on above: COLONOSCOPY DIAGNOST IC / SCREENING [38982 (CPT )] Start: 06-14-2024 End: 06-14-2024 Colonoscopy flx dx w/collj spec when pfrmd COLONOSCOPY DIAGNOSTIC / SCREENING rectal bleeding 06/14/2024 10:00 AM EDT [facility] Start: 06-14-2024 Subsequent hospital visit by physician 06/14/2024 10:00 AM EDT Hospital Encounter [facility] [address] [place] [phone] Purvi Neville, DO [address] [place] [address] [id number] [facility] Start: 05-25-2024 End: 05-25-2024 Patient encounter procedure 05/25/2024 2:15 PM EDT Procedure visit [facility] - Pre Admit [address] [place] [id number] [facility] - Pre Admit Start: 05-23-2024 End: 05-23-2024 Patient encounter procedure 05/23/2024 11:30 AM EDT Office Visit [facility] [address] [place] [phone] Bayron Reddy, DELIVERY ROOM SUPERVISOR-VIDEO GAME REPAIR TECHNICIAN [address] [place] [address] [facility] Start: 04-15-2024 COVID-19 Vaccine ( season) COVID-19 Vaccine ( season) [facility] Start: 04-15-2024 COVID-19 Vaccine ( season) COVID-19 Vaccine () [facility] Start: 04-15-2024 Influenza vaccination Influenza Vacc ine [facility] Start: 09-22-2022 Adult BMI Screening Adult BMI Screen ing [facility] Start: 12-15-2004 Screening for malign ant neoplasm of cervix Pap Smear [facility] Start: 12-15-2001 Adult BMI Follow Up Plan Adult BMI Follow Up Plan [facility] Start: 1995 Depression Screening Depression Scre ening [facility] Start: 1995 Tobacco Screening Tobacco Screening [facility] End: 05-23-2025 Colonoscopy Colonoscopy GI Routine Rectal bleeding 1 Occurrences starting 05/23/2024 until 05/23/2025 [facility] Work Phone: Comment on above: 1 Occurrences starti ng 05/23/2024 until 05/23/2025 Payers Date Payer Category Payer Self-pay 2003 Medicaid [employer] [id number] 2003-Present [phone] [place] [id number] 2003 Medicaid HMO [employer] [id number] 1983 Unknown [id number] 1983 Unknown [id number] 1983 Unknown [id number] 1983 Unknown [id number] 1983 Unknown [id number] 1983 Unknown [id number] 1983 Unknown [id number] 1983 Unknown [id number] 2.16.840.1.446283.3.579.2.593 1983 Unknown [id number] 2.16.840.1.460488.3.579.2.593 1983 Unknown [id number] 2.16.840.1.490320.3.579.2.593 1983 Unknown [id number] 2.16.840.1.384736.3.579.2.593 1983 Unknown [id number] 2.16.840.1.077283.3.579.2.593 1983 Unknown [id number] 2.16.840.1.001142.3.579.2.9 1983 Unknown [id number] 2.16.840.1.092810.3.579.2.9 1983 Unknown [id number] 2.16.840.1.389104.3.579.2.9 1983 Unknown [id number] 2.16.840.1.781818.3.579.2.1285 1983 Unknown [id number] 2.16.840.1.261444.3.579.2.1285 1983 Unknown [id number] 2.16.840.1.353731.3.579.2.1285 1983 Unknown [id number] 2.16.840.1.319886.3.579.2.1285 1983 Unknown [id number] 2.16.840.1.949356.3.579.2.1285 1983 Unknown [id number] 2.16.840.1.453968.3.579.2.1285 1983 Unknown [id number] 2.16.840.1.770267.3.579.2.1285 1983 Unknown [id number] 2.16.840.1.074074.3.579.2.1286 1959 Unknown [id number] Social History Date Type Detail Facility Start: 09-22-2021 End: 05-23-2024 Tobacco smoking status IAIS Ex-smoker [facility] End: 07-17-2021 History of tobacco use Current smoker [facility] End: 07-17-2021 History of tobacco use Cigarette Smoker [facility] Start: 09-22-2021 End: 05-23-2024 Tobacco use and exposure Smokeless tobacco non-user [facility] Start: 02-12-2022 End: 06-14-2024 Alcoholic beverage intake Ex-drinker (finding) [facility] Start: 09-25-2020 End: 02-12-2022 History of Social function [facility] Start: 09-25-2020 End: 02-12-2022 Tobacco use panel [facility] Childcare Unknown [facility] Start: 1985 Sex assigned at Female P [facility] Start: 06-30-2021 Gender identity Identifies as female gender (finding) [facility] History of tobacco use Tobacco U se Types Packs/Day Years Used Date Smoking Tobacco: Former Vaping/E-cigarettes Smokeless Tobacco: Never [facility] Start: 03-20-2015 Sex Female (finding) [facility] Clinical Notes 05-26-2022 to 06-21-2024 Telephone [...] put in chart. documented in this encounter [facility] 06-21-2024 Telephone encounter Note ----- Message from Dr. Purvi Neville DO sent at 06/20/2024 1:05 PM EST ----- Please call patient let her know that she had a precancerous polyp and I recommend repeat colonoscopy in 5 years unless problems. Thanks, Dr. Reyna [employer] [facility] 06-21-2024 Telephone encounter Note Spoke with patient regarding pathology results. Patient verbally understood with no further questions. Recall to be put in chart. [employer] [facility] 05-25-2024 Instructions Sofiya Moreno RN - 05/25/2024 11:15 AM EDT Preoperative Education Checklist- General Surgery date: 06/14/24 Surgery time: 10a Arrival time: 8a 1. Bring a photo ID and your insurance card with you the day of surgery. You will check in at the main lobby of the [facility]- registration desk is straight ahead as soon as you walk in. Tell them you are here for surgery. 2. If you have a Living Will/Durable Power of Security Management Specialist for Health Care that is not on [...] after you have bathed. 5. NO nail moldovan/acrylic on at least one finger. If you are having a hand, wrist or foot surgery then all nail moldovan and artificial/acrylic nails must be removed from [...] please call the Preadmission Testing office at [phone], Mon.-Fri. 7 a.m.-3 p.m. Leave a voicemail [...] doctor for instructions documented in this encounter [facility] [employer] 05-23-2024 History of Presen t illness Narrative [...] patient/family/caregiver Referring and communicating with other health hospice spiritual care coordinator Rectal bleeding [K62.5] BAYRON REDDY, DELIVERY ROOM SUPERVISOR-VIDEO GAME REPAIR TECHNICIAN [facility] This note was created with the assistance of a speech recognition program. While intending to generate a timely document that accurately reflects the content of the visit, no guarantee can be provided that every grammatical or spelling mistake has been or will be identified or corrected. Thank you for your understanding. [facility] 05/23/24 1239 documented in this encounter [facility] 05-16-2024 Miscellaneous Notes Called Eran regarding the rectal bleeding referral that our office received from Dr Quinn, left message on voicemail to call the office back to schedule an appointment. Eran called the office back and we scheduled her an appointment on 05/23/2024. documented in this encounter [facility] 05-16-2024 Telephone encounter Note Called Eran regarding the rectal bleeding referral that our office received from Dr Quinn, left message on voicemail to call the office back to schedule an appointment. [facility] 05-16-2024 Telephone encounter Note Eran called the office back and we scheduled her an appointment on 05/23/2024. [facility] 12-14-2022 Note CONSULTATION CONSULTATION DATE: 12/14/2022 TO: [facility] CHIEF COMPLAINT: Includes severe right mid [...] our patients to inform us about any [id number] medications or herbal remedies/nutritional supplements/alternative remedies. 2. [...] options with their primary care provider. [facility] 08-30-2022 Note OPERATIVE NOTE OPERATION DATE: 08/30/2022 PROCEDURE: Da Beatriz assisted laparoscopy hysterectomy with bilateral salpingectomy with cystoscopy. PREOPERATIVE DIAGNOSIS: Abnormal uterine bleeding, menorrhagia, dysmenorrhea, dyspareunia, failed ablation, pelvic pain, uterine fibroids. POSTOPERATIVE DIAGNOSIS: Abnormal uterine bleeding, menorrhagia, dysmenorrhea, dyspareunia, failed ablation, pelvic pain, uterine fibroids. ANESTHESIA: General. SURGEON: Juan Arriaza D.O. PEACE OFFICER: FRANNIE Luu URINE OUTPUT: Yellow and clear. [...] Anesthesia first. Patient tolerated procedure well. [facility] 05-26-2022 Note OPERATIVE NOTE OPERATION DATE: 05/26/2022 PROCEDURE: Attempted D AND C hysteroscopy, diagnostic laparoscopy, lysis of omental adhesions from the anterior abdominal wall using a LigaSure. PREOPERATIVE DIAGNOSIS: Pelvic pain, dysmenorrhea, dyspareunia. POSTOPERATIVE DIAGNOSIS: Pelvic pain, dysmenorrhea, dyspareunia including endometriosis ANESTHESIA: General. SURGEON: Juan Arriaza D.O. PEACE OFFICER: FRANNIE Huizar URINE OUTPUT: Yellow and clear. [...] to Recovery Room in stable condition. [facility] 05-26-2022 Note OPERATIVE NOTE OPERATION DATE: 06/11/2022 ADDENDUM TO PROCEDURE: LigaSure apparatus was used to come across omental adhesions, extending to the anterior abdominal wall. This was released. Excellent hemostasis was assured. ADDENDUM TO POST-OP DIAGNOSIS: Significant uterine fibroids. [facility] Evaluation note Diagnosis Rectal bleeding- Primary [...] DATE CREATED AUTHOR AUTHOR'S ORGANIZ ATION 09/13/2023 [facility] EPIC DATE CREATED AUTHOR AUTHOR'S ORGANIZ ATION 05/22/2024 [facility] DATE CREATED AUTHOR AUTHOR'S ORGANIZ ATION 05/25/2024 [facility] DATE CREATED AUTHOR AUTHOR'S ORGANIZ ATION 06/22/2024 [facility] Care Teams (unrecognized sec tion and content) Director Of Dietary Relationship Specialty Start Date End Date Za Rogers MD [address] [place] [id number] PCP - General Family Medicine 05/16/24 Director Of Dietary Relationship Specialty Start Date End Date Za Rogers MD [address] [place] [id number] PCP - General Family Medicine 05/16/24 Director Of Dietary Relationship Specialty Start Date End Date Za Rogers MD [address] [place] [address] [phone] PCP - General Family Medicine 05/16/24 Director Of Dietary Relationship Specialty Start Date End Date Za Rogers MD [address] [place] [address] [phone] PCP - General Family Medicine 05/16/24 Reason [...] BE BASED ON THE PRIMARY CLINICAL RECORDS. [employer] provides no warranty or guarantee of the accuracy or completeness of information in this document.
[2024-09-04 07:01] VITALS: BP 124/85; PULSE 72; TEMP 36.2; O2SAT 100
[2024-09-04 07:42] VITALS: BP 146/66; PULSE 73; O2SAT 95
[2024-09-04 07:45] VITALS: BP 138/70; PULSE 68; O2SAT 99
[2024-09-04] MEDS: METHYLPREDNISOLONE ACETATE 40 MG/ML VIAL 10 MG IM (07:46)
[2024-09-04] MEDS: BUPIVACAINE HCL 0.25% PF 25 MG/10 ML VIAL INJ (07:46)
--- NOTE | 2024-09-04 08:42 | W.PM.PROCNOT ---
Date of procedure: 09/04/24 Pre-op diagnosis: Intercostal neuralgia Post-op diagnosis: same as pre-op
== END 2024-09-04 07:56 | disposition home or self-care (01) ==
LOC: SURGOUT 06:47
PROVIDERS: PCP Family Medicine; Visit Provider Anesthesiology Pain Medicine
DX: G58.0 Intercostal neuropathy (principal)
CPT/HCPCS: 64420; 64421; J0665; J1010

== ENCOUNTER 2024-09-12 13:25 | Outpatient (OUT) | payer OTHER, SELFPAY ==
--- OUTSIDE RECORDS SUMMARY | 2024-09-12 13:40 | XMS_ITS | CCD ---
Author Organization [facility] Care Team Providers Care Surgical Instruments Inspector Name Role Phone GISELLA ., DR MARTINEZ Consulting Unavailable GISELLA ., DR MARTINEZ Attending Unavailable [facility] Unava ilable GISELLA ., DR MARTINEZ Admitting Unavailable GISELLA ., DR MARTINEZ Consulting Unavailable GISELLA ., DR MARTINEZ Attending Unavailable [facility] Unava ilable GISELLA ., DR MARTINEZ Admitting Unavailable GISELLA ., DR MARTINEZ Attending Unavailable [facility] Unava ilable GISELLA ., DR MARTINEZ Consulting Unavailable GISELLA ., DR MARTINEZ Admitting Unavailable GISELLA ., DR MARTINEZ Admitting Unavailable GISELLA ., DR MARTINEZ Attending Unavailable [facility] Unava ilable GISELLA ., DR MARTINEZ Consulting Unavailable JUAN CLARK Consulting Unavailable KIANANICK Consulting Unava ilable GISELLA ., DR MARTINEZ Consulting Unavailable GISELLA ., DR MARTINEZ Attending Unavailable GISELLA ., DR MARTINEZ Admitting Unavailable [facility] Care Unava ilable GISELLA ., DR MARTINEZ Consulting Unavailable GISELLA ., DR MARTINEZ Attending Unavailable GISELLA ., DR MARTINEZ Admitting Unavailable [facility] Care Unava ilable GISELLA ., DR MARTINEZ Consulting Unavailable GISELLA ., DR MARTINEZ Attending Unavailable GISELLA ., DR MARTINEZ Admitting Unavailable [facility] Unava ilable CHANDRALAG, RASHID Primary Care Unavailable ZIEBER, DR DIANA Del Real Consulting Unavailable LAKSHMIPATHY ., NARENDRANATH Attending Ivy vailable LAKSHMIPATHY ., NARENDRANATH Admitting Ivy vailable LAKSHMIPATHY ., NARENDRANATH Consulting Ivy vailable GISELLA ., DR MARTINEZ Attending Unavailable [facility] Primary Care Unava ilable GISELLA ., DR MARTINEZ Admitting Unavailable ANTONIO BRADLEY Consulting Unavailable GISELLA ., DR MARTINEZ Consulting Unavailable [facility] Consulting Unava ilable GISELLA ., DR MARTINEZ Consulting Unavailable GISELLA ., DR MARTINEZ Attending Unavailable [facility] Primary Care Unava ilable GISELLA ., DR MARTINEZ Admitting Unavailable SHARPMEHREEN Consulting Unavailable DALTON II, RIOS Consulting Unavailable FILUTZE, BAYRON Consulting Unavailable LAKSHMIPATHY ., NARENDRANATH Consulting Ivy vailable LAKSHMIPATHY ., NARENDRANATH Attending Ivy vailable RUMDAISHA HANEYTY Primary Care Unavailable LAKSHMIPATHY ., NARRAFAEL Admitting Ivy vailable GISELLA ., DR MARTINEZ Attending Unavailable GISELLA ., DR MARTINEZ Admitting Unavailable GISELLA ., DR MARTINEZ Consulting Unavailable [facility] Primary Care Unava ilable LAY RUIZ Attending Unavailable LAY RUIZ Attending Unavailable LAY RUIZ Attending Unavailable Za Rogers MD Primary Care Provider BAYRON REDDY Attending Unavailable ROGERS, ZA L Referring Unavailable ROGERS, ZA L Primary Care Unavailable LAY RUIZ Referring Unavailable SERVICES, [facility] Primary Care Unava ilable MILLY COVINGTON Referring Unavailable SERVICES, [facility] Unava ilable ROGERS, ZA L Referring Unavailable ROGERS, ZA L Primary Care Unavailable ANTONIO DRAPER Attending Unavailable ANTONIO DRAPER Referring Unavailable ROGERS, ZA L Primary Care Unavailable ANTONIO DRAPER Referring Unavailable ROGERS, ZA L Primary Care Unavailable PURVI NEVILLE Admitting Unavailable PURVI NEVILLE Attending Unavailable ROGERS, ZA L Primary Care Unavailable MILLY COVINGTON Referring Unavailable SERVICES, [facility] Primary Care Unava ilable Jaime Burr Attending Unavailab le Jaime Burr Admitting Unavailab le NON STAFF Primary Care Unavailable Allergies Allergy Classification Reported Allergen(s) Allergy Type Date of Onset Reaction(s) Facility (5 sources) Penicillins; Translations: [PENICILLINS] Drug allergy (disorder) 7 [facility] (4 sources) Penicillins Propensity to [...] Drug Class(es) Dates Sig (Normalized) Sig (Original) [id number] 200 actuat albuterol 0.09 mg/actuat metered dose [...] Facility Surgical Pathologyon 024 Surgical Pathology Normal [facility] Comment on above: Result Comment: [facility] Handseeing Information [facility] [address] [place] [address] Surgical Pathology Consultation Patient Name:ERAN WINN:1985 (Age: 38)Gender:FTaken:4Reported:06/20/2024hysician(s):Purvi Neville D.O. ([phone])Copy To: Rec. #:[id number]: #[id number] Final Pathologic Diagnosis Sigmoid colon polyp, biopsy: Tubular adenoma. Report Electronically Signed Out nxk/06/20/2024Fermín Lunsford MD Interpretation performed at [facility], [address] [place] [address], License number: [id number]. Clinical History Rectal bleeding. Gross Description Received in formalin labeled TATUM sigmoid colon polyp are two brown pedunculated polyps, 1.1 x 0.7 x 0.4 cm and 0.6 x 0.5 x 0.3 cm. The resection margins are inked black and green. The larger polyp is trisected. The smaller polyp is bisected. These are submitted in a single cassette. (1, ns, [id number]) DM. dm/06/16/2024NSK Specimen(s) Received Sigmoid colon polyp Fee Codes(s): 1; 22336 BASIC METABOLIC PANLon 05-25 Anion gap [Moles/Vol] 8 mmol/L Normal 5-15 [facility] Comment on above: Performed By: #### B MP #### [facility] ([id number]) [address] [address] [place] [address] Calcium [Mass/Vol] 9.1 mg/dL Normal 8.5-10.5 [facility] Comment on above: Performed By: #### B MP #### [facility] ([id number]) [address] [place] [address] Chloride [Moles/Vol] 103 mmol/L Normal 98-109 [facility] Comment on above: Performed By: #### B MP #### [facility] ([id number]) [address] [address] [place] [address] CO2 [Moles/Vol] 26 mmol/L Normal 22-32 [facility] Comment on above: Performed By: #### B MP #### [facility] ([id number]) [address] [address] [place] [address] Creatinine [Mass/Vol] 0.86 mg/dL Normal 0.40-1.00 [facility] Comment on above: Result Comment: METH OD TRACEABLE TO IDMS STANDARD Performed By: #### B MP #### [facility] ([id number]) [address] [address] [place] [address] GFR/1.73 sq M.predicted among non-blacks MDRD (S/P/Bld) [Vol rate/Area] 88 mL/min/{1.73_m2} Normal >59 [facility] Comment on above: Result Comment: Reported eGFR is based on the CKD-EPI 2020 equation that does not use a race coefficient. Performed By: #### B MP #### [facility] ([id number]) [address] [address] [place] [address] Glucose [Mass/Vol] 90 mg/dL Normal 65-99 [facility] Comment on above: Performed By: #### B MP #### [facility] ([id number]) [address] [address] [place] [address] Potassium [Moles/Vol] 3.9 mmol/L Normal 3.5-5.0 [facility] Comment on above: Performed By: #### B MP #### [facility] ([id number]) [address] [place] [address] Sodium [Moles/Vol] 137 mmol/L Normal 134-146 [facility] Comment on above: Performed By: #### B MP #### [facility] ([id number]) [address] [place] [address] Urea nitrogen [Mass/Vol] 14 mg/dL Normal 5-23 [facility] Comment on above: Performed By: #### B MP #### [facility] ([id number]) [address] [place] [address] US PELVIC WITH TRANSVAGINALo n 08-09-2023 US [...] Sexton MD on 08/09/2023 2:33 PM Normal [facility] XR LSPINE 2_3 VIEWSon 2022 XR LSPINE [...] DIANA LUONG Date: 2022-12-14 16:25 Normal [facility] BUNon 08-31-2022 Urea nitrogen [Mass/Vol] 9.0 mg/dL Normal 7.0-18.0 [facility] Comment on above: Performed By: #### C BC #### [facility] [address] [address] [address] Rose Lafleur CBC AUTO DIFFon 08-31-2022 BASO # 0.0 103/ul Normal 0.0-0.1 [facility] Comment on above: Performed By: #### C BC #### [facility] [address] [address] [address] Rose Lafleur Basophils/100 WBC (Bld) 0.1 % Critically low 0.2-2.0 [facility] Comment on above: Performed By: #### C BC #### [facility] [address] [place] [address] Dr. Rose Lafleur EO # 0.0 103/ul Normal 0.0-0.7 [facility] Comment on above: Performed By: #### C BC #### [facility] [address] [place] [address] Dr. Rose Lafleur Eosinophils/100 WBC (Bld) 0.0 % Critically low 0.9-7.0 [facility] Comment on above: Performed By: #### C BC #### [facility] [address] [place] [address] Dr. Rose Lafleur Erythrocyte distribution width (RBC) [Ratio] 13.2 % Normal 11.0-15.0 [facility] Comment on above: Performed By: #### C BC #### [facility] [address] [place] [address] Dr. Rose Lafleur Hematocrit (Bld) [Volume fraction] 38.5 % Normal 36.0-48.0 [facility] Comment on above: Performed By: #### C BC #### [facility] [address] [place] [address] Dr. Rose Lafleur Hemoglobin (Bld) [Mass/Vol] 12.7 g/dL Normal 12.0-16.0 [facility] Comment on above: Performed By: #### C BC #### [facility] [address] [place] [address] Dr. Rose Lafleur IG # 0.07 10e3/ul Critically high 0.00-0.03 [facility] Comment on above: Performed By: #### C BC #### [facility] [address] [place] [address] Dr. Rose Lafleur IG % 0.4 % Normal 0.0-0.5 [facility] Comment on above: Performed By: #### C BC #### [facility] [address] [place] [address] Dr. Rose Lafleur LYMPH # 2.3 103/ul Normal 1.2-3.8 [facility] Comment on above: Performed By: #### C BC #### [facility] [address] [address] [address] Rose Lafleur Lymphocytes/100 WBC (Bld) 14.3 % Critically low 20.5-60.0 [facility] Comment on above: Performed By: #### C BC #### [facility] [address] [address] [address] Rose Lafleur MANUAL DIFF REQ NO Normal [facility] Comment on above: Performed By: #### C BC #### [facility] [address] [place] [address] Dr. Rose Lafleur MCH (RBC) [Entitic mass] 28.6 pg Normal 26.7-34.0 [facility] Comment on above: Performed By: #### C BC #### [facility] [address] [place] [address] Dr. Rose Lafleur MCHC (RBC) [Mass/Vol] 33.0 g/dL Normal 29.9-35.2 [facility] Comment on above: Performed By: #### C BC #### [facility] [address] [place] [address] Dr. Rose Lafleur MCV (RBC) [Entitic vol] 86.7 fL Normal 81.0-99.0 [facility] Comment on above: Performed By: #### C BC #### [facility] [address] [place] [address] Dr. Rose Lafleur MONO # 0.9 103/ul Critically high 0.3-0.8 [facility] Comment on above: Performed By: #### C BC #### [facility] [address] [place] [address] Dr. Rose Lafleur Monocytes/100 WBC (Bld) 5.5 % Normal 1.7-12.0 [facility] Comment on above: Performed By: #### C BC #### [facility] [address] [place] [address] Dr. Rose Lafleur NEUT # 12.8 103/ul Critically high 1.4-6.5 [facility] Comment on above: Performed By: #### C BC #### [facility] [address] [address] [address] Rose Lafleur Neutrophils/100 WBC (Bld) 79.7 % Critically high 43.0-75.0 [facility] Comment on above: Performed By: #### C BC #### [facility] [address] [place] [address] Dr. Rose Lafleur Platelet mean volume (Bld) [Entitic vol] 8.9 fL Critically low 9.5-13.5 [facility] Comment on above: Performed By: #### C BC #### [facility] [address] [address] [address] Rose Lafleur PLT 330 103/ul Normal 150-450 [facility] Comment on above: Performed By: #### C BC #### [facility] [address] [place] [address] Dr. Rose Lafleur RBC 4.44 106/ul Normal 4.20-5.40 [facility] Comment on above: Performed By: #### C BC #### [facility] [address] [place] [address] Dr. Rose Lafleur WBC 16.1 103/ul Critically high 4.0-11.0 [facility] Comment on above: Performed By: #### C BC #### [facility] [address] [place] [address] Dr. Rose Lafleur CREATININEon 08-31-2022 Creatinine [Mass/Vol] 0.59 mg/dL Normal 0.55-1.02 [facility] Comment on above: Performed By: #### C BC #### [facility] [address] [place] [address] Dr. Rose Lafleur EGFR-AF MOZAMBICAN >60 Normal >=60 [facility] Comment on above: Performed By: #### C BC #### [facility] [address] [place] [address] Dr. Rose Lafleur EGFR-NON AF MOZAMBICAN >60 Normal >=60 [facility] Comment on above: Performed By: #### C BC #### [facility] [address] [place] [address] Dr. Rose Lafleur PREG HCG QUALon 08-30-2022 , QUAL Negative Normal NEGATIVE [facility] Comment on above: Performed By: #### P REG #### [facility] [address] [place] [address] Dr. Rose Lafleur [facility]15 SARS-CoV-2 (COVID-19) RNA RUDY+probe Ql (Unsp spec) Not detected Normal NOT DETECTED [facility] Comment on above: Result Comment: This test is not yet approved or cleared by the [place] FDA. When there are no FDA-approved or cleared tests available, and other criteria are met, FDA can make tests available under an emergency access mechanism called an Emergency Use Authorization (EUA). The EUA for this test is supported by the [employer] of Health and Human Service's (HHS's) declaration [...] SARS-CoV-2. Performed By: #### L DH #### [facility] [address] [place] [address] Dr. Rose Lafleur TYPE AND SCREENon 08-26-2022 TYPE AND SCREEN Negative Normal [facility] Comment on above: Performed By: #### L DH #### [facility] [address] [place] [address] Dr. Rose Lafleur CBC AUTO DIFFon 08-16-2022 BASO # 0.0 103/ul Normal 0.0-0.1 [facility] Comment on above: Performed By: #### C BC #### [facility] [address] [place] [address] Dr. Rose Lafleur Basophils/100 WBC (Bld) 0.3 % Normal 0.2-2.0 [facility] Comment on above: Performed By: #### C BC #### [facility] [address] [place] [address] Dr. Rose Lafleur EO # 0.2 103/ul Normal 0.0-0.7 [facility] Comment on above: Performed By: #### C BC #### [facility] [address] [place] [address] Dr. Rose Lafleur Eosinophils/100 WBC (Bld) 1.7 % Normal 0.9-7.0 [facility] Comment on above: Performed By: #### C BC #### [facility] [address] [place] [address] Dr. Rose Lafleur Erythrocyte distribution width (RBC) [Ratio] 13.1 % Normal 11.0-15.0 [facility] Comment on above: Performed By: #### C BC #### [facility] [address] [place] [address] Dr. Rose Lafleur Hematocrit (Bld) [Volume fraction] 40.6 % Normal 36.0-48.0 [facility] Comment on above: Performed By: #### C BC #### [facility] [address] [place] [address] Dr. Rose Lafleur Hemoglobin (Bld) [Mass/Vol] 13.4 g/dL Normal 12.0-16.0 [facility] Comment on above: Performed By: #### C BC #### [facility] [address] [place] [address] Dr. Rose Lafleur IG # 0.02 10e3/ul Normal 0.00-0.03 [facility] Comment on above: Performed By: #### C BC #### [facility] [address] [place] [address] Dr. Rose Lafleur IG % 0.2 % Normal 0.0-0.5 [facility] Comment on above: Performed By: #### C BC #### [facility] [address] [place] [address] Dr. Rose Lafleur LYMPH # 2.8 103/ul Normal 1.2-3.8 [facility] Comment on above: Performed By: #### C BC #### [facility] [address] [place] [address] Dr. Rose Lafleur Lymphocytes/100 WBC (Bld) 31.7 % Normal 20.5-60.0 [facility] Comment on above: Performed By: #### C BC #### [facility] [address] [place] [address] Dr. Rose Lafleur MANUAL DIFF REQ NO Normal [facility] Comment on above: Performed By: #### C BC #### [facility] [address] [place] [address] Dr. Rose Lafleur MCH (RBC) [Entitic mass] 28.5 pg Normal 26.7-34.0 [facility] Comment on above: Performed By: #### C BC #### [facility] [address] [place] [address] Dr. Rose Lafleur MCHC (RBC) [Mass/Vol] 33.0 g/dL Normal 29.9-35.2 [facility] Comment on above: Performed By: #### C BC #### [facility] [address] [place] [address] Dr. Rose Lafleur MCV (RBC) [Entitic vol] 86.4 fL Normal 81.0-99.0 [facility] Comment on above: Performed By: #### C BC #### [facility] [address] [place] [address] Dr. Rose Lafleur MONO # 0.6 103/ul Normal 0.3-0.8 [facility] Comment on above: Performed By: #### C BC #### [facility] [address] [place] [address] Dr. Rose Lafleur Monocytes/100 WBC (Bld) 6.8 % Normal 1.7-12.0 [facility] Comment on above: Performed By: #### C BC #### [facility] [address] [place] [address] Dr. Rose Lafleur NEUT # 5.1 103/ul Normal 1.4-6.5 [facility] Comment on above: Performed By: #### C BC #### [facility] [address] [place] [address] Dr. Rose Lafleur Neutrophils/100 WBC (Bld) 59.3 % Normal 43.0-75.0 [facility] Comment on above: Performed By: #### C BC #### [facility] [address] [place] [address] Dr. Rose Lafleur Platelet mean volume (Bld) [Entitic vol] 8.9 fL Critically low 9.5-13.5 [facility] Comment on above: Performed By: #### C BC #### [facility] [address] [place] [address] Dr. Rose Lafleur PLT 312 103/ul Normal 150-450 [facility] Comment on above: Performed By: #### C BC #### [facility] [address] [place] [address] Dr. Rose Lafleur RBC 4.70 106/ul Normal 4.20-5.40 [facility] Comment on above: Performed By: #### C BC #### [facility] [address] [place] [address] Dr. Rose Lafleur WBC 8.7 103/ul Normal 4.0-11.0 [facility] Comment on above: Performed By: #### C BC #### [facility] [address] [place] [address] Dr. Rose Lafleur LIVER PROFILEon 08-16-2022 Albumin [Mass/Vol] 2.9 g/dL Critically low 3.4-5.0 [facility] Comment on above: Performed By: #### B MP, LIVER #### [facility] [address] [place] [address] Dr. Rose Lafleur Albumin/Globulin [Mass ratio] 0.6 {ratio} Normal [facility] Comment on above: Performed By: #### B MP, LIVER #### [facility] [address] [place] [address] Dr. Rose Lafleur ALP [Catalytic activity/Vol] 121 U/L Critically high 46-116 [facility] Comment on above: Performed By: #### B MP, LIVER #### [facility] [address] [place] [address] Dr. Rose Lafleur ALT [Catalytic activity/Vol] 21 U/L Normal 14-59 [facility] Comment on above: Performed By: #### B MP, LIVER #### [facility] [address] [place] [address] Dr. Rose Lafleur AST [Catalytic activity/Vol] 20 U/L Normal 15-37 [facility] Comment on above: Performed By: #### B MP, LIVER #### [facility] [address] [place] [address] Dr. Rose Lafleur BILI, CONJUGATED 0.1 mg/dL Normal 0.0-0.2 [facility] Comment on above: Performed By: #### B MP, LIVER #### [facility] [address] [place] [address] Dr. Rose Lafelur Bilirubin [Mass/Vol] 0.3 mg/dL Normal 0.2-1.0 [facility] Comment on above: Performed By: #### B MP, LIVER #### [facility] [address] [place] [address] Dr. Rose aLfleur Globulin (S) [Mass/Vol] 4.8 g/dL Normal [facility] Comment on above: Performed By: #### B MP, LIVER #### [facility] [address] [place] [address] Dr. Rose Lafleur Protein [Mass/Vol] 7.7 g/dL Normal 6.4-8.2 [facility] Comment on above: Performed By: #### B MP, LIVER #### [facility] [address] [place] [address] Dr. Rose Lafleur PROF CHEM 8 (BAS METB)on Anion gap [Moles/Vol] 10.9 mmol/L Normal [facility] Comment on above: Performed By: #### B MP, LIVER #### [facility] [address] [place] [address] Dr. Rose Lafleur Calcium [Mass/Vol] 8.8 mg/dL Normal 8.5-10.1 [facility] Comment on above: Performed By: #### B MP, LIVER #### [facility] [address] [address] [address] Rose Lafleur Chloride [Moles/Vol] 102 mmol/L Normal 98-107 [facility] Comment on above: Performed By: #### B MP, LIVER #### [facility] [address] [address] [address] Rose Lafleur CO2 [Moles/Vol] 26.1 mmol/L Normal 21.0-32.0 [facility] Comment on above: Performed By: #### B MP, LIVER #### [facility] [address] [address] [address] Rose Lafleur Creatinine [Mass/Vol] 0.64 mg/dL Normal 0.55-1.02 [facility] Comment on above: Performed By: #### B MP, LIVER #### [facility] [address] [place] [address] Dr. Rose Lafleur EGFR-AF MOZAMBICAN >60 Normal >=60 [facility] Comment on above: Performed By: #### B MP, LIVER #### [facility] [address] [place] [address] Dr. Rose Lafleur EGFR-NON AF MOZAMBICAN >60 Normal >=60 [facility] Comment on above: Performed By: #### B MP, LIVER #### [facility] [address] [place] [address] Dr. Rose Lafleur Glucose [Mass/Vol] 90 mg/dL Normal 74-106 [facility] Comment on above: Performed By: #### B MP, LIVER #### [facility] [address] [place] [address] Dr. Rose Lafelur Potassium [Moles/Vol] 4.0 mmol/L Normal 3.5-5.1 [facility] Comment on above: Performed By: #### B MP, LIVER #### [facility] [address] [address] [address] Rose Lafleur Sodium [Moles/Vol] 135 mmol/L Critically low 136-145 [facility] Comment on above: Performed By: #### B MP, LIVER #### [facility] [address] [place] [address] Dr. Rose Lafleur Urea nitrogen [Mass/Vol] 12.0 mg/dL Normal 7.0-18.0 [facility] Comment on above: Performed By: #### B MP, LIVER #### [facility] [address] [address] [address] Rose Lafleur Urea nitrogen/Creatinin e [Mass ratio] 18.8 mg/mg Normal [facility] Comment on above: Performed By: #### B MP, LIVER #### [facility] [address] [place] [address] Dr. Rose Lafleur PROTIMEon 08-16-2022 INR Coag (PPP) [Relative time] 0.95 {INR} Normal [facility] Comment on above: Performed By: #### C BC #### [facility] [address] [place] [address] Dr. Rose Lafleur INR GUIDELINES SEE BELOW Normal [facility] Comment on above: Result Comment: JAYLYN RED INR: 2.0 - 3.0 CONDITIONS NOT LISTED BELOW 2.5 - 3.5 FOR PROSTHETIC HEART VALVE REPLACEMENT 2.5 - 3.5 RECURRENT THROMBOSIS Performed By: #### C BC #### [facility] [address] [place] [address] Dr. Rose Lafleur PT Coag (PPP) [Time] 10.3 s Normal 9.0-11.6 [facility] Comment on above: Performed By: #### C BC #### [facility] [address] [place] [address] Dr. Rose Lafleur PTTon 08-16-2022 aPTT Coag (Bld) [Time] 32.0 s Normal 22.3-36.2 [facility] Comment on above: Performed By: #### C BC #### [facility] [address] [place] [address] Dr. Rose Lafleur GLYCOHEMOGLOBIN A1Con 2021 ADA RECOMMENDATION SEE BELOW Normal [facility] Comment on above: Result Comment: ADA RECOMMENDED LIMIT 4.0 - 6.0 ADA THERAPEUTIC TARGET < 7.0 ACTION SUGGESTED > 7.0 Performed By: #### C BC #### [facility] [address] [address] [address] Rose Lafleur Glucose [Mass/Vol] 108 mg/dL Normal [facility] Comment on above: Performed By: #### C BC #### [facility] [address] [address] [address] Rose Lafleur HbA1c (Bld) [Mass fraction] 5.4 % Normal 4.5-6.2 [facility] Comment on above: Performed By: #### C BC #### [facility] [address] [address] [address] Rose Lafleur PAP ACOG PANEL 2: 30 to 63on 07-14-2022 . . Normal [facility] Comment on above: Result Comment: Perf ormed at: WB Performed By: #### C BC #### [facility] [address] [place] [address] Dr. Rose Lafleur Age Gdln ACOG Testing -63 Normal [facility] Comment on above: Performed By: #### C BC #### [facility] [address] [address] [address] Rose Lafleur DIAGNOSIS: Comment Normal [facility] Comment on above: Result Comment: NEGA TIVE FOR INTRAEPITHELIAL LESION OR MALIGNANCY. CELLULAR CHANGES ASSOCIATED WITH INFLAMMATION ARE PRESENT. Performed at: WB Performed By: #### C BC #### [facility] [address] [place] [address] Dr. Rose Lafleur HPV Aptima Negative Normal Negative [facility] Comment on above: Result Comment: This nucleic acid amplification test detects fourteen high-risk HPV types (16,18,31,33,35,39,45,51,52,56,58,59,66,68) without differentiation. Performed at: =G Performed By: #### C BC #### [facility] [address] [place] [address] Dr. Rose Lafleur HPV Genotype Reflex Comment Normal [facility] Comment on above: Result Comment: Crit eria not met, HPV Genotype not performed. Performed at: WB Performed By: #### C BC #### [facility] [address] [place] [address] Dr. Rose Lafleur Methodology: CTIM Normal [facility] Comment on above: Result Comment: The Thin Prep(R) Night Filler was unable to read this specimen. Therefore a manual review was performed. Performed at: WB Performed By: #### C BC #### [facility] [address] [place] [address] Dr. Rose Lafleur Note: Comment Normal [facility] Comment on above: Result Comment: The [...] WB Performed By: #### C BC #### [facility] [address] [place] [address] Dr. Rose Lafleur Performed by: Comment Normal [facility] Comment on above: Result Comment: Carlos Wolff, Astronomy Professor (ASCP) Performed at: WB Performed By: #### C BC #### [facility] [address] [place] [address] Dr. Rose Lafleur Specimen adequacy: Comment Normal [facility] Comment on above: Result Comment: Sati sfactory for evaluation. No endocervical component is identified. Performed at: WB Performed By: #### C BC #### [facility] [address] [place] [address] Dr. Rose Lafleur CBC AUTO DIFFon 05-26-2022 BASO # 0.0 103/ul Normal 0.0-0.1 [facility] Comment on above: Performed By: #### C BC #### [facility] [address] [place] [address] Dr. Rose Lafleur Basophils/100 WBC (Bld) 0.4 % Normal 0.2-2.0 [facility] Comment on above: Performed By: #### C BC #### [facility] [address] [place] [address] Dr. Rose Lafleur EO # 0.1 103/ul Normal 0.0-0.7 [facility] Comment on above: Performed By: #### C BC #### [facility] [address] [place] [address] Dr. Rose Lafleur Eosinophils/100 WBC (Bld) 1.2 % Normal 0.9-7.0 [facility] Comment on above: Performed By: #### C BC #### [facility] [address] [place] [address] Dr. Rose Lafleur Erythrocyte distribution width (RBC) [Ratio] 13.6 % Normal 11.0-15.0 [facility] Comment on above: Performed By: #### C BC #### [facility] [address] [place] [address] Dr. Rose Lafleur Hematocrit (Bld) [Volume fraction] 41.6 % Normal 36.0-48.0 [facility] Comment on above: Performed By: #### C BC #### [facility] [address] [place] [address] Dr. Rose Lafleur Hemoglobin (Bld) [Mass/Vol] 13.3 g/dL Normal 12.0-16.0 [facility] Comment on above: Performed By: #### C BC #### [facility] [address] [place] [address] Dr. Rose Lafleur IG # 0.03 10e3/ul Normal 0.00-0.03 [facility] Comment on above: Performed By: #### C BC #### [facility] [address] [place] [address] Dr. Rose Lafleur IG % 0.3 % Normal 0.0-0.5 [facility] Comment on above: Performed By: #### C BC #### [facility] [address] [place] [address] Dr. Rose Lafleur LYMPH # 3.8 103/ul Normal 1.2-3.8 [facility] Comment on above: Performed By: #### C BC #### [facility] [address] [place] [address] Dr. Rose Lafleur Lymphocytes/100 WBC (Bld) 39.8 % Normal 20.5-60.0 [facility] Comment on above: Performed By: #### C BC #### [facility] [address] [place] [address] Dr. Rose Lafleur MANUAL DIFF REQ NO Normal [facility] Comment on above: Performed By: #### C BC #### [facility] [address] [place] [address] Dr. Rose Lafleur MCH (RBC) [Entitic mass] 28.5 pg Normal 26.7-34.0 [facility] Comment on above: Performed By: #### C BC #### [facility] [address] [place] [address] Dr. Rose Lafleur MCHC (RBC) [Mass/Vol] 32.0 g/dL Normal 29.9-35.2 [facility] Comment on above: Performed By: #### C BC #### [facility] [address] [place] [address] Dr. Rose Lafleur MCV (RBC) [Entitic vol] 89.3 fL Normal 81.0-99.0 [facility] Comment on above: Performed By: #### C BC #### [facility] [address] [place] [address] Dr. Rose Lafleur MONO # 0.6 103/ul Normal 0.3-0.8 [facility] Comment on above: Performed By: #### C BC #### [facility] [address] [place] [address] Dr. Rose Lafleur Monocytes/100 WBC (Bld) 6.5 % Normal 1.7-12.0 [facility] Comment on above: Performed By: #### C BC #### [facility] [address] [place] [address] Dr. Rose Lafleur NEUT # 4.9 103/ul Normal 1.4-6.5 [facility] Comment on above: Performed By: #### C BC #### [facility] [address] [place] [address] Dr. Rose Lafleur Neutrophils/100 WBC (Bld) 51.8 % Normal 43.0-75.0 [facility] Comment on above: Performed By: #### C BC #### [facility] [address] [address] [address] Rose Lafleur Platelet mean volume (Bld) [Entitic vol] 8.9 fL Critically low 9.5-13.5 [facility] Comment on above: Performed By: #### C BC #### [facility] [address] [place] [address] Dr. Rose Lafleur PLT 310 103/ul Normal 150-450 [facility] Comment on above: Performed By: #### C BC #### [facility] [address] [place] [address] Dr. Rose Lafleur RBC 4.66 106/ul Normal 4.20-5.40 [facility] Comment on above: Performed By: #### C BC #### [facility] [address] [place] [address] Dr. Rose Lafleur WBC 9.5 103/ul Normal 4.0-11.0 [facility] Comment on above: Performed By: #### C BC #### [facility] [address] [place] [address] Dr. Rose Lafleur PREG HCG QUALon 05-26-2022 , QUAL Negative Normal NEGATIVE [facility] Comment on above: Performed By: #### P REG #### [facility] [address] [place] [address] Dr. Rose Lafleur [facility]on SARS-CoV-2 (COVID-19) RNA RUDY+probe Ql (Unsp spec) Not detected Normal NOT DETECTED [facility] Comment on above: Result Comment: This test is not yet approved or cleared by the [place] FDA. When there are no FDA-approved or cleared tests available, and other criteria are met, FDA can make tests available under an emergency access mechanism called an Emergency Use Authorization (EUA). The EUA for this test is supported by the [employer] of Health and Human Service's (HHS's) declaration [...] SARS-CoV-2. Performed By: #### C BC #### [facility] [address] [place] [address] Dr. Rose Lafleur AFP (TUMOR MARKER)on 022 AFP, Serum, Tumor Marker 1.6 ng/mL Normal 0.0-6.4 [facility] Comment on above: Result Comment: [employer] Electrochemiluminescence Immunoassay (ECLIA) . Values obtained with different assay methods or kits cannot be used interchangeably. Results cannot be interpreted as absolute evidence of the presence or absence of malignant disease. . This test is not interpretable in females. Performed By: #### C BC #### [facility] [address] [place] [address] Dr. Rose Lafleur CA 125on 05-07-2022 Cancer Antigen (CA) 125 17.1 U/mL Normal 0.0-38.1 [facility] Comment on above: Result Comment: [employer] Electrochemiluminescence Immunoassay (ECLIA) . Values obtained with different assay methods or kits cannot be used interchangeably. Results cannot be interpreted as absolute evidence of the presence or absence of malignant disease. Performed By: #### L DH #### [facility] [address] [place] [address] Dr. Rose Lafleur CEAon 05-07-2022 CEA 1.6 ng/mL Normal 0.0-4.7 [facility] Comment on above: Result Comment: Nons mokers <3.9 Smokers <5.6 . [employer] Electrochemiluminescence Immunoassay (ECLIA) . Values obtained with different assay methods or kits cannot be used interchangeably. Results cannot be interpreted as absolute evidence of the presence or absence of malignant disease. Performed By: #### C BC #### [facility] [address] [place] [address] Dr. Rose Lafleur HCG QUANT TUMOR MARKERon HCG QNT TUMOR MARKER <1 Normal [facility] Comment on above: Result Comment: Fema [...] developed and its performance characteristics determined by [employer]. It has not been cleared or approved by the Food and Drug Administration for use as a tumor marker. . This test is not interpretable as a tumor marker in females. Performed By: #### C BC #### [facility] [address] [place] [address] Dr. Rose Lafleur LDHon 05-05-2022 LDH 269 U/L Critically high 81-234 [facility] Comment on above: Performed By: #### L DH #### [facility] [address] [place] [address] Dr. Rose Lafleur CBC AUTO DIFFon 04-21-2022 BASO # 0.0 103/ul Normal 0.0-0.1 [facility] Comment on above: Performed By: #### L DH #### [facility] [address] [place] [address] Dr. Rose Lafleur Basophils/100 WBC (Bld) 0.3 % Normal 0.2-2.0 [facility] Comment on above: Performed By: #### L DH #### [facility] [address] [place] [address] Dr. Rose Lafleur EO # 0.1 103/ul Normal 0.0-0.7 [facility] Comment on above: Performed By: #### L DH #### [facility] [address] [place] [address] Dr. Rose Lafleur Eosinophils/100 WBC (Bld) 0.7 % Critically low 0.9-7.0 [facility] Comment on above: Performed By: #### L DH #### [facility] [address] [place] [address] Dr. Rose Lafleur Erythrocyte distribution width (RBC) [Ratio] 13.9 % Normal 11.0-15.0 [facility] Comment on above: Performed By: #### L DH #### [facility] [address] [place] [address] Dr. Rose Lafleur Hematocrit (Bld) [Volume fraction] 41.5 % Normal 36.0-48.0 [facility] Comment on above: Performed By: #### L DH #### [facility] [address] [place] [address] Dr. Rose Lafleur Hemoglobin (Bld) [Mass/Vol] 13.4 g/dL Normal 12.0-16.0 [facility] Comment on above: Performed By: #### L DH #### [facility] [address] [place] [address] Dr. Rose Lafleur IG # 0.03 10e3/ul Normal 0.00-0.03 [facility] Comment on above: Performed By: #### L DH #### [facility] [address] [place] [address] Dr. Rose Lafleur IG % 0.3 % Normal 0.0-0.5 [facility] Comment on above: Performed By: #### L DH #### [facility] [address] [place] [address] Dr. Rose Lafleur LYMPH # 3.7 103/ul Normal 1.2-3.8 [facility] Comment on above: Performed By: #### L DH #### [facility] [address] [place] [address] Dr. Rose Lafleur Lymphocytes/100 WBC (Bld) 32.9 % Normal 20.5-60.0 [facility] Comment on above: Performed By: #### L DH #### [facility] [address] [place] [address] Dr. Rose Lafleur MANUAL DIFF REQ NO Normal [facility] Comment on above: Performed By: #### L DH #### [facility] [address] [address] [address] Rose Lafleur MCH (RBC) [Entitic mass] 28.6 pg Normal 26.7-34.0 [facility] Comment on above: Performed By: #### L DH #### [facility] [address] [address] [address] Rose Lafleur MCHC (RBC) [Mass/Vol] 32.3 g/dL Normal 29.9-35.2 [facility] Comment on above: Performed By: #### L DH #### [facility] [address] [address] [address] Rose Lafleur MCV (RBC) [Entitic vol] 88.5 fL Normal 81.0-99.0 [facility] Comment on above: Performed By: #### L DH #### [facility] [address] [place] [address] Dr. Rose Lafleur MONO # 0.7 103/ul Normal 0.3-0.8 [facility] Comment on above: Performed By: #### L DH #### [facility] [address] [place] [address] Dr. Rose Lafleur Monocytes/100 WBC (Bld) 6.1 % Normal 1.7-12.0 [facility] Comment on above: Performed By: #### L DH #### [facility] [address] [place] [address] Dr. Rose Lafleur NEUT # 6.7 103/ul Critically high 1.4-6.5 [facility] Comment on above: Performed By: #### L DH #### [facility] [address] [place] [address] Dr. Rose Lafleur Neutrophils/100 WBC (Bld) 59.7 % Normal 43.0-75.0 [facility] Comment on above: Performed By: #### L DH #### [facility] [address] [place] [address] Dr. Rose Lafleur Platelet mean volume (Bld) [Entitic vol] 9.0 fL Critically low 9.5-13.5 [facility] Comment on above: Performed By: #### L DH #### [facility] [address] [address] [address] Rose Lafleur PLT 320 103/ul Normal 150-450 [facility] Comment on above: Performed By: #### L DH #### [facility] [address] [address] [address] Rose Lafleur RBC 4.69 106/ul Normal 4.20-5.40 [facility] Comment on above: Performed By: #### L DH #### [facility] [address] [address] [address] Rose Lafleur WBC 11.1 103/ul Critically high 4.0-11.0 [facility] Comment on above: Performed By: #### L DH #### [facility] [address] [place] [address] Dr. Rose Lafleur GLYCOHEMOGLOBIN A1Con 2021 ADA RECOMMENDATION SEE BELOW Normal [facility] Comment on above: Result Comment: ADA RECOMMENDED LIMIT 4.0 - 6.0 ADA THERAPEUTIC TARGET < 7.0 ACTION SUGGESTED > 7.0 Performed By: #### A 1C #### [facility] [address] [place] [address] Dr. Rose Lafleur Glucose [Mass/Vol] 111 mg/dL Normal [facility] Comment on above: Performed By: #### A 1C #### [facility] [address] [place] [address] Dr. Rose Lafleur HbA1c (Bld) [Mass fraction] 5.5 % Normal 4.5-6.2 [facility] Comment on above: Performed By: #### A 1C #### [facility] [address] [place] [address] Dr. Rose Lafleur TSHon 04-21-2022 TSH 1.207 uIU/mL Normal 0.358-3.740 [facility] Comment on above: Performed By: #### T SH #### [facility] [address] [place] [address] Dr. Rose Lafleur US PELVIS AND TRANSVAGon [...] by: ANTONIO BRADLEY Date: 2022-04-21 15:32 Normal [facility] Vital Signs Date Time Vital Sign Value Performing Clinician Huberi cyndy 05-25-2024 11:42-0400 Body height 152.4 cm [facility] 1 [facility] 05-25-2024 11:42-0400 Body mass index (BMI) [Ratio] 63.47 kg/m2 [facility] 1 [facility] 05-25-2024 11:42-0400 Body weight 147.42 kg [facility] 1 [facility] 05-23-2024 11:23-0400 Body height 152.4 cm Bayron Reddy APRNWaterfallLIZZETTE Work Phone: [facility] 05-23-2024 11:23-0400 Body mass index (BMI) [Ratio] 64.06 kg/m2 Bayron Reddy APRNWaterfallDOWELER Work Phone: [facility] 05-23-2024 11:23-0400 Body weight 148.78 kg Bayron Reddy APRNWaterfallDOWELER Work Phone: [facility] Encounters Encounter Date Encounter Type Care Provider Facility Start: 06-21-2024 End: 06-21-2024 Telephone encounter Ebony Floyd CMA [facility] Start: 06-14-2024 End: 06-14-2024 Evaluation and management of inpatient PURVI NEVILLE [facility] Start: 05-25-2024 Encounter for other preprocedural examination ANTONIO Parkinson [facility] Start: 05-25-2024 End: 05-25-2024 ambulatory ANTONIO Parkinson [facility] Start: 05-25-2024 End: 05-25-2024 Patient encounter procedure [facility] Pre-Admission Testing 1 [facility] - Pre Admit Start: 05-23-2024 End: 05-23-2024 Office outpatient new 30 minutes Bayron Reddy OFFICE BOOKKEEPER[employer]DOWELER Work Phone: [facility] Comment on above: Rectal bleeding (Patti minh Dx) Start: 05-23-2024 End: 05-23-2024 ambulatory [facility] Start: 05-16-2024 End: 05-16-2024 Telephone encounter Bayron Reddy OFFICE BOOKKEEPER-DOWELER Work Phone: [facility] Start: 05-15-2024 ambulatory Jaime Squires acility:[facility] Start: 09-12-2023 End: 09-12-2023 ambulatory LAY SARA Not Available Start: 08-18-2023 End: 08-18-2023 ambulatory LAY SARA Not Available Start: 08-16-2023 End: 09-15-2023 ambulatory [facility] Start: 08-09-2023 End: 08-09-2023 ambulatory LAY RUIZ [facility] Start: 07-26-2023 End: 08-15-2023 ambulatory [facility] Start: 07-21-2023 End: 07-21-2023 ambulatory LAY SARA Not Available Start: 12-14-2022 End: 12-15-2022 ambulatory RASHID ADAME Facility: Start: 09-02-2022 Encounter for preprocedural laboratory examination DR JUAN ARRIAZA . [facility] Start: 08-30-2022 End: 08-31-[address] [...] cardiovascular examination DR JUAN ARRIAZA . [facility] Start: 05-13-2022 End: 05-14-[address] JUAN ARRIAZA . Facility:[facility] Start: 05-13-2022 End: 05-14-2022 Encounter for preprocedural cardiovascular examination DR JUAN ARRIAZA . Facility:[facility] Start: 05-05-2022 End: 05-06-[address] JUAN ARRIAZA . Facility:[facility] Start: 04-21-2022 End: 04-22-[address] JUAN ARRIAZA . Facility:[facility] Procedures Date Procedure Procedure Detail Performing Clinician Start: 06-14-2024 Colonoscopy Ebony Bogdan ia [employer] Start: 07-05-2022 Microscopic observat ion [Identifier] in Cervix by Cyto stain Bayron Reddy APRN-DOWELER Work Phone: Plan of Treatment Date Care Activity Detail Author Start: 05-06-2030 DTaP,Tdap and Td Vaccines (3 - Td or Tdap) DTaP,Tdap and Td Vaccines (3 - Td or Tdap) [facility] Start: 06-14-2029 Screening for malign ant neoplasm of colon Colonoscopy [facility] Start: 07-05-2025 Screening for malign ant neoplasm of cervix Pap Smear [facility] Start: 06-14-2025 Adult BMI Screening Adult BMI Screen ing [facility] Start: 06-14-2025 Tobacco Screening Tobacco Screening [facility] Start: 05-25-2025 Adult BMI Screening Adult BMI Screen ing [facility] Start: 05-25-2025 Tobacco Screening Tobacco Screening [facility] Start: 05-23-2025 Adult BMI Screening Adult BMI Screen ing [facility] Start: 05-23-2025 Tobacco Screening Tobacco Screening [facility] Start: 06-14-2024 End: 06-14-2024 Admission to same day surgery center 06/14/2024 10:00 AM EDT - 06/14/2024 10:30 AM EDT Surgery [facility] [address] [place] [id number] Purvi Neville, DO [address] [place] [address] [id number] COLONOSCOPY DIAGNOSTIC / SCREENING [36157 (CPT )] [facility] Comment on above: COLONOSCOPY DIAGNOST IC / SCREENING [46718 (CPT )] Start: 06-14-2024 End: 06-14-2024 Colonoscopy flx dx w/collj spec when pfrmd COLONOSCOPY DIAGNOSTIC / SCREENING rectal bleeding 06/14/2024 10:00 AM EDT [facility] Start: 06-14-2024 Subsequent hospital visit by physician 06/14/2024 10:00 AM EDT Hospital Encounter [facility] [address] [place] [id number] Purvi Neville, DO [address] [place] [address] [id number] [facility] Start: 05-25-2024 End: 05-25-2024 Patient encounter procedure 05/25/2024 2:15 PM EDT Procedure visit [facility] - Pre Admit [address] [place] [phone] [facility] - Pre Admit Start: 05-23-2024 End: 05-23-2024 Patient encounter procedure 05/23/2024 11:30 AM EDT Office Visit [facility] [address] [place] [id number] Bayron Reddy, OFFICE BOOKKEEPER-DOWELER [address] [place] [address] [facility] Start: 04-15-2024 COVID-19 Vaccine ( season) COVID-19 Vaccine ( season) [facility] Start: 04-15-2024 COVID-19 Vaccine ( season) COVID-19 Vaccine () [facility] Start: 04-15-2024 Influenza vaccination Influenza Vacc ine [facility] Start: 09-22-2022 Adult BMI Screening Adult BMI Screen ing [facility] Start: 12-15-2004 Screening for malign ant neoplasm of cervix Pap Smear [facility] Start: 12-15-2001 Adult BMI Follow Up Plan Adult BMI Follow Up Plan [facility] Start: 1995 Depression Screening Depression Scre ening [facility] Start: 1995 Tobacco Screening Tobacco Screening [facility] End: 05-23-2025 Colonoscopy Colonoscopy GI Routine Rectal bleeding 1 Occurrences starting 05/23/2024 until 05/23/2025 [facility] Work Phone: Comment on above: 1 Occurrences starti ng 05/23/2024 until 05/23/2025 Payers Date Payer Category Payer Self-pay 2003 Medicaid [place] [employer] [place] [employer] [id number] 2003-Present [phone] [place] [id number]. [id number] 2003 Medicaid HMO [employer] [id number] 1983 Unknown [id number] 2.16.840.1.273502.3.579.2.593 1983 Unknown [id number] 2.16.840.1.065277.3.579.2.59 1983 Unknown [id number] 2.16.840.1.591423.3.579.2.593 1983 Unknown [id number] 2.16.840.1.050041.3.579.2.593 1983 Unknown [id number] 2.16.840.1.127356.3.579.2.593 1983 Unknown [id number] 2.16.840.1.000756.3.579.2.593 1983 Unknown [id number] 2.16.840.1.970159.3.579.2.593 1983 Unknown [id number] 2.16.840.1.209825.3.579.2.593 1983 Unknown [id number] 2.16.840.1.966510.3.579.2.593 1983 Unknown [id number] 2.16.840.1.035306.3.579.2.593 1983 Unknown [id number] 2.16.840.1.849974.3.579.2.593 1983 Unknown [id number] 2.16.840.1.645633.3.579.2.593 1983 Unknown [id number] 2.16.840.1.290211.3.579.2.9 1983 Unknown [id number] 2.16.840.1.034346.3.579.2.9 1983 Unknown [id number] 2.16.840.1.909174.3.579.2.9 1983 Unknown [id number] 2.16.840.1.362530.3.579.2.1285 1983 Unknown [id number] 2.16.840.1.311692.3.579.2.1285 1983 Unknown [id number] 2.16.840.1.187790.3.579.2.1285 1983 Unknown [id number] 2.16.840.1.834991.3.579.2.1285 1983 Unknown [id number] 2.16.840.1.158455.3.579.2.1285 1983 Unknown [id number] 2.16.840.1.378009.3.579.2.1285 1983 Unknown [id number] 2.16.840.1.925820.3.579.2.1285 1983 Unknown [id number] 2.16.840.1.576562.3.579.2.1286 1959 Unknown [id number] Social History Date Type Detail Facility Start: 09-22-2021 End: 05-23-2024 Tobacco smoking status CTIS Ex-smoker [facility] End: 07-17-2021 History of tobacco use Current smoker [facility] End: 07-17-2021 History of tobacco use Cigarette Smoker [facility] Start: 09-22-2021 End: 05-23-2024 Tobacco use and exposure Smokeless tobacco non-user [facility] Start: 02-12-2022 End: 06-14-2024 Alcoholic beverage intake Ex-drinker (finding) [facility] Start: 09-25-2020 End: 02-12-2022 History of Social function [facility] Start: 09-25-2020 End: 02-12-2022 Tobacco use panel [facility] Childcare Unknown [facility] Start: 1985 Sex assigned at Female [facility] Start: 06-30-2021 Gender identity Identifies as female gender (finding) [facility] History of tobacco use Tobacco U se Types Packs/Day Years Used Date Smoking Tobacco: Former Vaping/E-cigarettes Smokeless Tobacco: Never [facility] Start: 03-20-2015 Sex Female (finding) [facility] Clinical Notes 05-26-2022 to 06-21-2024 Telephone Encounter [...] put in chart. documented in this encounter [facility] 06-21-2024 Telephone encounter Note ----- Message from Dr. Purvi Neville DO sent at 06/20/2024 1:05 PM EST ----- Please call patient let her know that she had a precancerous polyp and I recommend repeat colonoscopy in 5 years unless problems. Thanks, Dr. Reyna [facility] 06-21-2024 Telephone encounter Note Spoke with patient regarding pathology results. Patient verbally understood with no further questions. Recall to be put in chart. [facility] 05-25-2024 Instructions Sofiya Moreno RN - 05/25/2024 11:15 AM EDT Preoperative Education Checklist- General Surgery date: 06/14/24 Surgery time: 10a Arrival time: 8a 1. Bring a photo ID and your insurance card with you the day of surgery. [facility] desk is straight ahead as soon as you walk in. Tell them you are here for surgery. 2. If you have a Living Will/Durable Power of Finishing Lab Technician for Health Care that is not on [...] after you have bathed. 5. NO nail barbadian/acrylic on at least one finger. If you are having a hand, wrist or foot surgery then all nail barbadian and artificial/acrylic nails must be removed from [...] please call the Preadmission Testing office at [phone], Mon.-Fri. 7 a.m.-3 p.m. Leave a voicemail [...] doctor for instructions documented in this encounter [facility] [employer] 05-23-2024 History of Presen t illness Narrative [...] Referring and communicating with other health career coordinator Rectal bleeding [K62.5] BAYRON REDDY, OFFICE BOOKKEEPER-DOWELER [facility] General [facility] [place] This note was created with the assistance of a speech recognition program. While intending to generate a timely document that accurately reflects the content of the visit, no guarantee can be provided that every grammatical or spelling mistake has been or will be identified or corrected. Thank you for your understanding. CR[facility] Queen 05/23/24 1239 documented in this encounter [facility] 05-16-2024 Miscellaneous Notes Called Eran regarding the rectal bleeding referral that our office received from Dr Quinn, left message on voicemail to call the office back to schedule an appointment. Eran called the office back and we scheduled her an appointment on 05/23/2024. documented in this encounter [facility] 05-16-2024 Telephone encounter Note Called Eran regarding the rectal bleeding referral that our office received from Dr Quinn, left message on voicemail to call the office back to schedule an appointment. [facility] 05-16-2024 Telephone encounter Note Eran called the office back and we scheduled her an appointment on 05/23/2024. [facility] 12-14-2022 Note CONSULTATION CONSULTATION DATE: 12/14/2022 TO: [facility] CHIEF COMPLAINT: Includes severe right mid [...] our patients to inform us about any coum-pna-ohljizs medications or herbal remedies/nutritional supplements/alternative remedies. 2. [...] options with their primary care provider. [facility] 08-30-2022 Note OPERATIVE NOTE OPERATION DATE: 08/30/2022 PROCEDURE: Da Beatriz assisted laparoscopy hysterectomy with bilateral salpingectomy with cystoscopy. PREOPERATIVE DIAGNOSIS: Abnormal uterine bleeding, menorrhagia, dysmenorrhea, dyspareunia, failed ablation, pelvic pain, uterine fibroids. POSTOPERATIVE DIAGNOSIS: Abnormal uterine bleeding, menorrhagia, dysmenorrhea, dyspareunia, failed ablation, pelvic pain, uterine fibroids. ANESTHESIA: General. SURGEON: Juan Arriaza D.O. WELDER OPERATOR: FRANNIE Luu URINE OUTPUT: Yellow and clear. [...] Anesthesia first. Patient tolerated procedure well. [facility] 05-26-2022 Note OPERATIVE NOTE OPERATION DATE: 05/26/2022 PROCEDURE: Attempted D AND C hysteroscopy, diagnostic laparoscopy, lysis of omental adhesions from the anterior abdominal wall using a LigaSure. PREOPERATIVE DIAGNOSIS: Pelvic pain, dysmenorrhea, dyspareunia. POSTOPERATIVE DIAGNOSIS: Pelvic pain, dysmenorrhea, dyspareunia including endometriosis ANESTHESIA: General. SURGEON: Juan Arriaza D.O. WELDER OPERATOR: FRANNIE Huizar URINE OUTPUT: Yellow and clear. [...] to Recovery Room in stable condition. [facility] 05-26-2022 Note OPERATIVE NOTE OPERATION DATE: 06/11/2022 ADDENDUM TO PROCEDURE: LigaSure apparatus was used to come across omental adhesions, extending to the anterior abdominal wall. This was released. Excellent hemostasis was assured. ADDENDUM TO POST-OP DIAGNOSIS: Significant uterine fibroids. [facility] Evaluation note Diagnosis Rectal bleeding- Primary [...] DATE CREATED AUTHOR AUTHOR'S ORGANIZ ATION 09/13/2023 [facility] EPIC DATE CREATED AUTHOR AUTHOR'S ORGANIZ ATION 05/25/2024 [facility] DATE CREATED AUTHOR AUTHOR'S ORGANIZ ATION 06/22/2024 [facility] DATE CREATED AUTHOR AUTHOR'S ORGANIZ ATION 09/11/[address] [facility] Care Teams (unrecognized sec tion and content) Surgical Instruments Inspector Relationship Specialty Start Date End Date Za Rogers MD [address] [place] [id number] PCP - General Family Medicine 05/16/24 Surgical Instruments Inspector Relationship Specialty Start Date End Date Za Rogres MD [address] [place] [id number] PCP - General Family Medicine 05/16/24 Surgical Instruments Inspector Relationship Specialty Start Date End Date Za Rogers MD [address] [place] [address] [phone] PCP - General Family Medicine 05/16/24 Surgical Instruments Inspector Relationship Specialty Start Date End Date Za Rogers MD [address] [place] [address] [phone] PCP - General Family Medicine 05/16/24 Reason [...] BE BASED ON THE PRIMARY CLINICAL RECORDS. [employer] provides no warranty or guarantee of the accuracy or completeness of information in this document.
--- NOTE | 2024-09-12 14:17 | PM.CN ---
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 Today pain 7/10 sharp, increasing to 9/10 with stairs, bending, twisting, activity, weather changes Patient finds mild benefit from baclofen and zonegran, denies side effects. Finds mild benefit from heat, ice, and massager. recently underwent bilateral T12,L1 intercostal nerve block with >80% improvement while anesthetized and for 3 days. preop pain up to 9/10 post op pain 1/10. cc:: CC: Carol Tyler NP Review of Systems ROS Status of ROS 10 or more systems reviewed and unremarkable except as noted in history and below Musculoskeletal Reports: back pain PFSH PFSH Medical History (Updated 09/04/24 @ 07:14 by Heather Sheehan) Osteoarthritis ?M19.90 - Unspecified osteoarthritis, unspecified site (ICD-10) Hiatal hernia ?K44.9 - Diaphragmatic hernia without obstruction or gangrene (ICD-10) Former smoker ?Z87.891 - Personal history of nicotine dependence (ICD-10) Hypertension ?I10 - Essential (primary) hypertension (ICD-10) Surgical History (Updated 09/04/24 @ 07:14 by Heather Sheehan) H/O: hysterectomy ?Z90.710 - Acquired absence of both cervix and uterus (ICD-10) Meds Home Medications and Allergies Home Medications ?Medication ?Instructions ?Recorded ?Confirmed ?Type albuterol sulfate 90 mcg/actuation 1 inh inhalation Q4H 06/01/23 09/04/24 History aerosol inhaler baclofen 10 mg tablet 10 mg PO BID PRN muscle spasm 06/01/23 09/04/24 History escitalopram oxalate 20 mg tablet 20 mg PO DAILY 06/01/23 09/04/24 History (Lexapro) hydroxyzine HCl 10 mg tablet 10 mg PO DAILY 06/01/23 09/04/24 History lisinopril 10 1 tab PO DAILY 06/01/23 09/04/24 History mg-hydrochlorothiazide 12.5 mg tablet rosuvastatin 20 mg tablet 20 mg PO DAILY 06/01/23 09/04/24 History zonisamide 50 mg capsule 50 mg PO DAILY 06/01/23 09/04/24 History Allergies Allergy/AdvReac Type Severity Reaction Status Date / Time Penicillins Allergy Unknown swellling Verified 09/04/24 07:11 Exam Constitutional Documenting provider has reviewed patient's vital signs: yes Common normals: no apparent distress, oriented x3, healthy appearing, alert and well nourished General appearance: cooperative Nutritional appearance: obese HENMT Common normals: normocephalic, hearing grossly normal bilaterally and moist oral mucous membranes Head and scalp: normocephalic Eye Common normals: PERRL Pupil: PERRL Neck & C-Spine Common normals: full ROM General: normal visual inspection Chest Common normals: inspection of chest normal Respiratory Common normals: normal respiratory effort, no retractions and no use of accessory muscles Back & Pelvis Thoracic spine/upper back: ROM limited, pain with ROM and paraspinal muscle tenderness Other: increased pain over bilateral T11,12 intercostal nerves right >left Extremity Common normals: normal to inspection and full ROM Neuro Common normals: oriented x3, CN's II-XII intact bilaterally, moves all extremities, no focal motor deficits, no sensory deficits noted and deep tendon reflexes 2+ bilaterally Sensorium/orientation: alert Motor exam: strength 5/5 throughout and no movement abnormalities noted Psych Common normals: mental status grossly normal, thought process normal, cooperative, affect normal, speech normal and activity/motor behavior normal Speech: normal speech Thought process: normal thought process Results Additional Findings Additional findings: If on a controlled substance or opioids, I have checked an [place]AR[place] report on this patient and there are no aberrancies noted in the prescribing history.??If on a controlled substance or opioid a drug screen was completed and reviewed within the last year, and if there has not been a drug screen completed we ordered one today to monitor higher risk, state monitored pain medication use. As part of providing excellent, safe, comprehensive care, the following was completed at our patient's visit: 1. A medication reconciliation and review to ensure accurate knowledge of current/active medications, including asking our patients to inform us about any tztq-lnr-spnuddu medications or herbal remedies/nutritional supplements/alternative remedies. 2. A review to specifically ensure our patients have had annual screening for screening for depression, screening for tobacco use, and screening for unhealthy alcohol use. For concerning screenings had a discussion with the patient, provided patient education, and recommended follow-up with primary care provider when appropriate. If patient noted with a risk of falling, they received education on strength, gait, and balance training to prevent future risk of falling. Portions of this note may have been carried over from the previous visit and updated as appropriate. Please note this office utilizes paper charting in addition to the electronic medical record. A list of current medications, vitals, and PMH is available there as the clinical staff outside of myself do not have access to [employer] charting during the clinic day operations. As part of providing quality comprehensive care the current medications, vitals, and PMH were reviewed in the paper chart. Assessment and Plan Assessment and Plan (1) Intercostal neuritis: (2) Thoracic back pain: (3) Myofascial pain: Plan right T12,L1 intercostal RFA under fluoroscopy with 10mg PO valium 30-60mins prior to procedure continue zonegran 50mg HS continue baclofen 10mg 1-2 BID PRN myofascial spasms/pain f/u 4 weeks after RFA
== END 2024-09-12 13:26 | disposition home or self-care (01) ==
LOC: PM 13:26
PROVIDERS: PCP Family Medicine; Visit Provider Nurse Practitioner
DX: G58.0 Intercostal neuropathy (principal); M54.6 Pain in thoracic spine; M79.18 Myalgia, other site
CPT/HCPCS: G0463

== ENCOUNTER 2024-10-02 07:50 | Day surgery (SDC) | payer OTHER, SELFPAY ==
[2024-10-02 07:53] VITALS: BP 130/90; PULSE 84; TEMP 36; O2SAT 99
--- OUTSIDE RECORDS SUMMARY | 2024-10-02 08:05 | XMS_ITS | CCD ---
Author Organization [facility] Care Team Providers Care Credit Reference Clerk Name Role Phone GISELLA ., DR MARTINEZ [...] Unavailable GISELLA ., DR MARTINEZ Admitting Unavailable [facility] Care Unava ilable GISELLA ., DR MARTINEZ Consulting Unavailable GISELLA ., DR MARTINEZ Attending Unavailable GISELLA ., DR MARTINEZ Admitting Unavailable [facility] Care Unava ilable GISELLA ., DR MARTINEZ Consulting Unavailable GISELLA ., DR MARTINEZ Attending Unavailable GISELLA ., DR MARTINEZ Admitting Unavailable [facility] Unava ilable CHANDRALAG, RASHID Primary Care Unavailable ZIEBER, DR DIANA Del Real Consulting Unavailable LAKSHMIPATHY ., NARENDRANATH Attending Ivy vailable LAKSHMIPATHY ., NARENDRANATH Admitting Ivy vailable LAKSHMIPATHY ., NARENDRANATH Consulting Ivy vailable GISELLA ., DR MARTINEZ Attending Unavailable [facility] Primary Care Unava ilable GISELLA ., DR MARTINEZ Admitting Unavailable ANTONIO BRADLEY Consulting Unavailable GISELLA ., DR MARTINEZ Consulting Unavailable [facility] Consulting Unava ilable GISELLA ., DR MARTINEZ Consulting Unavailable GISELLA ., DR MARTINEZ Attending Unavailable [facility] Primary Care Unava ilable GISELLA ., [...] Unavailable GISELLA ., DR MARTINEZ Consulting Unavailable [facility] Primary Care Unava ilable LAY RUIZ Attending Unavailable LAY RUIZ Attending Unavailable LAY RUIZ Attending Unavailable Za Rogers MD Primary Care Provider BAYRON REDDY Attending Unavailable ROGERS, ZA L Referring Unavailable ROGERS, ZA L Primary Care Unavailable LAY RUIZ Referring Unavailable SERVICES, [facility] Primary Care Unava ilable MILLY COVINGTON Referring Unavailable SERVICES, [facility] Unava ilable ROGERS, ZA L Referring Unavailable ROGERS, ZA L Primary Care Unavailable ANTONIO DRAPER Attending Unavailable ANTONIO DRAPER Referring Unavailable ROGERS, ZA L Primary Care Unavailable ANTONIO DRAPER Referring Unavailable ROGERS, ZA L Primary Care Unavailable PURVI NEVILLE Admitting Unavailable PURVI NEVILLE Attending Unavailable ROGERS, ZA L Primary Care Unavailable MILLY COVINGTON Referring Unavailable SERVICES, [facility] Primary Care Unava ilable Jaime Burr Attending Unavailab le Jaime Burr Admitting Unavailab le NON STAFF Primary Care Unavailable Allergies Allergy Classification Reported Allergen(s) Allergy Type Date of Onset Reaction(s) Facility (5 sources) Penicillins; Translations: [PENICILLINS] Drug allergy (disorder) 7 [facility]ository (4 sources) Penicillins Propensity to [...] Drug Class(es) Dates Sig (Normalized) Sig (Original) [id number] 200 actuat albuterol 0.09 mg/actuat metered dose [...] Facility Surgical Pathologyon 024 Surgical Pathology Normal [facility] Comment on above: Result Comment: [facility] [address] [place] [address] Surgical Pathology Consultation Patient Name:ERAN WINN:1985 (Age: 38)Gender:FTaken:4Reported:06/20/2024hysician(s):Purvi Neville D.O. ([phone])Copy To: Rec. #:[id number]: #[id number] Final Pathologic Diagnosis Sigmoid colon polyp, biopsy: Tubular adenoma. Report Electronically Signed Out nxk/06/20/2024Fermín Lunsford MD Interpretation performed at [facility], [address] [place] [address], License number: [id number]. Clinical History Rectal bleeding. Gross Description Received in formalin labeled TATUM sigmoid colon polyp are two brown pedunculated polyps, 1.1 x 0.7 x 0.4 cm and 0.6 x 0.5 x 0.3 cm. The resection margins are inked black and green. The larger polyp is trisected. The smaller polyp is bisected. These are submitted in a single cassette. (1, ns, [id number],m3) DM. dm/06/16/2024NSK Specimen(s) Received Sigmoid colon polyp Fee Codes(s): 1; 95986 BASIC METABOLIC PANLon 05-25 Anion gap [Moles/Vol] 8 mmol/L Normal 5-15 [facility] Comment on above: Performed By: #### B MP #### [facility] ([id number]) [address] [place] [address] Calcium [Mass/Vol] 9.1 mg/dL Normal 8.5-10.5 [facility] Comment on above: Performed By: #### B MP #### [facility] ([id number]) [address] [place] [address] Chloride [Moles/Vol] 103 mmol/L Normal 98-109 [facility] Comment on above: Performed By: #### B MP #### [facility] ([id number]) [address] [place] [address] CO2 [Moles/Vol] 26 mmol/L Normal 22-32 [facility] Comment on above: Performed By: #### B MP #### [facility] ([id number]) [address] [place] [address] Creatinine [Mass/Vol] 0.86 mg/dL Normal 0.40-1.00 [facility] Comment on above: Result Comment: METH OD TRACEABLE TO IDMS STANDARD Performed By: #### B MP #### [facility] ([id number]) [address] [place] [address] GFR/1.73 sq M.predicted among non-blacks MDRD (S/P/Bld) [Vol rate/Area] 88 mL/min/{1.73_m2} Normal >59 [facility] Comment on above: Result Comment: Reported eGFR is based on the CKD-EPI 2020 equation that does not use a race coefficient. Performed By: #### B MP #### [facility] ([id number]) [address] [place] [address] Glucose [Mass/Vol] 90 mg/dL Normal 65-99 [facility] Comment on above: Performed By: #### B MP #### [facility] ([id number]) [address] [place] [address] Potassium [Moles/Vol] 3.9 mmol/L Normal 3.5-5.0 [facility] Comment on above: Performed By: #### B MP #### [facility] ([id number]) [address] [place] [address] Sodium [Moles/Vol] 137 mmol/L Normal 134-146 [facility] Comment on above: Performed By: #### B MP #### [facility] ([id number]) [address] [place] [address] Urea nitrogen [Mass/Vol] 14 mg/dL Normal 5-23 [facility] Comment on above: Performed By: #### B MP #### [facility] ([id number]) [address] [place] [address] US PELVIC WITH TRANSVAGINALo n 08-09-2023 US [...] Sexton MD on 08/09/2023 2:33 PM Normal [facility] XR LSPINE 2_3 VIEWSon 2022 XR LSPINE [...] DIANA LUONG Date: 2022-12-14 16:25 Normal [facility] BUNon 08-31-2022 Urea nitrogen [Mass/Vol] 9.0 mg/dL Normal 7.0-18.0 [facility] Comment on above: Performed By: #### C BC #### [facility] [address] [address] [address] Rose Lafleur CBC AUTO DIFFon 08-31-2022 BASO # 0.0 103/ul Normal 0.0-0.1 [facility] Comment on above: Performed By: #### C BC #### [facility] [address] [address] [address] Rose Lafleur Basophils/100 WBC (Bld) 0.1 % Critically low 0.2-2.0 [facility] Comment on above: Performed By: #### C BC #### [facility] [address] [place] [address] Dr. Rose Lafleur EO # 0.0 103/ul Normal 0.0-0.7 [facility] Comment on above: Performed By: #### C BC #### [facility] [address] [place] [address] Dr. Rose Lafleur Eosinophils/100 WBC (Bld) 0.0 % Critically low 0.9-7.0 [facility] Comment on above: Performed By: #### C BC #### [facility] [address] [place] [address] Dr. Rose Lafleur Erythrocyte distribution width (RBC) [Ratio] 13.2 % Normal 11.0-15.0 [facility] Comment on above: Performed By: #### C BC #### [facility] [address] [place] [address] Dr. Rose Lafleur Hematocrit (Bld) [Volume fraction] 38.5 % Normal 36.0-48.0 [facility] Comment on above: Performed By: #### C BC #### [facility] [address] [place] [address] Dr. Rose Lafleur Hemoglobin (Bld) [Mass/Vol] 12.7 g/dL Normal 12.0-16.0 [facility] Comment on above: Performed By: #### C BC #### [facility] [address] [place] [address] Dr. Rose Lafleur IG # 0.07 10e3/ul Critically high 0.00-0.03 [facility] Comment on above: Performed By: #### C BC #### [facility] [address] [place] [address] Dr. Rose Lafleur IG % 0.4 % Normal 0.0-0.5 [facility] Comment on above: Performed By: #### C BC #### [facility] [address] [place] [address] Dr. Rose Lafleur LYMPH # 2.3 103/ul Normal 1.2-3.8 [facility] Comment on above: Performed By: #### C BC #### [facility] [address] [address] [address] Rose Lafleur Lymphocytes/100 WBC (Bld) 14.3 % Critically low 20.5-60.0 [facility] Comment on above: Performed By: #### C BC #### [facility] [address] [address] [address] Rose Lafleur MANUAL DIFF REQ NO Normal [facility] Comment on above: Performed By: #### C BC #### [facility] [address] [place] [address] Dr. Rose Lafleur MCH (RBC) [Entitic mass] 28.6 pg Normal 26.7-34.0 [facility] Comment on above: Performed By: #### C BC #### [facility] [address] [place] [address] Dr. Rose Lafleur MCHC (RBC) [Mass/Vol] 33.0 g/dL Normal 29.9-35.2 [facility] Comment on above: Performed By: #### C BC #### [facility] [address] [place] [address] Dr. Rose Lafleur MCV (RBC) [Entitic vol] 86.7 fL Normal 81.0-99.0 [facility] Comment on above: Performed By: #### C BC #### [facility] [address] [place] [address] Dr. Rose Lafleur MONO # 0.9 103/ul Critically high 0.3-0.8 [facility] Comment on above: Performed By: #### C BC #### [facility] [address] [place] [address] Dr. Rose Lafleur Monocytes/100 WBC (Bld) 5.5 % Normal 1.7-12.0 [facility] Comment on above: Performed By: #### C BC #### [facility] [address] [place] [address] Dr. Rose Lafleur NEUT # 12.8 103/ul Critically high 1.4-6.5 [facility] Comment on above: Performed By: #### C BC #### [facility] [address] [address] [address] Rose Lafleur Neutrophils/100 WBC (Bld) 79.7 % Critically high 43.0-75.0 [facility] Comment on above: Performed By: #### C BC #### [facility] [address] [place] [address] Dr. Rose Lafleur Platelet mean volume (Bld) [Entitic vol] 8.9 fL Critically low 9.5-13.5 [facility] Comment on above: Performed By: #### C BC #### [facility] [address] [address] [address] Rose Lafleur PLT 330 103/ul Normal 150-450 [facility] Comment on above: Performed By: #### C BC #### [facility] [address] [place] [address] Dr. Rose Lafleur RBC 4.44 106/ul Normal 4.20-5.40 [facility] Comment on above: Performed By: #### C BC #### [facility] [address] [place] [address] Dr. Rose Lafleur WBC 16.1 103/ul Critically high 4.0-11.0 [facility] Comment on above: Performed By: #### C BC #### [facility] [address] [place] [address] Dr. Rose Lafleur CREATININEon 08-31-2022 Creatinine [Mass/Vol] 0.59 mg/dL Normal 0.55-1.02 [facility] Comment on above: Performed By: #### C BC #### [facility] [address] [place] [address] Dr. Rose Lafleur EGFR-AF SERBIAN >60 Normal >=60 [facility] Comment on above: Performed By: #### C BC #### [facility] [address] [place] [address] Dr. Rose Lafleur EGFR-NON AF SERBIAN >60 Normal >=60 [facility] Comment on above: Performed By: #### C BC #### [facility] [address] [place] [address] Dr. Rose Lafleur PREG HCG QUALon 08-30-2022 , QUAL Negative Normal NEGATIVE [facility] Comment on above: Performed By: #### P REG #### [facility] [address] [place] [address] Dr. Rose Lafleur [facility]15 SARS-CoV-2 (COVID-19) RNA RUDY+probe Ql (Unsp spec) Not detected Normal NOT DETECTED [facility] Comment on above: Result Comment: This test is not yet approved or cleared by the [place] FDA. When there are no FDA-approved or cleared tests available, and other criteria are met, FDA can make tests available under an emergency access mechanism called an Emergency Use Authorization (EUA). The EUA for this test is supported by the [place] of Health and Human Service's (HHS's) declaration [...] SARS-CoV-2. Performed By: #### L DH #### [facility] [address] [place] [address] Dr. Rose Lafleur TYPE AND SCREENon 08-26-2022 TYPE AND SCREEN Negative Normal [facility] Comment on above: Performed By: #### L DH #### [facility] [address] [place] [address] Dr. Rose Lafleur CBC AUTO DIFFon 08-16-2022 BASO # 0.0 103/ul Normal 0.0-0.1 [facility] Comment on above: Performed By: #### C BC #### [facility] [address] [place] [address] Dr. Rose Lafleur Basophils/100 WBC (Bld) 0.3 % Normal 0.2-2.0 [facility] Comment on above: Performed By: #### C BC #### [facility] [address] [place] [address] Dr. Rose Lafleur EO # 0.2 103/ul Normal 0.0-0.7 [facility] Comment on above: Performed By: #### C BC #### [facility] [address] [place] [address] Dr. Rose Lafleur Eosinophils/100 WBC (Bld) 1.7 % Normal 0.9-7.0 [facility] Comment on above: Performed By: #### C BC #### [facility] [address] [place] [address] Dr. Rose Lafleur Erythrocyte distribution width (RBC) [Ratio] 13.1 % Normal 11.0-15.0 [facility] Comment on above: Performed By: #### C BC #### [facility] [address] [place] [address] Dr. Rose Lafleur Hematocrit (Bld) [Volume fraction] 40.6 % Normal 36.0-48.0 [facility] Comment on above: Performed By: #### C BC #### [facility] [address] [place] [address] Dr. Rose Lafleur Hemoglobin (Bld) [Mass/Vol] 13.4 g/dL Normal 12.0-16.0 [facility] Comment on above: Performed By: #### C BC #### [facility] [address] [place] [address] Dr. Rose Lafleur IG # 0.02 10e3/ul Normal 0.00-0.03 [facility] Comment on above: Performed By: #### C BC #### [facility] [address] [place] [address] Dr. Rose Lafleur IG % 0.2 % Normal 0.0-0.5 [facility] Comment on above: Performed By: #### C BC #### [facility] [address] [place] [address] Dr. Rose Lafleur LYMPH # 2.8 103/ul Normal 1.2-3.8 [facility] Comment on above: Performed By: #### C BC #### [facility] [address] [place] [address] Dr. Rose Lafleur Lymphocytes/100 WBC (Bld) 31.7 % Normal 20.5-60.0 [facility] Comment on above: Performed By: #### C BC #### [facility] [address] [place] [address] Dr. Rose Lafleur MANUAL DIFF REQ NO Normal [facility] Comment on above: Performed By: #### C BC #### [facility] [address] [place] [address] Dr. Rose Lafleur MCH (RBC) [Entitic mass] 28.5 pg Normal 26.7-34.0 [facility] Comment on above: Performed By: #### C BC #### [facility] [address] [place] [address] Dr. Rose Lafleur MCHC (RBC) [Mass/Vol] 33.0 g/dL Normal 29.9-35.2 [facility] Comment on above: Performed By: #### C BC #### [facility] [address] [place] [address] Dr. Rose Lafleur MCV (RBC) [Entitic vol] 86.4 fL Normal 81.0-99.0 [facility] Comment on above: Performed By: #### C BC #### [facility] [address] [place] [address] Dr. Rose Lafleur MONO # 0.6 103/ul Normal 0.3-0.8 [facility] Comment on above: Performed By: #### C BC #### [facility] [address] [place] [address] Dr. Rose Lafleur Monocytes/100 WBC (Bld) 6.8 % Normal 1.7-12.0 [facility] Comment on above: Performed By: #### C BC #### [facility] [address] [place] [address] Dr. Rose Lafleur NEUT # 5.1 103/ul Normal 1.4-6.5 [facility] Comment on above: Performed By: #### C BC #### [facility] [address] [place] [address] Dr. Rose Lafleur Neutrophils/100 WBC (Bld) 59.3 % Normal 43.0-75.0 [facility] Comment on above: Performed By: #### C BC #### [facility] [address] [place] [address] Dr. Rose Lafleur Platelet mean volume (Bld) [Entitic vol] 8.9 fL Critically low 9.5-13.5 [facility] Comment on above: Performed By: #### C BC #### [facility] [address] [place] [address] Dr. Rose Lafleur PLT 312 103/ul Normal 150-450 [facility] Comment on above: Performed By: #### C BC #### [facility] [address] [place] [address] Dr. Rose Lafleur RBC 4.70 106/ul Normal 4.20-5.40 [facility] Comment on above: Performed By: #### C BC #### [facility] [address] [place] [address] Dr. Rose Lafleur WBC 8.7 103/ul Normal 4.0-11.0 [facility] Comment on above: Performed By: #### C BC #### [facility] [address] [place] [address] Dr. Rose Lafleur LIVER PROFILEon 08-16-2022 Albumin [Mass/Vol] 2.9 g/dL Critically low 3.4-5.0 [facility] Comment on above: Performed By: #### B MP, LIVER #### [facility] [address] [place] [address] Dr. Rose Lafleur Albumin/Globulin [Mass ratio] 0.6 {ratio} Normal [facility] Comment on above: Performed By: #### B MP, LIVER #### [facility] [address] [place] [address] Dr. Rose Lafleur ALP [Catalytic activity/Vol] 121 U/L Critically high 46-116 [facility] Comment on above: Performed By: #### B MP, LIVER #### [facility] [address] [place] [address] Dr. Rose Lafleur ALT [Catalytic activity/Vol] 21 U/L Normal 14-59 [facility] Comment on above: Performed By: #### B MP, LIVER #### [facility] [address] [place] [address] Dr. Rose Lafleur AST [Catalytic activity/Vol] 20 U/L Normal 15-37 [facility] Comment on above: Performed By: #### B MP, LIVER #### [facility] [address] [place] [address] Dr. Rose Lafleur BILI, CONJUGATED 0.1 mg/dL Normal 0.0-0.2 [facility] Comment on above: Performed By: #### B MP, LIVER #### [facility] [address] [place] [address] Dr. Rose Lafleur Bilirubin [Mass/Vol] 0.3 mg/dL Normal 0.2-1.0 [facility] Comment on above: Performed By: #### B MP, LIVER #### [facility] [address] [place] [address] Dr. Rose Lafleur Globulin (S) [Mass/Vol] 4.8 g/dL Normal [facility] Comment on above: Performed By: #### B MP, LIVER #### [facility] [address] [place] [address] Dr. Rose Lafleur Protein [Mass/Vol] 7.7 g/dL Normal 6.4-8.2 [facility] Comment on above: Performed By: #### B MP, LIVER #### [facility] [address] [place] [address] Dr. Rose Lafleur PROF CHEM 8 (BAS METB)on Anion gap [Moles/Vol] 10.9 mmol/L Normal [facility] Comment on above: Performed By: #### B MP, LIVER #### [facility] [address] [place] [address] Dr. Rose Lafleur Calcium [Mass/Vol] 8.8 mg/dL Normal 8.5-10.1 [facility] Comment on above: Performed By: #### B MP, LIVER #### [facility] [address] [address] [address] Rose Lafleur Chloride [Moles/Vol] 102 mmol/L Normal 98-107 [facility] Comment on above: Performed By: #### B MP, LIVER #### [facility] [address] [address] [address] Rose Lafleur CO2 [Moles/Vol] 26.1 mmol/L Normal 21.0-32.0 [facility] Comment on above: Performed By: #### B MP, LIVER #### [facility] [address] [address] [address] Rose Lafleur Creatinine [Mass/Vol] 0.64 mg/dL Normal 0.55-1.02 [facility] Comment on above: Performed By: #### B MP, LIVER #### [facility] [address] [place] [address] Dr. Rose Lafleur EGFR-AF SERBIAN >60 Normal >=60 [facility] Comment on above: Performed By: #### B MP, LIVER #### [facility] [address] [place] [address] Dr. Rose Lafleur EGFR-NON AF SERBIAN >60 Normal >=60 [facility] Comment on above: Performed By: #### B MP, LIVER #### [facility] [address] [place] [address] Dr. Rose Lafleur Glucose [Mass/Vol] 90 mg/dL Normal 74-106 [facility] Comment on above: Performed By: #### B MP, LIVER #### [facility] [address] [place] [address] Dr. Rose Lafleur Potassium [Moles/Vol] 4.0 mmol/L Normal 3.5-5.1 [facility] Comment on above: Performed By: #### B MP, LIVER #### [facility] [address] [address] [address] Rose Lafleur Sodium [Moles/Vol] 135 mmol/L Critically low 136-145 [facility] Comment on above: Performed By: #### B MP, LIVER #### [facility] [address] [place] [address] Dr. Rose Lafleur Urea nitrogen [Mass/Vol] 12.0 mg/dL Normal 7.0-18.0 [facility] Comment on above: Performed By: #### B MP, LIVER #### [facility] [address] [address] [address] Rose Lafleur Urea nitrogen/Creatinin e [Mass ratio] 18.8 mg/mg Normal [facility] Comment on above: Performed By: #### B MP, LIVER #### [facility] [address] [place] [address] Dr. Rose Lafleur PROTIMEon 08-16-2022 INR Coag (PPP) [Relative time] 0.95 {INR} Normal [facility] Comment on above: Performed By: #### C BC #### [facility] [address] [place] [address] Dr. Rose Lafleur INR GUIDELINES SEE BELOW Normal [facility] Comment on above: Result Comment: JAYLYN RED INR: 2.0 - 3.0 CONDITIONS NOT LISTED BELOW 2.5 - 3.5 FOR PROSTHETIC HEART VALVE REPLACEMENT 2.5 - 3.5 RECURRENT THROMBOSIS Performed By: #### C BC #### [facility] [address] [place] [address] Dr. Rose Lafleur PT Coag (PPP) [Time] 10.3 s Normal 9.0-11.6 [facility] Comment on above: Performed By: #### C BC #### [facility] [address] [place] [address] Dr. Rose Lafleur PTTon 08-16-2022 aPTT Coag (Bld) [Time] 32.0 s Normal 22.3-36.2 [facility] Comment on above: Performed By: #### C BC #### [facility] [address] [place] [address] Dr. Rose Lafleur GLYCOHEMOGLOBIN A1Con 2021 ADA RECOMMENDATION SEE BELOW Normal [facility] Comment on above: Result Comment: ADA RECOMMENDED LIMIT 4.0 - 6.0 ADA THERAPEUTIC TARGET < 7.0 ACTION SUGGESTED > 7.0 Performed By: #### C BC #### [facility] [address] [address] [address] Rose Lafleur Glucose [Mass/Vol] 108 mg/dL Normal [place] [facility] Comment on above: Performed By: #### C BC #### [facility] [address] [address] [address] Rose Lafleur HbA1c (Bld) [Mass fraction] 5.4 % Normal 4.5-6.2 [facility] Comment on above: Performed By: #### C BC #### [facility] [address] [address] [address] Rose Lafleur PAP ACOG PANEL 2: 28 to 63on 07-14-2022 . . Normal [facility] Comment on above: Result Comment: Perf ormed at: WB Performed By: #### C BC #### [facility] [address] [place] [address] Dr. Rose Lafleur Age Gdln ACOG Testing -63 Normal [facility] Comment on above: Performed By: #### C BC #### [facility] [address] [address] [address] Rose Lafleur DIAGNOSIS: Comment Normal [facility] Comment on above: Result Comment: NEGA TIVE FOR INTRAEPITHELIAL LESION OR MALIGNANCY. CELLULAR CHANGES ASSOCIATED WITH INFLAMMATION ARE PRESENT. Performed at: WB Performed By: #### C BC #### [facility] [address] [place] [address] Dr. Rose Lafleur HPV Aptima Negative Normal Negative [facility] Comment on above: Result Comment: This nucleic acid amplification test detects fourteen high-risk HPV types (16,18,31,33,35,39,45,51,52,56,58,59,66,68) without differentiation. Performed at: =G Performed By: #### C BC #### [facility] [address] [place] [address] Dr. Rose Lafleur HPV Genotype Reflex Comment Normal [facility] Comment on above: Result Comment: Crit eria not met, HPV Genotype not performed. Performed at: WB Performed By: #### C BC #### [facility] [address] [place] [address] Dr. Rose Lafleur Methodology: CTIM Normal [facility] Comment on above: Result Comment: The [employer]) International Marketing Manager was unable to read this specimen. Therefore a manual review was performed. Performed at: WB Performed By: #### C BC #### [facility] [address] [place] [address] Dr. Rose Lafleur Note: Comment Normal [facility] Comment on above: Result Comment: [...] WB Performed By: #### C BC #### [facility] [address] [place] [address] Dr. Rose Lafleur Performed by: Comment Normal [facility] Comment on above: Result Comment: Carlos Wolff, Upholstered Goods Crafter (ASCP) Performed at: WB Performed By: #### C BC #### [facility] [address] [place] [address] Dr. Rose Lafleur Specimen adequacy: Comment Normal [facility] Comment on above: Result Comment: Sati sfactory for evaluation. No endocervical component is identified. Performed at: WB Performed By: #### C BC #### [facility] [address] [place] [address] Dr. Rose Lafleur CBC AUTO DIFFon 05-26-2022 BASO # 0.0 103/ul Normal 0.0-0.1 [facility] Comment on above: Performed By: #### C BC #### [facility] [address] [place] [address] Dr. Rose Lafleur Basophils/100 WBC (Bld) 0.4 % Normal 0.2-2.0 [facility] Comment on above: Performed By: #### C BC #### [facility] [address] [place] [address] Dr. Rose Lafleur EO # 0.1 103/ul Normal 0.0-0.7 [facility] Comment on above: Performed By: #### C BC #### [facility] [address] [place] [address] Dr. Rose Lafleur Eosinophils/100 WBC (Bld) 1.2 % Normal 0.9-7.0 [facility] Comment on above: Performed By: #### C BC #### [facility] [address] [place] [address] Dr. Rose Lafleur Erythrocyte distribution width (RBC) [Ratio] 13.6 % Normal 11.0-15.0 [facility] Comment on above: Performed By: #### C BC #### [facility] [address] [place] [address] Dr. Rose Lafleur Hematocrit (Bld) [Volume fraction] 41.6 % Normal 36.0-48.0 [facility] Comment on above: Performed By: #### C BC #### [facility] [address] [place] [address] Dr. Rose Lafleur Hemoglobin (Bld) [Mass/Vol] 13.3 g/dL Normal 12.0-16.0 [facility] Comment on above: Performed By: #### C BC #### [facility] [address] [place] [address] Dr. Rose Lafleur IG # 0.03 10e3/ul Normal 0.00-0.03 [facility] Comment on above: Performed By: #### C BC #### [facility] [address] [place] [address] Dr. Rose Lafleur IG % 0.3 % Normal 0.0-0.5 [facility] Comment on above: Performed By: #### C BC #### [facility] [address] [place] [address] Dr. Rose Lafleur LYMPH # 3.8 103/ul Normal 1.2-3.8 [facility] Comment on above: Performed By: #### C BC #### [facility] [address] [place] [address] Dr. Rose Lafleur Lymphocytes/100 WBC (Bld) 39.8 % Normal 20.5-60.0 [facility] Comment on above: Performed By: #### C BC #### [facility] [address] [place] [address] Dr. Rose Lafleur MANUAL DIFF REQ NO Normal [facility] Comment on above: Performed By: #### C BC #### [facility] [address] [place] [address] Dr. Rose Lafleur MCH (RBC) [Entitic mass] 28.5 pg Normal 26.7-34.0 [facility] Comment on above: Performed By: #### C BC #### [facility] [address] [place] [address] Dr. Rose Lafleur MCHC (RBC) [Mass/Vol] 32.0 g/dL Normal 29.9-35.2 [facility] Comment on above: Performed By: #### C BC #### [facility] [address] [place] [address] Dr. Rose Lafleur MCV (RBC) [Entitic vol] 89.3 fL Normal 81.0-99.0 [facility] Comment on above: Performed By: #### C BC #### [facility] [address] [place] [address] Dr. Rose Lafleur MONO # 0.6 103/ul Normal 0.3-0.8 [facility] Comment on above: Performed By: #### C BC #### [facility] [address] [place] [address] Dr. Rose Lafleur Monocytes/100 WBC (Bld) 6.5 % Normal 1.7-12.0 [facility] Comment on above: Performed By: #### C BC #### [facility] [address] [place] [address] Dr. Rose Lafleur NEUT # 4.9 103/ul Normal 1.4-6.5 [facility] Comment on above: Performed By: #### C BC #### [facility] [address] [place] [address] Dr. Rose Lafleur Neutrophils/100 WBC (Bld) 51.8 % Normal 43.0-75.0 [facility] Comment on above: Performed By: #### C BC #### [facility] [address] [address] [address] Rose Lafleur Platelet mean volume (Bld) [Entitic vol] 8.9 fL Critically low 9.5-13.5 [facility] Comment on above: Performed By: #### C BC #### [facility] [address] [place] [address] Dr. Rose Lafleur PLT 310 103/ul Normal 150-450 [facility] Comment on above: Performed By: #### C BC #### [facility] [address] [place] [address] Dr. Rose Lafleur RBC 4.66 106/ul Normal 4.20-5.40 [facility] Comment on above: Performed By: #### C BC #### [facility] [address] [place] [address] Dr. Rose Lafleur WBC 9.5 103/ul Normal 4.0-11.0 [facility] Comment on above: Performed By: #### C BC #### [facility] [address] [place] [address] Dr. Rose Lafleur PREG HCG QUALon 05-26-2022 , QUAL Negative Normal NEGATIVE [facility] Comment on above: Performed By: #### P REG #### [facility] [address] [place] [address] Dr. Rose Lafleur [facility] SARS-CoV-2 (COVID-19) RNA RUDY+probe Ql (Unsp spec) Not detected Normal NOT DETECTED [facility] Comment on above: Result Comment: This test is not yet approved or cleared by the [place] FDA. When there are no FDA-approved or cleared tests available, and other criteria are met, FDA can make tests available under an emergency access mechanism called an Emergency Use Authorization (EUA). The EUA for this test is supported by the [place] of Health and Human Service's (HHS's) declaration [...] SARS-CoV-2. Performed By: #### C BC #### [facility] [address] [place] [address] Dr. Rose Lafleur AFP (TUMOR MARKER)on 022 AFP, Serum, Tumor Marker 1.6 ng/mL Normal 0.0-6.4 [facility] Comment on above: Result Comment: [employer] Electrochemiluminescence Immunoassay (ECLIA) . Values obtained with different assay methods or kits cannot be used interchangeably. Results cannot be interpreted as absolute evidence of the presence or absence of malignant disease. . This test is not interpretable in females. Performed By: #### C BC #### [facility] [address] [place] [address] Dr. Rose Lafleur CA 125on 05-07-2022 Cancer Antigen (CA) 125 17.1 U/mL Normal 0.0-38.1 [facility] Comment on above: Result Comment: [employer] Electrochemiluminescence Immunoassay (ECLIA) . Values obtained with different assay methods or kits cannot be used interchangeably. Results cannot be interpreted as absolute evidence of the presence or absence of malignant disease. Performed By: #### L DH #### [facility] [address] [place] [address] Dr. Rose Lafleur CEAon 05-07-2022 CEA 1.6 ng/mL Normal 0.0-4.7 [facility] Comment on above: Result Comment: Nons mokers <3.9 Smokers <5.6 . [employer] Electrochemiluminescence Immunoassay (ECLIA) . Values obtained with different assay methods or kits cannot be used interchangeably. Results cannot be interpreted as absolute evidence of the presence or absence of malignant disease. Performed By: #### C BC #### [facility] [address] [place] [address] Dr. Rose Lafleur HCG QUANT TUMOR MARKERon HCG QNT TUMOR MARKER <1 Normal [facility] Comment on above: Result Comment: [...] developed and its performance characteristics determined by [employer]. It has not been cleared or approved by the Food and Drug Administration for use as a tumor marker. . This test is not interpretable as a tumor marker in females. Performed By: #### C BC #### [facility] [address] [place] [address] Dr. Rose Lafleur LDHon 05-05-2022 LDH 269 U/L Critically high 81-234 [facility] Comment on above: Performed By: #### L DH #### [facility] [address] [place] [address] Dr. Rose Lafleur CBC AUTO DIFFon 04-21-2022 BASO # 0.0 103/ul Normal 0.0-0.1 [facility] Comment on above: Performed By: #### L DH #### [facility] [address] [place] [address] Dr. Rose Lafleur Basophils/100 WBC (Bld) 0.3 % Normal 0.2-2.0 [facility] Comment on above: Performed By: #### L DH #### [facility] [address] [place] [address] Dr. Rose Lafleur EO # 0.1 103/ul Normal 0.0-0.7 [facility] Comment on above: Performed By: #### L DH #### [facility] [address] [place] [address] Dr. Rose Lafleur Eosinophils/100 WBC (Bld) 0.7 % Critically low 0.9-7.0 [facility] Comment on above: Performed By: #### L DH #### [facility] [address] [place] [address] Dr. Rose Lafleur Erythrocyte distribution width (RBC) [Ratio] 13.9 % Normal 11.0-15.0 [facility] Comment on above: Performed By: #### L DH #### [facility] [address] [place] [address] Dr. Rose Lafleur Hematocrit (Bld) [Volume fraction] 41.5 % Normal 36.0-48.0 [facility] Comment on above: Performed By: #### L DH #### [facility] [address] [place] [address] Dr. Rose Lafleur Hemoglobin (Bld) [Mass/Vol] 13.4 g/dL Normal 12.0-16.0 [facility] Comment on above: Performed By: #### L DH #### [facility] [address] [place] [address] Dr. Rose Lafleur IG # 0.03 10e3/ul Normal 0.00-0.03 [facility] Comment on above: Performed By: #### L DH #### [facility] [address] [place] [address] Dr. Rose Lafleur IG % 0.3 % Normal 0.0-0.5 [facility] Comment on above: Performed By: #### L DH #### [facility] [address] [place] [address] Dr. Rose Lafleur LYMPH # 3.7 103/ul Normal 1.2-3.8 [facility] Comment on above: Performed By: #### L DH #### [facility] [address] [place] [address] Dr. Rose Lafleur Lymphocytes/100 WBC (Bld) 32.9 % Normal 20.5-60.0 [facility] Comment on above: Performed By: #### L DH #### [facility] [address] [place] [address] Dr. Rose Lafleur MANUAL DIFF REQ NO Normal [facility] Comment on above: Performed By: #### L DH #### [facility] [address] [address] [address] Rose Lafleur MCH (RBC) [Entitic mass] 28.6 pg Normal 26.7-34.0 [facility] Comment on above: Performed By: #### L DH #### [facility] [address] [address] [address] Rose Lafleur MCHC (RBC) [Mass/Vol] 32.3 g/dL Normal 29.9-35.2 [facility] Comment on above: Performed By: #### L DH #### [facility] [address] [address] [address] Rose Lafleur MCV (RBC) [Entitic vol] 88.5 fL Normal 81.0-99.0 [facility] Comment on above: Performed By: #### L DH #### [facility] [address] [place] [address] Dr. Rose Lafleur MONO # 0.7 103/ul Normal 0.3-0.8 [facility] Comment on above: Performed By: #### L DH #### [facility] [address] [place] [address] Dr. Rose Lafleur Monocytes/100 WBC (Bld) 6.1 % Normal 1.7-12.0 [facility] Comment on above: Performed By: #### L DH #### [facility] [address] [place] [address] Dr. Rose Lafleur NEUT # 6.7 103/ul Critically high 1.4-6.5 [facility] Comment on above: Performed By: #### L DH #### [facility] [address] [place] [address] Dr. Rose Lafleur Neutrophils/100 WBC (Bld) 59.7 % Normal 43.0-75.0 [facility] Comment on above: Performed By: #### L DH #### [facility] [address] [place] [address] Dr. Rose Lafleur Platelet mean volume (Bld) [Entitic vol] 9.0 fL Critically low 9.5-13.5 [facility] Comment on above: Performed By: #### L DH #### [facility] [address] [address] [address] Rose Lafleur PLT 320 103/ul Normal 150-450 [facility] Comment on above: Performed By: #### L DH #### [facility] [address] [address] [address] Rose Lafleur RBC 4.69 106/ul Normal 4.20-5.40 [facility] Comment on above: Performed By: #### L DH #### [facility] [address] [address] [address] Rose Lafleur WBC 11.1 103/ul Critically high 4.0-11.0 [facility] Comment on above: Performed By: #### L DH #### [facility] [address] [place] [address] Dr. Rose Lafleur GLYCOHEMOGLOBIN A1Con 2021 ADA RECOMMENDATION SEE BELOW Normal [facility] Comment on above: Result Comment: ADA RECOMMENDED LIMIT 4.0 - 6.0 ADA THERAPEUTIC TARGET < 7.0 ACTION SUGGESTED > 7.0 Performed By: #### A 1C #### [facility] [address] [place] [address] Dr. Rose Lafleur Glucose [Mass/Vol] 111 mg/dL Normal [facility] Comment on above: Performed By: #### A 1C #### [facility] [address] [place] [address] Dr. Rose Lafleur HbA1c (Bld) [Mass fraction] 5.5 % Normal 4.5-6.2 [facility] Comment on above: Performed By: #### A 1C #### [facility] [address] [place] [address] Dr. Rose Lafleur TSHon 04-21-2022 TSH 1.207 uIU/mL Normal 0.358-3.740 [facility] Comment on above: Performed By: #### T SH #### [facility] [address] [place] [address] Dr. Rose Lafleur US PELVIS AND TRANSVAGon [...] by: ANTONIO BRADLEY Date: 2022-04-21 15:32 Normal [facility] Vital Signs Date Time Vital Sign Value Performing Clinician Huberi cyndy 05-25-2024 11:42-0400 Body height 152.4 cm Pmh 1 [facility] 05-25-2024 11:42-0400 Body mass index (BMI) [Ratio] 63.47 kg/m2 P[facility] 1 [facility] 05-25-2024 11:42-0400 Body weight 147.42 kg Pmh 1 [facility] 05-23-2024 11:23-0400 Body height 152.4 cm Bayron Reddy APRNSunPodsLIZZETTE Work Phone: [facility] 05-23-2024 11:23-0400 Body mass index (BMI) [Ratio] 64.06 kg/m2 Bayron Reddy APRNSunPodsBISQUE GRADER Work Phone: [facility] 05-23-2024 11:23-0400 Body weight 148.78 kg Bayron Reddy APRNSunPodsBISQUE GRADER Work Phone: [facility] Encounters Encounter Date Encounter Type Care Provider Facility Start: 06-21-2024 End: 06-21-2024 Telephone encounter Ebony Floyd CMA [facility] General Surgery Start: 06-14-2024 End: 06-14-2024 Evaluation and management of inpatient PURVI NEVILLE [facility] Start: 05-25-2024 Encounter for other preprocedural examination ANTONIO Parkinson [facility] Start: 05-25-2024 End: 05-25-2024 ambulatory ANTONIO Parkinson [facility] Start: 05-25-2024 End: 05-25-2024 Patient encounter procedure [facility] Pre-Admission Testing [address] [facility] - Pre Admit Start: 05-23-2024 End: 05-23-2024 Office outpatient new 30 minutes Bayron Reddy RESEARCH LABORATORY SPECIALIST-BISQUE GRADER Work Phone: [facility] Comment on above: Rectal bleeding (Patti minh Dx) Start: 05-23-2024 End: 05-23-2024 ambulatory [facility] Start: 05-16-2024 End: 05-16-2024 Telephone encounter Bayron Reddy RESEARCH LABORATORY SPECIALIST-BISQUE GRADER Work Phone: [facility] Surgery Start: 05-15-2024 ambulatory Jaime Squires acility:[facility] Start: 09-12-2023 End: 09-12-2023 ambulatory LAY SARA Not Available Start: 08-18-2023 End: 08-18-2023 ambulatory LAY SARA Not Available Start: 08-16-2023 End: 09-15-2023 ambulatory [facility] Start: 08-09-2023 End: 08-09-2023 ambulatory LAY RUIZ [facility] Start: 07-26-2023 End: 08-15-2023 ambulatory [facility] Start: 07-21-2023 End: 07-21-2023 ambulatory LAY SARA Not Available Start: 12-14-2022 End: 12-15-2022 ambulatory RASHID ADAME Facility: Start: 09-02-2022 Encounter for preprocedural laboratory examination DR JUAN ARRIAZA . [facility] Start: 08-30-2022 End: 08-31-[address] [...] cardiovascular examination DR JUAN ARRIAZA . [facility] Start: 05-13-2022 End: 05-14-[address] JUAN ARRIAZA . Facility:[facility] Start: 05-13-2022 End: 05-14-2022 Encounter for preprocedural cardiovascular examination DR JUAN ARRIAZA . Facility:[facility] Start: 05-05-2022 End: 05-06-[address] JUAN ARRIAZA . Facility:[facility] Start: 04-21-2022 End: 04-22-[address] JUAN ARRIAZA . Facility:[facility] Procedures Date Procedure Procedure Detail Performing Clinician Start: 06-14-2024 Colonoscopy Ebony Bogdan ia BEHAVIORAL SCIENCES INSTRUCTOR Start: 07-05-2022 Microscopic observat ion [Identifier] in Cervix by Cyto stain Bayron Reddy APRN-BISQUE GRADER Work Phone: Plan of Treatment Date Care Activity Detail Author Start: 05-06-2030 DTaP,Tdap and Td Vaccines (3 - Td or Tdap) DTaP,Tdap and Td Vaccines (3 - Td or Tdap) [facility] Start: 06-14-2029 Screening for malign ant neoplasm of colon Colonoscopy [facility] Start: 07-05-2025 Screening for malign ant neoplasm of cervix Pap Smear [facility] Start: 06-14-2025 Adult BMI Screening Adult BMI Screen ing [facility] Start: 06-14-2025 Tobacco Screening Tobacco Screening [facility] Start: 05-25-2025 Adult BMI Screening Adult BMI Screen ing [facility] Start: 05-25-2025 Tobacco Screening Tobacco Screening [facility] Start: 05-23-2025 Adult BMI Screening Adult BMI Screen ing [facility] Start: 05-23-2025 Tobacco Screening Tobacco Screening [facility] Start: 06-14-2024 End: 06-14-2024 Admission to same day surgery center 06/14/2024 10:00 AM EDT - 06/14/2024 10:30 AM EDT Surgery [facility] [address] [place] [id number] Purvi Neville, DO [address] [place] [address] [phone] COLONOSCOPY DIAGNOSTIC / SCREENING [13980 (CPT )] [facility] Comment on above: COLONOSCOPY DIAGNOST IC / SCREENING [91577 (CPT )] Start: 06-14-2024 End: 06-14-2024 Colonoscopy flx dx w/collj spec when pfrmd COLONOSCOPY DIAGNOSTIC / SCREENING rectal bleeding 06/14/2024 10:00 AM EDT [facility] Start: 06-14-2024 Subsequent hospital visit by physician 06/14/2024 10:00 AM EDT Hospital Encounter [facility] [address] [place] [id number] Purvi Neville, DO [address] [place] [address] [phone] [facility] Start: 05-25-2024 End: 05-25-2024 Patient encounter procedure 05/25/2024 2:15 PM EDT Procedure visit [facility] - Pre Admit [address] [place] [id number] [facility] - Pre Admit Start: 05-23-2024 End: 05-23-2024 Patient encounter procedure 05/23/2024 11:30 AM EDT Office Visit [facility] [address] [place] [id number] Bayron Reddy, RESEARCH LABORATORY SPECIALIST-BISQUE GRADER [address] [place] [address] [facility] Start: 04-15-2024 COVID-19 Vaccine ( season) COVID-19 Vaccine ( season) [facility] Start: 04-15-2024 COVID-19 Vaccine ( season) COVID-19 Vaccine () [facility] Start: 04-15-2024 Influenza vaccination Influenza Vacc ine [facility] Start: 09-22-2022 Adult BMI Screening Adult BMI Screen ing [facility] Start: 12-15-2004 Screening for malign ant neoplasm of cervix Pap Smear [facility] Start: 12-15-2001 Adult BMI Follow Up Plan Adult BMI Follow Up Plan [facility] Start: 1995 Depression Screening Depression Scre ening [facility] Start: 1995 Tobacco Screening Tobacco Screening [facility] End: 05-23-2025 Colonoscopy Colonoscopy GI Routine Rectal bleeding 1 Occurrences starting 05/23/2024 until 05/23/2025 [facility] Work Phone: Comment on above: 1 Occurrences starti ng 05/23/2024 until 05/23/2025 Payers Date Payer Category Payer Self-pay 2003 Medicaid [employer] [employer] [id number] 2003-Present [phone] [place] [id number] 2003 Medicaid HMO [employer] 1.2.840.040828.1.13.424.2.7.9. 384031.217.315 1985 Unknown [id number] 2.16.840.1.378688.3.579.2.593 1983 Unknown [id number] 2.16.840.1.545875.3.579.2.59 1983 Unknown [id number] 2.16.840.1.565453.3.579.2.593 1983 Unknown [id number] 2.16.840.1.578361.3.579.2.593 1983 Unknown [id number] 2.16.840.1.968691.3.579.2.593 1983 Unknown [id number] 2.16.840.1.969751.3.579.2.593 1983 Unknown [id number] 2.16.840.1.386631.3.579.2.593 1983 Unknown [id number] 2.16.840.1.646078.3.579.2.593 1983 Unknown [id number] 2.16.840.1.168458.3.579.2.593 1983 Unknown [id number] 2.16.840.1.812744.3.579.2.593 1983 Unknown [id number] 2.16.840.1.145548.3.579.2.593 1983 Unknown [id number] 2.16.840.1.956948.3.579.2.593 1983 Unknown [id number] 2.16.840.1.000838.3.579.2.9 1983 Unknown [id number] 2.16.840.1.460680.3.579.2.9 1983 Unknown [id number] 2.16.840.1.879286.3.579.2.9 1983 Unknown [id number] 2.16.840.1.485761.3.579.2.1285 1983 Unknown [id number] 2.16.840.1.969035.3.579.2.1285 1983 Unknown [id number] 2.16.840.1.948018.3.579.2.1285 1983 Unknown [id number] 2.16.840.1.679861.3.579.2.1285 1983 Unknown [id number] 2.16.840.1.899352.3.579.2.1285 1983 Unknown [id number] 2.16.840.1.902483.3.579.2.1285 1983 Unknown [id number] 2.16.840.1.490303.3.579.2.1285 1983 Unknown [id number] 2.16.840.1.968263.3.579.2.1286 1959 Unknown [id number] Social History Date Type Detail Facility Start: 09-22-2021 End: 05-23-2024 Tobacco smoking status COIS Ex-smoker [facility] End: 07-17-2021 History of tobacco use Current smoker [facility] End: 07-17-2021 History of tobacco use Cigarette Smoker [facility] Start: 09-22-2021 End: 05-23-2024 Tobacco use and exposure Smokeless tobacco non-user [facility] Start: 02-12-2022 End: 06-14-2024 Alcoholic beverage intake Ex-drinker (finding) [facility] Start: 09-25-2020 End: 02-12-2022 History of Social function [facility] Start: 09-25-2020 End: 02-12-2022 Tobacco use panel [facility] Childcare Unknown [facility] Start: 1985 Sex assigned at Female [facility] Start: 06-30-2021 Gender identity Identifies as female gender (finding) [facility] History of tobacco use Tobacco U se Types Packs/Day Years Used Date Smoking Tobacco: Former Vaping/E-cigarettes Smokeless Tobacco: Never [facility] Start: 03-20-2015 Sex Female (finding) [facility] Clinical Notes 05-26-2022 to 06-21-2024 Telephone [...] put in chart. documented in this encounter [facility] 06-21-2024 Telephone encounter Note ----- Message from Dr. Purvi Neville DO sent at 06/20/2024 1:05 PM EST ----- Please call patient let her know that she had a precancerous polyp and I recommend repeat colonoscopy in 5 years unless problems. Thanks, Dr. Reyna [facility] 06-21-2024 Telephone encounter Note Spoke with patient regarding pathology results. Patient verbally understood with no further questions. Recall to be put in chart. [facility] 05-25-2024 Instructions Sofiya Moreno RN - 05/25/2024 11:15 AM EDT Preoperative Education Checklist- General Surgery date: 06/14/24 Surgery time: 10a Arrival time: 8a 1. Bring a photo ID and your insurance card with you the day of surgery. You will check in at the main lobby of the [facility]- registration desk is straight ahead as soon as you walk in. Tell them you are here for surgery. 2. If you have a Living Will/Durable Power of Allocation Analyst for Health Care that is not on [...] after you have bathed. 5. NO nail ugandan/acrylic on at least one finger. If you are having a hand, wrist or foot surgery then all nail ugandan and artificial/acrylic nails must be removed from [...] please call the Preadmission Testing office at [phone], Mon.-Fri. 7 a.m.-3 p.m. Leave a voicemail [...] doctor for instructions documented in this encounter [facility] 05-23-2024 History of Presen t illness Narrative [...] patient/family/caregiver Referring and communicating with other health child care sitter Rectal bleeding [K62.5] BAYRON REDDY, RESEARCH LABORATORY SPECIALIST-BISQUE GRADER [facility] [place] This note was created with the assistance of a speech recognition program. While intending to generate a timely document that accurately reflects the content of the visit, no guarantee can be provided that every grammatical or spelling mistake has been or will be identified or corrected. Thank you for your understanding. [facility] 05/23/24 1239 documented in this encounter [facility] 05-16-2024 Miscellaneous Notes Called Eran regarding the rectal bleeding referral that our office received from Dr Quinn, left message on voicemail to call the office back to schedule an appointment. Eran called the office back and we scheduled her an appointment on 05/23/2024. documented in this encounter [facility] 05-16-2024 Telephone encounter Note Called Eran regarding the rectal bleeding referral that our office received from Dr Quinn, left message on voicemail to call the office back to schedule an appointment. [facility] 05-16-2024 Telephone encounter Note Eran called the office back and we scheduled her an appointment on 05/23/2024. [facility] 12-14-2022 Note CONSULTATION CONSULTATION DATE: 12/14/2022 TO: [facility] CHIEF COMPLAINT: Includes severe right mid [...] our patients to inform us about any gdls-gss-ilwerzk medications or herbal remedies/nutritional supplements/alternative remedies. 2. [...] options with their primary care provider. [facility] 08-30-2022 Note OPERATIVE NOTE OPERATION DATE: 08/30/2022 PROCEDURE: Da Beatriz assisted laparoscopy hysterectomy with bilateral salpingectomy with cystoscopy. PREOPERATIVE DIAGNOSIS: Abnormal uterine bleeding, menorrhagia, dysmenorrhea, dyspareunia, failed ablation, pelvic pain, uterine fibroids. POSTOPERATIVE DIAGNOSIS: Abnormal uterine bleeding, menorrhagia, dysmenorrhea, dyspareunia, failed ablation, pelvic pain, uterine fibroids. ANESTHESIA: General. SURGEON: Juan Arriaza D.O. AUTOMATION TECHNOLOGIST: FRANNIE Luu URINE OUTPUT: Yellow and clear. [...] Anesthesia first. Patient tolerated procedure well. [facility] 05-26-2022 Note OPERATIVE NOTE OPERATION DATE: 05/26/2022 PROCEDURE: Attempted D AND C hysteroscopy, diagnostic laparoscopy, lysis of omental adhesions from the anterior abdominal wall using a LigaSure. PREOPERATIVE DIAGNOSIS: Pelvic pain, dysmenorrhea, dyspareunia. POSTOPERATIVE DIAGNOSIS: Pelvic pain, dysmenorrhea, dyspareunia including endometriosis ANESTHESIA: General. SURGEON: Juan Arriaza D.O. AUTOMATION TECHNOLOGIST: FRANNIE Huizar URINE OUTPUT: Yellow and clear. [...] to Recovery Room in stable condition. [facility] 05-26-2022 Note OPERATIVE NOTE OPERATION DATE: 06/11/2022 ADDENDUM TO PROCEDURE: LigaSure apparatus was used to come across omental adhesions, extending to the anterior abdominal wall. This was released. Excellent hemostasis was assured. ADDENDUM TO POST-OP DIAGNOSIS: Significant uterine fibroids. [facility] Evaluation note Diagnosis Rectal bleeding- Primary [...] DATE CREATED AUTHOR AUTHOR'S ORGANIZ ATION 09/13/2023 [facility] EPIC DATE CREATED AUTHOR AUTHOR'S ORGANIZ ATION 05/25/2024 [facility] DATE CREATED AUTHOR AUTHOR'S ORGANIZ ATION 06/22/2024 [facility] DATE CREATED AUTHOR AUTHOR'S ORGANIZ ATION 09/11/2024 [facility] Care Teams (unrecognized sec tion and content) Credit Reference Clerk Relationship Specialty Start Date End Date Za Rogers MD [address] [place] [id number] PCP - General Family Medicine 05/16/24 Credit Reference Clerk Relationship Specialty Start Date End Date Za Rogers MD [address] [place] [id number] PCP - General Family Medicine 05/16/24 Credit Reference Clerk Relationship Specialty Start Date End Date Za Rogers MD [address] [place] [address] [id number] PCP - General Family Medicine 05/16/24 Credit Reference Clerk Relationship Specialty Start Date End Date Za Rogers MD [address] [place] [address] [phone] PCP - General Family Medicine 05/16/24 Reason [...] BE BASED ON THE PRIMARY CLINICAL RECORDS. [employer] provides no warranty or guarantee of the accuracy or completeness of information in this document.
[2024-10-02 08:39] VITALS: BP 154/76; PULSE 67; O2SAT 100
[2024-10-02 08:40] VITALS: BP 143/69; PULSE 77; O2SAT 100
[2024-10-02] MEDS: DEXAMETHASONE SOD PHOS 4 MG/ML VIAL INJ (08:58)
[2024-10-02] MEDS: BUPIVACAINE HCL 0.25% PF 25 MG/10 ML VIAL 4 ML INJ (08:58)
[2024-10-02] MEDS: LIDOCAINE HCL 2% 400 MG/20 ML MDV 12 ML INJ (08:59)
--- NOTE | 2024-10-02 09:38 | W.PM.PROCNOT ---
Date of procedure: 10/02/24 Pre-op diagnosis: Intercostal neuralgia Post-op diagnosis: same as pre-op Procedure: Right Thoracic 12/ Lumbar 1 Intercostal Radiofrequency ablation Under fluoroscopic guidance Rhizotomy was created using radio frequency ablation at 80?C for 90 seconds 1 to 2 lesions created at each site. Post lesioning injection of 2 mL each of 0.25% Marcaine and 2% lidocaine with Dexamethasone 4mg. 0.5 to 1 mL injected at each site IV in place no If Intravenous fluids: NS at KVO Anesthesia local 2% lidocaine for Anesthesia Other: local Timeout process compliant After informed consent obtained.Patient brought to the procedure room placed in the prone position skin overlying the area was prepped and draped in a sterile fashion using betadine. 25 gauge needle was used to create a skin wheal over each of the targeted areas utilizing 2% lidocaine. A rhizotomy needle with a 10 mm active tip was inserted over each of the anesthetized areas and directed towards each of the medial branches accomplished under fluoroscopic guidance. after encountering the same we had positive sensory stimulation, negative motor stimulation was noted. lesions were then created. Post lesioning, steroid solution was injected needles removed. Patient was transferred to recovery room in stable condition to be discharged home after meeting criteria. Anesthesia: Local Surgeon: Charla Oneill Condition: stable
== END 2024-10-02 09:05 | disposition home or self-care (01) ==
LOC: SURGOUT 07:50
PROVIDERS: PCP Family Medicine; Visit Provider Anesthesiology Pain Medicine
DX: G58.0 Intercostal neuropathy (principal)
CPT/HCPCS: 64620; J0665; J1100

== ENCOUNTER 2024-10-30 21:21 | Outpatient (REF) | payer OTHER, SELFPAY ==
--- OUTSIDE RECORDS SUMMARY | 2024-10-30 21:24 | XMS_ITS | CCD ---
Author Organization [facility] Care Team Providers Care Thread Reeler Name Role Phone GISELLA ., DR MARTINEZ Consulting Unavailable GISELLA ., DR MARTINEZ Attending Unavailable [facility] Unava ilable GISELLA ., DR MARTINEZ Admitting Unavailable GISELLA ., DR MARTINEZ Consulting Unavailable GISELLA ., DR MARTINEZ Attending Unavailable [facility] Unava ilable GISELLA ., DR MARTINEZ Admitting Unavailable GISELLA ., DR MARTINEZ Attending Unavailable [facility] Unava ilable GISELLA ., DR MARTINEZ Consulting Unavailable GISELLA ., DR MARTINEZ Admitting Unavailable GISELLA ., DR MARTINEZ Admitting Unavailable GISELLA ., DR MARTINEZ Attending Unavailable [facility] Unava ilable GISELLA ., DR MARTINEZ Consulting Unavailable JUAN CLARK Consulting Unavailable KIANANICK Consulting Unava ilable GISELLA ., DR MARTINEZ Consulting Unavailable GISELLA ., DR MARTINEZ Attending Unavailable GISELLA ., DR MARTINEZ Admitting Unavailable [facility] Care Unava ilable GISELLA ., DR MARTINEZ Consulting Unavailable GISELLA ., DR MARTINEZ Attending Unavailable GISELLA ., DR MARTINEZ Admitting Unavailable [facility] Care Unava ilable GISELLA ., DR MARTINEZ Consulting Unavailable GISELLA ., DR MARTINEZ Attending Unavailable GISELLA ., DR MARTINEZ Admitting Unavailable [facility] Unava ilable CHANDRALAG, RASHID Primary Care Unavailable ZIEBER, DR DIANA Del Real Consulting Unavailable LAKSHMIPATHY ., NARENDRANATH Attending Ivy vailable LAKSHMIPATHY ., NARENDRANATH Admitting Ivy vailable LAKSHMIPATHY ., NARENDRANATH Consulting Ivy vailable GISELLA ., DR MARTINEZ Attending Unavailable [facility] Primary Care Unava ilable GISELLA ., DR MARTINEZ Admitting Unavailable ANTONIO BRADLEY Consulting Unavailable GISELLA ., DR MARTINEZ Consulting Unavailable [facility] Consulting Unava ilable GISELLA ., DR MARTINEZ Consulting Unavailable GISELLA ., DR MARTINEZ Attending Unavailable [facility] Primary Care Unava ilable GISELLA ., DR MARTINEZ Admitting Unavailable SHARP, MEHREEN Consulting Unavailable DALTON II, RIOS Consulting Unavailable FILUTZE, BAYRON Consulting Unavailable LAKSHMIPATHY ., NARENDRANATH Consulting Ivy vailable LAKSHMIPATHY ., NARENDRANATH Attending Ivy vailable RUMDAISHA HANEYTY Primary Care Unavailable LAKSHMIPATHY ., NARLIVATH Admitting Ivy vailable GISELLA ., DR MARTINEZ Attending Unavailable GISELLA ., DR MARTINEZ Admitting Unavailable GISELLA ., DR MARTINEZ Consulting Unavailable [facility] Primary Care Unava ilable LAY RUIZ Attending Unavailable LAY RUIZ Attending Unavailable LAY RUIZ Attending Unavailable BAYRON REDDY A Attending Unavailable ROGERS, ZA L Referring Unavailable ROGERS, ZA L Primary Care Unavailable LAY RUIZ Referring Unavailable SERVICES, [facility] Primary Care Unava ilable MILLY COVINGTON Referring Unavailable SERVICES, [facility] Care Unava ilable ROGERS, ZA L Referring Unavailable ROGERS, ZA L Primary Care Unavailable ANTONIO DRAPER Attending Unavailable ANTONIO DRAPER Referring Unavailable ROGERS, ZA L Primary Care Unavailable ANTONIO DRAPER Referring Unavailable ROGERS, ZA L Primary Care Unavailable PURVI NEVILLE Admitting Unavailable PURVI NEVILLE Attending Unavailable ROGERS, ZA L Primary Care Unavailable MILLY COVINGTON Referring Unavailable SERVICES, [facility] Primary Care Unava ilable Jaime Burr Attending Unavailab Jaime Canas Admitting Unavailab concepción NON STAFF Primary Care Unavailable Za Rogers MD Primary Care Provider Allergies Allergy Classification Reported Allergen(s) Allergy Type Date of Onset Reaction(s) Facility (5 sources) Penicillins; Translations: [PENICILLINS] Drug allergy (disorder) 7 [facility] Repository (4 sources) Penicillins Propensity to adverse [...] Drug Class(es) Dates Sig (Normalized) Sig (Original) [id number] 200 actuat albuterol 0.09 mg/actuat metered dose [...] Facility Surgical Pathologyon 024 Surgical Pathology Normal [facility] Comment on above: Result Comment: [facility] [employer] [facility] [address] [place] [address] Surgical Pathology Consultation Patient Name:ERAN WINN:1985 (Age: 38)Gender:FTaken:4Reported:06/20/2024hysician(s):Purvi Neville D.O. ([phone])Copy To: Rec. #:[id number]: #[id number] Final Pathologic Diagnosis Sigmoid colon polyp, biopsy: Tubular adenoma. Report Electronically Signed Out nxk/06/20/2024Fermín Lunsford MD Interpretation performed at [facility], [address] [place] [address], License number: [id number]. Clinical History Rectal bleeding. Gross Description Received in formalin labeled TATUM sigmoid colon polyp are two brown pedunculated polyps, 1.1 x 0.7 x 0.4 cm and 0.6 x 0.5 x 0.3 cm. The resection margins are inked black and green. The larger polyp is trisected. The smaller polyp is bisected. These are submitted in a single cassette. (1, ns, [id number],m3) DM. dm/06/16/2024NSK Specimen(s) Received Sigmoid colon polyp Fee Codes(s): 1; 78940 BASIC METABOLIC PANLon 05-25 Anion gap [Moles/Vol] 8 mmol/L Normal 5-15 [facility] Comment on above: Performed By: #### B MP #### [facility] ([id number]) [address] [facility] [address] [place] [address] Calcium [Mass/Vol] 9.1 mg/dL Normal 8.5-10.5 [facility] Comment on above: Performed By: #### B MP #### [facility] ([id number]) [address] [facility] [address] [place] [address] Chloride [Moles/Vol] 103 mmol/L Normal 98-109 [facility] Comment on above: Performed By: #### B MP #### [facility] ([id number]) [address] [facility] [address] [place] [address] CO2 [Moles/Vol] 26 mmol/L Normal 22-32 [facility] Comment on above: Performed By: #### B MP #### [facility] ([id number]) [address] [facility] [address] [place] [address] Creatinine [Mass/Vol] 0.86 mg/dL Normal 0.40-1.00 [facility] Comment on above: Result Comment: METH OD TRACEABLE TO IDMS STANDARD Performed By: #### B MP #### [facility] ([id number]) [address] [facility] [address] [place] [address] GFR/1.73 sq M.predicted among non-blacks MDRD (S/P/Bld) [Vol rate/Area] 88 mL/min/{1.73_m2} Normal >59 [facility] Comment on above: Result Comment: Reported eGFR is based on the CKD-EPI 2020 equation that does not use a race coefficient. Performed By: #### B MP #### [facility] ([id number]) [address] [address] [place] [address] Glucose [Mass/Vol] 90 mg/dL Normal 65-99 [facility] Comment on above: Performed By: #### B MP #### [facility] ([id number]) [address] [facility] [address] [place] [address] Potassium [Moles/Vol] 3.9 mmol/L Normal 3.5-5.0 [facility] Comment on above: Performed By: #### B MP #### [facility] ([id number]) [address] [place] [address] Sodium [Moles/Vol] 137 mmol/L Normal 134-146 [facility] Comment on above: Performed By: #### B MP #### [facility] ([id number]) [address] [place] [address] Urea nitrogen [Mass/Vol] 14 mg/dL Normal 5-23 [facility] Comment on above: Performed By: #### B MP #### [facility] ([id number]) [address] [place] [address] US PELVIC WITH TRANSVAGINALo n 08-09-2023 US [...] Sexton MD on 08/09/2023 2:33 PM Normal [facility] XR LSPINE 2_3 VIEWSon 2022 XR [...] DIANA LUONG Date: 2022-12-14 16:25 Normal [facility] BUNon 08-31-2022 Urea nitrogen [Mass/Vol] 9.0 mg/dL Normal 7.0-18.[address] [facility] Comment on above: Performed By: #### C BC #### [facility] [address] [address] [address] Rose Lafleur CBC AUTO DIFFon 08-31-2022 BASO # 0.0 103/ul Normal 0.0-0.[address] [facility] Comment on above: Performed By: #### C BC #### [facility] [address] [address] [address] Rose Lafleur Basophils/100 WBC (Bld) 0.1 % Critically low 0.2-2.[address] [facility] Comment on above: Performed By: #### C BC #### [facility] [address] [place] [address] Dr. Rose Lafleur EO # 0.0 103/ul Normal 0.0-0.[address] [facility] Comment on above: Performed By: #### C BC #### [facility] [address] [place] [address] Dr. Rose Lafleur Eosinophils/100 WBC (Bld) 0.0 % Critically low 0.9-7.[address] [facility] Comment on above: Performed By: #### C BC #### [facility] [address] [place] [address] Dr. Rose Lafleur Erythrocyte distribution width (RBC) [Ratio] 13.2 % Normal 11.0-15.[address] [facility] Comment on above: Performed By: #### C BC #### [facility] [address] [place] [address] Dr. Rose Lafleur Hematocrit (Bld) [Volume fraction] 38.5 % Normal 36.0-48.[address] [facility] Comment on above: Performed By: #### C BC #### [facility] [address] [place] [address] Dr. Rose Lafleur Hemoglobin (Bld) [Mass/Vol] 12.7 g/dL Normal 12.0-16.[address] [facility] Comment on above: Performed By: #### C BC #### [facility] [address] [place] [address] Dr. Rose Lafleur IG # 0.07 10e3/ul Critically high 0.00-0.03 [facility] Comment on above: Performed By: #### C BC #### [facility] [address] [place] [address] Dr. Rose Lafleur IG % 0.4 % Normal 0.0-0.[address] [facility] Comment on above: Performed By: #### C BC #### [facility] [address] [place] [address] Dr. Rose Lafleur LYMPH # 2.3 103/ul Normal 1.2-3.[address] [facility] Comment on above: Performed By: #### C BC #### [facility] [address] [address] [address] Rose Lafleur Lymphocytes/100 WBC (Bld) 14.3 % Critically low 20.5-60.[address] [facility] Comment on above: Performed By: #### C BC #### [facility] [address] [address] [address] Rose Lafleur MANUAL DIFF REQ NO Normal [facility] Comment on above: Performed By: #### C BC #### [facility] [address] [place] [address] Dr. Rose Lafleur MCH (RBC) [Entitic mass] 28.6 pg Normal 26.7-34.0 [facility] Comment on above: Performed By: #### C BC #### [facility] [address] [place] [address] Dr. Rose Lafleur MCHC (RBC) [Mass/Vol] 33.0 g/dL Normal 29.9-35.2 [facility] Comment on above: Performed By: #### C BC #### [facility] [address] [place] [address] Dr. Rose Lafleur MCV (RBC) [Entitic vol] 86.7 fL Normal 81.0-99.0 [facility] Comment on above: Performed By: #### C BC #### [facility] [address] [place] [address] Dr. Rose Lafleur MONO # 0.9 103/ul Critically high 0.3-0.8 [facility] Comment on above: Performed By: #### C BC #### [facility] [address] [place] [address] Dr. Rose Lafleur Monocytes/100 WBC (Bld) 5.5 % Normal 1.7-12.0 [facility] Comment on above: Performed By: #### C BC #### [facility] [address] [place] [address] Dr. Rose Lafleur NEUT # 12.8 103/ul Critically high 1.4-6.5 [facility] Comment on above: Performed By: #### C BC #### [facility] [address] [address] [address] Rose Lafleur Neutrophils/100 WBC (Bld) 79.7 % Critically high 43.0-75.0 [facility] Comment on above: Performed By: #### C BC #### [facility] [address] [place] [address] Dr. Rose Lafleur Platelet mean volume (Bld) [Entitic vol] 8.9 fL Critically low 9.5-13.5 [facility] Comment on above: Performed By: #### C BC #### [facility] [address] [address] [address] Rose Lafleur PLT 330 103/ul Normal 150-450 [facility] Comment on above: Performed By: #### C BC #### [facility] [address] [place] [address] Dr. Rose Lafleur RBC 4.44 106/ul Normal 4.20-5.40 [facility] Comment on above: Performed By: #### C BC #### [facility] [address] [place] [address] Dr. Rose Lafleur WBC 16.1 103/ul Critically high 4.0-11.0 [facility] Comment on above: Performed By: #### C BC #### [facility] [address] [place] [address] Dr. Rose Lafleur CREATININEon 08-31-2022 Creatinine [Mass/Vol] 0.59 mg/dL Normal 0.55-1.02 [facility] Comment on above: Performed By: #### C BC #### [facility] [address] [place] [address] Dr. Rose Lafleur EGFR-AF [place] ISLANDER >60 Normal >=60 [facility] Comment on above: Performed By: #### C BC #### [facility] [address] [place] [address] Dr. Rose Lafleur EGFR-NON AF [place] ISLANDER >60 Normal >=60 [facility] Comment on above: Performed By: #### C BC #### [facility] [address] [place] [address] Dr. Rose Lafleur PREG HCG QUALon 08-30-2022 , QUAL Negative Normal NEGATIVE [facility] Comment on above: Performed By: #### P REG #### [facility] [address] [place] [address] Dr. Rose Lafleur [facility]15 SARS-CoV-2 (COVID-19) RNA RUDY+probe Ql (Unsp spec) Not detected Normal NOT DETECTED [facility] Comment on above: Result Comment: This test is not yet approved or cleared by the [place] FDA. When there are no FDA-approved or cleared tests available, and other criteria are met, FDA can make tests available under an emergency access mechanism called an Emergency Use Authorization (EUA). The EUA for this test is supported by the Chisel Grinder of Health and Human Service's (HHS's) declaration [...] SARS-CoV-2. Performed By: #### L DH #### [facility] [address] [place] [address] Dr. Rose Lafleur TYPE AND SCREENon 08-26-2022 TYPE AND SCREEN Negative Normal [facility] Comment on above: Performed By: #### L DH #### [facility] [address] [place] [address] Dr. Rose Lafleur CBC AUTO DIFFon 08-16-2022 BASO # 0.0 103/ul Normal 0.0-0.[address] [facility] Comment on above: Performed By: #### C BC #### [facility] [address] [place] [address] Dr. Rose Lafleur Basophils/100 WBC (Bld) 0.3 % Normal 0.2-2.[address] [facility] Comment on above: Performed By: #### C BC #### [facility] [address] [place] [address] Dr. Rose Lafleur EO # 0.2 103/ul Normal 0.0-0.[address] [facility] Comment on above: Performed By: #### C BC #### [facility] [address] [place] [address] Dr. Rose Lafleur Eosinophils/100 WBC (Bld) 1.7 % Normal 0.9-7.[address] [facility] Comment on above: Performed By: #### C BC #### [facility] [address] [place] [address] Dr. Rose Lafleur Erythrocyte distribution width (RBC) [Ratio] 13.1 % Normal 11.0-15.[address] [facility] Comment on above: Performed By: #### C BC #### [facility] [address] [place] [address] Dr. Rose Lafleur Hematocrit (Bld) [Volume fraction] 40.6 % Normal 36.0-48.[address] [facility] Comment on above: Performed By: #### C BC #### [facility] [address] [place] [address] Dr. Rose Lalfeur Hemoglobin (Bld) [Mass/Vol] 13.4 g/dL Normal 12.0-16.[address] [facility] Comment on above: Performed By: #### C BC #### [facility] [address] [place] [address] Dr. Roes Lafleur IG # 0.02 10e3/ul Normal 0.00-0.[address] [facility] Comment on above: Performed By: #### C BC #### [facility] [address] [place] [address] Dr. Rose Lafleur IG % 0.2 % Normal 0.0-0.5 [facility] Comment on above: Performed By: #### C BC #### [facility] [address] [place] [address] Dr. Rose Lafleur LYMPH # 2.8 103/ul Normal 1.2-3.8 [facility] Comment on above: Performed By: #### C BC #### [facility] [address] [place] [address] Dr. Rose Lafleur Lymphocytes/100 WBC (Bld) 31.7 % Normal 20.5-60.[address] [facility] Comment on above: Performed By: #### C BC #### [facility] [address] [place] [address] Dr. Rose Lafleur MANUAL DIFF REQ NO Normal [facility] Comment on above: Performed By: #### C BC #### [facility] [address] [place] [address] Dr. Rose Lafleur MCH (RBC) [Entitic mass] 28.5 pg Normal 26.7-34.[address] [facility] Comment on above: Performed By: #### C BC #### [facility] [address] [place] [address] Dr. Rose Lafleur MCHC (RBC) [Mass/Vol] 33.0 g/dL Normal 29.9-35.2 [facility] Comment on above: Performed By: #### C BC #### [facility] [address] [place] [address] Dr. Rose Lafleur MCV (RBC) [Entitic vol] 86.4 fL Normal 81.0-99.[address] [facility] Comment on above: Performed By: #### C BC #### [facility] [address] [place] [address] Dr. Rose Lafleur MONO # 0.6 103/ul Normal 0.3-0.8 [facility] Comment on above: Performed By: #### C BC #### [facility] [address] [place] [address] Dr. Rose Lafleur Monocytes/100 WBC (Bld) 6.8 % Normal 1.7-12.0 [facility] Comment on above: Performed By: #### C BC #### [facility] [address] [place] [address] Dr. Rose Lafleur NEUT # 5.1 103/ul Normal 1.4-6.5 [facility] Comment on above: Performed By: #### C BC #### [facility] [address] [place] [address] Dr. Rose Lafleur Neutrophils/100 WBC (Bld) 59.3 % Normal 43.0-75.[address] [facility] Comment on above: Performed By: #### C BC #### [facility] [address] [place] [address] Dr. Rose Lafleur Platelet mean volume (Bld) [Entitic vol] 8.9 fL Critically low 9.5-13.[address] [facility] Comment on above: Performed By: #### C BC #### [facility] [address] [place] [address] Dr. Rose Lafleur PLT 312 103/ul Normal 150-[address] [facility] Comment on above: Performed By: #### C BC #### [facility] [address] [place] [address] Dr. Rose Lafleur RBC 4.70 106/ul Normal 4.20-5.[address] [facility] Comment on above: Performed By: #### C BC #### [facility] [address] [place] [address] Dr. Rose Lafleur WBC 8.7 103/ul Normal 4.0-11.[address] [facility] Comment on above: Performed By: #### C BC #### [facility] [address] [place] [address] Dr. Rose Lafleur LIVER PROFILEon 08-16-2022 Albumin [Mass/Vol] 2.9 g/dL Critically low 3.4-5.0 [facility] Comment on above: Performed By: #### B MP, LIVER #### [facility] [address] [place] [address] Dr. Rose Lafleur Albumin/Globulin [Mass ratio] 0.6 {ratio} Normal [facility] Comment on above: Performed By: #### B MP, LIVER #### [facility] [address] [place] [address] Dr. Rose Lafleur ALP [Catalytic activity/Vol] 121 U/L Critically high 46-[address] [facility] Comment on above: Performed By: #### B MP, LIVER #### [facility] [address] [place] [address] Dr. Rose Lafleur ALT [Catalytic activity/Vol] 21 U/L Normal 14-[address] [facility] Comment on above: Performed By: #### B MP, LIVER #### [facility] [address] [place] [address] Dr. Rose Lafleur AST [Catalytic activity/Vol] 20 U/L Normal 15-[address] [facility] Comment on above: Performed By: #### B MP, LIVER #### [facility] [address] [place] [address] Dr. Rose Lafleur BILI, CONJUGATED 0.1 mg/dL Normal 0.0-0.2 [facility] Comment on above: Performed By: #### B MP, LIVER #### [facility] [address] [place] [address] Dr. Rose Lafleur Bilirubin [Mass/Vol] 0.3 mg/dL Normal 0.2-1.[address] [facility] Comment on above: Performed By: #### B MP, LIVER #### [facility] [address] [place] [address] Dr. Rose Lafleur Globulin (S) [Mass/Vol] 4.8 g/dL Normal [facility] Comment on above: Performed By: #### B MP, LIVER #### [facility] [address] [place] [address] Dr. Rose Lafleur Protein [Mass/Vol] 7.7 g/dL Normal 6.4-8.2 [facility] Comment on above: Performed By: #### B MP, LIVER #### [facility] [address] [place] [address] Dr. Rose Lafleur PROF CHEM 8 (BAS METB)on Anion gap [Moles/Vol] 10.9 mmol/L Normal [facility] Comment on above: Performed By: #### B MP, LIVER #### [facility] [address] [place] [address] Dr. Rose Lafleur Calcium [Mass/Vol] 8.8 mg/dL Normal 8.5-10.1 [facility] Comment on above: Performed By: #### B MP, LIVER #### [facility] [address] [address] [address] Rose Lafleur Chloride [Moles/Vol] 102 mmol/L Normal 98-[address] [facility] Comment on above: Performed By: #### B MP, LIVER #### [facility] [address] [address] [address] Rose Lafleur CO2 [Moles/Vol] 26.1 mmol/L Normal 21.0-32.0 [facility] Comment on above: Performed By: #### B MP, LIVER #### [facility] [address] [address] [address] Rose Lafleur Creatinine [Mass/Vol] 0.64 mg/dL Normal 0.55-1.[address] [facility] Comment on above: Performed By: #### B MP, LIVER #### [facility] [address] [place] [address] Dr. Rose Lafleur EGFR-AF CAY[place] ISLANDER >60 Normal >=60 [facility] Comment on above: Performed By: #### B MP, LIVER #### [facility] [address] [place] [address] Dr. Rose Lafleur EGFR-NON AF [place] ISLANDER >60 Normal >=[address] [facility] Comment on above: Performed By: #### B MP, LIVER #### [facility] [address] [place] [address] Dr. Rose Lafleur Glucose [Mass/Vol] 90 mg/dL Normal 74-106 [facility] Comment on above: Performed By: #### B MP, LIVER #### [facility] [address] [place] [address] Dr. Rose aLfleur Potassium [Moles/Vol] 4.0 mmol/L Normal 3.5-5.[address] [facility] Comment on above: Performed By: #### B MP, LIVER #### [facility] [address] [address] [address] Rose Lafleur Sodium [Moles/Vol] 135 mmol/L Critically low 136-145 [facility] Comment on above: Performed By: #### B MP, LIVER #### [facility] [address] [place] [address] Dr. Rose Lafleur Urea nitrogen [Mass/Vol] 12.0 mg/dL Normal 7.0-18.[address] [facility] Comment on above: Performed By: #### B MP, LIVER #### [facility] [address] [address] [address] Rose Lafleur Urea nitrogen/Creatinin e [Mass ratio] 18.8 mg/mg Normal [facility] Comment on above: Performed By: #### B MP, LIVER #### [facility] [address] [place] [address] Dr. Rose Lafleur PROTIMEon 08-16-2022 INR Coag (PPP) [Relative time] 0.95 {INR} Normal [facility] Comment on above: Performed By: #### C BC #### [facility] [address] [place] [address] Dr. Rose Lafleur INR GUIDELINES SEE BELOW Normal [facility] Comment on above: Result Comment: JAYLYN RED INR: 2.0 - 3.0 CONDITIONS NOT LISTED BELOW 2.5 - 3.5 FOR PROSTHETIC HEART VALVE REPLACEMENT 2.5 - 3.5 RECURRENT THROMBOSIS Performed By: #### C BC #### [facility] [address] [place] [address] Dr. Rose Lafleur PT Coag (PPP) [Time] 10.3 s Normal 9.0-11.[address] [facility] Comment on above: Performed By: #### C BC #### [facility] [address] [place] [address] Dr. Rose Lafleur PTTon 08-16-2022 aPTT Coag (Bld) [Time] 32.0 s Normal 22.3-36.[address] [facility] Comment on above: Performed By: #### C BC #### [facility] [address] [place] [address] Dr. Rose Lafleur GLYCOHEMOGLOBIN A1Con 2021 ADA RECOMMENDATION SEE BELOW Normal [facility] Comment on above: Result Comment: ADA RECOMMENDED LIMIT 4.0 - 6.0 ADA THERAPEUTIC TARGET < 7.0 ACTION SUGGESTED > 7.0 Performed By: #### C BC #### [facility] [address] [address] [address] Rose Lafleur Glucose [Mass/Vol] 108 mg/dL Normal [facility] Comment on above: Performed By: #### C BC #### [facility] [address] [address] [address] Rose Lafleur HbA1c (Bld) [Mass fraction] 5.4 % Normal 4.5-6.[address] [facility] Comment on above: Performed By: #### C BC #### [facility] [address] [address] [address] Rose Lafleur PAP ACOG PANEL 2: 30 to 63on 07-14-2022 . . Normal [facility] Comment on above: Result Comment: Perf ormed at: WB Performed By: #### C BC #### [facility] [address] [place] [address] Dr. Rose Lafleur Age Gdln ACOG Testing -[address] [facility] Comment on above: Performed By: #### C BC #### [facility] [address] [address] [address] Rose Lafleur DIAGNOSIS: Comment Normal [facility] Comment on above: Result Comment: NEGA TIVE FOR INTRAEPITHELIAL LESION OR MALIGNANCY. CELLULAR CHANGES ASSOCIATED WITH INFLAMMATION ARE PRESENT. Performed at: WB Performed By: #### C BC #### [facility] [address] [place] [address] Dr. Rose Lafleur HPV Aptima Negative Normal Negative [facility] Comment on above: Result Comment: This nucleic acid amplification test detects fourteen high-risk HPV types (16,18,31,33,35,39,45,51,52,56,58,59,66,68) without differentiation. Performed at: =G Performed By: #### C BC #### [facility] [address] [place] [address] Dr. Rose Lafleur HPV Genotype Reflex Comment Normal [facility] Comment on above: Result Comment: Crit eria not met, HPV Genotype not performed. Performed at: WB Performed By: #### C BC #### [facility] [address] [place] [address] Dr. Rose Lafleur Methodology: CTIM Normal [facility] Comment on above: Result Comment: [employer] was unable to read this specimen. Therefore a manual review was performed. Performed at: WB Performed By: #### C BC #### [facility] [address] [place] [address] Dr. Rose Lafleur Note: Comment Normal [facility] Comment on above: Result Comment: The Pap smear is a screening test designed to aid in the detection of premalignant and malignant conditions of the uterine cervix. It is not a diagnostic procedure and should not be used as the sole means of detecting cervical cancer. Both false-positive and false-negative reports do occur. . Performed at: WB Performed By: #### C BC #### [facility] [address] [place] [address] Dr. Rose Lafleur Performed by: Comment Normal [facility] Comment on above: Result Comment: Carlos Wolff, Motor Electrician (ASCP) Performed at: WB Performed By: #### C BC #### [facility] [address] [place] [address] Dr. Rose Lafleur Specimen adequacy: Comment Normal [facility] Comment on above: Result Comment: Sati sfactory for evaluation. No endocervical component is identified. Performed at: WB Performed By: #### C BC #### [facility] [address] [place] [address] Dr. Rose Lafleur CBC AUTO DIFFon 05-26-2022 BASO # 0.0 103/ul Normal 0.0-0.[address] [facility] Comment on above: Performed By: #### C BC #### [facility] [address] [place] [address] Dr. Rose Lafleur Basophils/100 WBC (Bld) 0.4 % Normal 0.2-2.[address] [facility] Comment on above: Performed By: #### C BC #### [facility] [address] [place] [address] Dr. Rose Lafleur EO # 0.1 103/ul Normal 0.0-0.[address] [facility] Comment on above: Performed By: #### C BC #### [facility] [address] [place] [address] Dr. Rose Lafleur Eosinophils/100 WBC (Bld) 1.2 % Normal 0.9-7.[address] [facility] Comment on above: Performed By: #### C BC #### [facility] [address] [place] [address] Dr. Rose Lafleur Erythrocyte distribution width (RBC) [Ratio] 13.6 % Normal 11.0-15.[address] [facility] Comment on above: Performed By: #### C BC #### [facility] [address] [place] [address] Dr. Rose Lafleur Hematocrit (Bld) [Volume fraction] 41.6 % Normal 36.0-48.[address] [facility] Comment on above: Performed By: #### C BC #### [facility] [address] [place] [address] Dr. Rose Lafleur Hemoglobin (Bld) [Mass/Vol] 13.3 g/dL Normal 12.0-16.[address] [facility] Comment on above: Performed By: #### C BC #### [facility] [address] [place] [address] Dr. Rose Lafleur IG # 0.03 10e3/ul Normal 0.00-0.[address] [facility] Comment on above: Performed By: #### C BC #### [facility] [address] [place] [address] Dr. Rose Lafleur IG % 0.3 % Normal 0.0-0.5 [facility] Comment on above: Performed By: #### C BC #### [facility] [address] [place] [address] Dr. Rose Lafleur LYMPH # 3.8 103/ul Normal 1.2-3.8 [facility] Comment on above: Performed By: #### C BC #### [facility] [address] [place] [address] Dr. Rose Lafleur Lymphocytes/100 WBC (Bld) 39.8 % Normal 20.5-60.[address] [facility] Comment on above: Performed By: #### C BC #### [facility] [address] [place] [address] Dr. Rose Lafleur MANUAL DIFF REQ NO Normal [facility] Comment on above: Performed By: #### C BC #### [facility] [address] [place] [address] Dr. Rose Lafleur MCH (RBC) [Entitic mass] 28.5 pg Normal 26.7-34.[address] [facility] Comment on above: Performed By: #### C BC #### [facility] [address] [place] [address] Dr. Rose Lafleur MCHC (RBC) [Mass/Vol] 32.0 g/dL Normal 29.9-35.[address] [facility] Comment on above: Performed By: #### C BC #### [facility] [address] [place] [address] Dr. Rose Lafleur MCV (RBC) [Entitic vol] 89.3 fL Normal 81.0-99.[address] [facility] Comment on above: Performed By: #### C BC #### [facility] [address] [place] [address] Dr. Rose Lafleur MONO # 0.6 103/ul Normal 0.3-0.[address] [facility] Comment on above: Performed By: #### C BC #### [facility] [address] [place] [address] Dr. Rose Lafleur Monocytes/100 WBC (Bld) 6.5 % Normal 1.7-12.[address] [facility] Comment on above: Performed By: #### C BC #### [facility] [address] [place] [address] Dr. Rose Lafleur NEUT # 4.9 103/ul Normal 1.4-6.5 [facility] Comment on above: Performed By: #### C BC #### [facility] [address] [place] [address] Dr. Rose Lafleur Neutrophils/100 WBC (Bld) 51.8 % Normal 43.0-75.0 [facility] Comment on above: Performed By: #### C BC #### [facility] [address] [address] [address] Rose Lafleur Platelet mean volume (Bld) [Entitic vol] 8.9 fL Critically low 9.5-13.[address] [facility] Comment on above: Performed By: #### C BC #### [facility] [address] [place] [address] Dr. Rose Lafleur PLT 310 103/ul Normal 150-450 [facility] Comment on above: Performed By: #### C BC #### [facility] [address] [place] [address] Dr. Rose Lafleur RBC 4.66 106/ul Normal 4.20-5.[address] [facility] Comment on above: Performed By: #### C BC #### [facility] [address] [place] [address] Dr. Rose Lafleur WBC 9.5 103/ul Normal 4.0-11.[address] [facility] Comment on above: Performed By: #### C BC #### [facility] [address] [place] [address] Dr. Rose Lafleur PREG HCG QUALon 05-26-2022 , QUAL Negative Normal NEGATIVE [facility] Comment on above: Performed By: #### P REG #### [facility] [address] [place] [address] Dr. Rose Lafleur [facility] SARS-CoV-2 (COVID-19) RNA RUDY+probe Ql (Unsp spec) Not detected Normal NOT DETECTED [facility] Comment on above: Result Comment: This test is not yet approved or cleared by the [place] FDA. When there are no FDA-approved or cleared tests available, and other criteria are met, FDA can make tests available under an emergency access mechanism called an Emergency Use Authorization (EUA). The EUA for this test is supported by the [place] of Health and Human Service's (HHS's) declaration [...] SARS-CoV-2. Performed By: #### C BC #### [facility] [address] [place] [address] Dr. Rose Lafleur AFP (TUMOR MARKER)on 022 AFP, Serum, Tumor Marker 1.6 ng/mL Normal 0.0-6.[address] [facility] Comment on above: Result Comment: [employer] Electrochemiluminescence Immunoassay (ECLIA) . Values obtained with different assay methods or kits cannot be used interchangeably. Results cannot be interpreted as absolute evidence of the presence or absence of malignant disease. . This test is not interpretable in females. Performed By: #### C BC #### [facility] [address] [place] [address] Dr. Rose Lafleur CA 125on 05-07-2022 Cancer Antigen (CA) 125 17.1 U/mL Normal 0.0-38.1 [facility] Comment on above: Result Comment: [employer] Electrochemiluminescence Immunoassay (ECLIA) . Values obtained with different assay methods or kits cannot be used interchangeably. Results cannot be interpreted as absolute evidence of the presence or absence of malignant disease. Performed By: #### L DH #### [facility] [address] [place] [address] Dr. Rose Lafleur CEAon 05-07-2022 CEA 1.6 ng/mL Normal 0.0-4.7 [facility] Comment on above: Result Comment: Nons mokers <3.9 Smokers <5.6 . [employer] Electrochemiluminescence Immunoassay (ECLIA) . Values obtained with different assay methods or kits cannot be used interchangeably. Results cannot be interpreted as absolute evidence of the presence or absence of malignant disease. Performed By: #### C BC #### [facility] [address] [place] [address] Dr. Rose Lafleur HCG QUANT TUMOR MARKERon HCG QNT TUMOR MARKER <[address] [facility] Comment on above: Result Comment: Fema le [...] developed and its performance characteristics determined by [employer]. It has not been cleared or approved by the Food and Drug Administration for use as a tumor marker. . This test is not interpretable as a tumor marker in females. Performed By: #### C BC #### [facility] [address] [place] [address] Dr. Rose Lafleur LDHon 05-05-2022 LDH 269 U/L Critically high 81-234 [facility] Comment on above: Performed By: #### L DH #### [facility] [address] [place] [address] Dr. Rose Lafleur CBC AUTO DIFFon 04-21-2022 BASO # 0.0 103/ul Normal 0.0-0.[address] [facility] Comment on above: Performed By: #### L DH #### [facility] [address] [place] [address] Dr. Rose Lafleur Basophils/100 WBC (Bld) 0.3 % Normal 0.2-2.[address] [facility] Comment on above: Performed By: #### L DH #### [facility] [address] [place] [address] Dr. Rose Lafleur EO # 0.1 103/ul Normal 0.0-0.[address] [facility] Comment on above: Performed By: #### L DH #### [facility] [address] [place] [address] Dr. Rose Lafleur Eosinophils/100 WBC (Bld) 0.7 % Critically low 0.9-7.0 [facility] Comment on above: Performed By: #### L DH #### [facility] [address] [place] [address] Dr. Rose Lafleur Erythrocyte distribution width (RBC) [Ratio] 13.9 % Normal 11.0-15.[address] [facility] Comment on above: Performed By: #### L DH #### [facility] [address] [place] [address] Dr. Rose Lafleur Hematocrit (Bld) [Volume fraction] 41.5 % Normal 36.0-48.[address] [facility] Comment on above: Performed By: #### L DH #### [facility] [address] [place] [address] Dr. Rose Lafleur Hemoglobin (Bld) [Mass/Vol] 13.4 g/dL Normal 12.0-16.[address] [facility] Comment on above: Performed By: #### L DH #### [facility] [address] [place] [address] Dr. Rose Lafleur IG # 0.03 10e3/ul Normal 0.00-0.[address] [facility] Comment on above: Performed By: #### L DH #### [facility] [address] [place] [address] Dr. Rose Lafleur IG % 0.3 % Normal 0.0-0.[address] [facility] Comment on above: Performed By: #### L DH #### [facility] [address] [place] [address] Dr. Rose Lafleur LYMPH # 3.7 103/ul Normal 1.2-3.[address] [facility] Comment on above: Performed By: #### L DH #### [facility] [address] [place] [address] Dr. Rose Lafleur Lymphocytes/100 WBC (Bld) 32.9 % Normal 20.5-60.[address] [facility] Comment on above: Performed By: #### L DH #### [facility] [address] [place] [address] Dr. Rose Lafleur MANUAL DIFF REQ NO Normal [facility] Comment on above: Performed By: #### L DH #### [facility] [address] [address] [address] Rose Lafleur MCH (RBC) [Entitic mass] 28.6 pg Normal 26.7-34.[address] [facility] Comment on above: Performed By: #### L DH #### [facility] [address] [address] [address] Rose Lafleur MCHC (RBC) [Mass/Vol] 32.3 g/dL Normal 29.9-35.2 [facility] Comment on above: Performed By: #### L DH #### [facility] [address] [address] [address] Rose Lafleur MCV (RBC) [Entitic vol] 88.5 fL Normal 81.0-99.[address] [facility] Comment on above: Performed By: #### L DH #### [facility] [address] [place] [address] Dr. Rose Lafleur MONO # 0.7 103/ul Normal 0.3-0.[address] [facility] Comment on above: Performed By: #### L DH #### [facility] [address] [place] [address] Dr. Rose Lafleur Monocytes/100 WBC (Bld) 6.1 % Normal 1.7-12.[address] [facility] Comment on above: Performed By: #### L DH #### [facility] [address] [place] [address] Dr. Rose Lafleur NEUT # 6.7 103/ul Critically high 1.4-6.5 [facility] Comment on above: Performed By: #### L DH #### [facility] [address] [place] [address] Dr. Rose Lafleur Neutrophils/100 WBC (Bld) 59.7 % Normal 43.0-75.0 [facility] Comment on above: Performed By: #### L DH #### [facility] [address] [place] [address] Dr. Rose Lafleur Platelet mean volume (Bld) [Entitic vol] 9.0 fL Critically low 9.5-13.5 [facility] Comment on above: Performed By: #### L DH #### [facility] [address] [address] [address] Rose Lafleur PLT 320 103/ul Normal 150-[address] [facility] Comment on above: Performed By: #### L DH #### [facility] [address] [address] [address] Rose Lafleur RBC 4.69 106/ul Normal 4.20-5.[address] [facility] Comment on above: Performed By: #### L DH #### [facility] [address] [address] [address] Rose Lafleur WBC 11.1 103/ul Critically high 4.0-11.0 [facility] Comment on above: Performed By: #### L DH #### [facility] [address] [place] [address] Dr. Rose Lafleur GLYCOHEMOGLOBIN A1Con 2021 ADA RECOMMENDATION SEE BELOW Normal [facility] Comment on above: Result Comment: ADA RECOMMENDED LIMIT 4.0 - 6.0 ADA THERAPEUTIC TARGET < 7.0 ACTION SUGGESTED > 7.0 Performed By: #### A 1C #### [facility] [address] [place] [address] Dr. Rose Lafleur Glucose [Mass/Vol] 111 mg/dL Normal [facility] Comment on above: Performed By: #### A 1C #### [facility] [address] [place] [address] Dr. Rose Lafleur HbA1c (Bld) [Mass fraction] 5.5 % Normal 4.5-6.[address] [facility] Comment on above: Performed By: #### A 1C #### [facility] [address] [place] [address] Dr. Rose Lafleur TSHon 04-21-2022 TSH 1.207 uIU/mL Normal 0.358-3.740 [facility] Comment on above: Performed By: #### T SH #### [facility] [address] [place] [address] Dr. Rose Lafleur US PELVIS AND TRANSVAGon [...] BRADLEY Date: 2022-04-21 15:[address] [facility] Vital Signs Date Time Vital Sign Value Performing Clinician Huberi cyndy 05-25-2024 11:42-0400 Body height 152.4 cm P[facility] 1 [facility] 05-25-2024 11:42-0400 Body mass index (BMI) [Ratio] 63.47 kg/m2 Pmh 1 [facility] 05-25-2024 11:42-0400 Body weight 147.42 kg Pmh 1 [facility] 05-23-2024 11:23-0400 Body height 152.4 cm Bayron Reddy APRNGreencartLIZZETTE Work Phone: [facility] 05-23-2024 11:23-0400 Body mass index (BMI) [Ratio] 64.06 kg/m2 Bayron Reddy APRNGreencartSQL ENGINEER Work Phone: [facility] 05-23-2024 11:23-0400 Body weight 148.78 kg Bayron Reddy APRNGreencartSQL ENGINEER Work Phone: [facility] Encounters Encounter Date Encounter Type Care Provider Facility Start: 06-21-2024 End: 06-21-2024 Telephone encounter Ebony Floyd CMA [facility] General Surgery Start: 06-14-2024 End: 06-14-2024 Evaluation and management of inpatient PURVI NEVILLE [facility] Start: 05-25-2024 Encounter for other preprocedural examination ANTONIO Parkinson [facility] Start: 05-25-2024 End: 05-25-2024 ambulatory ANTONIO Parkinson [facility] Start: 05-25-2024 End: 05-25-2024 Patient encounter procedure Pmh Pre-Admission Testing 1 [facility] - Pre Admit Start: 05-23-2024 End: 05-23-2024 Office outpatient new 30 minutes Bayron Reddy RESIDENTIAL GAS HEAT TECHNICIAN-SQL ENGINEER Work Phone: [facility] General Surgery Comment on above: Rectal bleeding (Patti minh Dx) Start: 05-23-2024 End: 05-23-2024 ambulatory [facility] Start: 05-16-2024 End: 05-16-2024 Telephone encounter Bayron Reddy RESIDENTIAL GAS HEAT TECHNICIAN-SQL ENGINEER Work Phone: [facility] General Surgery Start: 05-15-2024 ambulatory Jaime Squires acility:[facility] Start: 09-12-2023 End: 09-12-2023 ambulatory LAY SARA Not Available Start: 08-18-2023 End: 08-18-2023 ambulatory LAY SARA Not Available Start: 08-16-2023 End: 09-15-2023 ambulatory [facility] Start: 08-09-2023 End: 08-09-2023 ambulatory LAY RUIZ [facility] Start: 07-26-2023 End: 08-15-2023 ambulatory [facility] Start: 07-21-2023 End: 07-21-2023 ambulatory LAY SARA Not Available Start: 12-14-2022 End: 12-15-2022 ambulatory RASHID ADAME Facility: Start: 09-02-2022 Encounter for preprocedural laboratory examination DR JUAN ARRIAZA . [facility] Start: 08-30-2022 End: 08-31-2022 ambulatory [...] cardiovascular examination DR JUAN ARRIAZA . [facility] Start: 05-13-2022 End: 05-14-[address] JUAN ARRIAZA . Facility:[facility] Start: 05-13-2022 End: 05-14-2022 Encounter for preprocedural cardiovascular examination DR JUAN ARRIAZA . Facility:[facility] Start: 05-05-2022 End: 05-06-[address] JUAN ARRIAZA . Facility:[facility] Start: 04-21-2022 End: 04-22-[address] JUAN ARRIAZA . Facility:[facility] Procedures Date Procedure Procedure Detail Performing Clinician Start: 06-14-2024 Colonoscopy Ebony Bogdan ia [employer] ANALY[employer] Start: 07-05-2022 Microscopic observat ion [Identifier] in Cervix by Cyto stain Bayron Reddy APRN-SQL ENGINEER Work Phone: Plan of Treatment Date Care Activity Detail Author Start: 05-06-2030 DTaP,Tdap and Td Vaccines (3 - Td or Tdap) DTaP,Tdap and Td Vaccines (3 - Td or Tdap) [facility] Start: 06-14-2029 Screening for malign ant neoplasm of colon Colonoscopy [facility] Start: 07-05-2025 Screening for malign ant neoplasm of cervix Pap Smear [facility] Start: 06-14-2025 Adult BMI Screening Adult BMI Screen ing [facility] Start: 06-14-2025 Tobacco Screening Tobacco Screening [facility] Start: 05-25-2025 Adult BMI Screening Adult BMI Screen ing [facility] Start: 05-25-2025 Tobacco Screening Tobacco Screening [facility] Start: 05-23-2025 Adult BMI Screening Adult BMI Screen ing [facility] Start: 05-23-2025 Tobacco Screening Tobacco Screening [facility] Start: 06-14-2024 End: 06-14-2024 Admission to same day surgery center 06/14/2024 10:00 AM EDT - 06/14/2024 10:30 AM EDT Surgery [facility] [address] [place] [id number] Purvi Neville, DO [address] [place] [address] [phone] COLONOSCOPY DIAGNOSTIC / SCREENING [83030 (CPT )] [facility] Comment on above: COLONOSCOPY DIAGNOST IC / SCREENING [87348 (CPT )] Start: 06-14-2024 End: 06-14-2024 Colonoscopy flx dx w/collj spec when pfrmd COLONOSCOPY DIAGNOSTIC / SCREENING rectal bleeding 06/14/2024 10:00 AM EDT [facility] Start: 06-14-2024 Subsequent hospital visit by physician 06/14/2024 10:00 AM EDT Hospital Encounter [facility] [address] [place] [phone] Purvi Neville, DO [address] [place] [address] [phone] [facility] Start: 05-25-2024 End: 05-25-2024 Patient encounter procedure 05/25/2024 2:15 PM EDT Procedure visit [facility] [address] [place] [phone] [facility] Start: 05-23-2024 End: 05-23-2024 Patient encounter procedure 05/23/2024 11:30 AM EDT Office Visit [facility] [address] [place] [phone] Bayron Reddy, RESIDENTIAL GAS HEAT TECHNICIAN-SQL ENGINEER [address] [place] [address] [facility] Start: 04-15-2024 COVID-19 Vaccine ( season) COVID-19 Vaccine ( season) [facility] Start: 04-15-2024 COVID-19 Vaccine ( season) COVID-19 Vaccine () [facility] Start: 04-15-2024 Influenza vaccination Influenza Vacc ine [facility] Start: 09-22-2022 Adult BMI Screening Adult BMI Screen ing [facility] Start: 12-15-2004 Screening for malign ant neoplasm of cervix Pap Smear [facility] Start: 12-15-2001 Adult BMI Follow Up Plan Adult BMI Follow Up Plan [facility] Start: 1995 Depression Screening Depression Scre ening [facility] Start: 1995 Tobacco Screening Tobacco Screening [facility] End: 05-23-2025 Colonoscopy Colonoscopy GI Routine Rectal bleeding 1 Occurrences starting 05/23/2024 until 05/23/2025 [facility] Work Phone: Comment on above: 1 Occurrences starti ng 05/23/2024 until 05/23/2025 Payers Date Payer Category Payer Self-pay 2003 Medicaid [employer] [id number] 2003-Present [phone] [place] [id number] 2003 Medicaid HMO [employer] [id number] 1983 Unknown [id number] 2.16.840.1.943126.3.579.2.593 1983 Unknown [id number] 2.16.840.1.031519.3.579.2.59 1983 Unknown [id number] 2.16.840.1.661777.3.579.2.593 1983 Unknown [id number] 2.16.840.1.729896.3.579.2.593 1983 Unknown [id number] 2.16.840.1.809770.3.579.2.593 1983 Unknown [id number] 2.16.840.1.425071.3.579.2.593 1983 Unknown [id number] 2.16.840.1.642158.3.579.2.593 1983 Unknown [id number] 2.16.840.1.161610.3.579.2.593 1983 Unknown [id number] 2.16.840.1.919257.3.579.2.593 1983 Unknown [id number] 2.16.840.1.594254.3.579.2.593 1983 Unknown [id number] 2.16.840.1.673191.3.579.2.593 1983 Unknown [id number] 2.16.840.1.588507.3.579.2.593 1983 Unknown [id number] 2.16.840.1.803180.3.579.2.9 1983 Unknown [id number] 2.16.840.1.955274.3.579.2.9 1983 Unknown [id number] 2.16.840.1.920156.3.579.2.9 1983 Unknown [id number] 2.16.840.1.933757.3.579.2.1285 1983 Unknown [id number] 2.16.840.1.421301.3.579.2.1285 1983 Unknown [id number] 2.16.840.1.586654.3.579.2.1285 1983 Unknown [id number] 2.16.840.1.443551.3.579.2.1285 1983 Unknown [id number] 2.16.840.1.758549.3.579.2.1285 1983 Unknown [id number] 2.16.840.1.464879.3.579.2.1285 1983 Unknown [id number] 2.16.840.1.072616.3.579.2.1285 1983 Unknown [id number] 2.16.840.1.682703.3.579.2.1286 1959 Unknown [id number] Social History Date Type Detail Facility Start: 09-22-2021 End: 05-23-2024 Tobacco smoking status DCIS Ex-smoker [facility] End: 07-17-2021 History of tobacco use Current smoker [facility] End: 07-17-2021 History of tobacco use Cigarette Smoker [facility] Start: 09-22-2021 End: 05-23-2024 Tobacco use and exposure Smokeless tobacco non-user [facility] Start: 02-12-2022 End: 06-14-2024 Alcoholic beverage intake Ex-drinker (finding) [facility] Start: 09-25-2020 End: 02-12-2022 History of Social function [facility] Start: 09-25-2020 End: 02-12-2022 Tobacco use panel [facility] Childcare Unknown [facility] Start: 1985 Sex assigned at Female P [facility] Start: 06-30-2021 Gender identity Identifies as female gender (finding) [facility] History of tobacco use Tobacco U se Types Packs/Day Years Used Date Smoking Tobacco: Former Vaping/E-cigarettes Smokeless Tobacco: Never [facility] Start: 03-20-2015 Sex Female (finding) [facility] Clinical Notes 05-26-2022 to 06-21-2024 Telephone Encounter [...] put in chart. documented in this encounter [facility] 06-21-2024 Telephone encounter Note ----- Message from Dr. Purvi Neville DO sent at 06/20/2024 1:05 PM EST ----- Please call patient let her know that she had a precancerous polyp and I recommend repeat colonoscopy in 5 years unless problems. Thanks, Dr. Reyna [facility] 06-21-2024 Telephone encounter Note Spoke with patient regarding pathology results. Patient verbally understood with no further questions. Recall to be put in chart. [facility] 05-25-2024 Instructions Sofiya Moreno RN - 05/25/2024 11:15 AM EDT Preoperative Education Checklist- General Surgery date: 06/14/24 Surgery time: 10a Arrival time: 8a 1. Bring a photo ID and your insurance card with you the day of surgery. You will check in at the main lobby of the [facility]- registration desk is straight ahead as soon as you walk in. Tell them you are here for surgery. 2. If you have a Living Will/Durable Power of Dissolver Operator for Health Care that is not on [...] after you have bathed. 5. NO nail german/acrylic on at least one finger. If you are having a hand, wrist or foot surgery then all nail german and artificial/acrylic nails must be removed from [...] please call the Preadmission Testing office at [phone], Mon.-Fri. 7 a.m.-3 p.m. Leave a voicemail [...] doctor for instructions documented in this encounter [facility] 05-23-2024 History of Presen t illness Narrative [...] Referring and communicating with other health career advisor Rectal bleeding [K62.5] BAYRON REDDY, RESIDENTIAL GAS HEAT TECHNICIAN-SQL ENGINEER [facility] [place] This note was created with the assistance of a speech recognition program. While intending to generate a timely document that accurately reflects the content of the visit, no guarantee can be provided that every grammatical or spelling mistake has been or will be identified or corrected. Thank you for your understanding. CRYS Queen 05/23/24 1239 documented in this encounter [facility] 05-16-2024 Miscellaneous Notes Called Eran regarding the rectal bleeding referral that our office received from Dr Quinn, left message on voicemail to call the office back to schedule an appointment. Eran called the office back and we scheduled her an appointment on 05/23/2024. documented in this encounter [facility] 05-16-2024 Telephone encounter Note Called Eran regarding the rectal bleeding referral that our office received from Dr Quinn, left message on voicemail to call the office back to schedule an appointment. [facility] 05-16-2024 Telephone encounter Note Eran called the office back and we scheduled her an appointment on 05/23/2024. [facility] 12-14-2022 Note CONSULTATION CONSULTATION DATE: 12/14/2022 TO: [facility] CHIEF COMPLAINT: Includes severe right mid [...] our patients to inform us about any iaad-ftn-tlgezce medications or herbal remedies/nutritional supplements/alternative remedies. 2. [...] options with their primary care provider. [facility] 08-30-2022 Note OPERATIVE NOTE OPERATION DATE: 08/30/2022 PROCEDURE: Da Beatriz assisted laparoscopy hysterectomy with bilateral salpingectomy with cystoscopy. PREOPERATIVE DIAGNOSIS: Abnormal uterine bleeding, menorrhagia, dysmenorrhea, dyspareunia, failed ablation, pelvic pain, uterine fibroids. POSTOPERATIVE DIAGNOSIS: Abnormal uterine bleeding, menorrhagia, dysmenorrhea, dyspareunia, failed ablation, pelvic pain, uterine fibroids. ANESTHESIA: General. SURGEON: uJan Arriaza D.O. SHIFT STACKER: FRANNIE Luu URINE OUTPUT: Yellow and clear. [...] Anesthesia first. Patient tolerated procedure well. [facility] 05-26-2022 Note OPERATIVE NOTE OPERATION DATE: 05/26/2022 PROCEDURE: Attempted D AND C hysteroscopy, diagnostic laparoscopy, lysis of omental adhesions from the anterior abdominal wall using a LigaSure. PREOPERATIVE DIAGNOSIS: Pelvic pain, dysmenorrhea, dyspareunia. POSTOPERATIVE DIAGNOSIS: Pelvic pain, dysmenorrhea, dyspareunia including endometriosis ANESTHESIA: General. SURGEON: Juan Arriaza D.O. SHIFT STACKER: FRANNIE Huizar URINE OUTPUT: Yellow and clear. [...] to Recovery Room in stable condition. [facility] 05-26-2022 Note OPERATIVE NOTE OPERATION DATE: 06/11/2022 ADDENDUM TO PROCEDURE: LigaSure apparatus was used to come across omental adhesions, extending to the anterior abdominal wall. This was released. Excellent hemostasis was assured. ADDENDUM TO POST-OP DIAGNOSIS: Significant uterine fibroids. [facility] Evaluation note Diagnosis Rectal bleeding- Primary Hemorrhage [...] DATE CREATED AUTHOR AUTHOR'S ORGANIZ ATION 09/13/2023 [facility] EPIC DATE CREATED AUTHOR AUTHOR'S ORGANIZ ATION 05/25/2024 [facility] DATE CREATED AUTHOR AUTHOR'S ORGANIZ ATION 06/22/2024 [facility] DATE CREATED AUTHOR AUTHOR'S ORGANIZ ATION 09/11/2024 [facility] Care Teams (unrecognized sec tion and content) Thread Reeler Relationship Specialty Start Date End Date Za Rogers MD [address] [place] [id number] PCP - General Family Medicine 05/16/24 Thread Reeler Relationship Specialty Start Date End Date Za Rogers MD [address] [place] [address] [id number] PCP - General Family Medicine 05/16/24 Thread Reeler Relationship Specialty Start Date End Date Za Rogers MD [address] [place] [address] [phone] PCP - General Family Medicine 05/16/24 Thread Reeler Relationship Specialty Start Date End Date Za Rogers MD [address] [place] [address] [phone] PCP - General Family Medicine 05/16/24 Reason [...] BE BASED ON THE PRIMARY CLINICAL RECORDS. [email or web address] provides no warranty or guarantee of the accuracy or completeness of information in this document.
== END 2024-10-30 21:22 | disposition home or self-care (01) ==
LOC: LAB 21:21
PROVIDERS: PCP Family Medicine; Visit Provider Obstetrics & Gynecology
DX: Z01.419 Encounter for gynecological examination (general) (routine) without abnormal findings (principal)
CPT/HCPCS: 87624; 88175

== ENCOUNTER 2024-11-01 14:22 | Outpatient (OUT) | payer OTHER, SELFPAY ==
--- OUTSIDE RECORDS SUMMARY | 2024-11-01 14:40 | XMS_ITS | CCD ---
Author Organization [facility] Care Team Providers Care Operation Specialist Name Role Phone GISELLA ., DR MARTINEZ Consulting Unavailable GISELLA ., DR MARTINEZ Attending Unavailable [facility] Unava ilable GISELLA ., DR MARTINEZ Admitting Unavailable GISELLA ., DR MARTINEZ Consulting Unavailable GISELLA ., DR MARTINEZ Attending Unavailable [facility] Unava ilable GISELLA ., DR MARTINEZ Admitting Unavailable GISELLA ., DR MARTINEZ Attending Unavailable [facility] Unava ilable GISELLA ., DR MARTINEZ Consulting Unavailable GISELLA ., DR MARTINEZ Admitting Unavailable GISELLA ., DR MARTINEZ Admitting Unavailable GISELLA ., DR MARTINEZ Attending Unavailable [facility] Unava ilable GISELLA ., DR MARTINEZ Consulting Unavailable JUAN CLARK Consulting Unavailable KIANANICK Consulting Unava ilable GISELLA ., DR MARTINEZ Consulting Unavailable GISELLA ., DR MARTINEZ Attending Unavailable GISELLA ., DR MARTINEZ Admitting Unavailable [facility] Unava ilable GISELLA ., DR MARTINEZ Consulting Unavailable GISELLA ., DR MARTINEZ Attending Unavailable GISELLA ., DR MARTINEZ Admitting Unavailable [facility] Unava ilable GISELLA ., DR MARTINEZ Consulting Unavailable GISELLA ., DR MARTINEZ Attending Unavailable GISELLA ., DR MARTINEZ Admitting Unavailable [facility] Unava ilable CHANDRALAG, RASHID Primary Care Unavailable ZIEBER, DR DIANA Del Real Consulting Unavailable LAKSHMIPATHY ., NARENDRANATH Attending Ivy vailable LAKSHMIPATHY ., NARENDRANATH Admitting Ivy vailable LAKSHMIPATHY ., NARENDRANATH Consulting Ivy vailable GISELLA ., DR MARTINEZ Attending Unavailable [facility] Primary Care Unava ilable GISELLA ., DR MARTINEZ Admitting Unavailable ANTONIO BRADLEY Consulting Unavailable GISELLA ., DR MARTINEZ Consulting Unavailable [facility] Consulting Unava ilable GISELLA ., DR MARTINEZ Consulting Unavailable GISELLA ., DR MARTINEZ Attending Unavailable [facility] Primary Care Unava ilable GISELLA ., DR [...] Unavailable GISELLA ., DR MARTINEZ Consulting Unavailable [facility] Primary Care Unava ilable LAY RUIZ Attending Unavailable LAY RUIZ Attending Unavailable LAY RUIZ Attending Unavailable BAYRON REDDY A Attending Unavailable ROGERS, ZA L Referring Unavailable ROGERS, ZA L Primary Care Unavailable LAY RUIZ Referring Unavailable [facility] Primary Care Unava ilable MILLY COVINGTON Referring Unavailable [facility], [facility] Care Unava ilable ROGERS, ZA L Referring Unavailable ROGERS, ZA L Primary Care Unavailable ANTONIO DRAPER Attending Unavailable ANTONIO DRAPER Referring Unavailable ROGERS, ZA L Primary Care Unavailable ANTONIO DRAPER Referring Unavailable ROGERS, ZA L Primary Care Unavailable PURVI NEVILLE Admitting Unavailable PURVI NEVILLE Attending Unavailable ROGERS, ZA L Primary Care Unavailable MILLY COVINGTON Referring Unavailable [facility] Primary Care Unava ilable Jaime Burr Attending Unavailab Jaime Canas Admitting Unavailab concepción NON STAFF Primary Care Unavailable Za Rogers MD Primary Care Provider Allergies Allergy Classification Reported Allergen(s) Allergy Type Date of Onset Reaction(s) Facility (5 sources) Penicillins; Translations: [PENICILLINS] Drug allergy (disorder) 7 [facility] Repository (4 sources) Penicillins Propensity to [...] Drug Class(es) Dates Sig (Normalized) Sig (Original) [id number] 200 actuat albuterol 0.09 mg/actuat metered dose [...] Facility Surgical Pathologyon 024 Surgical Pathology Normal [facility] Comment on above: Result Comment: [facility] [employer] [facility] [address] [place] [address] Surgical Pathology Consultation Patient Name:ERAN WINN:1985 (Age: 38)Gender:FTaken:4Reported:06/20/2024hysician(s):Purvi Neville D.O. ([phone])Copy To: Rec. #:[id number]: #[id number] Final Pathologic Diagnosis Sigmoid colon polyp, biopsy: Tubular adenoma. Report Electronically Signed Out nxk/06/20/2024Fermín Lunsford MD Interpretation performed at [facility], [address] [place] [address], License number: [id number]. Clinical History Rectal bleeding. Gross Description Received in formalin labeled TATUM sigmoid colon polyp are two brown pedunculated polyps, 1.1 x 0.7 x 0.4 cm and 0.6 x 0.5 x 0.3 cm. The resection margins are inked black and green. The larger polyp is trisected. The smaller polyp is bisected. These are submitted in a single cassette. (1, ns, [id number],m3) DM. dm/06/16/2024NSK Specimen(s) Received Sigmoid colon polyp Fee Codes(s): 1; 60105 BASIC METABOLIC PANLon 05-25 Anion gap [Moles/Vol] 8 mmol/L Normal 5-15 [facility] Comment on above: Performed By: #### B MP #### [facility] ([id number]) [address] [place] [address] Calcium [Mass/Vol] 9.1 mg/dL Normal 8.5-10.5 [facility] Comment on above: Performed By: #### B MP #### [facility] ([id number]) [address] [place] [address] Chloride [Moles/Vol] 103 mmol/L Normal 98-109 [facility] Comment on above: Performed By: #### B MP #### [facility] ([id number]) [address] [place] [address] CO2 [Moles/Vol] 26 mmol/L Normal 22-32 [facility] Comment on above: Performed By: #### B MP #### [facility] ([id number]) [address] [place] [address] Creatinine [Mass/Vol] 0.86 mg/dL Normal 0.40-1.00 [facility] Comment on above: Result Comment: METH OD TRACEABLE TO IDMS STANDARD Performed By: #### B MP #### [facility] ([id number]) [address] [place] [address] GFR/1.73 sq M.predicted among non-blacks MDRD (S/P/Bld) [Vol rate/Area] 88 mL/min/{1.73_m2} Normal >59 [facility] Comment on above: Result Comment: Reported eGFR is based on the CKD-EPI 2020 equation that does not use a race coefficient. Performed By: #### B MP #### [facility] ([id number]) [address] [place] [address] Glucose [Mass/Vol] 90 mg/dL Normal 65-99 [facility] Comment on above: Performed By: #### B MP #### [facility] ([id number]) [address] [place] [address] Potassium [Moles/Vol] 3.9 mmol/L Normal 3.5-5.0 [facility] Comment on above: Performed By: #### B MP #### [facility] ([id number]) [address] [place] [address] Sodium [Moles/Vol] 137 mmol/L Normal 134-146 [facility] Comment on above: Performed By: #### B MP #### [facility] ([id number]) [address] [place] [address] Urea nitrogen [Mass/Vol] 14 mg/dL Normal 5-23 [facility] Comment on above: Performed By: #### B MP #### [facility] ([id number]) [address] [place] [address] US PELVIC WITH TRANSVAGINALo n 08-09-2023 US [...] MD on 08/09/2023 2:33 PM Normal [facility] XR LSPINE 2_3 VIEWSon 2022 XR [...] LUONG Date: 2022-12-14 16:25 Normal [facility] BUNon 08-31-2022 Urea nitrogen [Mass/Vol] 9.0 mg/dL Normal 7.0-18.0 [facility] Comment on above: Performed By: #### C BC #### [facility] [address] [address] [address] Rose Lafleur CBC AUTO DIFFon 08-31-2022 BASO # 0.0 103/ul Normal 0.0-0.1 [facility] Comment on above: Performed By: #### C BC #### [facility] [address] [address] [address] Rose Lafleur Basophils/100 WBC (Bld) 0.1 % Critically low 0.2-2.0 [facility] Comment on above: Performed By: #### C BC #### [facility] [address] [place] [address] Dr. Rose Lafleur EO # 0.0 103/ul Normal 0.0-0.7 [facility] Comment on above: Performed By: #### C BC #### [facility] [address] [place] [address] Dr. Rose Lafleur Eosinophils/100 WBC (Bld) 0.0 % Critically low 0.9-7.0 [facility] Comment on above: Performed By: #### C BC #### [facility] [address] [place] [address] Dr. Rose Lafleur Erythrocyte distribution width (RBC) [Ratio] 13.2 % Normal 11.0-15.0 [facility] Comment on above: Performed By: #### C BC #### [facility] [address] [place] [address] Dr. Rose Lafleur Hematocrit (Bld) [Volume fraction] 38.5 % Normal 36.0-48.0 [facility] Comment on above: Performed By: #### C BC #### [facility] [address] [place] [address] Dr. Rose Lafleur Hemoglobin (Bld) [Mass/Vol] 12.7 g/dL Normal 12.0-16.0 [facility] Comment on above: Performed By: #### C BC #### [facility] [address] [place] [address] Dr. Rose Lafleur IG # 0.07 10e3/ul Critically high 0.00-0.03 [facility] Comment on above: Performed By: #### C BC #### [facility] [address] [place] [address] Dr. Rose Lafleur IG % 0.4 % Normal 0.0-0.5 [facility] Comment on above: Performed By: #### C BC #### [facility] [address] [place] [address] Dr. Rose Lafleur LYMPH # 2.3 103/ul Normal 1.2-3.8 [facility] Comment on above: Performed By: #### C BC #### [facility] [address] [address] [address] Rose Lafleur Lymphocytes/100 WBC (Bld) 14.3 % Critically low 20.5-60.0 [facility] Comment on above: Performed By: #### C BC #### [facility] [address] [address] [address] Rose Lafleur MANUAL DIFF REQ NO Normal [facility] Comment on above: Performed By: #### C BC #### [facility] [address] [place] [address] Dr. Rose Lafleur MCH (RBC) [Entitic mass] 28.6 pg Normal 26.7-34.0 [facility] Comment on above: Performed By: #### C BC #### [facility] [address] [place] [address] Dr. Rose Lafleur MCHC (RBC) [Mass/Vol] 33.0 g/dL Normal 29.9-35.2 [facility] Comment on above: Performed By: #### C BC #### [facility] [address] [place] [address] Dr. Rose Lafleur MCV (RBC) [Entitic vol] 86.7 fL Normal 81.0-99.0 [facility] Comment on above: Performed By: #### C BC #### [facility] [address] [place] [address] Dr. Rose Lafleur MONO # 0.9 103/ul Critically high 0.3-0.8 [facility] Comment on above: Performed By: #### C BC #### [facility] [address] [place] [address] Dr. Rose Lafleur Monocytes/100 WBC (Bld) 5.5 % Normal 1.7-12.0 [facility] Comment on above: Performed By: #### C BC #### [facility] [address] [place] [address] Dr. Rose Lafleur NEUT # 12.8 103/ul Critically high 1.4-6.5 [facility] Comment on above: Performed By: #### C BC #### [facility] [address] [address] [address] Rose Lafleur Neutrophils/100 WBC (Bld) 79.7 % Critically high 43.0-75.0 [facility] Comment on above: Performed By: #### C BC #### [facility] [address] [place] [address] Dr. Rose Lafleur Platelet mean volume (Bld) [Entitic vol] 8.9 fL Critically low 9.5-13.5 [facility] Comment on above: Performed By: #### C BC #### [facility] [address] [address] [address] Rose Lafleur PLT 330 103/ul Normal 150-450 [facility] Comment on above: Performed By: #### C BC #### [facility] [address] [place] [address] Dr. Rose Lafleur RBC 4.44 106/ul Normal 4.20-5.40 [facility] Comment on above: Performed By: #### C BC #### [facility] [address] [place] [address] Dr. Rose Lafleur WBC 16.1 103/ul Critically high 4.0-11.0 [facility] Comment on above: Performed By: #### C BC #### [facility] [address] [place] [address] Dr. Rose Lafleur CREATININEon 08-31-2022 Creatinine [Mass/Vol] 0.59 mg/dL Normal 0.55-1.02 [facility] Comment on above: Performed By: #### C BC #### [facility] [address] [place] [address] Dr. Rose Lafleur EGFR-AF LIBYAN >60 Normal >=60 [facility] Comment on above: Performed By: #### C BC #### [facility] [address] [place] [address] Dr. Rose Lafleur EGFR-NON AF LIBYAN >60 Normal >=60 [facility] Comment on above: Performed By: #### C BC #### [facility] [address] [place] [address] Dr. Rose Lafleur PREG HCG QUALon 08-30-2022 , QUAL Negative Normal NEGATIVE [facility] Comment on above: Performed By: #### P REG #### [facility] [address] [place] [address] Dr. Rose Lafleur [facility] SARS-CoV-2 (COVID-19) RNA RUDY+probe Ql (Unsp spec) Not detected Normal NOT DETECTED [facility] Comment on above: Result Comment: This test is not yet approved or cleared by the [place] FDA. When there are no FDA-approved or cleared tests available, and other criteria are met, FDA can make tests available under an emergency access mechanism called an Emergency Use Authorization (EUA). The EUA for this test is supported by the [employer] Manager of Health and Human Service's (HHS's) [...] Performed By: #### L DH #### [facility] [address] [place] [address] Dr. Rose Lafleur TYPE AND SCREENon 08-26-2022 TYPE AND SCREEN Negative Normal [facility] Comment on above: Performed By: #### L DH #### [facility] [address] [place] [address] Dr. Rose Lafleur CBC AUTO DIFFon 08-16-2022 BASO # 0.0 103/ul Normal 0.0-0.1 [facility] Comment on above: Performed By: #### C BC #### [facility] [address] [place] [address] Dr. Rose Lafleur Basophils/100 WBC (Bld) 0.3 % Normal 0.2-2.0 [facility] Comment on above: Performed By: #### C BC #### [facility] [address] [place] [address] Dr. Rose Lafleur EO # 0.2 103/ul Normal 0.0-0.7 [facility] Comment on above: Performed By: #### C BC #### [facility] [address] [place] [address] Dr. Rose Lafleur Eosinophils/100 WBC (Bld) 1.7 % Normal 0.9-7.0 [facility] Comment on above: Performed By: #### C BC #### [facility] [address] [place] [address] Dr. Rose Lafleur Erythrocyte distribution width (RBC) [Ratio] 13.1 % Normal 11.0-15.0 [facility] Comment on above: Performed By: #### C BC #### [facility] [address] [place] [address] Dr. Rose Lafleur Hematocrit (Bld) [Volume fraction] 40.6 % Normal 36.0-48.0 [facility] Comment on above: Performed By: #### C BC #### [facility] [address] [place] [address] Dr. Rose Lafleur Hemoglobin (Bld) [Mass/Vol] 13.4 g/dL Normal 12.0-16.0 [facility] Comment on above: Performed By: #### C BC #### [facility] [address] [place] [address] Dr. Rose Lafleur IG # 0.02 10e3/ul Normal 0.00-0.03 [facility] Comment on above: Performed By: #### C BC #### [facility] [address] [place] [address] Dr. Rose Lafleur IG % 0.2 % Normal 0.0-0.5 [facility] Comment on above: Performed By: #### C BC #### [facility] [address] [place] [address] Dr. Rose Lafleur LYMPH # 2.8 103/ul Normal 1.2-3.8 [facility] Comment on above: Performed By: #### C BC #### [facility] [address] [place] [address] Dr. Rose Lafleur Lymphocytes/100 WBC (Bld) 31.7 % Normal 20.5-60.0 [facility] Comment on above: Performed By: #### C BC #### [facility] [address] [place] [address] Dr. Rose Lafleur MANUAL DIFF REQ NO Normal [facility] Comment on above: Performed By: #### C BC #### [facility] [address] [place] [address] Dr. Rose Lafleur MCH (RBC) [Entitic mass] 28.5 pg Normal 26.7-34.0 [facility] Comment on above: Performed By: #### C BC #### [facility] [address] [place] [address] Dr. Rose Lafleur MCHC (RBC) [Mass/Vol] 33.0 g/dL Normal 29.9-35.2 [facility] Comment on above: Performed By: #### C BC #### [facility] [address] [place] [address] Dr. Rose Lafleur MCV (RBC) [Entitic vol] 86.4 fL Normal 81.0-99.0 [facility] Comment on above: Performed By: #### C BC #### [facility] [address] [place] [address] Dr. Rose Lafleur MONO # 0.6 103/ul Normal 0.3-0.8 [facility] Comment on above: Performed By: #### C BC #### [facility] [address] [place] [address] Dr. Rose Lafleur Monocytes/100 WBC (Bld) 6.8 % Normal 1.7-12.0 [facility] Comment on above: Performed By: #### C BC #### [facility] [address] [place] [address] Dr. Rose Lafleur NEUT # 5.1 103/ul Normal 1.4-6.5 [facility] Comment on above: Performed By: #### C BC #### [facility] [address] [place] [address] Dr. Rose Lafleru Neutrophils/100 WBC (Bld) 59.3 % Normal 43.0-75.0 [facility] Comment on above: Performed By: #### C BC #### [facility] [address] [place] [address] Dr. Rose Lafleur Platelet mean volume (Bld) [Entitic vol] 8.9 fL Critically low 9.5-13.5 [facility] Comment on above: Performed By: #### C BC #### [facility] [address] [place] [address] Dr. Rose Lafleur PLT 312 103/ul Normal 150-450 [facility] Comment on above: Performed By: #### C BC #### [facility] [address] [place] [address] Dr. Rose Lafleur RBC 4.70 106/ul Normal 4.20-5.40 [facility] Comment on above: Performed By: #### C BC #### [facility] [address] [place] [address] Dr. Rose Lafleur WBC 8.7 103/ul Normal 4.0-11.0 [facility] Comment on above: Performed By: #### C BC #### [facility] [address] [place] [address] Dr. Rose Lafleur LIVER PROFILEon 08-16-2022 Albumin [Mass/Vol] 2.9 g/dL Critically low 3.4-5.0 [facility] Comment on above: Performed By: #### B MP, LIVER #### [facility] [address] [place] [address] Dr. Rose Lafleur Albumin/Globulin [Mass ratio] 0.6 {ratio} Normal [facility] Comment on above: Performed By: #### B MP, LIVER #### [facility] [address] [place] [address] Dr. Rose Lafleur ALP [Catalytic activity/Vol] 121 U/L Critically high 46-116 [facility] Comment on above: Performed By: #### B MP, LIVER #### [facility] [address] [place] [address] Dr. Rose Lafleur ALT [Catalytic activity/Vol] 21 U/L Normal 14-59 [facility] Comment on above: Performed By: #### B MP, LIVER #### [facility] [address] [place] [address] Dr. Rose Lafleur AST [Catalytic activity/Vol] 20 U/L Normal 15-37 [facility] Comment on above: Performed By: #### B MP, LIVER #### [facility] [address] [place] [address] Dr. Rose Lafleur BILI, CONJUGATED 0.1 mg/dL Normal 0.0-0.2 [facility] Comment on above: Performed By: #### B MP, LIVER #### [facility] [address] [place] [address] Dr. Rose Lafleur Bilirubin [Mass/Vol] 0.3 mg/dL Normal 0.2-1.0 [facility] Comment on above: Performed By: #### B MP, LIVER #### [facility] [address] [place] [address] Dr. Rose Lafleur Globulin (S) [Mass/Vol] 4.8 g/dL Normal [facility] Comment on above: Performed By: #### B MP, LIVER #### [facility] [address] [place] [address] Dr. Rose Lafleur Protein [Mass/Vol] 7.7 g/dL Normal 6.4-8.[address] [facility] Comment on above: Performed By: #### B MP, LIVER #### [facility] [address] [place] [address] Dr. Rose Lafleur PROF CHEM 8 (BAS METB)on Anion gap [Moles/Vol] 10.9 mmol/L Normal [facility] Comment on above: Performed By: #### B MP, LIVER #### [facility] [address] [place] [address] Dr. Rose Lafleur Calcium [Mass/Vol] 8.8 mg/dL Normal 8.5-10.[address] [facility] Comment on above: Performed By: #### B MP, LIVER #### [facility] [address] [address] [address] Rose Lafleur Chloride [Moles/Vol] 102 mmol/L Normal 98-107 [facility] Comment on above: Performed By: #### B MP, LIVER #### [facility] [address] [address] [address] Rose Lafleur CO2 [Moles/Vol] 26.1 mmol/L Normal 21.0-32.0 [facility] Comment on above: Performed By: #### B MP, LIVER #### [facility] [address] [address] [address] Rose Lafleur Creatinine [Mass/Vol] 0.64 mg/dL Normal 0.55-1.02 [facility] Comment on above: Performed By: #### B MP, LIVER #### [facility] [address] [place] [address] Dr. Rose Lafleur EGFR-AF LIBYAN >60 Normal >=60 [facility] Comment on above: Performed By: #### B MP, LIVER #### [facility] [address] [place] [address] Dr. Rose Lafleur EGFR-NON AF LIBYAN >60 Normal >=60 [facility] Comment on above: Performed By: #### B MP, LIVER #### [facility] [address] [place] [address] Dr. Rose Lafleur Glucose [Mass/Vol] 90 mg/dL Normal 74-106 [facility] Comment on above: Performed By: #### B MP, LIVER #### [facility] [address] [place] [address] Dr. Rose Lafleur Potassium [Moles/Vol] 4.0 mmol/L Normal 3.5-5.1 [facility] Comment on above: Performed By: #### B MP, LIVER #### [facility] [address] [address] [address] Rose Lafleur Sodium [Moles/Vol] 135 mmol/L Critically low 136-145 [facility] Comment on above: Performed By: #### B MP, LIVER #### [facility] [address] [place] [address] Dr. Rose Lafleur Urea nitrogen [Mass/Vol] 12.0 mg/dL Normal 7.0-18.0 [facility] Comment on above: Performed By: #### B MP, LIVER #### [facility] [address] [address] [address] Rose Lafleur Urea nitrogen/Creatinin e [Mass ratio] 18.8 mg/mg Normal [facility] Comment on above: Performed By: #### B MP, LIVER #### [facility] [address] [place] [address] Dr. Rose Lafleur PROTIMEon 08-16-2022 INR Coag (PPP) [Relative time] 0.95 {INR} Normal [facility] Comment on above: Performed By: #### C BC #### [facility] [address] [place] [address] Dr. Rose Lafleur INR GUIDELINES SEE BELOW Normal [facility] Comment on above: Result Comment: JAYLYN RED INR: 2.0 - 3.0 CONDITIONS NOT LISTED BELOW 2.5 - 3.5 FOR PROSTHETIC HEART VALVE REPLACEMENT 2.5 - 3.5 RECURRENT THROMBOSIS Performed By: #### C BC #### [facility] [address] [place] [address] Dr. Rose Lafleur PT Coag (PPP) [Time] 10.3 s Normal 9.0-11.6 [facility] Comment on above: Performed By: #### C BC #### [facility] [address] [place] [address] Dr. Rose Lafleur PTTon 08-16-2022 aPTT Coag (Bld) [Time] 32.0 s Normal 22.3-36.2 [facility] Comment on above: Performed By: #### C BC #### [facility] [address] [place] [address] Dr. Rose Lafleur GLYCOHEMOGLOBIN A1Con 2021 ADA RECOMMENDATION SEE BELOW Normal [facility] Comment on above: Result Comment: ADA RECOMMENDED LIMIT 4.0 - 6.0 ADA THERAPEUTIC TARGET < 7.0 ACTION SUGGESTED > 7.0 Performed By: #### C BC #### [facility] [address] [address] [address] Rose Lafleur Glucose [Mass/Vol] 108 mg/dL Normal [facility] Comment on above: Performed By: #### C BC #### [facility] [address] [address] [address] Rose Lafleur HbA1c (Bld) [Mass fraction] 5.4 % Normal 4.5-6.2 [facility] Comment on above: Performed By: #### C BC #### [facility] [address] [address] [address] Rose Lafleur PAP ACOG PANEL 2: 30 to 65on 07-14-2022 . . Normal [facility] Comment on above: Result Comment: Perf ormed at: WB Performed By: #### C BC #### [facility] [address] [place] [address] Dr. Rose Lafleur Age Gdln ACOG Testing -63 Normal [facility] Comment on above: Performed By: #### C BC #### [facility] [address] [address] [address] Rose Lafleur DIAGNOSIS: Comment Normal [facility] Comment on above: Result Comment: NEGA TIVE FOR INTRAEPITHELIAL LESION OR MALIGNANCY. CELLULAR CHANGES ASSOCIATED WITH INFLAMMATION ARE PRESENT. Performed at: WB Performed By: #### C BC #### [facility] [address] [place] [address] Dr. Rose Lafleur HPV Aptima Negative Normal Negative [facility] Comment on above: Result Comment: This nucleic acid amplification test detects fourteen high-risk HPV types (16,18,31,33,35,39,45,51,52,56,58,59,66,68) without differentiation. Performed at: =G Performed By: #### C BC #### [facility] [address] [place] [address] Dr. Rose Lafleur HPV Genotype Reflex Comment Normal [facility] Comment on above: Result Comment: Crit eria not met, HPV Genotype not performed. Performed at: WB Performed By: #### C BC #### [facility] [address] [place] [address] Dr. Rose Lafleur Methodology: CTIM Normal [facility] Comment on above: Result Comment: The Thin Prep(R) Entry Level Programmer was unable to read this specimen. Therefore a manual review was performed. Performed at: WB Performed By: #### C BC #### [facility] [address] [place] [address] Dr. Rose Lafleur Note: Comment Normal [facility] Comment on above: Result Comment: The Pap [...] Performed By: #### C BC #### [facility] [address] [place] [address] Dr. Rose Lafleur Performed by: Comment Normal [facility] Comment on above: Result Comment: Carlos Wolff, Manager Organizational (ASCP) Performed at: WB Performed By: #### C BC #### [facility] [address] [place] [address] Dr. Rose Lafleur Specimen adequacy: Comment Normal [facility] Comment on above: Result Comment: Sati sfactory for evaluation. No endocervical component is identified. Performed at: WB Performed By: #### C BC #### [facility] [address] [place] [address] Dr. Rose Lafleur CBC AUTO DIFFon 05-26-2022 BASO # 0.0 103/ul Normal 0.0-0.1 [facility] Comment on above: Performed By: #### C BC #### [facility] [address] [place] [address] Dr. Rose Lafleur Basophils/100 WBC (Bld) 0.4 % Normal 0.2-2.0 [facility] Comment on above: Performed By: #### C BC #### [facility] [address] [place] [address] Dr. Rose Lafleur EO # 0.1 103/ul Normal 0.0-0.7 [facility] Comment on above: Performed By: #### C BC #### [facility] [address] [place] [address] Dr. Rose Lafleur Eosinophils/100 WBC (Bld) 1.2 % Normal 0.9-7.0 [facility] Comment on above: Performed By: #### C BC #### [facility] [address] [place] [address] Dr. Rose Lafleur Erythrocyte distribution width (RBC) [Ratio] 13.6 % Normal 11.0-15.0 [facility] Comment on above: Performed By: #### C BC #### [facility] [address] [place] [address] Dr. Rose Lafleur Hematocrit (Bld) [Volume fraction] 41.6 % Normal 36.0-48.0 [facility] Comment on above: Performed By: #### C BC #### [facility] [address] [place] [address] Dr. Rose Lafleur Hemoglobin (Bld) [Mass/Vol] 13.3 g/dL Normal 12.0-16.0 [facility] Comment on above: Performed By: #### C BC #### [facility] [address] [place] [address] Dr. Rose Lafleur IG # 0.03 10e3/ul Normal 0.00-0.03 [facility] Comment on above: Performed By: #### C BC #### [facility] [address] [place] [address] Dr. Rose Lafleur IG % 0.3 % Normal 0.0-0.5 [facility] Comment on above: Performed By: #### C BC #### [facility] [address] [place] [address] Dr. Rose Lafleur LYMPH # 3.8 103/ul Normal 1.2-3.8 [facility] Comment on above: Performed By: #### C BC #### [facility] [address] [place] [address] Dr. Rose Lafleur Lymphocytes/100 WBC (Bld) 39.8 % Normal 20.5-60.0 [facility] Comment on above: Performed By: #### C BC #### [facility] [address] [place] [address] Dr. Rose Lafleur MANUAL DIFF REQ NO Normal [facility] Comment on above: Performed By: #### C BC #### [facility] [address] [place] [address] Dr. Rose Lafleur MCH (RBC) [Entitic mass] 28.5 pg Normal 26.7-34.0 [facility] Comment on above: Performed By: #### C BC #### [facility] [address] [place] [address] Dr. Rose Lafleur MCHC (RBC) [Mass/Vol] 32.0 g/dL Normal 29.9-35.2 [facility] Comment on above: Performed By: #### C BC #### [facility] [address] [place] [address] Dr. Rose Lafleur MCV (RBC) [Entitic vol] 89.3 fL Normal 81.0-99.0 [facility] Comment on above: Performed By: #### C BC #### [facility] [address] [place] [address] Dr. Rose Lafleur MONO # 0.6 103/ul Normal 0.3-0.8 [facility] Comment on above: Performed By: #### C BC #### [facility] [address] [place] [address] Dr. Rose Lafleur Monocytes/100 WBC (Bld) 6.5 % Normal 1.7-12.0 [facility] Comment on above: Performed By: #### C BC #### [facility] [address] [place] [address] Dr. Rose Lafleur NEUT # 4.9 103/ul Normal 1.4-6.5 [facility] Comment on above: Performed By: #### C BC #### [facility] [address] [place] [address] Dr. Rose Lafleur Neutrophils/100 WBC (Bld) 51.8 % Normal 43.0-75.0 [facility] Comment on above: Performed By: #### C BC #### [facility] [address] [address] [address] Rose Lafleur Platelet mean volume (Bld) [Entitic vol] 8.9 fL Critically low 9.5-13.5 [facility] Comment on above: Performed By: #### C BC #### [facility] [address] [place] [address] Dr. Rose Lafleur PLT 310 103/ul Normal 150-450 [facility] Comment on above: Performed By: #### C BC #### [facility] [address] [place] [address] Dr. Rose Lafleur RBC 4.66 106/ul Normal 4.20-5.40 [facility] Comment on above: Performed By: #### C BC #### [facility] [address] [place] [address] Dr. Rose Lafleur WBC 9.5 103/ul Normal 4.0-11.0 [facility] Comment on above: Performed By: #### C BC #### [facility] [address] [place] [address] Dr. Rose Lafleur PREG HCG QUALon 05-26-2022 , QUAL Negative Normal NEGATIVE [facility] Comment on above: Performed By: #### P REG #### [facility] [address] [place] [address] Dr. Rose Lafleur [facility]19 [facility]on SARS-CoV-2 (COVID-19) RNA RUDY+probe Ql (Unsp spec) Not detected Normal NOT DETECTED [facility] Comment on above: Result Comment: This test is not yet approved or cleared by the [place] FDA. When there are no FDA-approved or cleared tests available, and other criteria are met, FDA can make tests available under an emergency access mechanism called an Emergency Use Authorization (EUA). The EUA for this test is supported by the [place] of Health and Human Service's (HHS's) declaration [...] Performed By: #### C BC #### [facility] [address] [place] [address] Dr. Rose Lafleur AFP (TUMOR MARKER)on 022 AFP, Serum, Tumor Marker 1.6 ng/mL Normal 0.0-6.4 [facility] Comment on above: Result Comment: [employer] Electrochemiluminescence Immunoassay (ECLIA) . Values obtained with different assay methods or kits cannot be used interchangeably. Results cannot be interpreted as absolute evidence of the presence or absence of malignant disease. . This test is not interpretable in females. Performed By: #### C BC #### [facility] [address] [place] [address] Dr. Rose Lafleur CA 125on 05-07-2022 Cancer Antigen (CA) 125 17.1 U/mL Normal 0.0-38.1 [facility] Comment on above: Result Comment: [employer] Electrochemiluminescence Immunoassay (ECLIA) . Values obtained with different assay methods or kits cannot be used interchangeably. Results cannot be interpreted as absolute evidence of the presence or absence of malignant disease. Performed By: #### L DH #### [facility] [address] [place] [address] Dr. Rose Lafleur CEAon 05-07-2022 CEA 1.6 ng/mL Normal 0.0-4.7 [facility] Comment on above: Result Comment: Nons mokers <3.9 Smokers <5.6 . [employer] Electrochemiluminescence Immunoassay (ECLIA) . Values obtained with different assay methods or kits cannot be used interchangeably. Results cannot be interpreted as absolute evidence of the presence or absence of malignant disease. Performed By: #### C BC #### [facility] [address] [place] [address] Dr. Rose Lafleur HCG QUANT TUMOR MARKERon HCG QNT TUMOR MARKER <1 Normal [facility] Comment on above: Result Comment: Fema le [...] developed and its performance characteristics determined by [employer]. It has not been cleared or approved by the Food and Drug Administration for use as a tumor marker. . This test is not interpretable as a tumor marker in females. Performed By: #### C BC #### [facility] [address] [place] [address] Dr. Rose Lafleur LDHon 05-05-2022 LDH 269 U/L Critically high 81-234 [facility] Comment on above: Performed By: #### L DH #### [facility] [address] [place] [address] Dr. Rose Lafleur CBC AUTO DIFFon 04-21-2022 BASO # 0.0 103/ul Normal 0.0-0.1 [facility] Comment on above: Performed By: #### L DH #### [facility] [address] [place] [address] Dr. Rose Lafleur Basophils/100 WBC (Bld) 0.3 % Normal 0.2-2.0 [facility] Comment on above: Performed By: #### L DH #### [facility] [address] [place] [address] Dr. Rose Lafleur EO # 0.1 103/ul Normal 0.0-0.7 [facility] Comment on above: Performed By: #### L DH #### [facility] [address] [place] [address] Dr. Rose Lafleur Eosinophils/100 WBC (Bld) 0.7 % Critically low 0.9-7.0 [facility] Comment on above: Performed By: #### L DH #### [facility] [address] [place] [address] Dr. Rose Lafleur Erythrocyte distribution width (RBC) [Ratio] 13.9 % Normal 11.0-15.0 [facility] Comment on above: Performed By: #### L DH #### [facility] [address] [place] [address] Dr. Rose Lafleur Hematocrit (Bld) [Volume fraction] 41.5 % Normal 36.0-48.0 [facility] Comment on above: Performed By: #### L DH #### [facility] [address] [place] [address] Dr. Rose Lafleur Hemoglobin (Bld) [Mass/Vol] 13.4 g/dL Normal 12.0-16.0 [facility] Comment on above: Performed By: #### L DH #### [facility] [address] [place] [address] Dr. Rose Lafleur IG # 0.03 10e3/ul Normal 0.00-0.03 [facility] Comment on above: Performed By: #### L DH #### [facility] [address] [place] [address] Dr. Rose Lafleur IG % 0.3 % Normal 0.0-0.5 [facility] Comment on above: Performed By: #### L DH #### [facility] [address] [place] [address] Dr. Rose Lafleur LYMPH # 3.7 103/ul Normal 1.2-3.8 [facility] Comment on above: Performed By: #### L DH #### [facility] [address] [place] [address] Dr. Rose Lafleur Lymphocytes/100 WBC (Bld) 32.9 % Normal 20.5-60.0 [facility] Comment on above: Performed By: #### L DH #### [facility] [address] [place] [address] Dr. Rose Lafleur MANUAL DIFF REQ NO Normal [facility] Comment on above: Performed By: #### L DH #### [facility] [address] [address] [address] Rose Lafleur MCH (RBC) [Entitic mass] 28.6 pg Normal 26.7-34.0 [facility] Comment on above: Performed By: #### L DH #### [facility] [address] [address] [address] Rose Lafleur MCHC (RBC) [Mass/Vol] 32.3 g/dL Normal 29.9-35.2 [facility] Comment on above: Performed By: #### L DH #### [facility] [address] [address] [address] Rose Lafleur MCV (RBC) [Entitic vol] 88.5 fL Normal 81.0-99.0 [facility] Comment on above: Performed By: #### L DH #### [facility] [address] [place] [address] Dr. Rose Lafleur MONO # 0.7 103/ul Normal 0.3-0.8 [facility] Comment on above: Performed By: #### L DH #### [facility] [address] [place] [address] Dr. Rose Lafleur Monocytes/100 WBC (Bld) 6.1 % Normal 1.7-12.0 [facility] Comment on above: Performed By: #### L DH #### [facility] [address] [place] [address] Dr. Rose Lafleur NEUT # 6.7 103/ul Critically high 1.4-6.5 [facility] Comment on above: Performed By: #### L DH #### [facility] [address] [place] [address] Dr. Rose Lafleur Neutrophils/100 WBC (Bld) 59.7 % Normal 43.0-75.0 [facility] Comment on above: Performed By: #### L DH #### [facility] [address] [place] [address] Dr. Rose Lafleur Platelet mean volume (Bld) [Entitic vol] 9.0 fL Critically low 9.5-13.5 [facility] Comment on above: Performed By: #### L DH #### [facility] [address] [address] [address] Rose Lafleur PLT 320 103/ul Normal 150-450 [facility] Comment on above: Performed By: #### L DH #### [facility] [address] [address] [address] Rose Lafleur RBC 4.69 106/ul Normal 4.20-5.40 [facility] Comment on above: Performed By: #### L DH #### [facility] [address] [address] [address] Rose Lafleur WBC 11.1 103/ul Critically high 4.0-11.0 [facility] Comment on above: Performed By: #### L DH #### [facility] [address] [place] [address] Dr. Rose Lafleur GLYCOHEMOGLOBIN A1Con 2021 ADA RECOMMENDATION SEE BELOW Normal [facility] Comment on above: Result Comment: ADA RECOMMENDED LIMIT 4.0 - 6.0 ADA THERAPEUTIC TARGET < 7.0 ACTION SUGGESTED > 7.0 Performed By: #### A 1C #### [facility] [address] [place] [address] Dr. Rose Lafleur Glucose [Mass/Vol] 111 mg/dL Normal [facility] Comment on above: Performed By: #### A 1C #### [facility] [address] [place] [address] Dr. Rose Lafleur HbA1c (Bld) [Mass fraction] 5.5 % Normal 4.5-6.2 [facility] Comment on above: Performed By: #### A 1C #### [facility] [address] [place] [address] Dr. Rose Lafleur TSHon 04-21-2022 TSH 1.207 uIU/mL Normal 0.358-3.740 [facility] Comment on above: Performed By: #### T SH #### [facility] [address] [place] [address] Dr. Rose Lafleur US PELVIS AND TRANSVAGon [...] by: ANTONIO BRADLEY Date: 2022-04-21 15:32 Normal [facility] Vital Signs Date Time Vital Sign Value Performing Clinician Huberi cyndy 05-25-2024 11:42-0400 Body height 152.4 cm P[facility] 1 [facility] 05-25-2024 11:42-0400 Body mass index (BMI) [Ratio] 63.47 kg/m2 [facility] 1 [facility] 05-25-2024 11:42-0400 Body weight 147.42 kg Pmh 1 [facility] 05-23-2024 11:23-0400 Body height 152.4 cm Bayron Reddy APRNCogent Communications GroupLIZZETTE Work Phone: [facility] 05-23-2024 11:23-0400 Body mass index (BMI) [Ratio] 64.06 kg/m2 Bayron Reddy APRNCogent Communications GroupDIRECTOR WOMEN Work Phone: [facility] 05-23-2024 11:23-0400 Body weight 148.78 kg Bayron Reddy APRNCogent Communications GroupDIRECTOR WOMEN Work Phone: [facility] Encounters Encounter Date Encounter Type Care Provider Facility Start: 06-21-2024 End: 06-21-2024 Telephone encounter Ebony Floyd CMA [facility] Start: 06-14-2024 End: 06-14-2024 Evaluation and management of inpatient PURVI NEVILLE [facility] Start: 05-25-2024 Encounter for other preprocedural examination ANTONIO Parkinson [facility] Start: 05-25-2024 End: 05-25-2024 ambulatory ANTONIO Parkinson [facility] Start: 05-25-2024 End: 05-25-2024 Patient encounter procedure [facility] Pre-Admission Testing 1 [facility] - Pre Admit Start: 05-23-2024 End: 05-23-2024 Office outpatient new 30 minutes Bayron Reddy [employer]-DIRECTOR WOMEN Work Phone: [facility] Comment on above: Rectal bleeding (Patti minh Dx) Start: 05-23-2024 End: 05-23-2024 ambulatory [facility] Start: 05-16-2024 End: 05-16-2024 Telephone encounter Bayron Reddy [employer] MA[employer]-DIRECTOR WOMEN Work Phone: [facility] Start: 05-15-2024 ambulatory Jaime Squires acility:[facility] Start: 09-12-2023 End: 09-12-2023 ambulatory LAY SARA Not Available Start: 08-18-2023 End: 08-18-2023 ambulatory LAY SARA Not Available Start: 08-16-2023 End: 09-15-2023 ambulatory [facility] Start: 08-09-2023 End: 08-09-2023 ambulatory LAY RUIZ [facility] Start: 07-26-2023 End: 08-15-2023 ambulatory [facility] Start: 07-21-2023 End: 07-21-2023 ambulatory LAY SARA Not Available Start: 12-14-2022 End: 12-15-2022 ambulatory RASHID ADAME Facility: Start: 09-02-2022 Encounter for preprocedural laboratory examination DR JUAN ARRIAZA . [facility] Start: 08-30-2022 End: 08-31-[address] [...] examination DR JUAN ARRIAZA . [facility] Start: 05-13-2022 End: 05-14-[address] JUAN ARRIAZA . Facility:[facility] Start: 05-13-2022 End: 05-14-2022 Encounter for preprocedural cardiovascular examination DR JUAN ARRIAZA . Facility:[facility] Start: 05-05-2022 End: 05-06-[address] JUAN ARRIAZA . Facility:[facility] Start: 04-21-2022 End: 04-22-[address] JUAN ARRIAZA . Facility:[facility] Procedures Date Procedure Procedure Detail Performing Clinician Start: 06-14-2024 Colonoscopy Ebony Bogdan ia CORRECTIONAL SUBSTANCE ABUSE COUNSELOR Start: 07-05-2022 Microscopic observat ion [Identifier] in Cervix by Cyto stain Bayron Reddy APRN-DIRECTOR WOMEN Work Phone: Plan of Treatment Date Care Activity Detail Author Start: 05-06-2030 DTaP,Tdap and Td Vaccines (3 - Td or Tdap) DTaP,Tdap and Td Vaccines (3 - Td or Tdap) [facility] Start: 06-14-2029 Screening for malign ant neoplasm of colon Colonoscopy [facility] Start: 07-05-2025 Screening for malign ant neoplasm of cervix Pap Smear [facility] Start: 06-14-2025 Adult BMI Screening Adult BMI Screen ing [facility] Start: 06-14-2025 Tobacco Screening Tobacco Screening [facility] Start: 05-25-2025 Adult BMI Screening Adult BMI Screen ing [facility] Start: 05-25-2025 Tobacco Screening Tobacco Screening [facility] Start: 05-23-2025 Adult BMI Screening Adult BMI Screen ing [facility] Start: 05-23-2025 Tobacco Screening Tobacco Screening [facility] Start: 06-14-2024 End: 06-14-2024 Admission to same day surgery center 06/14/2024 10:00 AM EDT - 06/14/2024 10:30 AM EDT Surgery [facility] [address] [place] [id number] Purvi Neville, DO [address] [place] [address] [phone] COLONOSCOPY DIAGNOSTIC / SCREENING [85971 (CPT )] [facility] Comment on above: COLONOSCOPY DIAGNOST IC / SCREENING [63417 (CPT )] Start: 06-14-2024 End: 06-14-2024 Colonoscopy flx dx w/collj spec when pfrmd COLONOSCOPY DIAGNOSTIC / SCREENING rectal bleeding 06/14/2024 10:00 AM EDT [facility] Start: 06-14-2024 Subsequent hospital visit by physician 06/14/2024 10:00 AM EDT Hospital Encounter [facility] [address] [place] [phone] Purvi Neville, DO [address] [place] [address] [phone] [facility] Start: 05-25-2024 End: 05-25-2024 Patient encounter procedure 05/25/2024 2:15 PM EDT Procedure visit [facility] - Pre Admit [address] [place] [id number] [facility] Start: 05-23-2024 End: 05-23-2024 Patient encounter procedure 05/23/2024 11:30 AM EDT Office Visit [facility] [address] [place] [id number] Bayron Reddy, [employer]ER-DIRECTOR WOMEN [address] [place] [address] [facility] Start: 04-15-2024 COVID-19 Vaccine ( season) COVID-19 Vaccine ( season) [facility] Start: 04-15-2024 COVID-19 Vaccine ( season) COVID-19 Vaccine () [facility] Start: 04-15-2024 Influenza vaccination Influenza Vacc ine [facility] Start: 09-22-2022 Adult BMI Screening Adult BMI Screen ing [facility] Start: 12-15-2004 Screening for malign ant neoplasm of cervix Pap Smear [facility] Start: 12-15-2001 Adult BMI Follow Up Plan Adult BMI Follow Up Plan [facility] Start: 1995 Depression Screening Depression Scre ening [facility] Start: 1995 Tobacco Screening Tobacco Screening [facility] End: 05-23-2025 Colonoscopy Colonoscopy GI Routine Rectal bleeding 1 Occurrences starting 05/23/2024 until 05/23/2025 [facility] Work Phone: Comment on above: 1 Occurrences starti ng 05/23/2024 until 05/23/2025 Payers Date Payer Category Payer Self-pay 2003 Medicaid [employer] [place] [employer] [id number] 2003-Present [phone] [place] [id number] 2003 Medicaid HMO [employer] [id number] 1983 Unknown [id number] 2.16.840.1.293262.3.579.2.593 1983 Unknown [id number] 2.16.840.1.809002.3.579.2.59 1983 Unknown [id number] 2.16.840.1.830550.3.579.2.593 1983 Unknown [id number] 2.16.840.1.653950.3.579.2.593 1983 Unknown [id number] 2.16.840.1.640252.3.579.2.593 1983 Unknown [id number] 2.16.840.1.176282.3.579.2.593 1983 Unknown [id number] 2.16.840.1.209100.3.579.2.593 1983 Unknown [id number] 2.16.840.1.393887.3.579.2.593 1983 Unknown [id number] 2.16.840.1.519491.3.579.2.593 1983 Unknown [id number] 2.16.840.1.701951.3.579.2.593 1983 Unknown [id number] 2.16.840.1.710484.3.579.2.593 1983 Unknown [id number] 2.16.840.1.752007.3.579.2.593 1983 Unknown [id number] 2.16.840.1.431777.3.579.2.9 1983 Unknown [id number] 2.16.840.1.447035.3.579.2.9 1983 Unknown [id number] 2.16.840.1.269006.3.579.2.9 1983 Unknown [id number] 2.16.840.1.633583.3.579.2.1285 1983 Unknown [id number] 2.16.840.1.670147.3.579.2.1285 1983 Unknown [id number] 2.16.840.1.180449.3.579.2.1285 1983 Unknown [id number] 2.16.840.1.097523.3.579.2.1285 1983 Unknown [id number] 2.16.840.1.309645.3.579.2.1285 1983 Unknown [id number] 2.16.840.1.409303.3.579.2.1285 1983 Unknown [id number] 2.16.840.1.003960.3.579.2.1285 1983 Unknown [id number] 2.16.840.1.945337.3.579.2.1286 1959 Unknown [id number] Social History Date Type Detail Facility Start: 09-22-2021 End: 05-23-2024 Tobacco smoking status WAIS Ex-smoker [facility] End: 07-17-2021 History of tobacco use Current smoker [facility] End: 07-17-2021 History of tobacco use Cigarette Smoker [facility] Start: 09-22-2021 End: 05-23-2024 Tobacco use and exposure Smokeless tobacco non-user [facility] Start: 02-12-2022 End: 06-14-2024 Alcoholic beverage intake Ex-drinker (finding) [facility] Start: 09-25-2020 End: 02-12-2022 History of Social function [facility] Start: 09-25-2020 End: 02-12-2022 Tobacco use panel [facility] Childcare Unknown [facility] Start: 1985 Sex assigned at Female P [facility] Start: 06-30-2021 Gender identity Identifies as female gender (finding) [facility] History of tobacco use Tobacco U se Types Packs/Day Years Used Date Smoking Tobacco: Former Vaping/E-cigarettes Smokeless Tobacco: Never [facility] Start: 03-20-2015 Sex Female (finding) [facility] Clinical Notes 05-26-2022 to 06-21-2024 Telephone [...] put in chart. documented in this encounter [facility] 06-21-2024 Telephone encounter Note ----- Message from Dr. Purvi Neville DO sent at 06/20/2024 1:05 PM EST ----- Please call patient let her know that she had a precancerous polyp and I recommend repeat colonoscopy in 5 years unless problems. Thanks, Dr. Reyna [facility] [employer] [facility] 06-21-2024 Telephone encounter Note Spoke with patient regarding pathology results. Patient verbally understood with no further questions. Recall to be put in chart. [facility] [employer] [facility] 05-25-2024 Instructions Sofiya Moreno RN - 05/25/2024 11:15 AM EDT Preoperative Education Checklist- General Surgery date: 06/14/24 Surgery time: 10a Arrival time: 8a 1. Bring a photo ID and your insurance card with you the day of surgery. You will check in at the main lobby of the [facility]- registration desk is straight ahead as soon as you walk in. Tell them you are here for surgery. 2. If you have a Living Will/Durable Power of Tiller Man for Health Care that is not on [...] after you have bathed. 5. NO nail hungarian/acrylic on at least one finger. If you are having a hand, wrist or foot surgery then all nail hungarian and artificial/acrylic nails must be removed from [...] please call the Preadmission Testing office at [phone], Mon.-Fri. 7 a.m.-3 p.m. Leave a voicemail [...] doctor for instructions documented in this encounter [facility] Bass Manager 05-23-2024 History of Presen t illness Narrative [...] patient/family/caregiver Referring and communicating with other health critical care transport nurse Rectal bleeding [K62.5] BAYRON REDDY, CUSTOM LEATHER PRODUCTS MAKER-DIRECTOR WOMEN [facility] [place] This note was created with the assistance of a speech recognition program. While intending to generate a timely document that accurately reflects the content of the visit, no guarantee can be provided that every grammatical or spelling mistake has been or will be identified or corrected. Thank you for your understanding. CRYS Queen 05/23/24 1239 documented in this encounter [facility] 05-16-2024 Miscellaneous Notes Called Eran regarding the rectal bleeding referral that our office received from Dr Quinn, left message on voicemail to call the office back to schedule an appointment. Eran called the office back and we scheduled her an appointment on 05/23/2024. documented in this encounter [facility] 05-16-2024 Telephone encounter Note Called Eran regarding the rectal bleeding referral that our office received from Dr Quinn, left message on voicemail to call the office back to schedule an appointment. [facility] 05-16-2024 Telephone encounter Note Eran called the office back and we scheduled her an appointment on 05/23/2024. [facility] 12-14-2022 Note CONSULTATION CONSULTATION DATE: 12/14/2022 TO: [facility] CHIEF COMPLAINT: Includes severe right [...] our patients to inform us about any zudf-nzb-qplqtav medications or herbal remedies/nutritional supplements/alternative remedies. 2. [...] with their primary care provider. [facility] 08-30-2022 Note OPERATIVE NOTE OPERATION DATE: 08/30/2022 PROCEDURE: Da Beatriz assisted laparoscopy hysterectomy with bilateral salpingectomy with cystoscopy. PREOPERATIVE DIAGNOSIS: Abnormal uterine bleeding, menorrhagia, dysmenorrhea, dyspareunia, failed ablation, pelvic pain, uterine fibroids. POSTOPERATIVE DIAGNOSIS: Abnormal uterine bleeding, menorrhagia, dysmenorrhea, dyspareunia, failed ablation, pelvic pain, uterine fibroids. ANESTHESIA: General. SURGEON: Juan Arriaza D.O. SENIOR INTERACTIVE PRODUCER: FRANNIE Luu URINE OUTPUT: Yellow and clear. [...] first. Patient tolerated procedure well. [facility] 05-26-2022 Note OPERATIVE NOTE OPERATION DATE: 05/26/2022 PROCEDURE: Attempted D AND C hysteroscopy, diagnostic laparoscopy, lysis of omental adhesions from the anterior abdominal wall using a LigaSure. PREOPERATIVE DIAGNOSIS: Pelvic pain, dysmenorrhea, dyspareunia. POSTOPERATIVE DIAGNOSIS: Pelvic pain, dysmenorrhea, dyspareunia including endometriosis ANESTHESIA: General. SURGEON: Juan Arriaza D.O. SENIOR INTERACTIVE PRODUCER: FRANNIE Huizar URINE OUTPUT: Yellow and clear. [...] Recovery Room in stable condition. [facility] 05-26-2022 Note OPERATIVE NOTE OPERATION DATE: 06/11/2022 ADDENDUM TO PROCEDURE: LigaSure apparatus was used to come across omental adhesions, extending to the anterior abdominal wall. This was released. Excellent hemostasis was assured. ADDENDUM TO POST-OP DIAGNOSIS: Significant uterine fibroids. [facility] Evaluation note Diagnosis Rectal bleeding- Primary [...] DATE CREATED AUTHOR AUTHOR'S ORGANIZ ATION 09/13/2023 [facility] EPIC DATE CREATED AUTHOR AUTHOR'S ORGANIZ ATION 05/25/2024 [facility] DATE CREATED AUTHOR AUTHOR'S ORGANIZ ATION 06/22/2024 [facility] DATE CREATED AUTHOR AUTHOR'S ORGANIZ ATION 09/11/2024 [facility] y[facility] Care Teams (unrecognized sec tion and content) Operation Specialist Relationship Specialty Start Date End Date Za Rogers MD [address] [place] [id number] PCP - General Family Medicine 05/16/24 Operation Specialist Relationship Specialty Start Date End Date Za Rogers MD [address] [place] [id number] PCP - General Family Medicine 05/16/24 Operation Specialist Relationship Specialty Start Date End Date Za Rogers MD [address] [place] [address] [id number] PCP - General Family Medicine 05/16/24 Operation Specialist Relationship Specialty Start Date End Date Za Rogers MD [address] [place] [address] [id number] PCP - General Family Medicine 05/16/24 Reason [...] BE BASED ON THE PRIMARY CLINICAL RECORDS. [employer] provides no warranty or guarantee of the accuracy or completeness of information in this document.
--- NOTE | 2024-11-01 15:06 | PM.CN ---
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 Today pain 7/10 sharp, increasing to 9/10 with stairs, bending, twisting, activity, weather changes Patient finds mild benefit from baclofen and zonegran, denies side effects. Finds mild benefit from heat, ice, and massager. previously underwent bilateral T12,L1 intercostal nerve block with >80% improvement while anesthetized and for 3 days. preop pain up to 9/10 post op pain 1/10. at this point she is 1 month post right T12,1 intercostal RFA but has not had the left side completed. cc:: CC: Carol Tyler NP Review of Systems ROS Status of ROS 10 or more systems reviewed and unremarkable except as noted in history and below Musculoskeletal Reports: back pain PFSH PFSH Medical History (Updated 09/04/24 @ 07:14 by Heather Sheehan) Osteoarthritis ?M19.90 - Unspecified osteoarthritis, unspecified site (ICD-10) Hiatal hernia ?K44.9 - Diaphragmatic hernia without obstruction or gangrene (ICD-10) Former smoker ?Z87.891 - Personal history of nicotine dependence (ICD-10) Hypertension ?I10 - Essential (primary) hypertension (ICD-10) Surgical History (Updated 09/04/24 @ 07:14 by Heather Sheehan) H/O: hysterectomy ?Z90.710 - Acquired absence of both cervix and uterus (ICD-10) Meds Home Medications and Allergies Home Medications ?Medication ?Instructions ?Recorded ?Confirmed ?Type albuterol sulfate 90 mcg/actuation 1 inh inhalation Q4H 06/01/23 10/02/24 History aerosol inhaler baclofen 10 mg tablet 10 mg PO BID PRN muscle spasm 06/01/23 10/02/24 History escitalopram oxalate 20 mg tablet 20 mg PO DAILY 06/01/23 10/02/24 History (Lexapro) hydroxyzine HCl 10 mg tablet 10 mg PO DAILY 06/01/23 10/02/24 History lisinopril 10 1 tab PO DAILY 06/01/23 10/02/24 History mg-hydrochlorothiazide 12.5 mg tablet rosuvastatin 20 mg tablet 20 mg PO DAILY 06/01/23 10/02/24 History zonisamide 50 mg capsule 50 mg PO DAILY 06/01/23 10/02/24 History diazepam 10 mg tablet mg 10/02/24 History Allergies Allergy/AdvReac Type Severity Reaction Status Date / Time Penicillins Allergy Unknown swellling Verified 10/02/24 08:06 Exam Constitutional Documenting provider has reviewed patient's vital signs: yes Common normals: no apparent distress, oriented x3, healthy appearing, alert and well nourished General appearance: cooperative Nutritional appearance: obese HENMT Common normals: normocephalic, hearing grossly normal bilaterally and moist oral mucous membranes Head and scalp: normocephalic Eye Common normals: PERRL Pupil: PERRL Neck & C-Spine Common normals: full ROM General: normal visual inspection Chest Common normals: inspection of chest normal Respiratory Common normals: normal respiratory effort, no retractions and no use of accessory muscles Back & Pelvis Thoracic spine/upper back: ROM limited, pain with ROM and paraspinal muscle tenderness Other: increased pain over left T11,12 intercostal nerves Extremity Common normals: normal to inspection and full ROM Neuro Common normals: oriented x3, CN's II-XII intact bilaterally, moves all extremities, no focal motor deficits, no sensory deficits noted and deep tendon reflexes 2+ bilaterally Sensorium/orientation: alert Motor exam: strength 5/5 throughout and no movement abnormalities noted Psych Common normals: mental status grossly normal, thought process normal, cooperative, affect normal, speech normal and activity/motor behavior normal Speech: normal speech Thought process: normal thought process Results Additional Findings Additional findings: If on a controlled substance or opioids, I have checked an [place]AR[place] report on this patient and there are no aberrancies noted in the prescribing history.??If on a controlled substance or opioid a drug screen was completed and reviewed within the last year, and if there has not been a drug screen completed we ordered one today to monitor higher risk, state monitored pain medication use. As part of providing excellent, safe, comprehensive care, the following was completed at our patient's visit: 1. A medication reconciliation and review to ensure accurate knowledge of current/active medications, including asking our patients to inform us about any ngwz-jyg-ynztugx medications or herbal remedies/nutritional supplements/alternative remedies. 2. A review to specifically ensure our patients have had annual screening for screening for depression, screening for tobacco use, and screening for unhealthy alcohol use. For concerning screenings had a discussion with the patient, provided patient education, and recommended follow-up with primary care provider when appropriate. If patient noted with a risk of falling, they received education on strength, gait, and balance training to prevent future risk of falling. Portions of this note may have been carried over from the previous visit and updated as appropriate. Please note this office utilizes paper charting in addition to the electronic medical record. A list of current medications, vitals, and PMH is available there as the clinical staff outside of myself do not have access to [employer] charting during the clinic day operations. As part of providing quality comprehensive care the current medications, vitals, and PMH were reviewed in the paper chart. Assessment and Plan Assessment and Plan (1) Intercostal neuritis: (2) Thoracic back pain: (3) Myofascial pain: Plan left T12,L1 intercostal RFA under fluoroscopy with 10mg PO valium 30-60mins prior to procedure increase zonegran 50mg BID, or 100mg HS as tolerated continue baclofen 10mg 1-2 BID PRN myofascial spasms/pain f/u 4 weeks after RFA
== END 2024-11-01 14:23 | disposition home or self-care (01) ==
LOC: PM 14:23
PROVIDERS: PCP Family Medicine; Visit Provider Nurse Practitioner
DX: G58.0 Intercostal neuropathy (principal); M54.6 Pain in thoracic spine; M79.18 Myalgia, other site
CPT/HCPCS: G0463

== ENCOUNTER 2024-12-03 11:32 | Day surgery (SDC) | payer OTHER, SELFPAY ==
[2024-12-03 11:50] VITALS: BP 116/70; PULSE 75; TEMP 36.2; O2SAT 97
[2024-12-03 12:43] VITALS: BP 119/57; BP 131/60; PULSE 67; PULSE 74; O2SAT 100
[2024-12-03] MEDS: BUPIVACAINE HCL 0.25% PF 25 MG/10 ML VIAL INJ (12:45)
[2024-12-03] MEDS: DEXAMETHASONE SOD PHOS 10 MG/ML VIAL INJ (12:46)
[2024-12-03] MEDS: LIDOCAINE HCL 2% 400 MG/20 ML MDV 3 ML INJ (12:46)
--- NOTE | 2024-12-03 12:53 | P.ON_ITS ---
Date of procedure: 12/03/24 Pre-op diagnosis: Pain due to intercostal neuralgia Post-op diagnosis: same as pre-op Procedure: Procedure: Left T11, 12 intercostal nerve radiofrequency ablation Medications: Bupivacaine 0.25% 2cc, dexamethasone 10mg, lidocaine 2% 6cc The patient was seen and examined in the preoperative holding area.? The site was marked.? Written informed consent was obtained and placed on the chart.? The patient was brought to the medical procedure unit and placed in the prone position.? A timeout was completed verifying correct patient, procedure, positioning, and special requirements.? The skin overlying the target points, the designated intercostal nerve, was prepped and draped in the usual sterile fashion.? The target point was achieved with a 20-gauge 15 cm with a 10 mm curved active tip radiofrequency cannula under direct fluoroscopic visualizatio n.? The needle was inserted at level T11 on the left side.? Motor stimulation was carried out at 2 Hz up to 5 volts with the absence of extremity activity.? This was repeated at level T12 on left side.?? Sensory stimulation was carried out.? Concordant pain was realized at the above- mentioned sites.? Then pulsed radiofrequency lesioning was carried out times 120 seconds at 50 degrees times at each level.? The radiofrequency probe was removed prior to cannula removal.? The above-mentioned injectate was placed in 1 mL increments.? The needle was removed.? Insertion sites were covered.? The patient was taken to the postoperative recovery area and monitored for an appropriate length of time before being found suitable for discharge in the company of a responsible adult. Anesthesia: Local Surgeon: Radha Padilla Pathology: none sent Condition: stable Disposition: no change
== END 2024-12-03 12:56 | disposition home or self-care (01) ==
LOC: SURGOUT 11:32
PROVIDERS: PCP Family Medicine; Visit Provider Anesthesiology
DX: G58.0 Intercostal neuropathy (principal)
CPT/HCPCS: 64620; J0665; J1100

== ENCOUNTER 2025-01-02 13:13 | Outpatient (OUT) | payer OTHER, SELFPAY ==
--- OUTSIDE RECORDS SUMMARY | 2011-03-24 | XMS_ITS | Encounter Summary ---
Author Organization [facility] Address [address] [place] [address] Care Team Providers Care Dining Service Supervisor Name Role Phone Unavailable Primary Care Provider Unavailabl e Encounter Details Date Type Department Care Team (Late st Contact Info) Description 03/24/2011 Hospital Encounter [facility] [address] [place] [id number] Social History Tobacco Use Types Packs/Day Years Used Date Smoking Tobacco: Never Assessed Comments Unknown Sex and Gender Information Value Date Recorded Sex Assigned at Not on file Legal Sex Female 6:50 AM EST Gender Identity Not on file Sexual Orientation Not on file documented as of this encounter Plan of Treatment Not on file documented as of this encounter Visit Diagnoses Not on filedocumented in this encounter
--- OUTSIDE RECORDS SUMMARY | 2024-12-12 09:45 | XMS_ITS ---
Author Organization [facility] vices Address [address] [place] [phone] Care Team Providers Care Communications Instructor Name Role Phone Debbie Leonardo Primary Care Provider REASON FOR VISIT 4 week Weight Social History Sex Assigned At : Social History Observation Description Sex Assigned At Female Encounters Encounter Location Date Provider Diagnosis Main [address] [place] [address] [phone] 12/12/2024 Debbie Leonardo Plan Of Treatment Next Appt Details Provider Name:Betsy Cooney , 02/28/2025 01:45:00 PM, [address] [place] [address], [phone], Progress Notes * Eran RANKIN LDOB:[birth year] (39 yo F)Acc No.[id number]:12/12/2024 Medical Note Patient: Eran BRYANT Provider: Nasima Leonardo MD :1985 A ge:38 Y S ex:Female Date:12/12/2024 Address:[address] [place], [place] [id number] Subjective: * Chief Complaints: * 1 . 4 week Weight. * Medical History: Objective: * Vitals: Assessment: Plan: * Treatment: * Billing Information: * Visit Code: * Procedure Codes: * Electronic signature of Reginald Leonardo MD on 01/02/2025 at 01:16 PM EDT Sign off status: Pending * Provider: Nasima Leonardo MD Date: 0 12/12/2024 Generated for Dion grace/Nupur/Tahira on: 0 01/02/2025 01:16 PM EDT
--- OUTSIDE RECORDS SUMMARY | 2024-12-24 13:20 | XMS_ITS | Encounter Summary ---
Author Organization [facility] Address [address] [place] [address] Care Team Providers Care Flight Engineer Inspector Name Role Phone GiselleSharon harding DO Primary Care Provider Reason for Visit * Reason Comments Follow-up Pt present today to follow up on Effexor. Pt was prescribed Effexor on 11/26/2024 for hot flashes associated w/menopause symptoms. Encounter Details Date Type Department Care Team (Late st Contact Info) Description 12/24/2024 1:20 PM EDT Office Visit [facility] OB [address] [place] [address] Chester Arriaza, DO [address] [place], [place] [id number] Follow-up encounter involving medication Social History Tobacco Use Types Packs/Day Years Used Date Smoking Tobacco: Former Cigarettes 0 08/15/2000 - 08/06/2021 Alcohol Use Standard Drinks/Week Comments Never 0 (1 standard drink = 0.6 oz pur e alcohol) Comments No Sex and Gender Information Value Date Recorded Sex Assigned at Female 01/21/2023 1:19 PM EDT Legal Sex Female 11:31 PM EDT Gender Identity Female 01/21/2023 1:19 PM EDT Sexual Orientation Not on file documented as of this encounter Last Filed Vital Signs Vital Sign Reading Time Taken Comments Blood Pressure 128/76 12/24/2024 1:54 PM EDT Pulse - - Temperature - - Respiratory Rate - - Oxygen Saturation - - Inhaled Oxygen Concentration - - Weight 147 kg (324 lb) 12/24/2024 1:54 PM EDT Height - - Body Mass Index 63.28 01/26/2023 3:59 PM EDT documented in this encounter Progress Notes * Lisandra Trinh, MITESH - 12/24/2024 1:20 PM EDT Reason for Appointment: Patient ID: Eran Rankin is a 39 y.o. female who presents for Follow-up (Pt present today to follow up on Effexor. Pt was prescribed Effexor on 11/26/2024 for hot flashes associated w/menopause symptoms.) Patient presents today for Medication Follow Up appointment. MEDICATIONS Current Outpatient Medications Medication Instructions baclofen (Lioresal) 10 MG tablet Every 12 hours escitalopram (Lexapro) 10 MG tablet TAKE 1 TABLET BY MOUTH EVERY DAY FOR 90 DAYS hydrOXYzine HCl (ATARAX) 25 mg, Oral, Once lisinopril-hydroCHLOROthiazide 10-12.5 MG tablet 1 tablet, Oral, Daily rosuvastatin (CRESTOR) 5 mg, Oral, Daily RT venlafaxine XR (Effexor XR) 37.5 MG 24 hr capsule TAKE 1 CAPSULE BY MOUTH DAILY DO NOT CRUSH OR CHEW. ALLERGIES Allergies Allergen Reactions Penicillin G Potassium In D5w Other Reaction(s): Swelling , Swollen lips Penicillins Other Reaction(s): edema PROBLEMS Active Ambulatory Problems Diagnosis Date Noted No Active Ambulatory Problems Resolved Ambulatory Problems Diagnosis Date Noted No Resolved Ambulatory Problems Past Medical History: Diagnosis Date Endometriosis Former smoker HTN (hypertension) (CMS/HCC) Hypercholesterolemia (CMS/HCC) Morbid obesity with BMI of 50.0-59.9, adult (CMS/HCC) Uterine fibroid Uterine prolapse HISTORY PAST MEDICAL HISTORY SOCIAL HISTORY Past Medical History: Diagnosis Date Endometriosis Former smoker HTN (hypertension) (CMS/HCC) Hypercholesterolemia (CMS/HCC) Morbid obesity with BMI of 50.0-59.9, adult (CMS/HCC) Uterine fibroid Uterine prolapse Social History Tobacco Use Smoking status: Former Current packs/day: 0.00 Types: Cigarettes Start date: 08/15/2000 Quit date: 08/06/2021 Years since quittin.3 Smokeless tobacco: Not on file Substance Use Topics Alcohol use: Never Drug use: Never FAMILY HISTORY Family History Problem Relation Name Age of Onset Asthma Mother Hypertension Mother Cancer Maternal Grandmother Cancer Maternal Grandfather SURGICAL HISTORY Past Surgical History: Procedure Laterality Date SECTION, CLASSIC DILATION AND CURETTAGE ENDOMETRIAL ABLATION 2015 Novasure Ablation ROBOTIC ASSISTED HYSTERECTOMY 08/25/2022 w/bilateral salpingectomy TUBAL LIGATION 2010 REVIEW OF SYSTEMS Review of Systems: Review of Systems All other systems reviewed and are negative. OBJECTIVE Objective: Physical Exam Constitutional: Appearance: Normal appearance. She is well-developed. Cardiovascular: Rate and Rhythm: Normal rate and regular rhythm. Pulmonary: Effort: Pulmonary effort is normal. Breath sounds: Normal breath sounds. Abdominal: General: Bowel sounds are normal. There is no distension. Palpations: Abdomen is soft. Tenderness: There is no abdominal tenderness. There is no guarding or rebound. Musculoskeletal: General: No swelling. Normal range of motion. Right lower leg: No edema. Left lower leg: No edema. Neurological: Mental Status: She is alert and oriented to person, place, and time. Skin: General: Skin is warm and dry. Psychiatric: Mood and Affect: Mood normal. Behavior: Behavior normal. Vitals and nursing note reviewed. Exam conducted with a dining chair seat cushion trimmer present. Vitals: Estimated body mass index is 63.28 kg/m?? as calculated from the following: Height as of 01/26/23: 5'. Weight as of this encounter: 324 lb. BP: 128/76 No LMP recorded. Patient has had a hysterectomy. ASSESSMENT & PLAN ICD-10-CM 1. Follow-up encounter involving medication Z79.899 Patient presents today to follow Effexor. Patient is doing well and will continue current medication. If patient desires to have medication increased she will reach out to office and increase will beable to be sent. Patient to ensure she is scheduled for annual prior to leaving office today. Documented by Lisandra Trinh LPN on behalf of: Chester Arriaza DO documented in this encounter Plan of Treatment Upcoming Encounters Date Type Department Care Team (Late st Contact Info) Description 11/04/2025 2:00 PM EDT Office Visit [facility] [address] [place] [address] Chester Arriaza DO [address] [place] [address] documented as of this encounter Visit Diagnoses Diagnosis Follow-up encounter involving medication documented in this encounter Care Teams Flight Engineer Inspector Relationship Specialty Start Date End Date Sharon Herring DO [address] [place] [address] PCP - General Family Medicine 07/21/23 documented as of this encounter
--- OUTSIDE RECORDS SUMMARY | 2025-01-02 13:15 | XMS_ITS | Encounter Summary ---
Author Organization [facility] Address [address] [facility] [place] [address] Care Team Providers Care Coding File Clerk Name Role Phone Sharon Herring DO Primary Care Provider [phone] Reason for Visit * Reason Comments Med Refill Encounter Details Date Type Department Care Team (Late Contact Info) Description 12/25/2024 Refill [facility] [address] [place] [address] Chester Arriaza DO [facility] [place] [address] Hot flashes due to surgical menopause Social History Tobacco Use Types Packs/Day Years [...] as of this encounter Plan of Treatment Upcoming Encounters Date Type Department Care Team ([facility] Contact Info) Description 11/04/2025 2:00 PM EDT Office Visit [facility] [address] [place] [address] Chester Arriaza [facility] [place] [address] documented as of this encounter Visit Diagnoses Diagnosis Hot flashes due to surgical menopause documented in this encounter Care Teams Coding File Clerk Relationship Specialty Start Date End Date Sharon Herring DO [address] [place] [address] PCP - General Family Medicine 07/21/23 documented as of this encounter
--- OUTSIDE RECORDS SUMMARY | 2025-01-02 13:15 | XMS_ITS | Clinical Summary ---
Author Organization [facility] Address [address] [place] [address] Care Team Providers Care Cross Country And Track And Field Coach Name Role Phone GiselleSharon harding DO Primary Care Provider [phone] Allergies Active Allergy Reactions Criticality Noted Date Comments Penicillin G Potassium In D5w 07/28/2021 Other Reaction(s): Swelling , Swollen lips Penicillins 01/25/2017 Other Reaction(s): edema Medications baclofen (Lioresal) 10 MG tablet every 12 (twelve) hours. Active escitalopram (Lexapro) 10 MG tablet TAKE 1 TABLET BY MOUTH EVERY DAY FOR 90 DAYS Active rosuvastatin (Crestor) 5 MG tablet Take 5 mg by mouth in the morning. Active lisinopril-hyd roCHLOROthiazi de 10-12.5 MG tablet Take 1 tablet by mouth in the morning. Active hydrOXYzine HCl (Atarax) 25 MG tablet Take 25 mg by mouth 1 (one) time Active venlafaxine XR (Effexor XR) 37.5 MG 24 hr capsuleIndicat ions:Hot flashes due to surgical menopause TAKE 1 CAPSULE BY MOUTH DAILY DO NOT CRUSH OR CHEW. 30 capsule 3 5 Active venlafaxine XR (Effexor XR) 37.5 MG 24 hr capsuleIndicat ions:Hot flashes due to surgical menopause TAKE 1 CAPSULE BY MOUTH DAILY DO NOT CRUSH OR CHEW. 30 capsule 5 12/26/19 25 Discontinued Encounters Date Type Department Care Team Description 12/25/2024 Refill [facility] [address] [place] [phone] Chester Arriaza, Hot flashes due to surgical menopause 12/24/2024 1:20 PM EDT Office Visit [facility] OB [address] [place] [phone] Chester Arriaza, Follow-up encounter involving medication 12/24/2024 Bamboo flowsheet [facility] OB [address] [place] [address] [place] [phone] Chester Arriaza, 12/17/2024 Travel 11/26/2024 Refill [facility] [address] [place] [phone] Chester Arriaza, Hot flashes due to surgical menopause 11/15/2024 Orders Only [facility] OB [address] [place] [address] [place] [address] Leisa Dill LPN 10/30/2024 1:20 PM EDT Office Visit [facility] OB [address] [place] [address] [place] [address] Chester Arriaza DO Well woman exam with routine gynecological exam; Encounter for screening mammogram for malignant neoplasm of breast; Hot flashes due to surgical menopause; Yeast infection 10/30/2024 Clinisync Result Encounter [facility] External Department Unsolicited Chester Arriaza, DO 10/30/2024 Bamboo flowsheet [facility] OB [address] [place] [address] [place] [phone] Chester Arriaza, 10/25/2024 Travel from Last 3 Months Family History Medical History Relation Name Comments Cancer Maternal Grandfather Cancer Maternal Grandmother Asthma Mother Hypertension Mother Relation Name Status Comments Father Alive Maternal Grandfather Maternal Grandmother Mother Alive Social History Tobacco Use Types Packs/Day Years Used Date Smoking Tobacco: Former Cigarettes 0 08/15/2000 - 08/06/2021 Tobacco Cessation:Counseling Given: Not Answered Alcohol Use Standard Drinks/Week Comments Never 0 (1 standard drink = 0.6 oz pur e alcohol) Comments No Sex and Gender Information Value Date Recorded Sex Assigned at Female 01/21/2023 1:19 PM EDT Legal Sex Female 11:31 PM EDT Gender Identity Female 01/21/2023 1:19 PM EDT Sexual Orientation Not on file Last Filed Vital Signs Vital Sign Reading Time Taken Comments Blood Pressure 128/76 12/24/2024 1:54 PM EDT Pulse - - Temperature - - Respiratory Rate - - Oxygen Saturation - - Inhaled Oxygen Concentration - - Weight 147 kg (324 lb) 12/24/2024 1:54 PM EDT Height 152.4 cm (5') 01/26/2023 3:59 PM EDT Body Mass Index 63.28 01/26/2023 3:59 PM EDT Plan of Treatment Upcoming Encounters Date Type Department Care Team (Late st Contact Info) Description 11/04/2025 2:00 PM EDT Office Visit [facility] OB [address] [place] [phone] Chester Arriaza, DO [address] [place] [address] Health Maintenance Due Date Last Done Comments Mammogram 2023 Influenza Vaccine (Season Ended) 2025 Cervical Cancer Screening 07/05/2027 HPV/Cotest 07/05/2027 Pap Smear 10/31/2027 10/30/2024, 07/05/2022 Procedures Procedure Name Priority Date/Time Associated Diagnosis Comments IGP,APTIMA HPV,AGE GDLN Routine 10/30/2024 1:23 PM EDT PAP SMEAR Routine 10/30/2024 12:00 AM EDT from Last 3 Months Results * IGP,APTIMA HPV,AGE GDLN (10/30/2024 1:23 PM EDT) AGE GDLN ACOG TESTING Note . [facility] Comment: TESTS RESULT FLAG UNITS REF RANGE LAB Clinician Provided Cytology Information Source.............Vagina No. of containers..01 ThinPrep Vial Age Nelson CHEN Jazzy... 28 FLAG LEGEND: L-Low Normal,H-High Normal,LL-Alert Low,HH-Alert High <-Panic Low,>-Panic High,A-Abnormal,AA-Critical Abnormal Performed at: 01 =[address] [facility] [address] Sheree Valadez MD, IGP, APTIMA HPV, RFX 16/18,45 Note . [facility] Comment: TESTS RESULT FLAG UNITS REF RANGE LAB DIAGNOSIS: 02 NEGATIVE FOR INTRAEPITHELIAL LESION OR MALIGNANCY. Specimen adequacy: 02 Satisfactory for evaluation. Performed by: Amanda Luther, Hospital Secretary ([facility]) . 02 Note: Note 02 The Pap smear is a screening test designed to aid in the detection of premalignant and malignant conditions of the uterine cervix. It is not a diagnostic procedure and should not be used as the sole means of detecting cervical cancer. Both false-positive and false-negative reports do occur. Test Methodology: Note 02 The [employer](R) Supervisor [employer] was unable to read this specimen. Therefore a manual review was performed. FLAG LEGEND: L-Low Normal,H-High Normal,LL-Alert Low,HH-Alert High <-Panic Low,>-Panic High,A-Abnormal,AA-Critical Abnormal Performed at: [address] [address] Sheree Valadez MD, HPV Genotype Reflex Note 02 Criteria not met, HPV Genotype not performed. Criteria not met, HPV Genotype not performed. HPV APTIMA Negative Negative [facility] Comment: This nucleic acid amplification test detects fourteen high- risk HPV types (16,18,31,33,35,39,45,51,52,56,58,59,66,68) without differentiation. Performed at: =[address] [id number] Dope And Fabric Worker: Sheree Valadez MD, Phone: [phone] Performed at: [address] [id number] Dope And Fabric Worker: Sheree Valadez MD, Phone: [phone] 10/30/2024 1:23 PM EDT 10/31/2024 6:25 AM EDT Narrative [facility] - 11/05/2024 12:12 PM EDT SPATULA-ALONE VAGINA Chester Arsalan DO LAB BLOOD ORDERABLES Final Resul t Performing Organization Address [facility]/ZIP Co de Phone Number [facility] * Pap Smear (10/30/2024 12:00 AM EDT) Swab Cervical swab / Unknown Chester Arsalan DO LAB CYTOLOGY ORDERABLES Final Re sult Performing Organization Address [facility]/ZIP Co de Phone Number EXTERNAL LAB from Last 3 Months Insurance [employer] Care Teams Cross Country And Track And Field Coach Relationship Specialty Start Date End Date Sharon Herring DO [address] [place] [address] PCP - General Family Medicine 07/21/23
--- OUTSIDE RECORDS SUMMARY | 2025-01-02 13:15 | XMS_ITS | Encounter Summary ---
Author Organization [facility] Address [address] [facility] [place] [address] Care Team Providers Care Dance Choreographer Name Role Phone Sharon Herring DO Primary Care Provider [phone] Encounter Details Date Type Department Care Team (Late Contact Info) Description 11/15/2024 Orders Only [facility] OB [address] [place] [address] Leisa Dill LPN [address] [place] [phone] Social History Tobacco Use Types Packs/Day Years [...] Encounters Date Type Department Care Team (Late Contact Info) Description 11/04/2025 2:00 PM EDT Office Visit [facility] OB [address] [place] [address] Chester Arriaza DO [facility] [place] [address] documented as of this encounter Procedures Procedure Name Priority Date/Time Associated Diagnosis Comments PAP SMEAR Routine 10/30/2024 12:00 AM EDT documented in this encounter Results * Pap Smear (10/30/2024 12:00 AM EDT) Swab Cervical swab / Unknown us Chester Arsalan DO LAB CYTOLOGY ORDERABLES Final Re sult EXTERNAL LAB documented in this encounter Visit Diagnoses Not on filedocumented in this encounter Care Teams Dance Choreographer Relationship Specialty Start Date End Date Sharon Herring DO [address] [place] [address] PCP - General Family Medicine 07/21/23 documented as of this encounter
--- OUTSIDE RECORDS SUMMARY | 2025-01-02 13:15 | XMS_ITS | Clinical Summary ---
Author Organization [facility] VersionEye [facility] tem Address [id number] [address] [place] [address] Care Team Providers Care Veterinarian Name Role Phone Za Rogers MD Primary Care Provider [phone] Allergies Active Allergy Reactions Criticality Noted Date Comments Penicillins Anaphylaxis,Angioedema High 01/25/2017 Medications rosuvastatin (CRESTOR) 5 mg tablet Take 1 tablet (5 mg total) by mouth in the morning. Active escitalopram (LEXAPRO) 10 mg tablet Take 1 tablet (10 mg total) by mouth in the morning. Active hydrOXYzine (VISTARIL) 50 mg capsule Take 1 capsule (50 mg total) by mouth 3 (three) times a day as needed. 05/15/2024 Active lisinopril-hydr oCHLOROthiazide (PRINZIDE,ZESTO RETIC) 10-12.5 mg per tablet Take 1 tablet by mouth in the morning. Active zonisamide (ZONEGRAN) 50 mg capsule Take 1 capsule (50 mg total) by mouth in the morning. Active Active Problems No known active problems Encounters Date Type Department Care Team Description 11/08/2024 6:46 AM EDT - 11/08/2024 11:59 PM EDT Hospital Encounter [facility] [address] [place] [id number] Encounter for screening for human immunodeficiency virus (HIV) (Primary Dx); Encounter for screening for diabetes mellitus; Encounter for screening for cardiovascular disorders; Encounter for general adult medical examination without abnormal findings Discharge Disposition: Home 11/08/2024 Travel from Last 3 Months Family History Medical History Relation Name Comments Leukemia Maternal Grandfather Breast cancer Maternal Grandmother Mary Rankin Dece ased Arthritis Mother Nita Rankin Asthma Mother Nita Rankin Hypertension Mother Nita Rankin Relation Name Status Comments Maternal Grandfather Maternal Grandmother Mary Rankin Mother Nita Rankin Social History Tobacco Use Types Packs/Day Years Used Date Smoking Tobacco: Former Vaping/E-cigarettes Smokeless Tobacco: Never Tobacco Cessation:Counseling Given: Not Answered Alcohol Use Standard Drinks/Week Comments Not Currently 0 (1 standard drink = 0.6 oz pur e alcohol) Childcare Answer Date Recorded Childcare Unknown 01/24/2019 Employment Answer Date Recorded Employment Unknown 01/24/2019 Purpose - Life Answer Date Recorded Purpose and direction in life Unknown Comments No Sex and Gender Information Value Date Recorded Sex Assigned at Female 06/30/2021 12:23 PM EST Legal Sex Female 11:30 AM EDT Gender Identity Female 06/30/2021 12:23 PM EST Sexual Orientation Not on file Last Filed Vital Signs Vital Sign Reading Time Taken Comments Blood Pressure 100/74 06/14/2024 10:05 AM EDT Pulse 62 06/14/2024 10:05 AM EDT Temperature 36.3 C (97.4 F) 06/14/2024 8:26 AM EDT Respiratory Rate 13 06/14/2024 10:05 AM EDT Oxygen Saturation 100% 06/14/2024 10:05 AM EDT Inhaled Oxygen Concentration - - Weight 147.4 kg (325 lb) 06/14/2024 8:26 AM EDT Height 152.4 cm (5') 06/14/2024 8:26 AM EDT Body Mass Index 63.47 06/14/2024 8:26 AM EDT Plan of Treatment Health Maintenance Due Date Last Done Comments Depression Screening 1995 Adult BMI Follow Up Plan 12/15/2001 COVID-19 Vaccine ( season) 2024, 03/20/2021 Influenza Vaccine 04/15/2025 Adult BMI Screening 06/14/2025 06/14/2024 Tobacco Screening 06/14/2025 06/14/2024 Colonoscopy 06/14/2029 06/14/2024, 06/14/2024 DTaP,Tdap and Td Vaccines (3 - Td or Tdap) 05/06/2030 05/06/2020, 03/05/2010 Pap Smear Discontinued 07/05/2022 Medical Devices Not on file Procedures Procedure Name Priority Date/Time Associated Diagnosis Comments TSH WITH REFLEX Routine 11/08/2024 6:48 AM EDT Encounter for screening for human immunodeficiency virus (HIV) Encounter for screening for diabetes mellitus Encounter for screening for cardiovascular disorders Encounter for general adult medical examination without abnormal findings HIV 1&2 AB/AG SCREEN (P24 AG) Routine 11/08/2024 6:48 AM EDT Encounter for screening for human immunodeficiency virus (HIV) Encounter for screening for diabetes mellitus Encounter for screening for cardiovascular disorders Encounter for general adult medical examination without abnormal findings HEMOGLOBIN A1C Routine 11/08/2024 6:48 AM EDT Encounter for screening for human immunodeficiency virus (HIV) Encounter for screening for diabetes mellitus Encounter for screening for cardiovascular disorders Encounter for general adult medical examination without abnormal findings LIPID PROFILE Routine 11/08/2024 6:48 AM EDT Encounter for screening for human immunodeficiency virus (HIV) Encounter for screening for diabetes mellitus Encounter for screening for cardiovascular disorders Encounter for general adult medical examination without abnormal findings COMPREHENSIVE METABOLIC PANEL Routine 11/08/2024 6:48 AM EDT Encounter for screening for human immunodeficiency virus (HIV) Encounter for screening for diabetes mellitus Encounter for screening for cardiovascular disorders Encounter for general adult medical examination without abnormal findings PROVATION COLONOSCOPY Routine 06/14/2024 8:12 AM EDT from Last 3 Months or Most Recently Relevant to Health Maintenance Results * HIV 1&2 AB/AG Screen (P24 AG) (11/08/2024 6:48 AM EDT) HIV 1&2 AB/AG Non-React michael Non-React michael^Non-R eactive 11/08/2024 1:50 PM EDT [facility] Comment: NEW TEST METHOD NOTE This information has been disclosed to you from confidential records protected from disclosure by state law. You shall make no further disclosure of this information without the specific, written and informed release of the individual to whom it pertains, or as otherwise permitted by state law. A general authorization for the release of medical or other information is not sufficient for the purpose of the release of HIV test results or diagnoses. Serum / Unknown 11/08/2024 6 :48 AM EDT 11/08/2024 6:49 AM EDT Debbie Leonardo MD LAB BLOOD ORDERABLES Final Resul t Performing Organization Address City/[facility]/ZIP Co de Phone Number [facility] [address] [place] [address], [address] [place], [place] [id number] * TSH with Reflex (11/08/2024 6:48 AM EDT) TSH 1.30 0.49 - 4.67 uIU/mL 11/08/2024 1:41 PM EDT [facility] PLASMA 11/08/2024 6:48 AM EDT 11/08/2024 6:49 AM EDT Debbie Leonardo MD LAB BLOOD ORDERABLES Final Resul t Performing Organization Address [facility] Co de Phone Number [facility] [address] [place] [address], [address] [place], [place] [id number] * (ABNORMAL) Hemoglobin A1c (11/08/2024 6:48 AM EDT) Hemoglobin A1C 5.8(H) 4.4 - 5.6 % 11/08/2024 1:53 PM EDT [facility] Comment: NOTE ADA Guidelines Result HgbA1c Normal : less than 5.7 % Prediabetes : 5.7 % to 6.4 % Diabetes : > 6.4 % Use with caution in patients with abnormal hemoglobin variants as the half-life of red blood cells and in vivo glycation rates are affected. Average glucose 120 mg/dL 1:53 PM EDT [facility] PLASMA 11/08/2024 6:48 AM EDT 11/08/2024 6:49 AM EDT us Debbie Leonardo MD LAB BLOOD ORDERABLES Final Resul t ML [facility] [address] [facility], [address] [place] [address] * (ABNORMAL) Lipid profile (11/08/2024 6:48 AM EDT) Cholesterol 194 150 - 200 mg/dL 11/08/2024 1:36 PM EDT [facility] Triglycerides 50 27 - 150 mg/dL 11/08/2024 1:36 PM EDT [facility] HDL Cholesterol 53 >39 mg/dL 1:36 PM EDT [facility] Comment: HDL <40 mg/dL - High Risk HDL > or = 40mg/dL- Desirable HDL >60 mg/dL - Negative Risk VLDL 10 0 - 30 mg/dL 11/08/2024 1:36 PM EDT [facility] LDL (calc) 131(H) <130 mg/dL 11/08/2024 1:36 PM EDT [facility] Comment: LDL <100 mg/dL - Desirable LDL >160 mg/dL - High Risk Cholesterol:HDL Ratio 3.7 1.0 - 5.0 11/08/2024 1:36 PM EDT [facility] PLASMA 11/08/2024 6:48 AM EDT 11/08/2024 6:49 AM EDT us Debbie Leonardo MD LAB BLOOD ORDERABLES Final Resul t ML [facility] [address] [facility], [address] [place] [address] * (ABNORMAL) Comprehensive metabolic panel (11/08/2024 6:48 AM EDT) Sodium 136 134 - 146 mmol/L 11/08/2024 1:36 PM EDT [facility] Potassium, Bld 3.8 3.5 - 5.0 mmol/L 11/08/2024 1:36 PM EDT [facility] Chloride 101 98 - 109 mmol/L 11/08/2024 1:36 PM EDT [facility] CO2 24 22 - 32 mmol/L 11/08/2024 1:36 PM EDT [facility] Anion gap 11 5 - 15 mmol/L 11/08/2024 1:36 PM EDT [facility] BUN 11 5 - 23 mg/dL 11/08/2024 1:36 PM EDT [facility] Creatinine 0.67 0.40 - 1.00 mg/dL 11/08/2024 1:36 PM EDT [facility] Comment:METHOD TRACEABLE TO IDMS STANDARD Glucose 92 65 - 99 mg/dL 11/08/2024 1:36 PM EDT [facility] Calcium 9.5 8.5 - 10.5 mg/dL 11/08/2024 1:36 PM EDT [facility] Total Protein 7.7 6.0 - 8.0 g/dL 11/08/2024 1:36 PM EDT [facility] Albumin 3.8 3.2 - 5.3 g/dL 11/08/2024 1:36 PM EDT [facility] Alkaline Phosphatase 104 39 - 130 U/L 11/08/2024 1:36 PM EDT [facility] AST 26 0 - 41 U/L 11/08/2024 1:36 PM EDT [facility] ALT 32(H) 0 - 31 U/L 11/08/2024 1:36 PM EDT [facility] Total bilirubin 0.5 0.3 - 1.2 mg/dL 11/08/2024 1:36 PM EDT [facility] eGFR (CKD-EPI)non-rac e dependent >90 >59 ml/min/1.7 3sq.m 11/08/2024 1:36 PM EDT [facility] Comment: Reported eGFR is based on the CKD-EPI 2020 equation that does not use a race coefficient. PLASMA 11/08/2024 6:48 AM EDT 11/08/2024 6:49 AM EDT us Debbie Leonardo MD LAB BLOOD ORDERABLES Final Resul t [facility] [address], [address] [place] [address] * Colonoscopy Report (06/14/2024 8:12 AM EDT) Narrative SYSTEMGENERATED, DOCUMENTATION - 06/14/2024 8:12 AM EDT This order has been auto-finalized for image and report archival in PACs. *For full report details, please reach out to your physician. This image is visible to you in MyChart.* us Roman Candelaria DO IMG OR IMG ORDERABLES Final Result from Last 3 Months or Most Recently Relevant to Health Maintenance Insurance [employer] [employer] Care Teams Veterinarian Relationship Specialty Start Date End Date Za Rogers MD [address] [place], [place] [id number] PCP - General Family Medicine 05/16/24
--- OUTSIDE RECORDS SUMMARY | 2025-01-02 13:15 | XMS_ITS | Encounter Summary ---
Author Organization [facility] Address [address] [facility] [place] [address] Care Team Providers Care Rotational Moulding Operator Name Role Phone Sharon Herring DO Primary Care Provider [phone] Encounter Details Date Type Department Care Team (Late Contact Info) Description 12/24/2024 Bamboo flowsheet [facility] [address] [place] [address] Chester Arriaza [facility] [place], [place] [address] Social History Tobacco Use Types Packs/Day Years [...] 11/04/2025 2:00 PM EDT Office Visit [facility] [address] [place] [address] Chester Arriaza DO [facility] [place], [id number] documented as of this encounter Visit Diagnoses Not on filedocumented in this encounter Care Teams Rotational Moulding Operator Relationship Specialty Start Date End Date Sharon Herring DO [address] [place] [address] PCP - General Family Medicine 07/21/23 documented as of this encounter
--- OUTSIDE RECORDS SUMMARY | 2025-01-02 13:15 | XMS_ITS | Clinical Summary ---
Author Organization [facility] Address [address] [place] [address] Care Team Providers Care Clinical Engineer Name Role Phone Unavailable Primary Care Provider Unavailabl e Allergies No known active allergies Medications vitamin (FORMULA 3) TABS Take 1 tablet by mouth daily. Active Social History Tobacco Use Types Packs/Day Years Used Date Smoking Tobacco: Never Assessed Comments Unknown Sex and Gender Information Value Date Recorded Sex Assigned at Not on file Legal Sex Female 6:50 AM EST Gender Identity Not on file Sexual Orientation Not on file Last Filed Vital Signs Vital Sign Reading Time Taken Comments Blood Pressure 124/84 06/10/2011 8:14 AM EDT Pulse 104 06/10/2011 8:14 AM EDT Temperature 36.7 C (98.1 F) 06/10/2011 8:14 AM EDT Respiratory Rate 20 06/10/2011 8:14 AM EDT Oxygen Saturation - - Inhaled Oxygen Concentration - - Weight 144.7 kg (319 lb) 06/10/2011 8:14 AM EDT Height - - Body Mass Index - - Plan of Treatment Not on file
--- OUTSIDE RECORDS SUMMARY | 2025-01-02 13:16 | XMS_ITS | Patient Health Record ---
Author Organization [facility] [place] Address [address] [place] [address] Care Team Providers Care Microcomputer Support Specialist Name Role Phone None, Unknown or Primary Care Provider Unavailab le Allergies Allergen (clinical drug ingredient) Drug/Non Drug Allergy documented on EMR Reaction Allergy Type Onset Date Status Substance with penicillin structure and antibacterial mechanism of action (substance) Penicillins Unknown Drug Allergy Active Reason For Referral No Information Medications Medication SIG (Take, Route, Frequency, Duration) Notes Start Date End Date Status amLODIPine Besylate 2.5 MG 1 tablet Orally Daily Active Baclofen 5 MG 1 tablet Orally Thre e times a day as needed Active Escitalopram Oxalate 5 MG 1 tablet Orally Daily Active Ibuprofen 600 MG 1 tablet Orally ever y 6 hrs as needed Active Naproxen Sodium 550 MG 1 tablet with linnea d or milk as needed Orally every 12 hrs for 30 days 06/12/2020 Active Orilissa 150 MG 1 tablet Orally Once a day for 90 days Active Rosuvastatin Calcium 10 MG 1 tablet Oral ly Once a day Active Vitamin D3 125 MCG (5000 UT) 1 tablet Orally Once a day for 90 days Active Social History Tobacco Use: Social History Observation Description Date Details (start date - stop date) Unknown Tobacco Use/Smoking Question Answer Notes Patient is a Uses tobacco in other forms Alcohol Screen (Audit-C) Question Answer Notes Did you have a drink containing alcohol in the p ast year? No Points 0 Interpretation Negative Tobacco use other than smoking: Question Answer Notes Are you an other tobacco user? Yes B lack & Mild cigar 2x's/wk Problems Problem Type SNOMED Code ICD Code Onset Dates Problem Status W/U Status Risk Notes Problem Overactive bladder (508430410) Overactive bladder (N32.81) Active confirmed Problem 140666173 Cervical high risk human papillomavirus (HPV) DNA test positive (R87.810) Active confirmed Problem 88241719 Vitamin D deficiency (E55.9) Active confirmed Problem 605857561 Endometriosis (N80.9) Active confirmed Problem [id number] Incomplete uterine prolapse (N81.2) Active confirmed Problem 39808491 Vitamin D insufficiency (E55.9) Active confirmed Problem 85688940 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) Active confirmed Plan Of Treatment No Information Insurance Providers Payer Name Payer Address Payer Phone Subscriber Number Group Number Insured Name Patient Relationship to Insured Coverage Start Date Coverage End Date [employer] [address] [place] [address] [id number] Eran Rankin Self - patient is the insured 0 Medications Administered Medication Instructions Date of Administration Dosage Notes Depo-Provera, 150 mg/mL 09/04/2020 150 mg P atient supplied Medroxyprogesterone 150 mg 06/12/2020 1 mL Medical (General) History Surgical History Surgery Date(Month/Year) [facility] Endometrial Ablation Tubal Ligation for Twins
--- OUTSIDE RECORDS SUMMARY | 2025-01-02 13:19 | XMS_ITS | CCD ---
Author Organization [facility] Care Team Providers Care Operations Technician Name Role Phone ARSALAN ., DR MARTINEZ Consulting Unavailable ARSALAN ., DR MARTINEZ Attending Unavailable [facility] Unava ilable ARSALAN ., DR MARTINEZ Admitting Unavailable ARSALAN ., DR MARTINEZ Consulting Unavailable ARSALAN ., DR MARTINEZ Attending Unavailable [facility] Unava ilable ARSALAN ., DR MARTINEZ Admitting Unavailable ARSALAN ., DR MARTINEZ Attending Unavailable [facility] Unava ilable ARSALAN ., DR MARTINEZ Consulting Unavailable ARSALAN ., DR MARTINEZ Admitting Unavailable ARSALAN ., DR MARTINEZ Admitting Unavailable ARSALAN ., DR MARTINEZ Attending Unavailable [facility] Unava ilable ARSALAN ., DR MARTINEZ Consulting Unavailable JUAN CLARK Consulting Unavailable KIANANICK Consulting Unava ilable ARSALAN ., DR MARTINEZ Consulting Unavailable ARSALAN ., DR MARTINEZ Attending Unavailable ARSALAN ., DR MARTINEZ Admitting Unavailable [facility] Unava ilable ARSALAN ., DR MARTINEZ Consulting Unavailable ARSALAN ., DR MARTINEZ Attending Unavailable ARSALAN ., DR MARTINEZ Admitting Unavailable [facility] Unava ilable ARSALAN ., DR MARTINEZ Consulting Unavailable ARSALAN ., DR MARTINEZ Attending Unavailable ARSALAN ., DR MARTINEZ Admitting Unavailable [facility] Unava ilable RUMSCHLAG, SHARON Primary Care Unavailable ZIEBER, DR DIANA Del Real Consulting Unavailable LAKSHMIPATHY ., NARENDDAYNEATH Attending Ivy vailable LAKSHMIPATHY ., NARENDRANATH Admitting Ivy vailable LAKSHMIPATHY ., NARENDRANATH Consulting Ivy vailable ARSALAN ., DR MARTINEZ Attending Unavailable [facility] Primary [facility] Unava ilable ARSALAN ., DR MARTINEZ Admitting Unavailable ANTONIO BRADLEY Consulting Unavailable ARSALAN ., DR MARTINEZ Consulting Unavailable [facility] Consulting Unava ilable ARSALAN ., DR MARTINEZ Consulting Unavailable ARSALAN ., DR MARTINEZ Attending Unavailable [facility] Unava ilable ARSALAN ., DR MARTINEZ Admitting Unavailable MEHREEN FLOWERS Consulting Unavailable DALTON II, RIOS Consulting Unavailable FILUTZE BYARON Consulting Unavailable LAKSHMIPATHY ., NARENDRANATH Consulting Ivy vailable LAKSHMIPATHY ., LUIS ENRIQUEATH Attending Ivy vailable SHARON ADAME Primary Care Unavailable LAKSHMIPATHY ., NARENDDAYNEATH Admitting Ivy vailable ARSALAN ., DR MARTINEZ Attending Unavailable ARSALAN ., DR MARTINEZ Admitting Unavailable ARSALAN ., DR MARTINEZ Consulting Unavailable [facility] Primary Care Unava ilable BAYRON REDDY Attending Unavailable ROGERS, ZA L Referring Unavailable ROGERS, ZA L Primary Care Unavailable Jaime Burr Attending Unavailab le Jaime Burr Admitting Unavailab le NON STAFF Primary Care Unavailable Za Rogers MD Primary Care Provider MIMA ZA Lolita Referring Unavailable ROGERS, ZA L Primary Care Unavailable ANTONIO DRAPER Attending Unavailable ANTONIO DRAPER Referring Unavailable ROGERS, ZA L Primary Care Unavailable ANTONIO DRAPER Referring Unavailable ROGERS, ZA L Primary Care Unavailable PURVI NEVILLE Admitting Unavailable PURVI NEVILLE Attending Unavailable ROGERS, ZA L Primary Care Unavailable WINDY, AVINASH Referring Unavailable ROGERS, ZA L Primary Care Unavailable Radha Padilla MD Attending Unavailable Sharon Adaem DO Primary Care Provider JUAN ARRIAZA Attending Unavailable JUAN ARRIAZA Attending Unavailable Allergies Allergy Classification Reported Allergen(s) Allergy Type Date of Onset Reaction(s) Facility (5 sources) Penicillins; Translations: [PENICILLINS] Drug allergy (disorder) 7 [facility] (4 sources) Penicillins Propensity to adverse reactions to drug 7 Anaphylaxis, Angioedema [facility] (3 sources) Penicillins Drug Intolerance 7 [facility] (3 sources) Penicillin G Potassium In D5w Drug Allergy 1 [facility] Work Phone: Medications Current Medications Medication Drug Class(es) Dates Sig (Normalized) Sig (Original) baclofen 10 mg oral tablet (3 sources) gamma-Aminobutyri c Acid-ergic Agonist baclofen (Lioresal) 10 MG tablet every 12 (twelve) hours. Active escitalopram 10 mg oral tablet (7 sources) Serotonin Reuptake Inhibitor take 1 tablet by mouth once daily escitalopram (Lexapro) 10 MG tablet TAKE 1 TABLET BY MOUTH EVERY DAY FOR 90 DAYS Active hydroCHLOROthiazide 12.5 mg / lisinopril 10 mg oral tablet (6 sources) Thiazide Diuretic, Angiotensin Converting Enzyme Inhibitor take 1 tablet by mouth in the morning lisinopril-hydroCH LOROthiazide 10-12.5 MG tablet Take 1 tablet by mouth in the morning. Active take 10-12.5 mg by m outh once in the morning lisinopril-hydroCHLOROthiazide (PRINZIDE ,ZESTORETIC) 10-12.5 mg per tablet Take 1 tablet by mouth in the morning. Active hydrOXYzine pamoate 50 mg oral capsule (6 sources) Antihistamine Start: 05-15-2024 take 1 capsule by mouth three times daily as needed hydrOXYzine (VISTARIL) 50 mg capsule Take 1 capsule (50 mg total) by mouth 3 (three) times a day as needed. 05/15/2024 Active take 1 tablet by mouth once hydr OXYzine HCl (Atarax) 25 MG tablet Take 25 mg by mouth 1 (one) time Active rosuvastatin calcium 5 mg oral tablet (7 sources) HMG-CoA Reductase Inhibitor take 1 tablet by mouth in the morning rosuvastatin (Crestor) 5 MG tablet Take 5 mg by mouth in the morning. Active sod sulf-pot chloride-mag sulf 1.479-0.188- 0.225 gram tablet (2 sources) Start: 05-23-20 24 sod sulf-pot chloride-mag sulf 1.479-0.188- 0.225 gram tablet Indications: Rectal bleeding Please see instructional sheet given by physicians office. 24 tablet 05/23/2024 Active 24 hr venlafaxine 37.5 mg extended release oral capsule (3 sources) Serotonin and Norepinephrine Reuptake Inhibitor Start: 11-27-19 take 1 capsule by mouth once daily venlafaxine XR (Effexor XR) 37.5 MG 24 hr capsule Indications: Hot flashes due to surgical menopause TAKE 1 CAPSULE BY MOUTH DAILY DO NOT CRUSH OR CHEW. 30 capsule 11/26/2024 Active zonisamide 50 mg oral capsule (3 sources) Anti-epileptic Agent take 1 capsule by mouth in the morning zonisamide (ZONEGRAN) 50 mg capsule Take 1 capsule (50 mg total) by mouth in the morning. Active Completed/Discontinued Medications Medication Drug Class(es) Dates Sig (Normalized) Sig (Original) [id number] 200 actuat albuterol 0.09 mg/actuat metered dose [...] Active Problems Problem Classification Problem Date Documented Date Episodic/Chronic Disorders of lipid metabolism (1 source) Hyperlipidemia, unspecified; Translations: [HYPERLIPIDEMIA UNSPECIFIED] Onset: 06-09-2022 Chronic Endometriosis (5 sources) Endometriosis, unspecified; Translations: [ENDOMETRIOSIS UNSPECIFIED] Onset: 08-30-2022 Chronic Essential hypertension (2 sources) Essential (primary) hypertension; Translations: [ESSENTIAL PRIMARY HYPERTENSION] Onset: 06-09-2022 Chronic Hemorrhoids (1 source) Hemorrhoids Onset: 05-23-2024 Episodic Immunizations and screening for infectious disease (2 sources) Encounter for screening for human papillomavirus (HPV); Translations: [Encounter for screening for human immunodeficiency virus [HIV]] Onset: 07-07-2022 Episodic Menstrual disorders (2 sources) Excessive and frequent menstruation with regular cycle; Translations: [Dysmenorrhea, unspecified] Onset: 09-07-2022 Chronic Other aftercare (2 sources) Patient encounter status; Translations: [Other termite control servicer (current) drug therapy] 12-24-2024 Episodic Other connective tissue disease (1 source) [...] INDEX BMI 60.0-69.9 ADULT] Onset: 06-09-2022 Chronic Other screening for suspected conditions (not mental disorders or infectious disease) (6 sources) Encounter for screening for malignant neoplasm of cervix; Translations: [Encounter for screening for diabetes mellitus] Onset: 07-05-2022 Episodic Prolapse of female genital organs (1 source) [...] Other Problems Problem Classification Problem Date Documented Da te Episodic/Chronic Abdominal pain (6 sources) Pelvic and perineal pain; Translations: [Right lower quadrant pain] Onset: 05-26-2022 Episodic Benign neoplasm of uterus (6 sources) Other benign neoplasm of uterus, unspecified; Translations: [Leiomyoma of uterus, unspecified] Onset: 05-05-2022 Episodic Contraceptive and procreative management (1 source) Tubal ligation status; Translations: [TUBAL LIGATION STATUS] Onset: 09-07-2022 Episodic Gastrointestinal hemorrhage (4 sources) Hemorrhage of anus and rectum; Translations: [Rectal hemorrhage] Onset: 05-23-2024 05-23-2024 Episodic Other and unspecified benign neoplasm (1 source) Benign neoplasm of sigmoid colon; Translations: [Benign neoplasm of sigmoid colon] Onset: 06-14-2024 Episodic Other female genital disorders (1 source) Hypertrophy of uterus; Translations: [HYPERTROPHY OF UTERUS] Onset: 09-07-2022 Episodic Other female genital disorders (1 source) Other noninflammatory disorders of ovary, fallopian tube and broad ligament; Translations: [OTH NONINFL D/O OVARY TUBE AND BRD LIG] Onset: 09-07-2022 Episodic Ovarian cyst (1 source) Other ovarian cyst, right side; Translations: [OTHER OVARIAN CYST RIGHT SIDE] Onset: 04-25-2022 Episodic Results Test Name Value Interpretation Reference Range Facility COMPREHENSIVE METABOLIC PANE Adria 11-08-2024 Albumin [Mass/Vol] 3.8 g/dL Normal 3.2-5.3 [facility] Comment on above: Performed By: #### C MP, 87872-1, TSHR, 10164-4, HA1C #### [facility] ([id number]) [address], [address] [place] [address] ALP [Catalytic activity/Vol] 104 U/L Normal 39-130 [facility] Comment on above: Performed By: #### C BANG, 32648-6, TSHR, 37886-2, HA1C #### [facility] ([id number]) [address], [address] [place] [address] ALT [Catalytic activity/Vol] 32 U/L High 0-31 [facility] Comment on above: Performed By: #### C BANG, 46450-2, TSHR, 88364-4, HA1C #### [facility] ([id number]) [address], [address] [place] [address] Anion gap [Moles/Vol] 11 mmol/L Normal 5-15 [facility] Comment on above: Performed By: #### C MP, 07173-1, TSHR, 45392-6, HA1C #### [facility] ([id number]) [address], [address] [place] [address] AST [Catalytic activity/Vol] 26 U/L Normal 0-41 [facility] Comment on above: Performed By: #### C MP, 76620-6, TSHR, 78917-1, HA1C #### [facility] ([id number]) [address], [address] [place] [address] Bilirubin [Mass/Vol] 0.5 mg/dL Normal 0.3-1.2 [facility] Comment on above: Performed By: #### C MP, 46304-9, TSHR, 60104-7, HA1C #### [facility] ([id number]) [address], [address] [place] [address] Calcium [Mass/Vol] 9.5 mg/dL Normal 8.5-10.5 [facility] Comment on above: Performed By: #### C BANG, 71813-2, TSHR, 56381-5, HA1C #### [facility] ([id number]) [address] [place] [address] Chloride [Moles/Vol] 101 mmol/L Normal 98-109 [facility] Comment on above: Performed By: #### C BANG, 63840-2, TSHR, 18278-7, HA1C #### [facility] ([id number]) [address] [address] [place] [address] CO2 [Moles/Vol] 24 mmol/L Normal 22-32 [facility] Comment on above: Performed By: #### C BANG, 57769-7, TSHR, 58332-1, HA1C #### [facility] ([id number]) [address] [place] [address] Creatinine [Mass/Vol] 0.67 mg/dL Normal 0.40-1.00 [facility] Comment on above: Result Comment: METH OD TRACEABLE TO IDMS STANDARD Performed By: #### C BANG, 36915-2, TSHR, 41773-0, HA1C #### [facility] ([id number]) [address] [address] [place] [address] eGFR (CKD-EPI) NON-RACE DEPENDENT >90 Normal >59 [facility] Comment on above: Result Comment: Reported eGFR is based on the CKD-EPI 2020 equation that does not use a race coefficient. Performed By: #### C BANG, 09360-9, TSHR, 87637-5, HA1C #### [facility] ([id number]) [address] [place] [address] Glucose [Mass/Vol] 92 mg/dL Normal 65-99 [facility] Comment on above: Performed By: #### C BANG, 23896-9, TSHR, 44117-9, HA1C #### [facility] ([id number]) [address], [address] [place] [address] Potassium [Moles/Vol] 3.8 mmol/L Normal 3.5-5.0 [facility] Comment on above: Performed By: #### C BANG, 51092-2, TSHR, 79503-8, HA1C #### [facility] ([id number]) [address], [address] [place] [address] Protein [Mass/Vol] 7.7 g/dL Normal 6.0-8.0 [facility] Comment on above: Performed By: #### Alvaro CUENCA, 61305-7, TSHR, 54549-2, HA1C #### [facility] ([id number]) [address], [address] [place] [address] Sodium [Moles/Vol] 136 mmol/L Normal 134-146 [facility] Comment on above: Performed By: #### Alvaro CUENCA, 14381-0, TSHR, 44796-9, HA1C #### [facility] ([id number]) [address], [address] [place] [address] Urea nitrogen [Mass/Vol] 11 mg/dL Normal 5-23 [facility] Comment on above: Performed By: #### C BANG, 30127-5, TSHR, 80803-1, HA1C #### [facility] ([id number]) [address], [address] [place] [address] HGB A1C (GLYCO-HGB)on 2024 Glucose [Mass/Vol] 120 mg/dL Normal [facility] Comment on above: Performed By: #### Alvaro CUENCA, 33449-0, TSHR, 99228-2, HA1C #### [facility] ([id number]) [address] [facility], [address] [place] [address] HbA1c (Bld) [Mass fraction] 5.8 % High 4.4-5.6 [facility] Comment on above: Result Comment: NOTE ADA Guidelines Result HgbA1c Normal : less than 5.7 % Prediabetes : 5.7 % to 6.4 % Diabetes : > 6.4 % Use with caution in patients with abnormal hemoglobin variants as the half-life of red blood cells and in vivo glycation rates are affected. Performed By: #### C BANG 87891-4, MARIA EUGENIA, 20014-6, ENEDELIA #### [facility] ([id number]) [address] [facility], [address] [address] HIV 1+2 Ab+HIV1 p24 Ag IA Ql on 11-08-2024 HIV 1 and 2 Ab/Ag Screen Non-Reactive Normal NRCT [facility] Comment on above: Result Comment: NEW TEST METHOD NOTE This information [...] release of HIV test results or diagnoses. Performed By: #### C BANG, 14958-0, MARIA EUGENIA, 34975-5, HA1C #### [facility] ([id number]) [address], [address] [place] [address] Lipid 1996 panelon Cholesterol [Mass/Vol] 194 mg/dL Normal 150-200 [facility] Comment on above: Performed By: #### C BANG, 60337-0, TSHNasima, 03328-1, HA1C #### [facility] ([id number]) [address] [facility], [address] [address] Cholesterol in HDL [Mass/Vol] 53 mg/dL Normal >39 [facility] Comment on above: Result Comment: HDL <40 mg/dL - High Risk HDL > or = 40mg/dL- Desirable HDL >60 mg/dL - Negative Risk Performed By: #### Alvaro CUENCA, 57123-7, TSHR, 70566-9, HA1C #### [facility] ([id number]) [address], [address] [place] [address] Cholesterol in LDL [Mass/Vol] 131 mg/dL High <130 [facility] Comment on above: Result Comment: LDL <100 mg/dL - Desirable LDL >160 mg/dL - High Risk Performed By: #### Alvaro CUENCA, 92649-3, TSHR, 77095-3, HA1C #### [facility] ([id number]) [address], [address] [place] [address] Cholesterol in VLDL [Mass/Vol] 10 mg/dL Normal 0-30 [facility] Comment on above: Performed By: #### Alvaro CUENCA, 47410-8, TSHR, 50129-4, HA1C #### [facility] ([id number]) [address], [address] [place] [address] CHOLESTEROL:HDL 3.7 Normal 1.0-5.0 [facility] Comment on above: Performed By: #### Alvaro CUENCA, 17519-8, TSHR, 53150-7, HA1C #### [facility] ([id number]) [address], [address] [place] [address] Triglyceride [Mass/Vol] 50 mg/dL Normal 27-150 [facility] Comment on above: Performed By: #### C MP, 03227-7, TSHR, 25800-1, HA1C #### [facility] ([id number]) [address] [place] [address], [address] [place] [address] TSH WITH REFLEXon 11-08-2024 TSH 1.30 uIU/mL Normal 0.49-4.67 [facility] Comment on above: Performed By: #### C MP, 64185-4, TSHR, 85552-5, HA1C #### [facility] ([id number]) [address] [place] [address], [address] [place] [address] Surgical Pathologyon 024 Surgical Pathology Normal [facility] Comment on above: Result Comment: [facility] [address] [place] [address] Surgical Pathology Consultation Patient Name:ERAN WINN:1985 (Age: 38)Gender:FTaken:4Reported:06/20/2024hysician(s):Purvi Neville D.O. ([phone])Copy To: Rec. #:[id number]: #[id number] Final Pathologic Diagnosis Sigmoid colon polyp, biopsy: Tubular adenoma. Report Electronically Signed Out nxk/06/20/2024Fermín Lunsford MD [place] [address], License number: [id number]. Clinical History Rectal bleeding. Gross Description Received in formalin labeled TATUM sigmoid colon polyp are two brown pedunculated polyps, 1.1 x 0.7 x 0.4 cm and 0.6 x 0.5 x 0.3 cm. The resection margins are inked black and green. The larger polyp is trisected. The smaller polyp is bisected. These are submitted in a single cassette. (1, ns, [id number],m3) DM. dm/06/16/2024NSK Specimen(s) Received Sigmoid colon polyp Fee Codes(s): 1; 24734 BASIC METABOLIC PANLon 05-25 Anion gap [Moles/Vol] 8 mmol/L Normal 5-15 [facility] Comment on above: Performed By: #### B MP #### [facility] ([id number]) [address], [address] [place] [address] Calcium [Mass/Vol] 9.1 mg/dL Normal 8.5-10.5 [facility] Comment on above: Performed By: #### B MP #### [facility] ([id number]) [address], [address] [place] [address] Chloride [Moles/Vol] 103 mmol/L Normal 98-109 [facility] Comment on above: Performed By: #### B MP #### [facility] ([id number]) [address], [address] [place] [address] CO2 [Moles/Vol] 26 mmol/L Normal 22-32 [facility] Comment on above: Performed By: #### B MP #### [facility] ([id number]) [address], [address] [place] [address] Creatinine [Mass/Vol] 0.86 mg/dL Normal 0.40-1.00 [facility] Comment on above: Result Comment: METH OD TRACEABLE TO IDMS STANDARD Performed By: #### B MP #### [facility] ([id number]) [address], [address] [place] [address] GFR/1.73 sq M.predicted among non-blacks MDRD (S/P/Bld) [Vol rate/Area] 88 mL/min/{1.73_m2} Normal >59 [facility] Comment on above: Result Comment: Reported eGFR is based on the CKD-EPI 2020 equation that does not use a race coefficient. Performed By: #### B MP #### [facility] ([id number]) [address], [address] [place] [address] Glucose [Mass/Vol] 90 mg/dL Normal 65-99 [facility] Comment on above: Performed By: #### B MP #### [facility] ([id number]) [address], [address] [place] [address] Potassium [Moles/Vol] 3.9 mmol/L Normal 3.5-5.0 [facility] Comment on above: Performed By: #### B MP #### [facility] ([id number]) [address], [address] [place] [address] Sodium [Moles/Vol] 137 mmol/L Normal 134-146 [facility] Comment on above: Performed By: #### B MP #### [facility] ([id number]) [address], [address] [place] [address] Urea nitrogen [Mass/Vol] 14 mg/dL Normal 5-23 [facility] Comment on above: Performed By: #### B MP #### [facility] ([id number]) [address], [address] [place] [address] XR LSPINE 2_3 VIEWSon 2022 XR LSPINE [...] LUONG Date: 2022-12-14 16:25 Normal [facility] BUNon 08-31-2022 Urea nitrogen [Mass/Vol] 9.0 mg/dL Normal 7.0-18.0 [facility] Comment on above: Performed By: #### C BC #### [facility] [address] [address] [address] Rose Lafleur CBC AUTO DIFFon 08-31-2022 BASO # 0.0 103/ul Normal 0.0-0.1 [facility] Comment on above: Performed By: #### C BC #### [facility] [address] [place] [address] Dr. Rose Lafleur Basophils/100 WBC (Bld) 0.1 % Critically low 0.2-2.0 [facility] Comment on above: Performed By: #### C BC #### [facility] [address] [place] [address] Dr. Rose Lafleur EO # 0.0 103/ul Normal 0.0-0.7 [facility] Comment on above: Performed By: #### C BC #### [facility] [address] [place] [address] Dr. Rose Lafleur Eosinophils/100 WBC (Bld) 0.0 % Critically low 0.9-7.0 [facility] Comment on above: Performed By: #### C BC #### [facility] [address] [place] [address] Dr. Rose Lafleur Erythrocyte distribution width (RBC) [Ratio] 13.2 % Normal 11.0-15.0 [facility] Comment on above: Performed By: #### C BC #### [facility] [address] [place] [address] Dr. Rose Lafleur Hematocrit (Bld) [Volume fraction] 38.5 % Normal 36.0-48.0 [facility] Comment on above: Performed By: #### C BC #### [facility] [address] [place] [address] Dr. Rose Lafleur Hemoglobin (Bld) [Mass/Vol] 12.7 g/dL Normal 12.0-16.0 [facility] Comment on above: Performed By: #### C BC #### [facility] [address] [place] [address] Dr. Rose Lafleur IG # 0.07 10e3/ul Critically high 0.00-0.03 [facility] Comment on above: Performed By: #### C BC #### [facility] [address] [place] [address] Dr. Rose Lafleur IG % 0.4 % Normal 0.0-0.5 [facility] Comment on above: Performed By: #### C BC #### [facility] [address] [place] [address] Dr. Rose Lafleur LYMPH # 2.3 103/ul Normal 1.2-3.8 [facility] Comment on above: Performed By: #### C BC #### [facility] [address] [place] [address] Dr. Rose Lafleur Lymphocytes/100 WBC (Bld) 14.3 % Critically low 20.5-60.0 [facility] Comment on above: Performed By: #### C BC #### [facility] [address] [place] [address] Dr. Rose Lafleur MANUAL DIFF REQ NO Normal [facility] Comment on above: Performed By: #### C BC #### [facility] [address] [place] [address] Dr. Rose Lafleur MCH (RBC) [Entitic mass] 28.6 pg Normal 26.7-34.0 [facility] Comment on above: Performed By: #### C BC #### [facility] [address] [place] [address] Dr. Rose Lafleur MCHC (RBC) [Mass/Vol] 33.0 g/dL Normal 29.9-35.2 [facility] Comment on above: Performed By: #### C BC #### [facility] [address] [place] [address] Dr. Rose Lafleur MCV (RBC) [Entitic vol] 86.7 fL Normal 81.0-99.0 [facility] Comment on above: Performed By: #### C BC #### [facility] [facility] [address] [place] [address] Dr. Rose Lafleur MONO # 0.9 103/ul Critically high 0.3-0.8 [facility] Comment on above: Performed By: #### C BC #### [facility] [address] [place] [address] Dr. Rose Lafleur Monocytes/100 WBC (Bld) 5.5 % Normal 1.7-12.0 [facility] Comment on above: Performed By: #### C BC #### [facility] [address] [place] [address] Dr. Rose Lafleur NEUT # 12.8 103/ul Critically high 1.4-6.5 [facility] Comment on above: Performed By: #### C BC #### [facility] [address] [place] [address] Dr. Rose Lafleur Neutrophils/100 WBC (Bld) 79.7 % Critically high 43.0-75.0 [facility] Comment on above: Performed By: #### C BC #### [facility] [address] [place] [address] Dr. Rose Lafleur Platelet mean volume (Bld) [Entitic vol] 8.9 fL Critically low 9.5-13.5 [facility] Comment on above: Performed By: #### C BC #### [facility] [address] [place] [address] Dr. Rose Lafleur PLT 330 103/ul Normal 150-450 [facility] Comment on above: Performed By: #### C BC #### [facility] [address] [place] [address] Dr. Rose Lafleur RBC 4.44 106/ul Normal 4.20-5.40 [facility] Comment on above: Performed By: #### C BC #### [facility] [address] [place] [address] Dr. Rose Lafleur WBC 16.1 103/ul Critically high 4.0-11.0 [facility] Comment on above: Performed By: #### C BC #### [facility] [address] [place] [address] Dr. Rose Lafleur CREATININEon 08-31-2022 Creatinine [Mass/Vol] 0.59 mg/dL Normal 0.55-1.02 [facility] Comment on above: Performed By: #### C BC #### [facility] [address] [place] [address] Dr. Rose Lafleur EGFR-AF CUBAN >60 Normal >=60 [facility] Comment on above: Performed By: #### C BC #### [facility] [address] [place] [address] Dr. Rose Lafleur EGFR-NON AF CUBAN >60 Normal >=60 [facility] Comment on above: Performed By: #### C BC #### [facility] [address] [place] [address] Dr. Rose Lafleur PREG HCG QUALon 08-30-2022 , QUAL Negative Normal NEGATIVE [facility] Comment on above: Performed By: #### P REG #### [facility] [address] [place] [address] Dr. Rose Lafleur Covid-19 PCR (CVDTB)on 08-15 SARS-CoV-2 (COVID-19) RNA RUDY+probe Ql (Unsp spec) Not detected Normal NOT DETECTED [facility] Comment on above: Result Comment: This test is not yet approved or cleared by the [place] FDA. When there are no FDA-approved or cleared tests available, and other criteria are met, FDA can make tests available under an emergency access mechanism called an Emergency Use Authorization (EUA). The EUA for this test is supported by the [place] [employer] of Health and Human Service's (HHS's) declaration [...] Performed By: #### L DH #### [facility] [address] [place] [address] Dr. Rose Lafleur TYPE AND SCREENon 08-26-2022 TYPE AND SCREEN Negative Normal [facility] Comment on above: Performed By: #### L DH #### [facility] [address] [address] [address] Rose Lafleur CBC AUTO DIFFon 08-16-2022 BASO # 0.0 103/ul Normal 0.0-0.1 [facility] Comment on above: Performed By: #### C BC #### [facility] [address] [address] [address] Rose Lafleur Basophils/100 WBC (Bld) 0.3 % Normal 0.2-2.0 [facility] Comment on above: Performed By: #### C BC #### [facility] [address] [address] [address] Rose Lafleur EO # 0.2 103/ul Normal 0.0-0.7 [facility] Comment on above: Performed By: #### C BC #### [facility] [address] [place] [address] Dr. Rose Lafleur Eosinophils/100 WBC (Bld) 1.7 % Normal 0.9-7.0 [facility] Comment on above: Performed By: #### C BC #### [facility] [address] [place] [address] Dr. Rose Lafleur Erythrocyte distribution width (RBC) [Ratio] 13.1 % Normal 11.0-15.0 [facility] Comment on above: Performed By: #### C BC #### [facility] [address] [place] [address] Dr. Rose Lafleur Hematocrit (Bld) [Volume fraction] 40.6 % Normal 36.0-48.0 [facility] Comment on above: Performed By: #### C BC #### [facility] [address] [address] [address] Rose Lafleur Hemoglobin (Bld) [Mass/Vol] 13.4 g/dL Normal 12.0-16.0 [facility] Comment on above: Performed By: #### C BC #### [facility] [address] [place] [address] Dr. Rose Lafleur IG # 0.02 10e3/ul Normal 0.00-0.03 [facility] Comment on above: Performed By: #### C BC #### [facility] [address] [place] [address] Dr. Rose Lafleur IG % 0.2 % Normal 0.0-0.5 [facility] Comment on above: Performed By: #### C BC #### [facility] [address] [place] [address] Dr. Rose Lafleur LYMPH # 2.8 103/ul Normal 1.2-3.8 [facility] Comment on above: Performed By: #### C BC #### [facility] [address] [place] [address] Dr. Rose Lafleur Lymphocytes/100 WBC (Bld) 31.7 % Normal 20.5-60.0 [facility] Comment on above: Performed By: #### C BC #### [facility] [address] [place] [address] Dr. Rose Lafleur MANUAL DIFF REQ NO Normal [facility] Comment on above: Performed By: #### C BC #### [facility] [address] [place] [address] Dr. Rose Lafleur MCH (RBC) [Entitic mass] 28.5 pg Normal 26.7-34.0 [facility] Comment on above: Performed By: #### C BC #### [facility] [address] [place] [address] Dr. Rose Lafleur MCHC (RBC) [Mass/Vol] 33.0 g/dL Normal 29.9-35.2 [facility] Comment on above: Performed By: #### C BC #### [facility] [address] [place] [address] Dr. Rose Lafleur MCV (RBC) [Entitic vol] 86.4 fL Normal 81.0-99.0 [facility] Comment on above: Performed By: #### C BC #### [facility] [address] [place] [address] Dr. Rose Lafleur MONO # 0.6 103/ul Normal 0.3-0.8 [facility] Comment on above: Performed By: #### C BC #### [facility] [address] [place] [address] Dr. Rose Lafleur Monocytes/100 WBC (Bld) 6.8 % Normal 1.7-12.0 [facility] Comment on above: Performed By: #### C BC #### [facility] [address] [place] [address] Dr. Rose Lafleur NEUT # 5.1 103/ul Normal 1.4-6.5 [facility] Comment on above: Performed By: #### C BC #### [facility] [address] [place] [address] Dr. Rose Lafleur Neutrophils/100 WBC (Bld) 59.3 % Normal 43.0-75.0 [facility] Comment on above: Performed By: #### C BC #### [facility] [address] [place] [address] Dr. Rose Lafleur Platelet mean volume (Bld) [Entitic vol] 8.9 fL Critically low 9.5-13.5 [facility] Comment on above: Performed By: #### C BC #### [facility] [address] [place] [address] Dr. Rose Lafleur PLT 312 103/ul Normal 150-450 [facility] Comment on above: Performed By: #### C BC #### [facility] [address] [place] [address] Dr. Rose Lafleur RBC 4.70 106/ul Normal 4.20-5.40 [facility] Comment on above: Performed By: #### C BC #### [facility] [address] [place] [address] Dr. Rose Lafleur WBC 8.7 103/ul Normal 4.0-11.0 [facility] Comment on above: Performed By: #### C BC #### [facility] [address] [place] [address] Dr. Rose Lafleur LIVER PROFILEon 08-16-2022 Albumin [Mass/Vol] 2.9 g/dL Critically low 3.4-5.0 [facility] Comment on above: Performed By: #### B MP, LIVER #### [facility] [address] [address] [address] Rose Lafleur Albumin/Globulin [Mass ratio] 0.6 {ratio} Normal [facility] Comment on above: Performed By: #### B MP, LIVER #### [facility] [address] [address] [address] Rose Lafleur ALP [Catalytic activity/Vol] 121 U/L Critically high 46-116 [facility] Comment on above: Performed By: #### B MP, LIVER #### [facility] [address] [address] [address] Rose Lafleur ALT [Catalytic activity/Vol] 21 U/L Normal 14-59 [facility] Comment on above: Performed By: #### B MP, LIVER #### [facility] [address] [address] [address] Rose Lafleur AST [Catalytic activity/Vol] 20 U/L Normal 15-37 [facility] Comment on above: Performed By: #### B MP, LIVER #### [facility] [address] [place] [address] Dr. Rose Lafleur BILI, CONJUGATED 0.1 mg/dL Normal 0.0-0.2 [facility] Comment on above: Performed By: #### B MP, LIVER #### [facility] [address] [address] [address] Rose Lafleur Bilirubin [Mass/Vol] 0.3 mg/dL Normal 0.2-1.0 [facility] Comment on above: Performed By: #### B MP, LIVER #### [facility] [address] [address] [address] Rose Lafleur Globulin (S) [Mass/Vol] 4.8 g/dL Normal [facility] Comment on above: Performed By: #### B MP, LIVER #### [facility] [address] [place] [address] Dr. Rose Lafleur Protein [Mass/Vol] 7.7 g/dL Normal 6.4-8.2 [facility] Comment on above: Performed By: #### B MP, LIVER #### [facility] [address] [address] [address] Rose Lafleur PROF CHEM 8 (BAS METB)on Anion gap [Moles/Vol] 10.9 mmol/L Normal [facility] Comment on above: Performed By: #### B MP, LIVER #### [facility] [address] [place] [address] Dr. Rose Lafleur Calcium [Mass/Vol] 8.8 mg/dL Normal 8.5-10.1 [facility] Comment on above: Performed By: #### B MP, LIVER #### [facility] [address] [place] [address] Dr. Rose Lafleur Chloride [Moles/Vol] 102 mmol/L Normal 98-107 [facility] Comment on above: Performed By: #### B MP, LIVER #### [facility] [address] [place] [address] Dr. Rose Lafleur CO2 [Moles/Vol] 26.1 mmol/L Normal 21.0-32.0 [facility] Comment on above: Performed By: #### B MP, LIVER #### [facility] [address] [place] [address] Dr. Rose Lafleur Creatinine [Mass/Vol] 0.64 mg/dL Normal 0.55-1.02 [facility] Comment on above: Performed By: #### B MP, LIVER #### [facility] [address] [place] [address] Dr. Rose Lafleur EGFR-AF CUBAN >60 Normal >=60 [facility] Comment on above: Performed By: #### B MP, LIVER #### [facility] [address] [place] [address] Dr. Rose Lafelur EGFR-NON AF CUBAN >60 Normal >=60 [facility] Comment on above: Performed By: #### B MP, LIVER #### [facility] [address] [place] [address] Dr. Rose Lafleur Glucose [Mass/Vol] 90 mg/dL Normal 74-106 [facility] Comment on above: Performed By: #### B MP, LIVER #### [facility] [address] [place] [address] Dr. Rose Lafleur Potassium [Moles/Vol] 4.0 mmol/L Normal 3.5-5.1 [facility] Comment on above: Performed By: #### B MP, LIVER #### [facility] [address] [place] [address] Dr. Rose Lafleur Sodium [Moles/Vol] 135 mmol/L Critically low 136-145 [facility] Comment on above: Performed By: #### B MP, LIVER #### [facility] [address] [place] [address] Dr. Rose Lafleur Urea nitrogen [Mass/Vol] 12.0 mg/dL Normal 7.0-18.0 [facility] Comment on above: Performed By: #### B MP, LIVER #### [facility] [address] [place] [address] Dr. Rose Lafleur Urea nitrogen/Creatinin e [Mass ratio] 18.8 mg/mg Normal [facility] Comment on above: Performed By: #### B MP, LIVER #### [facility] [address] [place] [address] Dr. Rose Lafleur PROTIMEon 08-16-2022 INR Coag (PPP) [Relative time] 0.95 {INR} Normal [facility] Comment on above: Performed By: #### C BC #### [facility] [address] [place] [address] Dr. Rose Lafleur INR GUIDELINES SEE BELOW Normal [facility] Comment on above: Result Comment: JAYLYN RED INR: 2.0 - 3.0 CONDITIONS NOT LISTED BELOW 2.5 - 3.5 FOR PROSTHETIC HEART VALVE REPLACEMENT 2.5 - 3.5 RECURRENT THROMBOSIS Performed By: #### C BC #### [facility] [address] [place] [address] Dr. Rose Lafleur PT Coag (PPP) [Time] 10.3 s Normal 9.0-11.6 [facility] Comment on above: Performed By: #### C BC #### [facility] [address] [place] [address] Dr. Rose Lafleur PTTon 08-16-2022 aPTT Coag (Bld) [Time] 32.0 s Normal 22.3-36.2 [facility] Comment on above: Performed By: #### C BC #### [facility] [address] [address] [address] Rose Lafleur GLYCOHEMOGLOBIN A1Con 2021 ADA RECOMMENDATION SEE BELOW Normal [facility] Comment on above: Result Comment: ADA RECOMMENDED LIMIT 4.0 - 6.0 ADA THERAPEUTIC TARGET < 7.0 ACTION SUGGESTED > 7.0 Performed By: #### C BC #### [facility] [address] [address] [address] Rose Lafleur Glucose [Mass/Vol] 108 mg/dL Normal [facility] Comment on above: Performed By: #### C BC #### [facility] [address] [place] [address] Dr. Rose Lafleur HbA1c (Bld) [Mass fraction] 5.4 % Normal 4.5-6.2 [facility] Comment on above: Performed By: #### C BC #### [facility] [address] [place] [address] Dr. Rose Lafleur PAP ACOG PANEL 2: 30 to 65on 07-14-2022 . . Normal [facility] Comment on above: Result Comment: Perf ormed at: WB Performed By: #### C BC #### [facility] [address] [place] [address] Dr. Rose Lafleur Age Gdln ACOG Testing 30-65 Normal [facility] Comment on above: Performed By: #### C BC #### [facility] [address] [place] [address] Dr. Rose Lafleur DIAGNOSIS: Comment Normal [facility] Comment on above: Result Comment: NEGA TIVE FOR INTRAEPITHELIAL LESION OR MALIGNANCY. CELLULAR CHANGES ASSOCIATED WITH INFLAMMATION ARE PRESENT. Performed at: WB Performed By: #### C BC #### [facility] [address] [place] [address] Dr. Rose Lafleur HPV Aptima Negative Normal Negative [facility] Comment on above: Result Comment: This nucleic acid amplification test detects fourteen high-risk HPV types (16,18,31,33,35,39,45,51,52,56,58,59,66,68) without differentiation. Performed at: =G Performed By: #### C BC #### [facility] [address] [place] [address] Dr. Rose Lafleur HPV Genotype Reflex Comment Normal [facility] Comment on above: Result Comment: Crit eria not met, HPV Genotype not performed. Performed at: WB Performed By: #### C BC #### [facility] [address] [place] [address] Dr. Rose Lafleur Methodology: CTIM Normal [facility] Comment on above: Result Comment: The Thin Prep(R) Strain Technician was unable to read this specimen. Therefore a manual review was performed. Performed at: WB Performed By: #### C BC #### [facility] [address] [place] [address] Dr. Rose Lafleur Note: Comment Normal [facility] Comment on above: Result Comment: The [...] Performed By: #### C BC #### [facility] [address] [place] [address] Dr. Rose Lafleur Performed by: Comment Normal [facility] Comment on above: Result Comment: Cind jimenez Wolff, Rock Lather (ASCP) Performed at: WB Performed By: #### C BC #### [facility] [address] [place] [address] Dr. Rose Lafleur Specimen adequacy: Comment Normal [facility] Comment on above: Result Comment: Sati sfactory for evaluation. No endocervical component is identified. Performed at: WB Performed By: #### C BC #### [facility] [address] [place] [address] Dr. Rose Lafleur CBC AUTO DIFFon 05-26-2022 BASO # 0.0 103/ul Normal 0.0-0.1 [facility] Comment on above: Performed By: #### C BC #### [facility] [address] [place] [address] Dr. Rose Lafleur Basophils/100 WBC (Bld) 0.4 % Normal 0.2-2.0 [facility] Comment on above: Performed By: #### C BC #### [facility] [address] [place] [address] Dr. Rose Lafleur EO # 0.1 103/ul Normal 0.0-0.7 [facility] Comment on above: Performed By: #### C BC #### [facility] [address] [place] [address] Dr. Rose Lafleur Eosinophils/100 WBC (Bld) 1.2 % Normal 0.9-7.0 [facility] Comment on above: Performed By: #### C BC #### [facility] [address] [place] [address] Dr. Rose Lafleur Erythrocyte distribution width (RBC) [Ratio] 13.6 % Normal 11.0-15.0 [facility] Comment on above: Performed By: #### C BC #### [facility] [address] [place] [address] Dr. Rose Lafleur Hematocrit (Bld) [Volume fraction] 41.6 % Normal 36.0-48.0 [facility] Comment on above: Performed By: #### C BC #### [facility] [address] [place] [address] Dr. Rose Lafleur Hemoglobin (Bld) [Mass/Vol] 13.3 g/dL Normal 12.0-16.0 [facility] Comment on above: Performed By: #### C BC #### [facility] [address] [place] [address] Dr. Rose Lafleur IG # 0.03 10e3/ul Normal 0.00-0.03 [facility] Comment on above: Performed By: #### C BC #### [facility] [address] [place] [address] Dr. Rose Lafleur IG % 0.3 % Normal 0.0-0.5 [facility] Comment on above: Performed By: #### C BC #### [facility] [address] [place] [address] Dr. Rose Lafleur LYMPH # 3.8 103/ul Normal 1.2-3.8 [facility] Comment on above: Performed By: #### C BC #### [facility] [address] [place] [address] Dr. Rose Lafleur Lymphocytes/100 WBC (Bld) 39.8 % Normal 20.5-60.0 [facility] Comment on above: Performed By: #### C BC #### [facility] [address] [place] [address] Dr. Rose Lafleur MANUAL DIFF REQ NO Normal [facility] Comment on above: Performed By: #### C BC #### [facility] [address] [place] [address] Dr. Rose Lafleur MCH (RBC) [Entitic mass] 28.5 pg Normal 26.7-34.0 [facility] Comment on above: Performed By: #### C BC #### [facility] [address] [place] [address] Dr. Rose Lafleur MCHC (RBC) [Mass/Vol] 32.0 g/dL Normal 29.9-35.2 [facility] Comment on above: Performed By: #### C BC #### [facility] [address] [place] [address] Dr. Rose Lafleur MCV (RBC) [Entitic vol] 89.3 fL Normal 81.0-99.0 [facility] Comment on above: Performed By: #### C BC #### [facility] [address] [place] [address] Dr. Rose Lafleur MONO # 0.6 103/ul Normal 0.3-0.8 [facility] Comment on above: Performed By: #### C BC #### [facility] [address] [place] [address] Dr. Rose Lafleur Monocytes/100 WBC (Bld) 6.5 % Normal 1.7-12.0 [facility] Comment on above: Performed By: #### C BC #### [facility] [address] [address] [address] Rose Lafleur NEUT # 4.9 103/ul Normal 1.4-6.5 [facility] Comment on above: Performed By: #### C BC #### [facility] [address] [place] [address] Dr. Rose Lafleur Neutrophils/100 WBC (Bld) 51.8 % Normal 43.0-75.0 [facility] Comment on above: Performed By: #### C BC #### [facility] [address] [place] [address] Dr. Rsoe Lafleur Platelet mean volume (Bld) [Entitic vol] 8.9 fL Critically low 9.5-13.5 [facility] Comment on above: Performed By: #### C BC #### [facility] [address] [place] [address] Dr. Rose Lafleur PLT 310 103/ul Normal 150-450 [facility] Comment on above: Performed By: #### C BC #### [facility] [address] [place] [address] Dr. Rose Lafleur RBC 4.66 106/ul Normal 4.20-5.40 [facility] Comment on above: Performed By: #### C BC #### [facility] [address] [place] [address] Dr. Rose Lafleur WBC 9.5 103/ul Normal 4.0-11.0 [facility] Comment on above: Performed By: #### C BC #### [facility] [address] [place] [address] Dr. Rose Lafleur PREG HCG QUALon 05-26-2022 , QUAL Negative Normal NEGATIVE [facility] Comment on above: Performed By: #### P REG #### [facility] [address] [place] [address] Dr. Rose Lafleur Covid-19 PCR (CVDTB)on SARS-CoV-2 (COVID-19) RNA RUDY+probe Ql (Unsp spec) Not detected Normal NOT DETECTED [facility] Comment on above: Result Comment: This test is not yet approved or cleared by the [place] FDA. When there are no FDA-approved or cleared tests available, and other criteria are met, FDA can make tests available under an emergency access mechanism called an Emergency Use Authorization (EUA). The EUA for this test is supported by the [place] [employer] of Health and Human Service's (HHS's) [...] Performed By: #### C BC #### [facility] [address] [place] [address] Dr. Rose Lafleur AFP (TUMOR MARKER)on 022 AFP, Serum, Tumor Marker 1.6 ng/mL Normal 0.0-6.4 [facility] Comment on above: Result Comment: [employer] Electrochemiluminescence Immunoassay (ECLIA) . Values obtained with different assay methods or kits cannot be used interchangeably. Results cannot be interpreted as absolute evidence of the presence or absence of malignant disease. . This test is not interpretable in females. Performed By: #### C BC #### [facility] [address] [place] [address] Dr. Rose Lafleur CA 125on 05-07-2022 Cancer Antigen (CA) 125 17.1 U/mL Normal 0.0-38.1 [facility] Comment on above: Result Comment: [employer] Electrochemiluminescence Immunoassay (ECLIA) . Values obtained with different assay methods or kits cannot be used interchangeably. Results cannot be interpreted as absolute evidence of the presence or absence of malignant disease. Performed By: #### L DH #### [facility] [address] [place] [address] Dr. Rose Lafleur CEAon 05-07-2022 CEA 1.6 ng/mL Normal 0.0-4.7 [facility] Comment on above: Result Comment: Nons mokers <3.9 Smokers <5.6 . [employer] Electrochemiluminescence Immunoassay (ECLIA) . Values obtained with different assay methods or kits cannot be used interchangeably. Results cannot be interpreted as absolute evidence of the presence or absence of malignant disease. Performed By: #### C BC #### [facility] [address] [address] [address] Rose Lafleur HCG QUANT TUMOR MARKERon HCG QNT TUMOR MARKER <1 Normal [facility] Comment on above: Result Comment: Fema [...] developed and its performance characteristics determined by [employer]. It has not been cleared or approved by the Food and Drug Administration for use as a tumor marker. . This test is not interpretable as a tumor marker in females. Performed By: #### C BC #### [facility] [address] [address] [address] Rose Lafleur LDHon 05-05-2022 LDH 269 U/L Critically high 81-234 [facility] Comment on above: Performed By: #### L DH #### [facility] [address] [address] [address] Rose Lafleur CBC AUTO DIFFon 04-21-2022 BASO # 0.0 103/ul Normal 0.0-0.1 [facility] Comment on above: Performed By: #### L DH #### [facility] [address] [address] [address] Rose Lafleur Basophils/100 WBC (Bld) 0.3 % Normal 0.2-2.0 [facility] Comment on above: Performed By: #### L DH #### [facility] [address] [place] [address] Dr. Rose Lafleur EO # 0.1 103/ul Normal 0.0-0.7 [facility] Comment on above: Performed By: #### L DH #### [facility] [address] [place] [address] Dr. Rose Lafleur Eosinophils/100 WBC (Bld) 0.7 % Critically low 0.9-7.0 [facility] Comment on above: Performed By: #### L DH #### [facility] [address] [place] [address] Dr. Rose Lafleur Erythrocyte distribution width (RBC) [Ratio] 13.9 % Normal 11.0-15.0 [facility] Comment on above: Performed By: #### L DH #### [facility] [address] [place] [address] Dr. Rose Lafleur Hematocrit (Bld) [Volume fraction] 41.5 % Normal 36.0-48.0 [facility] Comment on above: Performed By: #### L DH #### [facility] [address] [place] [address] Dr. Rose Lafleur Hemoglobin (Bld) [Mass/Vol] 13.4 g/dL Normal 12.0-16.0 [facility] Comment on above: Performed By: #### L DH #### [facility] [address] [place] [address] Dr. Rose Lafleur IG # 0.03 10e3/ul Normal 0.00-0.03 [facility] Comment on above: Performed By: #### L DH #### [facility] [address] [place] [address] Dr. Rose Lafleur IG % 0.3 % Normal 0.0-0.5 [facility] Comment on above: Performed By: #### L DH #### [facility] [address] [place] [address] Dr. Rose Lafleur LYMPH # 3.7 103/ul Normal 1.2-3.8 [facility] Comment on above: Performed By: #### L DH #### [facility] [address] [place] [address] Dr. Rose Lafleur Lymphocytes/100 WBC (Bld) 32.9 % Normal 20.5-60.0 [facility] Comment on above: Performed By: #### L DH #### [facility] [address] [place] [address] Dr. Rose Lafleur MANUAL DIFF REQ NO Normal [facility] Comment on above: Performed By: #### L DH #### [facility] [address] [place] [address] Dr. Rose Lafleur MCH (RBC) [Entitic mass] 28.6 pg Normal 26.7-34.0 [facility] Comment on above: Performed By: #### L DH #### [facility] [address] [place] [address] Dr. Rose Lafleur MCHC (RBC) [Mass/Vol] 32.3 g/dL Normal 29.9-35.2 [facility] Comment on above: Performed By: #### L DH #### [facility] [address] [place] [address] Dr. Rose Lafleur MCV (RBC) [Entitic vol] 88.5 fL Normal 81.0-99.0 [facility] Comment on above: Performed By: #### L DH #### [facility] [address] [place] [address] Dr. Rose Lafleur MONO # 0.7 103/ul Normal 0.3-0.8 [facility] Comment on above: Performed By: #### L DH #### [facility] [address] [place] [address] Dr. Rose Lafleur Monocytes/100 WBC (Bld) 6.1 % Normal 1.7-12.0 [facility] Comment on above: Performed By: #### L DH #### [facility] [address] [place] [address] Dr. Rose Lafleur NEUT # 6.7 103/ul Critically high 1.4-6.5 [facility] Comment on above: Performed By: #### L DH #### [facility] [address] [address] [address] Rose Lafleur Neutrophils/100 WBC (Bld) 59.7 % Normal 43.0-75.0 [facility] Comment on above: Performed By: #### L DH #### [facility] [address] [address] [address] Rose Lafleur Platelet mean volume (Bld) [Entitic vol] 9.0 fL Critically low 9.5-13.5 [facility] Comment on above: Performed By: #### L DH #### [facility] [address] [address] [address] Rose Lafleur PLT 320 103/ul Normal 150-450 [facility] Comment on above: Performed By: #### L DH #### [facility] [address] [address] [address] Rose Lafleur RBC 4.69 106/ul Normal 4.20-5.40 [facility] Comment on above: Performed By: #### L DH #### [facility] [address] [address] [address] Rose Lafleur WBC 11.1 103/ul Critically high 4.0-11.0 [facility] Comment on above: Performed By: #### L DH #### [facility] [address] [address] [address] Rose Lafleur GLYCOHEMOGLOBIN A1Con 2021 ADA RECOMMENDATION SEE BELOW Normal [facility] Comment on above: Result Comment: ADA RECOMMENDED LIMIT 4.0 - 6.0 ADA THERAPEUTIC TARGET < 7.0 ACTION SUGGESTED > 7.0 Performed By: #### A 1C #### [facility] [address] [address] [address] Rose Lafleur Glucose [Mass/Vol] 111 mg/dL Normal [facility] Comment on above: Performed By: #### A 1C #### [facility] [address] [address] [address] Rose Lafleur HbA1c (Bld) [Mass fraction] 5.5 % Normal 4.5-6.2 [facility] Comment on above: Performed By: #### A 1C #### [facility] [address] [address] [address] Rose Lafleur TSHon 04-21-2022 TSH 1.207 uIU/mL Normal 0.358-3.740 [facility] Comment on above: Performed By: #### T SH #### [facility] [address] [address] [address] Rose Lafleur US PELVIS AND TRANSVAGon [...] by: ANTONIO BRADLEY Date: 2022-04-21 15:32 Normal [facility] Vital Signs Date Time Vital Sign Value Performing Clinician Faci lity 12-24-2024 13:54-0400 Body mass index (BMI) [Ratio] 63.28 kg/m2 [employer] Work Phone: [facility] [email or web address] 12-24-2024 13:54-0400 Body weight 146.97 kg [employer] Work Phone: [facility] [email or web address] 12-24-2024 13:54-0400 Diastolic blood pressure 76 mm[Hg] Juan Arsalan DO Work Phone: [facility] 12-24-2024 13:54-0400 Systolic blood pressure 128 mm[Hg] Juan Arsalan DO Work Phone: [facility] 05-25-2024 11:42-0400 Body height 152.4 cm [facility] 05-25-2024 11:42-0400 Body mass index (BMI) [Ratio] 63.47 kg/m2 [facility] 05-25-2024 11:42-0400 Body weight 147.42 kg [facility] 05-23-2024 11:23-0400 Body height 152.4 cm Bayron Reddy JAVA DEVELOPER CONSULTANT-SOFTWARE CONFIGURATION SPECIALIST Work Phone: [facility] 05-23-2024 11:23-0400 Body mass index (BMI) [Ratio] 64.06 kg/m2 [facility] [employer] JAVA DEVELOPER CONSULTANT-SOFTWARE CONFIGURATION SPECIALIST Work Phone: [facility] 05-23-2024 11:23-0400 Body weight 148.78 kg [facility] [employer] [employer] JAVA DEVELOPER CONSULTANT-SOFTWARE CONFIGURATION SPECIALIST Work Phone: [facility] Encounters Encounter Date Encounter Type Care Provider Facility Start: 12-24-2024 End: 12-24-2024 Bamboo flowsheet Juan Arsalan DO Work Phone: [facility] Start: 12-24-2024 End: 12-24-2024 Bamboo flowsheet Juan Arsalan DO Work Phone: [facility] Start: 12-24-2024 End: 12-24-2024 Office outpatient visit 15 minutes Juan Arsalan DO Work Phone: [facility] Comment on above: Follow-up encounter involving medication Start: 12-24-2024 End: 12-24-2024 ambulatory JUAN ARSALAN Not Available Start: 12-03-2024 End: 12-03-2024 ambulatory Radha Padilla MD Facility:[facility] Start: 11-08-2024 End: 11-08-2024 ambulatory AVINASH TEMPLE [facility] Start: 11-08-2024 Encounter for genera l adult medical examination without abnormal findings ZA ROGERS [facility] Start: 11-08-2024 ambulatory [facility] Start: 10-30-2024 End: 10-30-2024 ambulatory JUAN ARRIAZA Not Available Start: 06-21-2024 End: 06-21-2024 Telephone encounter Ebony Floyd CMA [facility] General Surgery Start: 06-14-2024 End: 06-14-2024 Evaluation and management of inpatient PURVI NEVILLE [facility] Start: 05-25-2024 Encounter for other preprocedural examination ANTONIO [facility] Start: 05-25-2024 End: 05-25-2024 ambulatory ANTONIO Parkinson [facility] Start: 05-25-2024 End: 05-25-2024 Patient encounter procedure [facility] Pre-Admission Testing 1 [facility] - Pre Admit Start: 05-23-2024 End: 05-23-2024 Office outpatient new 30 minutes Bayron Amisha Drain JAVA DEVELOPER CONSULTANT-SOFTWARE CONFIGURATION SPECIALIST Work Phone: [facility] Comment on above: Rectal bleeding (Patti minh Dx) Start: 05-23-2024 End: 05-23-2024 ambulatory [facility] Amisha [facility] Start: 05-16-2024 End: 05-16-2024 Telephone encounter Bayron Amisha Reddy JAVA DEVELOPER CONSULTANT-SOFTWARE CONFIGURATION SPECIALIST Work Phone: [facility] Start: 05-15-2024 ambulatory Jaime Squires acility:[facility] Start: 12-14-2022 End: 12-15-2022 ambulatory SHARON ADAME Facility:[facility] Start: 09-02-2022 Encounter for preprocedural laboratory examination DR JUAN ARRIAZA . [facility] Start: 08-30-2022 End: 08-31-2022 ambulatory [...] preprocedural cardiovascular examination DR JUAN ARRIAZA . [facility] Start: 05-13-2022 End: 05-14-[address] JUAN ARRIAZA . Facility:[facility] Start: 05-13-2022 End: 05-14-2022 Encounter for preprocedural cardiovascular examination DR JUAN ARRIAZA . Facility:[facility] Start: 05-05-2022 End: 05-06-[address] JUAN ARRIAZA . Facility:[facility] Start: 04-21-2022 End: 04-22-[address] JUAN ARRIAZA . Facility: Procedures Date Procedure Procedure Detail Performing Clinician Start: 10-30-2024 Microscopic observat ion [Identifier] in Cervix by Cyto stain Juan Arriaza DO Work Phone: Start: 06-14-2024 Colonoscopy Ebony michele CMA Start: 07-05-2022 Microscopic observat ion [Identifier] in Cervix by Cyto stain Bayron Reddy JAVA DEVELOPER CONSULTANT-SOFTWARE CONFIGURATION SPECIALIST Work Phone: Plan of Treatment Date Care Activity Detail Author Start: 05-06-2030 DTaP,Tdap and Td Vaccines (3 - Td or Tdap) DTaP,Tdap and Td Vaccines (3 - Td or Tdap) [facility] Start: 06-14-2029 Screening for malign ant neoplasm of colon Colonoscopy [facility] Start: 10-31-2027 Screening for malign ant neoplasm of cervix Pap Smear [facility] Start: 07-05-2027 Screening for malign ant neoplasm of cervix [facility] Start: 11-04-2025 End: 11-04-2025 Patient encounter procedure 11/04/2025 2:00 PM EDT Office Visit [facility] [address] [place] [id number] Juan Arriaza DO [address] [place] [address] [facility] Start: 07-05-2025 Screening for malign ant neoplasm of cervix Pap Smear [facility] Start: 06-14-2025 Adult BMI Screening Adult BMI Screen ing [facility] Start: 06-14-2025 Tobacco Screening Tobacco Screening [facility] Start: 05-25-2025 Adult BMI Screening Adult BMI Screen ing [facility] Start: 05-25-2025 Tobacco Screening Tobacco Screening [facility] Start: 05-23-2025 Adult BMI Screening Adult BMI Screen ing [facility] Start: 05-23-2025 Tobacco Screening Tobacco Screening [facility] Start: 04-15-2025 Influenza vaccination Influenz a Vaccine (Season Ended) [facility] Start: 06-14-2024 End: 06-14-2024 Admission to same day surgery center 06/14/2024 10:00 AM EDT - 06/14/2024 10:30 AM EDT Surgery [facility] Surgery [address] [place] [id number] Purvi Neville, DO [address] [place] [id number] COLONOSCOPY DIAGNOSTIC / SCREENING [38863 (CPT )] [facility] Comment on above: COLONOSCOPY DIAGNOST IC / SCREENING [60128 (CPT )] Start: 06-14-2024 End: 06-14-2024 Colonoscopy flx dx w/collj spec when pfrmd COLONOSCOPY DIAGNOSTIC / SCREENING rectal bleeding 06/14/2024 10:00 AM EDT [facility] Start: 10-31-2024 Subsequent hospital visit by physician 06/14/2024 10:00 AM EDT Hospital Encounter [facility] - Surgery [address] [place] [address] Purvi Neville DO [address] [place] [address] [facility] - Surgery Start: 05-25-2024 End: 05-25-2024 Patient encounter procedure 05/25/2024 2:15 PM EDT Procedure visit [facility] - Pre Admit [address] [facility] [address] [facility] - Pre Admit Start: 05-23-2024 End: 05-23-2024 Patient encounter procedure 05/23/2024 11:30 AM EDT Office Visit [facility] [address] [place] [address] Bayron Reddy, JAVA DEVELOPER CONSULTANT-[facility] [address] [facility] [place] [address] [facility] Start: 04-15-2024 COVID-19 Vaccine ( season) COVID-19 Vaccine ( season) [facility] Start: 04-15-2024 COVID-19 Vaccine ( season) COVID-19 Vaccine ( season) [facility] Start: 04-15-2024 Influenza vaccination Influenza Vacc ine [facility] Start: 2023 Screening for malign ant neoplasm of breast Mammogram [facility] Start: 09-22-2022 Adult BMI Screening Adult BMI Screen ing [facility] Start: 12-15-2004 Screening for malign ant neoplasm of cervix Pap Smear [facility] Start: 12-15-2001 Adult BMI Follow Up Plan Adult BMI Follow Up Plan [facility] Start: 1995 Depression Screening Depression Scre ening [facility] Start: 1995 Tobacco Screening Tobacco Screening [facility] End: 05-23-2025 Colonoscopy Colonoscopy GI Routine Rectal bleeding 1 Occurrences starting 05/23/2024 until 05/23/2025 [employer] Work Phone: Comment on above: 1 Occurrences starti ng 05/23/2024 until 05/23/2025 Payers Date Payer Category Payer Unknown 2023 Self-pay 2016 Medicaid (Managed Care) [employer] [id number] 2003 Medicaid [employer] [id number] 2003-Present [phone] [place] [id number] 2003 Medicaid HMO [employer] [id number] 1983 Unknown [id number] 2.16.840.1.862035.3.579.2. 593 1983 Unknown [id number] 2.16.840.1.298180.3.579.2. 593 1983 Unknown [id number] 2.16.840.1.416445.3.579.2. 593 1983 Unknown [id number] 2.16.840.1.034328.3.579.2. 593 1983 Unknown [id number] 2.16.840.1.132121.3.579.2. 593 1983 Unknown [id number] 2.16.840.1.621638.3.579.2. 593 1983 Unknown [id number] 2.16.840.1.250280.3.579.2. 593 1983 Unknown [id number] 2.16.840.1.717329.3.579.2. 59 1983 Unknown [id number] 2.16.840.1.374977.3.579.2. 593 1983 Unknown [id number] 2.16.840.1.719501.3.579.2. 593 1983 Unknown [id number] 2.16.840.1.761913.3.579.2. 593 1983 Unknown [id number] 2.16.840.1.709433.3.579.2. 593 1983 Unknown [id number] 2.16.840.1.073391.3.579.2. 1286 1983 Unknown [id number] 2.16.840.1.912426.3.579.2. 128 1983 Unknown [id number] 2.16.840.1.565897.3.579.2. 1285 1983 Unknown [id number] 2.16.840.1.794591.3.579.2. 128 1983 Unknown [id number] 2.16.840.1.814797.3.579.2. 1286 1983 Unknown [id number] 2.16.840.1.061558.3.579.2. 1286 1983 Unknown [id number] 2.16.840.1.199130.3.579.2. 196 1983 Unknown [id number] 2.16.840.1.428050.3.579.2. 1259 1983 Unknown [id number] 2.16.840.1.963733.3.579.2. 1259 1959 Unknown [id number] Social History Date Type Detail Facility Start: 09-22-2021 End: 01-25-2023 Tobacco smoking status NHIS Ex-smoker [facility] Start: 08-15-2000 End: 08-06-2021 History of tobacco use Current smoker [facility] Start: 08-15-2000 End: 08-06-2021 History of tobacco use Cigarette Smoker [facility] Start: 09-22-2021 End: 05-23-2024 Tobacco use and exposure Smokeless tobacco non-user [facility] Start: 02-12-2022 End: 06-14-2024 Alcoholic beverage intake Ex-drinker (finding) [facility] Start: 02-12-2022 End: 10-30-2024 History of Social function [facility] Start: 02-12-2022 End: 10-30-2024 Tobacco use panel [facility] Childcare Unknown [facility] Start: 1985 Sex assigned at Female [facility] Start: 06-30-2021 Gender identity Identifies as female gender (finding) [facility] History of tobacco use Tobacco U se Types Packs/Day Years Used Date Smoking Tobacco: Former Vaping/E-cigarettes Smokeless Tobacco: Never [facility] Start: 03-20-2015 Sex Female (finding) [facility] Start: 10-30-2024 End: 12-24-2024 Alcoholic beverage intake Lifetime non-drinker (finding) [facility] Clinical Notes 05-26-2022 to 12-24-2024 Lisandra Trinh LPN - 12/24/2024 1:20 PM EDTTelephone Encounter - Ebony Floyd, [facility] - 06/21/2024 11:43 AM ESTTelephone Encounter - Ebony Floyd, [facility] - 06/21/2024 11:43 AM ESTPatient Instructions Note Date & Type Note Facility 12-24-2024 History of Presen t illness Narrative Reason for Appointment: Patient ID: Eran Winn is a 39 y.o. female who presents [...] Diagnosis Date Endometriosis Former smoker HTN (hypertension) ([facility]/HCC) Hypercholesterolemia (CMS/HCC) Morbid obesity with BMI of 50.0-59.9, adult (CMS/HCC) Uterine fibroid Uterine prolapse HISTORY PAST MEDICAL HISTORY SOCIAL HISTORY Past Medical History: Diagnosis Date Endometriosis Former smoker HTN (hypertension) (CMS/HCC) Hypercholesterolemia (CMS/HCC) Morbid obesity with BMI of 50.0-59.9, adult (CMS/[facility]) Uterine fibroid Uterine prolapse Social History Tobacco [...] SECTION, CLASSIC DILATION AND CURETTAGE ENDOMETRIAL ABLATION 2014 [employer] Ablation ROBOTIC ASSISTED HYSTERECTOMY 08/25/2022 w/bilateral [...] nursing note reviewed. Exam conducted with a real estate assistant present. Vitals: Estimated body mass index is 63.28 kg/m as calculated from the following: Height as [...] reach out to office and increase will be able to be sent. Patient to ensure she is scheduled for annual prior to leaving office today. Documented by Lisandra Trinh LPN on behalf of: Juan Arriaza DO documented in this encounter [facility] 06-21-2024 Miscellaneous Notes ----- Message from Dr. Purvi Neville DO sent at 06/20/2024 1:05 PM EST ----- Please call patient let her know that she had a precancerous polyp and I recommend repeat colonoscopy in 5 years unless problems. Thanks, Dr. Reyna Spoke with patient regarding pathology results. Patient verbally understood with no further questions. Recall to be put in chart. documented in this encounter [facility] [employer] 06-21-2024 Telephone encounter Note ----- Message from Dr. Purvi Neville DO sent at 06/20/2024 1:05 PM EST ----- Please call patient let her know that she had a precancerous polyp and I recommend repeat colonoscopy in 5 years unless problems. Thanks, Dr. Reyna [facility] 06-21-2024 Telephone encounter Note Spoke with patient regarding pathology results. Patient verbally understood with no further questions. Recall to be put in chart. [facility] 05-25-2024 Instructions Sofiya Moreno RN - 05/25/2024 11:15 AM EDT Preoperative Education Checklist- General Surgery date: 06/14/24 Surgery time: 10a Arrival time: 8a 1. Bring a photo ID and your insurance card with you the day of surgery. You will check in at the main lobby of the [facility]- registration desk is straight ahead as soon as you walk in. Tell them you are here for surgery. 2. If you have a Living Will/Durable Power of [place] Supervisor for Health Care that is not on [...] after you have bathed. 5. NO nail guatemalan/acrylic on at least one finger. If you are having a hand, wrist or foot surgery then all nail guatemalan and artificial/acrylic nails must be removed from [...] WITH YOU ANY DEVICES YOU MAY NEED: JZA hose, ice machine, sling/swath, brace or special [...] please call the Preadmission Testing office at [phone], Mon.-Fri. 7 a.m.-3 p.m. Leave a voicemail [...] doctor for instructions documented in this encounter [employer] 05-23-2024 History of Presen t illness Narrative [...] patient/family/caregiver Referring and communicating with other health family day care provider Rectal bleeding [K62.5] CRYS SIMMONS [facility] General Surgery [place] This note was created with the assistance of a speech recognition program. While intending to generate a timely document that accurately reflects the content of the visit, no guarantee can be provided that every grammatical or spelling mistake has been or will be identified or corrected. Thank you for your understanding. CRYS Simmons 05/23/24 1239 documented in this encounter [facility] 05-16-2024 Miscellaneous Notes Called Eran regarding the rectal bleeding referral that our office received from Dr Quinn, left message on voicemail to call the office back to schedule an appointment. Eran called the office back and we scheduled her an appointment on 05/23/2024. documented in this encounter [facility] 05-16-2024 Telephone encounter Note Called Eran regarding the rectal bleeding referral that our office received from Dr Quinn, left message on voicemail to call the office back to schedule an appointment. [facility] 05-16-2024 Telephone encounter Note Eran called the office back and we scheduled her an appointment on 05/23/2024. [facility] [employer] [facility] 12-14-2022 Note CONSULTATION CONSULTATION DATE: 12/14/2022 TO: [facility] CHIEF COMPLAINT: Includes severe right [...] our patients to inform us about any [id number] medications or herbal remedies/nutritional supplements/alternative remedies. 2. [...] with their primary care provider. The [facility] 08-30-2022 Note OPERATIVE NOTE OPERATION DATE: 08/30/2022 PROCEDURE: Da Beatriz assisted laparoscopy hysterectomy with bilateral salpingectomy with cystoscopy. PREOPERATIVE DIAGNOSIS: Abnormal uterine bleeding, menorrhagia, dysmenorrhea, dyspareunia, failed ablation, pelvic pain, uterine fibroids. POSTOPERATIVE DIAGNOSIS: Abnormal uterine bleeding, menorrhagia, dysmenorrhea, dyspareunia, failed ablation, pelvic pain, uterine fibroids. ANESTHESIA: General. SURGEON: Juan Arriaza D.O. GUN MECHANIC: FRANNIE Luu URINE OUTPUT: Yellow and [...] first. Patient tolerated procedure well. [facility] 05-26-2022 Note OPERATIVE NOTE OPERATION DATE: 05/26/2022 PROCEDURE: Attempted D AND C hysteroscopy, diagnostic laparoscopy, lysis of omental adhesions from the anterior abdominal wall using a LigaSure. PREOPERATIVE DIAGNOSIS: Pelvic pain, dysmenorrhea, dyspareunia. POSTOPERATIVE DIAGNOSIS: Pelvic pain, dysmenorrhea, dyspareunia including endometriosis ANESTHESIA: General. SURGEON: Juan Arriaza D.O. GUN MECHANIC: FRANNIE Huizar URINE OUTPUT: Yellow and [...] Recovery Room in stable condition. [facility] 05-26-2022 Note OPERATIVE NOTE OPERATION DATE: 06/11/2022 ADDENDUM TO PROCEDURE: LigaSure apparatus was used to come across omental adhesions, extending to the anterior abdominal wall. This was released. Excellent hemostasis was assured. ADDENDUM TO POST-OP DIAGNOSIS: Significant uterine fibroids. [facility] Evaluation note Diagnosis Rectal bleeding- Primary Hemorrhage of rectum and anus Preop examination- Primary Unspecified pre-operative examination Hypertension, unspecified type BMI 60.0-69.9, adult ([facility]) documented in this encounter [facility]* Diagnosis Follow-up encounter involving medication documented in this encounter [facility] HealthcareInstructionsNot on filedocumented in this encounterProDunlap Memorial Hospital SystemInstructionsNot on filedocumented in this encounterGenesis Hospital Summary Purpose Family History No Family [...] and content) DATE CREATED AUTHOR 12/22/2022 [facility] DATE CREATED AUTHOR AUTHOR'S ORGANIZ ATION 05/25/2024 [facility] DATE CREATED AUTHOR AUTHOR'S ORGANIZ ATION 09/11/2024 [facility] DATE CREATED AUTHOR AUTHOR'S ORGANIZ ATION 11/09/2024 [facility] DATE CREATED AUTHOR AUTHOR'S ORGANIZ ATION 11/10/2024 [facility] DATE CREATED AUTHOR AUTHOR'S ORGANIZ ATION 12/11/2024 [facility] DATE CREATED AUTHOR AUTHOR'S ORGANIZ ATION 12/25/2024 [facility] d[facility] Specialists EPIC Care Teams (unrecognized sec tion and content) Operations Technician Relationship Specialty [place] [address] [place] [id number] PCP - [facility] 05/16/24 Operations Technician Relationship Specialty Start Date End Date Za Rogers MD [address] [place] [address] PCP - [facility] 05/16/24 Operations Technician Relationship Specialty Start Date End Date Za Rogers MD [address] [place] [address] PCP - [facility] 05/16/24 Operations Technician Relationship Specialty Start Date End Date Za Rogers MD [address] [place] [address] PCP - [facility] 05/16/24 Operations Technician Relationship Specialty [place] [address] [place] [id number] PCP - [facility] 07/21/23 Operations Technician Relationship Specialty [place] [address] [place] [id number] PCP - General [facility] 07/21/23 Reason for Visit (unrecogniz ed section and content) Reason Comments Rectal Bleeding RECTAL BLEEDING, REF BY DR. ROGERS Hemorrhoids Reason Comments Follow-up Pt present today to follow up on Effexor. Pt was prescribed Effexor on 11/26/2024 for hot flashes associated w/menopause symptoms. FOR RECORDS PERTAINING TO PATIENTS WHO ARE [...] BE BASED ON THE PRIMARY CLINICAL RECORDS. [facility] [employer] [facility]. provides no warranty or guarantee of the accuracy or completeness of information in this document.
--- NOTE | 2025-01-02 13:37 | PM.CN ---
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 Today pain 1/10 dull pressure, increasing to 2/10 by end of day. Patient finds mild benefit from baclofen and zonegran, denies side effects. Finds mild benefit from heat, ice, and massager. recently underwent left T12/L1 intercostal RFA with >50% improvement ongoing cc:: CC: Carol Tyler NP Review of Systems ROS Status of ROS 10 or more systems reviewed and unremarkable except as noted in history and below Musculoskeletal Reports: back pain PFSH PFSH Medical History (Updated 09/04/24 @ 07:14 by Heather Sheehan) Osteoarthritis ?M19.90 - Unspecified osteoarthritis, unspecified site (ICD-10) Hiatal hernia ?K44.9 - Diaphragmatic hernia without obstruction or gangrene (ICD-10) Former smoker ?Z87.891 - Personal history of nicotine dependence (ICD-10) Hypertension ?I10 - Essential (primary) hypertension (ICD-10) Surgical History (Updated 09/04/24 @ 07:14 by Heather Sheehan) H/O: hysterectomy ?Z90.710 - Acquired absence of both cervix and uterus (ICD-10) Meds Home Medications and Allergies Home Medications ?Medication ?Instructions ?Recorded ?Confirmed ?Type albuterol sulfate 90 mcg/actuation 1 inh inhalation Q4H 06/01/23 12/03/24 History aerosol inhaler baclofen 10 mg tablet 10 mg PO BID PRN muscle spasm 06/01/23 12/03/24 History hydroxyzine HCl 10 mg tablet 10 mg PO DAILY 06/01/23 12/03/24 History lisinopril 10 1 tab PO DAILY 06/01/23 12/03/24 History mg-hydrochlorothiazide 12.5 mg tablet rosuvastatin 20 mg tablet 20 mg PO DAILY 06/01/23 12/03/24 History zonisamide 50 mg capsule 50 mg PO DAILY 06/01/23 12/03/24 History diazepam 10 mg tablet mg 10/02/24 History venlafaxine 37.5 mg mg PO 12/03/24 History capsule,extended release 24 hr Allergies Allergy/AdvReac Type Severity Reaction Status Date / Time Penicillins Allergy Unknown swellling Verified 12/03/24 11:54 Exam Constitutional Documenting provider has reviewed patient's vital signs: yes Common normals: no apparent distress, oriented x3, healthy appearing, alert and well nourished General appearance: cooperative Nutritional appearance: obese HENMT Common normals: normocephalic, hearing grossly normal bilaterally and moist oral mucous membranes Head and scalp: normocephalic Eye Common normals: PERRL Pupil: PERRL Neck & C-Spine Common normals: full ROM General: normal visual inspection Chest Common normals: inspection of chest normal Respiratory Common normals: normal respiratory effort, no retractions and no use of accessory muscles Back & Pelvis Thoracic spine/upper back: ROM not limited, no pain with ROM and no paraspinal muscle tenderness Other: no pain noted over left T12/L1 intercostal nerves Extremity Common normals: normal to inspection and full ROM Neuro Common normals: oriented x3, CN's II-XII intact bilaterally, moves all extremities, no focal motor deficits, no sensory deficits noted and deep tendon reflexes 2+ bilaterally Sensorium/orientation: alert Motor exam: strength 5/5 throughout and no movement abnormalities noted Psych Common normals: mental status grossly normal, thought process normal, cooperative, affect normal, speech normal and activity/motor behavior normal Speech: normal speech Thought process: normal thought process Results Additional Findings Additional findings: If on a controlled substance or opioids, I have checked an [place]AR[place] report on this patient and there are no aberrancies noted in the prescribing history.??If on a controlled substance or opioid a drug screen was completed and reviewed within the last year, and if there has not been a drug screen completed we ordered one today to monitor higher risk, state monitored pain medication use. As part of providing excellent, safe, comprehensive care, the following was completed at our patient's visit: 1. A medication reconciliation and review to ensure accurate knowledge of current/active medications, including asking our patients to inform us about any nizv-cbf-arisbhx medications or herbal remedies/nutritional supplements/alternative remedies. 2. A review to specifically ensure our patients have had annual screening for screening for depression, screening for tobacco use, and screening for unhealthy alcohol use. For concerning screenings had a discussion with the patient, provided patient education, and recommended follow-up with primary care provider when appropriate. If patient noted with a risk of falling, they received education on strength, gait, and balance training to prevent future risk of falling. Portions of this note may have been carried over from the previous visit and updated as appropriate. Please note this office utilizes paper charting in addition to the electronic medical record. A list of current medications, vitals, and PMH is available there as the clinical staff outside of myself do not have access to [employer] charting during the clinic day operations. As part of providing quality comprehensive care the current medications, vitals, and PMH were reviewed in the paper chart. Assessment and Plan Assessment and Plan (1) Intercostal neuritis: Assessment and Plan: JOSE 4% (2) Thoracic back pain: (3) Myofascial pain: Plan left T12,L1 intercostal RFA providing signficicant improvement ongoing continue zonegran 50mg BID continue baclofen 10mg 1-2 BID PRN myofascial spasms/pain f/u 6 months, sooner if needed
== END 2025-01-02 13:14 | disposition home or self-care (01) ==
LOC: PM 13:13
PROVIDERS: PCP Family Medicine; Visit Provider Nurse Practitioner
DX: G58.0 Intercostal neuropathy (principal); M54.6 Pain in thoracic spine; M79.18 Myalgia, other site
CPT/HCPCS: G0463

== ENCOUNTER 2025-07-03 13:30 | Outpatient (OUT) | payer OTHER, SELFPAY ==
--- OUTSIDE RECORDS SUMMARY | 2024-10-31 08:15 | XMS_ITS ---
Author Organization [facility] Address [address] [place] [address] [phone] Care Team Providers Care Master Sheet Clerk Name Role Phone Debbie Leonardo Primary Care Provider REASON FOR VISIT HLD & Weight Social History Sex Assigned At : Social History Observation Description Sex Assigned At Female Encounters Encounter Location Date Provider Diagnosis Main [address] [place] [address] [phone] 10/31/2024 Debbie Leonardo Plan Of Treatment Next Appt Details Provider Name:Maisha Kirk nic, 10/01/2025 03:15:00 PM, [address] [place] [address], [phone], Progress Notes * Eran RANKIN LDOB:[birth year] (39 yo F)Acc No.[id number]:10/31/2024 Medical Note Patient: Eran Arreaga :?Debbie Leonardo MDDOB:1985???Age:38 Y???Sex: FemaleDate:10/31/2024Phone:[phone]:[address] [place] [id number] Subjective: * Chief Complaints: * H LD & Weight * Electronic signature of Debbie Leonardo MD on 07/03/2025 at 01:33 PM ESTSign off status: Pending * Provider: Nasima Leonardo MD Date: 0 10/31/2024 Generated for Printing/Faxing/eTransmitting on:?07/03/2025 01:33 PM EST
--- OUTSIDE RECORDS SUMMARY | 2024-11-12 08:00 | XMS_ITS ---
Author Organization [facility] vices Address [address] [place] [phone] Care Team Providers Care Supervisor Cell Efficiency Name Role Phone Debbie Leonardo Primary Care Provider [phone] REASON FOR VISIT HLD and Weight Social History Sex Assigned At : Social History Observation Description Sex Assigned At Female Encounters Encounter Location Date Provider Diagnosis Main [address] [place] [address] [phone] 11/12/2024 Debbie Leonardo Plan Of Treatment Next Appt Details Provider Name:Maisha Jamanina nic, 10/01/2025 03:15:00 PM, [address] [place] [address], [phone], Progress Notes * Eran RANKIN LDOB:[birth year] (39 yo F)Acc No.[id number]:11/12/2024 Medical Note Patient: Eran Arreaga :?Debbie Leonardo MDDOB:1985???Age:38 Y???Sex: FemaleDate:11/12/2024Phone:[phone]:[address] [place] [id number] Subjective: * Chief Complaints: * H LD and Weight * Electronic signature of Debbie Leonardo MD on 07/03/2025 at 01:34 PM ESTSign off status: Pending * Provider: Nasima Leonardo MD Date: 0 11/12/2024 Generated for Printing/Faxing/eTransmitting on:?07/03/2025 01:34 PM EST
--- OUTSIDE RECORDS SUMMARY | 2025-07-03 13:34 | XMS_ITS | Patient Health Record ---
Author Organization [facility] [place] Address [address] [place] [address] Care Team Providers Care Take Down Sorter Name Role Phone None, Unknown or Primary Care Provider Unavailab le Allergies Allergen (clinical drug ingredient) Drug/Non Drug Allergy documented on EMR Reaction Allergy Type Onset Date Status Substance with penicillin st ructure and antibacterial mechanism of action (substance) Penicillins Unknown Dr bradley Allergy Active Reason For Referral No Information Medications Medication SIG (Take, Route, Frequency, Duration) Notes Start Date End Date Status amLODIPine Besylate 2.5 MG 1 tablet Orally Daily ActiveBaclofen 5 MG1 tablet Orally Three times a day as neededActiveEscitalopram Oxalate 5 MG1 tablet Orally DailyActiveIbuprofen 600 MG1 tablet Orally every 6 hrs as neededActiveNaproxen Sodium 550 MG1 tablet with food or milk as needed Orally every 12 hrs; Duration: 30 days06/12/2020ActiveOrilissa 150 MG1 tablet Orally Once a day; Duration: 90 daysActiveRosuvastatin Calcium 10 MG1 tablet Orally Once a dayActiveVitamin D3 125 MCG (5000 UT)1 tablet Orally Once a day; Duration: 90 daysActive Social History Tobacco Use: Social History Observation Description Date Details (start date - stop date) Unknown Tobacco Use/Smoking Question Answer Notes Patient is a Uses tobacco in other forms Alcohol Screen (Audit-C) Question Answer Notes Did you have a drink containing alcohol in the p ast year? No Kihjir6QyvawzdobhypshYunetwfdCbtcusv use other than smoking: Question Answer Notes Are you an other tobacco user? Yes B lack & Mild cigar 2x's/wk Problems Problem Type SNOMED Code ICD Code Onset Dates Problem Status W/U Status Risk Notes Problem Overactive bladder (438042694) Overactive bladder (N32.81) ActiveconfirmedProblemHuman papilloma virus deoxyribonucleic acid test positive, high risk on vaginal specimen (372916764600247)Cervical high risk human papillomavirus (HPV) DNA test positive (R87.810)ActiveconfirmedProblemVitamin D deficiency (73066166)Vitamin D deficiency (E55.9)ActiveconfirmedProblem Endometriosis (329774392)Endometriosis (N80.9)ActiveconfirmedProblemIncomplete uterine prolapse (55216716938545925)Incomplete uterine prolapse (N81.2)Active confirmedProblemVitamin D deficiency (74148571)Vitamin D insufficiency (E55.9) ActiveconfirmedProblemMixed incontinence (688149245)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)Activeconfirmed Plan Of Treatment No Information Insurance Providers Payer Name Payer Address Payer Phone Subscriber Number Group Number Insured Name Patient Relationship to Insured Coverage Start Date Coverage End Date [facility] [address] [place] [address] [id number] Berry Rankin - patient is the [id number] 2009 Medications Administered Medication Instructions Date of Administration Dosage Notes Depo-Provera, 150 mg/mL 1150 mgPatient suppliedMedroxyprogesterone 150 mg mL Medical (General) History Surgical History Surgery Date(Month/Year) NovaSure Endometrial Ablation Tubal LigationCesarean for Twins
--- OUTSIDE RECORDS SUMMARY | 2025-07-03 13:34 | XMS_ITS | Clinical Summary ---
Author Organization [facility] Address [address], [address] [place] [address] Care Team Providers Care Financial Planning Consultant Name Role Phone Unavailable Primary Care Provider Unavailabl e Allergies No known active allergies Medications MedicationSigDispense QuantityRefillsLast FilledStart DateEnd DateStatus vitamin (FORMULA 3) TABS Take 1 tablet by mouth daily.Active Social History Tobacco UseTypesPacks/DayYears UsedDateSmoking Tobacco: Never Assessed CommentsUnknownSex and Gender InformationValueDate RecordedSex Assigned at Not on fileLegal QppWbgmyk58/12/2013 6:50 AM ESTGender IdentityNot on fileSexual OrientationNot on file Last Filed Vital Signs Vital SignReadingTime TakenCommentsBlood Ochifvsv761/8406/10/2011 8:14 AM EDT Xwnct08523/27/2011 8:14 AM QWKSeixowcijfm00.7 ??C (98.1 ??F)06/10/2011 8:14 AM EDTRespiratory Sdph2148 8:14 AM EDTOxygen Saturation--Inhaled Oxygen Concentration--Rtlztj738.7 kg (319 lb)06/10/2011 8:14 AM EDTHeight--Body Mass Index-- Plan of Treatment Not on file
--- OUTSIDE RECORDS SUMMARY | 2025-07-03 13:34 | XMS_ITS | Clinical Summary ---
Author Organization [facility] Address [address] [place] [address] Care Team Providers Care Liquefied Petroleum Gasfitter Name Role Phone GiselleSharon harding DO Primary Care Provider [phone] Allergies Active AllergyReactionsCriticalityNoted DateCommentsPenicillin G Potassium In D5w07/28/2021 Other Reaction(s): Swelling , Swollen lips Napdawemilz13/13/2017 Other Reaction(s): edema Medications MedicationSigDispense QuantityRefillsLast FilledStart DateEnd DateStatus baclofen (Lioresal) 10 MG tablet every 12 (twelve) hours.Active escitalopram (Lexapro) 10 MG tablet TAKE 1 TABLET BY MOUTH EVERY DAY FOR 90 DAYSActive rosuvastatin (Crestor) 5 MG tablet Take 5 mg by mouth in the morning.Active lisinopril-hydroCHLOROthiazide 10-12.5 MG tablet Take 1 tablet by mouth in the morning.Active hydrOXYzine HCl (Atarax) 25 MG tablet Take 25 mg by mouth 1 (one) timeActive venlafaxine XR (Effexor XR) 37.5 MG 24 hr capsule Indications:Hot flashes due to surgical menopauseTAKE 1 CAPSULE BY MOUTH DAILY DO NOT CRUSH OR CHEW. 30 capsule 5Active Family History Medical HistoryRelationNameCommentsCancerMaternal GrandfatherCancerMaternal GrandmotherAsthmaMotherHypertensionMotherRelationNameStatusCommentsFatherAlive Maternal GrandfatherMaternal GrandmotherMotherAlive Social History Tobacco UseTypesPacks/DayYears UsedDateSmoking Tobacco: FormerCigarettes 08/15/2000 - 08/06/2021 Tobacco Cessation:Counseling Given: Not Answered Alcohol UseStandard Drinks/WeekCommentsNever0 (1 standard drink = 0.6 oz pure alcohol)CommentsNoSex and Gender InformationValueDate RecordedSex Assigned at XfdgaZedesq38/09/2023 1:19 PM EDTLegal RzcGsmhrj82/15/2023 11:31 PM EDTGender TjpxofnxDjnodd79/09/2023 1:19 PM EDTSexual OrientationNot on file Last Filed Vital Signs Vital SignReadingTime TakenCommentsBlood Wszgpzzp257/76012/24/2024 1:54 PM EDT Pulse--Temperature--Respiratory Rate--Oxygen Saturation--Inhaled Oxygen Concentration--Nqqxgv187 kg (324 lb)12/24/2024 1:54 PM CEQPulhoh095.4 cm (5') 01/26/2023 3:59 PM EDTBody Mass Index63.28001/26/2023 3:59 PM EDT Plan of Treatment DateTypeDepartmentCare Team (Latest Contact Info)Fzoekcqokki13/23/2026 2:00 PM EDTOffice Visit [facility] [address] [place] [address] Chester Arriaza, [address] [place], [place] [phone] Health MaintenanceDue DateLast HvvhKbgptpogTtmomqdkn58/03/2024OVID-19 Vaccine ( season)/, 03/20/2021Influenza Vaccine (#1) 2025HPV/Pflech3507/05/2027Cervical Cancer Yboqpyour05/18/2028Pap Smear 8010/30/2024, 07/05/2022neumococcal Vaccine: Pediatrics (0 to 5 Years) and At-Risk Patients (6 to 64 Years)Aged OutNo longer eligible based on patient's age to complete this topic Procedures Procedure NamePriorityDate/TimeAssociated DiagnosisCommentsPAP SMEARRoutine 10/30/2024 12:00 AM EDTfrom Last 3 Months or Most Recently Relevant to Health Maintenance Results * Pap Smear (10/30/2024 12:00 AM EDT)Specimen (Source)Anatomical Location / LateralityCollection Method / VolumeCollection TimeReceived TimeSwabCervical swab / Unknown Narrative Authorizing ProviderResult TypeResult StatusCorey Arsalan DOLAB CYTOLOGY ORDERABLESFinal ResultPerforming OrganizationAddressCity/State/ZIP CodePhone Number EXTERNAL LAB from Last 3 Months or Most Recently Relevant to Health Maintenance [place] [address] Care Teams Team MemberRelationshipSpecialtyStart DateEnd Date Sharon Herring DO [address] [place] [address] PCP - GeneralFamily Bypfidov99/7/23
--- OUTSIDE RECORDS SUMMARY | 2025-07-03 13:34 | XMS_ITS | Clinical Summary ---
Author Organization [facility] tem Address [id number] [place] [address] Care Team Providers Care Fireworks Inspector Name Role Phone Services, [facility] Primary Care Provider Allergies Active AllergyReactionsCriticalityNoted DateCommentsPenicillinsAnaphylaxis, EinjlfcmkoOqgm94/13/2017 Medications MedicationSigDispense QuantityRefillsLast FilledStart DateEnd DateStatus rosuvastatin (CRESTOR) 5 mg tablet Take 1 tablet (5 mg total) by mouth in the morning.Active escitalopram (LEXAPRO) 10 mg tablet Take 1 tablet (10 mg total) by mouth in the morning.Active hydrOXYzine (VISTARIL) 50 mg capsule Take 1 capsule (50 mg total) by mouth 3 (three) times a day as needed.05/15/2024 Active lisinopril-hydroCHLOROthiazide (PRINZIDE,ZESTORETIC) 10-12.5 mg per tablet Take 1 tablet by mouth in the morning.Active zonisamide (ZONEGRAN) 50 mg capsule Take 1 capsule (50 mg total) by mouth in the morning.Active baclofen (LIORESAL) 10 mg tablet Take 1 tablet (10 mg total) by mouth 2 (two) times a day as needed for muscle spasms.Active Active Problems No known active problems Family History Medical HistoryRelationNameCommentsLeukemiaMaternal GrandfatherBreast cancer Maternal GrandmotherMattie LigginsDeceasedArthritisMotherRosemary LigginsAsthma MotherRosemary LigginsHypertensionMotherRosemary LigginsRelationNameStatus CommentsMaternal GrandfatherDeceasedMaternal GrandmotherMattie LigginsDeceased MotherNita Rankin Social History Tobacco UseTypesPacks/DayYears UsedDateSmoking Tobacco: Former Vaping/E-cigarettesSmokeless Tobacco: Never Tobacco Cessation:Counseling Given: Not Answered Alcohol UseStandard Drinks/WeekCommentsNot Currently0 (1 standard drink = 0.6 oz pure alcohol)ChildcareAnswerDate IinjmzooZsaplojuyNaddpng41/12/2019Employment AnswerDate GzpikdvaBikrsforvuIhbvxko37/12/2019Hunger ScreeningAnswerDate RecordedWithin the past 12 months we worried whether our food would run out before we got money to buy more.Never True02/05/2025Within the past 12 months the food we bought just didn't last and we didn't have money to get more.Never True02/05/2025Purpose - LifeAnswerDate RecordedPurpose and direction in life Qkhauuk02/11/2021CommentsNoSex and Gender InformationValueDate Recorded Sex Assigned at WhxmgZhzkzl68/16/2021 12:23 PM ESTLegal PijHtygvl84/06/2015 11:30 AM EDTGender CyluvdjbTmtbyc85/16/2021 12:23 PM ESTSexual OrientationNot on file Last Filed Vital Signs Vital SignReadingTime TakenCommentsBlood Rilnzzeb102/85002/05/2025 10:53 AM EDT Utinw025202/05/2025 10:53 AM PKJWrmvtmmvatg69.8 ??C (98.2 ??F)02/05/2025 8:58 AM EDTRespiratory Tabc766102/05/2025 10:53 AM EDTOxygen Wpkaiqbkbk12%02/05/2025 10:53 AM EDTInhaled Oxygen Concentration--Ekqjtv669.8 kg (328 lb)02/05/2025 8:58 AM NEWYmwuhz287.4 cm (5')02/05/2025 8:58 AM EDTBody Mass Index64. 8:58 AM EDT Plan of Treatment Health MaintenanceDue DateLast DoneCommentsDepression Qnzshtfmq47/03/1996Adult BMI Follow Up Plan12/15/2001COVID-19 Vaccine (3 - 2024- season)2025 04/10/2021, 03/20/2021Influenza Hocrsna0204/15/2025dult BMI Ozqekyuuu15/24/2026 02/05/2025Tobacco Anzkmhalm90/24/563539/4711Rivemshreio17, 06/14/2024TaP,Tdap and Td Vaccines (3 - Td or Tdap), 03/05/2010Pap LuwrpFqkvjwivfcaf94/18/2025, 07/05/2022 Medical Devices Not on file Procedures Procedure NamePriorityDate/TimeAssociated DiagnosisCommentsPROVATION COLONOSCOPY Rkmegln9006/14/2024 8:12 AM EDT from Last 3 Months or Most Recently Relevant to Health Maintenance Results * Colonoscopy Report (06/14/2024 8:12 AM EDT)Specimen (Source)Anatomical Location / LateralityCollection Method / VolumeCollection TimeReceived Time Narrative SYSTEMGENERATED, DOCUMENTATION - 06/14/2024 8:12 AM EDT This order has been auto-finalized for image and report archival in PACs. *For full report details, please reach out to your physician. ??This image is visible to you in MyChart.* Authorizing ProviderResult TypeResult StatusMichael E Grillis DOIMG OR IMG ORDERABLESFinal Result from Last 3 Months or Most Recently Relevant to Health Maintenance Insurance Care Teams Team MemberRelationshipSpecialtyStart DateEnd Date Services, [facility] [address] [place], [place] PCP - GeneralFamily Medicine02/05/25
--- NOTE | 2025-07-03 14:02 | PM.CN ---
Consult Note: HPI Data of Consult Patient: known to practice within the last 3 years Requesting Physician: Carol Tyler NP Primary Care Provider: Sharon Herring Consult Narrative Reason for consult: chronic middle back pain Narrative: Eran Rankin a pleasant 39 year old female with chronic middle back pain > 12 months unresponsive to > 6 weeks of provider guided HEP, heat, ice, tylenol, nsaids presents for evaluation. noting increasing bilateral thoracic pain over the last few months without new injury. Pain today 7/10 pulling, sharp, tender increasing with position changes, lifting, twisting, bending, activity, and weather changes. utilizing zonegran 50mg bid and tylenol with mild benefit, stopped baclofen a few months ago. cc:: CC: Carol Tyler NP Review of Systems ROS Musculoskeletal Reports: back pain and joint pain [facility] Medical History (Updated 07/03/25 @ 14:05 by Carol Tyler NP) Osteoarthritis ?M19.90 - Unspecified osteoarthritis, unspecified site (ICD-10) Hiatal hernia ?K44.9 - Diaphragmatic hernia without obstruction or gangrene (ICD-10) Former smoker ?Z87.891 - Personal history of nicotine dependence (ICD-10) Hypertension ?I10 - Essential (primary) hypertension (ICD-10) Surgical History H/O: hysterectomy ?Z90.710 - Acquired absence of both cervix and uterus (ICD-10) Meds Home Medications and Allergies Home Medications ?Medication ?Instructions ?Recorded ?Confirmed ?Type albuterol sulfate 90 mcg/actuation 1 inh inhalation Q4H 06/01/23 12/03/24 History aerosol inhaler baclofen 10 mg tablet 10 mg PO BID PRN muscle spasm 06/01/23 12/03/24 History hydroxyzine HCl 10 mg tablet 10 mg PO DAILY 06/01/23 12/03/24 History lisinopril 10 1 tab PO DAILY 06/01/23 12/03/24 History mg-hydrochlorothiazide 12.5 mg tablet rosuvastatin 20 mg tablet 20 mg PO DAILY 06/01/23 12/03/24 History zonisamide 50 mg capsule 50 mg PO DAILY 06/01/23 12/03/24 History diazepam 10 mg tablet mg 10/02/24 History venlafaxine 37.5 mg mg PO 12/03/24 History capsule,extended release 24 hr Allergies Allergy/AdvReac Type Severity Reaction Status Date / Time Penicillins Allergy Unknown swellling Verified 12/03/24 11:54 Exam Constitutional Documenting provider has reviewed patient's vital signs: yes Common normals: no apparent distress, oriented x3 and alert General appearance: cooperative HENMT Common normals: normocephalic, hearing grossly normal bilaterally and moist oral mucous membranes Head and scalp: normocephalic Eye Common normals: PERRL Pupil: PERRL Neck & C-Spine Common normals: full ROM General: normal visual inspection Chest Common normals: inspection of chest normal Respiratory Common normals: normal respiratory effort, no retractions and no use of accessory muscles Back & Pelvis Thoracic spine/upper back: ROM limited, pain with ROM, thoracic spinal tenderness, paraspinal muscle tenderness and paraspinal muscle spasm Thoracic paraspinal muscle spasm: left Left thoracic paraspinal muscle spasm: T11 and T12 Other: neuropathic noted to bilateral T11,12,L1 increased pain to T10-12 with forward flexion strength 5/5 in BLE Neuro Common normals: oriented x3 Sensorium/orientation: alert Psych Common normals: mental status grossly normal, thought process normal, cooperative, affect normal, speech normal and activity/motor behavior normal Speech: normal speech Thought process: normal thought process Results Additional Findings Additional findings: If on a controlled substance or opioids, I have checked an [place] report on this patient and there are no aberrancies noted in the prescribing history.??If on a controlled substance or opioid a drug screen was completed and reviewed within the last year, and if there has not been a drug screen completed we ordered one today to monitor higher risk, state monitored pain medication use. As part of providing excellent, safe, comprehensive care, the following was completed at our patient's visit: 1. A medication reconciliation and review to ensure accurate knowledge of current/active medications, including asking our patients to inform us about any [id number] medications or herbal remedies/nutritional supplements/alternative remedies. 2. A review to specifically ensure our patients have had annual screening for screening for depression, screening for tobacco use, and screening for unhealthy alcohol use. For concerning screenings had a discussion with the patient, provided patient education, and recommended follow-up with primary care provider when appropriate. If patient noted with a risk of falling, they received education on strength, gait, and balance training to prevent future risk of falling. Portions of this note may have been carried over from the previous visit and updated as appropriate. Please note this office utilizes paper charting in addition to the electronic medical record. A list of current medications, vitals, and PMH is available there as the clinical staff outside of myself do not have access to anydooR charting during the clinic day operations. As part of providing quality comprehensive care the current medications, vitals, and PMH were reviewed in the paper chart. Assessment and Plan Assessment and Plan (1) Chronic thoracic back pain: (2) Myofascial pain: (3) Intercostal neuralgia: Plan The patient has had over 3 months of moderate to severe thoracic back pain with functional impairment and inadequate response to conservative care including NSAIDS (unless there are contraindication such as concurrent blood thinners), multiple oral or topical pain medications, and home exercise program/physical therapy.? Patient has completed >6 weeks of guided home exercise program and/or formal physical therapy program without relief of their symptoms.? I have reviewed the imaging of the thoracic spine and no red flags were identified.? The Oswestry Disability Index was completed, and the patient scored a 24%.? update thoracic mri without contrast in consideration of NS consultation vs interventional therapy restart baclofen 5-10mg tid prn pain/spasms continue zonegran 50mg bid and prn otc tylenol f/u to review MRI
== END 2025-07-03 13:31 | disposition home or self-care (01) ==
LOC: PM 13:30
PROVIDERS: PCP Family Medicine; Visit Provider Nurse Practitioner
DX: M54.6 Pain in thoracic spine (principal); G89.29 Other chronic pain; M79.18 Myalgia, other site; G58.8 Other specified mononeuropathies
CPT/HCPCS: G0463